=== PATIENT | female | born 1950 | race Caucasian/White ===

== ENCOUNTER 2018-03-31 00:51 | Emergency (ER) | payer MEDICARE, MEDICAID, SELFPAY ==
[2018-03-31 00:53] VITALS: BP 156/84; PULSE 99; RESP 16; TEMP 36.6; O2SAT 94; BMI 40.7
--- NOTE | 2018-03-31 01:50 | ED.VISSUMM ---
- ER Visit Summary Date of Service: 03/31/18 Chief Complaint: Left wrist pain History of Present Illness: The patient is a 67 F right-hand dominant increasing left wrist pain over 2 days. Has been doing more lifting with repetitive motions. No paresthesias. Pain with movement. No fevers. Denies direct falls or injuries. No history of similar. No medicines taken. History diabetes. Denies acute kidney injury or gastric ulcers. Physical Examination: General: Alert and oriented ?3, no acute distress HEENT: Normocephalic, atraumatic. Moist mucosa membranes Neck: supple, nontender. Cardiovascular: Regular rate and rhythm, no murmurs Respiratory: Normal breath sounds, symmetric, no distress Abdomen: Soft, nontender, nondistended Extremities: no edema, pulses intact ?4. Left upper extremity no shoulder or elbow pain. There is wrist pain to extension against resistance or force flexion. No styloid tenderness. No snuffbox tenderness. No swelling or erythema. Skin intact. Neuro: no focal neurological deficits. Test Results: [] Emergency Department Course and Treatment: Patient exam concerns for wrist tendinitis with overuse injury. Placed in a Velcro wrist splint for comfort. She will maintain for the next week and can take out for showers. Tylenol started. Follow-up with her PCP. Return if any worsening symptoms. Treatment Plan: [] Disposition: Discharge Impression: Left wrist tendinitis This note was generated with [employer] dictation software. It may contain incorrect words, spelling, and punctuation that were not noted in review of the chart prior to signing ED Disposition - Plan for ED Patient: Disposition: Home or Assisted Living Chief Complaint: Upper Extremity Injury Diagnosis: Left wrist tendinitis Referrals: Meghan Murphy MD [Primary Care Provider] - 5-7 Days Additional Instructions: Tendinitis of left wrist extensor. Use Tylenol 1 g every 6 hours as needed. Keep wrist splint on even at sleep. May remove for showers. Follow-up with your doctor.
[2018-03-31] MEDS: Acetaminophen 500 MG Tablet 1000 MG PO (02:00)
[2018-03-31 02:01] VITALS: RESP 18
== END 2018-03-31 02:13 | disposition home or self-care (01) ==
PROVIDERS: Emergency Provider Emergency Medicine; Family Provider Internal Medicine; PCP Internal Medicine
DX: M77.9 Enthesopathy, unspecified (principal); J44.9 Chronic obstructive pulmonary disease, unspecified; E11.9 Type 2 diabetes mellitus without complications; Z79.899 Other long term (current) drug therapy
CPT/HCPCS: 99283

== ENCOUNTER 2018-08-20 14:02 | Outpatient (RCR) | payer MEDICARE, MEDICAID, SELFPAY | END 2018-08-23 23:59 | LOC: WC 14:02 | PROVIDERS: Family Provider Internal Medicine; PCP Internal Medicine; Visit Provider Nurse Practitioner Family | DX: Z09 Encounter for follow-up examination after completed treatment for conditions other than malignant neoplasm (principal) ==

== ENCOUNTER 2019-06-23 14:30 | Outpatient (RCR) | payer BC, MEDICARE, SELFPAY ==
[2019-06-16 14:28] VITALS: BP 151/82; PULSE 77; RESP 18; TEMP 36.4; BMI 44.6
--- NOTE | 2019-06-16 15:45 | HP.PCM_ITS ---
(1) Ulcer of left lower extremity with fat layer exposed Status: Chronic Current Visit: Yes Code(s): L97.922 - Non-pressure chronic ulcer of unspecified part of left lower leg with fat layer exposed (2) Edema of both legs Status: Chronic Current Visit: Yes Code(s): R60.0 - Localized edema (3) Venous insufficiency Status: Suspected Current Visit: Yes Code(s): I87.2 - Venous insufficiency (chronic) (peripheral) (4) Other specified peripheral vascular diseases Status: Suspected Current Visit: Yes Code(s): I73.89 - Other specified peripheral vascular diseases (5) Type II diabetes mellitus Status: Chronic Current Visit: Yes Code(s): E11.9 - Type 2 diabetes mellitus without complications (6) Adult BMI 30+ Status: Chronic Current Visit: Yes Code(s): E66.8 - Other obesity History of Present Illness Date of Service: 06/16/19 Chief Complaint: Swollen painful legs with left leg ulcer History of Wound: This 68-year-old female who was seen today for painful swollen legs with a new left leg ulcer with an onset of about 1 to 2 weeks ago. She denies any known trauma. She noticed weeping. She denies odor. Her legs are tender constantly. She admits she does not elevate them. She did have a multilayer compression dressing applied last week and was not able to tolerate this in which she removed it at home later that evening. She denies claudication symptoms or rest paresthesias. She does report difficulty breathing while laying flat which is consistent with orthopnea. She is very emotional during this visit. Past Medical History Past Medical History: Chronic Problems Ulcer of left lower extremity with fat layer exposed (Chronic) Edema of both legs (Chronic) Obesity (Chronic) History of gallstones (Chronic) Fatty liver (Chronic) Type II diabetes mellitus (Chronic) Adult BMI 30+ (Chronic) Past Medical History: Diabetes, history of cervical cancer. Medical record request has been submitted to the [facility] (Dr. Murphy) to gain a better understanding of her medical history Surgical History: - - thyroidectomy, Allergies/Adverse Reactions: Allergies budesonide [From Symbicort] Allergy (Verified 06/16/19 15:04) Other formoterol fumarate [From Symbicort] Allergy (Verified 06/16/19 15:04) Other strawberry Allergy (Verified 06/16/19 15:04) Rash MOLD Allergy (Intermediate, Uncoded 06/16/19 15:04) Other Home Medications: Ambulatory Orders Medication Instructions Recorded Azelastine HCl [Astelin] 2 spray NASAL BID 02/21/17 Fluticasone/Salmeterol [Advair 1 each IH BID 02/21/17 100-50 Diskus] Levothyroxine [Synthroid] 100 mcg PO DAILY 02/21/17 Cholecalciferol (Vitamin D3) 500 unit PO DAILY 03/31/18 [Vitamin D3] Lidocaine [Aspercreme] 1 each TP PRN PRN 03/31/18 Lives: Alone Smoking Status: Never smoker Review of Systems Constitutional: Denies: Chills, Fever, Fatigue HEENT: Denies: Sore Throat Cardiovascular: Reports: Edema, Orthopnea. Denies: Chest Pain, Claudication Respiratory: Denies: Shortness of Breath Gastrointestinal: Denies: Diarrhea, Nausea, Vomiting Musculoskeletal: Reports: Leg Pain. Denies: Foot Pain, Joint Tenderness Skin: Reports: Skin Changes, Wounds. Denies: Pruritis Neurological: Reports: Incoordination. Denies: Numbness Psychiatric: Reports: Anxiety - Physical Exam Vital Signs Temp Pulse Resp BP 97.5 F L 77 18 151/82 H 06/16/19 14:28 06/16/19 14:28 06/16/19 14:28 06/16/19 14:28 General: Alert, Oriented x3, Cooperative HEENT: Atraumatic Extremities: No cyanosis, Capillary Refill Less than 3 Seconds, No Calf Tenderness - Negative Whipple sign bilateral, Diminished Peripheral Pulses - Palpable DP pulses bilateral, Edema - Digits, foot, and leg. The left leg is more swollen than the right leg and there are chronic skin changes including hyperpigmentation, induration and weeping from the left leg, Tenderness - Compartments soft to palpate bilateral lower extremities Skin: Ulcer/ Wound - The ulcer site is very superficial with weeping serous drainage only. There is no purulence, erythema, streaking, odor, infection. No bogginess or fluctuance left. The skin is hairless and atrophic bilateral lower extremities Wound Measurements and Assessment WC - Nurse 1 - General Ulcer Measurement Start: 06/16/19 14:26 Freq: Status: Active Protocol: Activity Type Activity Date Activity User E-Sign Co-Sign Detail Recorded Client Recorded Date Recorded By Document 06/16/19 14:28 DV [id number] 06/16/19 14:59 DV 06/16/19 14:28 Wound Center Nurse 1 [Ulcer Assessment] #1 Lateral LLE -Combined with other wound No -Current Size (cm) - Length 0.9 -Current Size (cm) - Width 1.8 -Current Size (cm) - Depth 0.1 -Total Square Cm 1.62 -Date of Last Picture (Recall this 06/16/19 field) -Photo Taken Yes -Epithelialization None Present -Tunneling No -Undermining/Tunneling No -Circular Undermining No -Classification - Thickness Full Thickness without Exposed Support Structure -Exudate Amt Medium -Exudate Type Serosanguineous -Wound Margin Flat & Intact -Granulation Amt None Present (0 %) -Granulation Quality N/A -Slough/Fibrin Yes -Necrosis Amt Medium (34-66%) -Necrotic Tissue Type Adherent Slough -Structure Exposed None/Limited to Skin Breakdown -Texture (Miracle-wound Skin Appearance) Assessed, Scarring -Moisture (Miracle-wound Skin Appearance Assessed, ) Weeping,Dry/ Scaly -Color (Miracle-wound Skin Appearance) Assessed, Erythema -Temperature (Miracle-wound Skin No Abnormality Appearance) (Pt Warm) -Tenderness on Palpation (Miracle-wound Yes Skin Appearance) -Foul Odor after Cleansing No -Anesthetic Used 5% Lidocaine Gel [Edema Assessment] -Lower Limb Edema Present Yes -Right Calf (cm) 49.5 -Right Ankle (cm) 29.0 -Left Calf (cm) 52.2 -Left Ankle (cm) 35.0 WC - Nurse 2 - General Ulcer CM Notes Start: 06/16/19 14:26 Freq: Status: Active Protocol: Activity Type Activity Date Activity User E-Sign Co-Sign Detail Recorded Client Recorded Date Recorded By Document 06/16/19 15:12 AN [id number] 06/16/19 15:22 AN 06/16/19 15:12 Wound Center Nurse 2 [Procedure/Treatment] #1 Lateral LLE -Time 15:14 -Correct Patient Yes -Correct Side, Site, Position Yes -Correct Procedure Yes -Procedure Performed Yes -Type of Procedure Debridement -Clinical Debridement Subcutaneous -Post Debridement Size (cm) - Length 0.9 -Post Debridement Size (cm) - Width 1.8 -Post Debridement Size (cm) - Depth 0.1 -Total Square Cm 1.62 -Wound/Ulcer Outcome Not Healed -Ulcer Cleansing Rinsed/ Irrigated with Saline -Foul Odor after Cleansing No -Bioengineered Tissue No -Bleeding Controlled with Pressure -Offloading No -Treatment Response Procedure Tolerated Well [See Physician Procedure note for Specifics] Pain Scale: 0-10 Numeric [Pain] -Is Patient Pain Free? Yes Musculoskeletal: No Tenderness to Palpation of Joints or Extremities, Muscle Wasting Neurological: Sensory exam intact to light touch and pain Psych/Mental Status: Normal Affect, Appropriate Debridement Note Post-Debridement Measurements/Treatment WC - Nurse 2 - General Ulcer CM Notes Start: 06/16/19 14:26 Freq: Status: Active Protocol: Activity Type Activity Date Activity User E-Sign Co-Sign Detail Recorded Client Recorded Date Recorded By Document 06/16/19 15:12 AN [id number] 06/16/19 15:22 AN 06/16/19 15:12 Wound Center Nurse 2 #1 Lateral LLE -Time 15:14 -Correct Patient Yes -Correct Side, Site, Position Yes -Correct Procedure Yes -Procedure Performed Yes -Type of Procedure Debridement -Clinical Debridement Subcutaneous -Post Debridement Size (cm) - Length 0.9 -Post Debridement Size (cm) - Width 1.8 -Post Debridement Size (cm) - Depth 0.1 -Total Square Cm 1.62 -Wound/Ulcer Outcome Not Healed -Ulcer Cleansing Rinsed/ Irrigated with Saline -Foul Odor after Cleansing No -Bioengineered Tissue No -Bleeding Controlled with Pressure -Offloading No -Treatment Response Procedure Tolerated Well Pain Scale: 0-10 Numeric Is Patient Pain Free? Yes Wound debrided: lateral leg Laterality: Left Wound Grade/Stage: grade 1 Type of Debridement: Excisional debridement Anesthesia Used: 5% Lidocaine Gel Depth: in the subcutaneous layer Percentage of wound debrided: 100 Instrument Used: #15 blade Tissue Removed: fibrous, devitalized subcutaneous, biofilm, slough Severity: Fat Layer Exposed Amount of bleeding with debridement: Mild Bleeding Controlled with: Pressure Patient tolerated procedure well Assessment/Plan Active Problems Ulcer of left lower extremity with fat layer exposed (Chronic) Edema of both legs (Chronic) Type II diabetes mellitus (Chronic) Adult BMI 30+ (Chronic) Assessment: Left leg ulcer with fat layer exposed. Bilateral lower extremity. Leg pain bilateral. Venous insufficiency suspected. Lymphedema suspected. Potential congestive heart failure with secondary edema suspected. Rule out peripheral vascular disease. Malnutrition suspected Plan: I reviewed and discussed her case. She was referred from the [facility] center. The etiology of her swelling and ulcer was explained in detail again today. Debridement was performed as noted in the clinical panel. To change the dressing daily with Aquacel Ag. I recommend Tubigrip for compression management which is an initial low-grade treatment. Additional compression will be considered after she tolerates this and completes her arterial venous studies. I do recommend ordering CircAid compression dressings also for long- term management; order will be initiated. Venous Doppler studies have already been ordered and scheduling is pending including a reflux examination. Arterial studies were also ordered including JUSTINA, segmental pressures. Basic lab work was also ordered including CBC, CMP, and prealbumin to better understand her medical baseline status. Her medical records from [facility] were also requested to better understand her full medical history. She is advised to offload the ulcer site by avoiding laying on this site and by also controlling edema. To elevate the limbs above the level of the heart while at rest. I also recommended she avoid idle standing or sitting to better control her edema as well. I suspect most of her pain is secondary to the chronic high-grade edema. I do not recommend pain medication. She is reassured I do not suspect any local or systemic signs of illness at this time. To monitor and call the clinic if she notices any of these signs. To control diabetes and take nutritional supplementation to optimize healing. I recommend she return to the wound [facility] in 1 week. I answer all her questions.
[2019-06-23 14:38] VITALS: BP 123/83; PULSE 104; RESP 18; TEMP 36.7; BMI 44.6
--- NOTE | 2019-06-23 15:34 | PCM.WC.PN ---
(1) Ulcer of left lower extremity with fat layer exposed Status: Chronic Code(s): L97.922 - Non-pressure chronic ulcer of unspecified part of left lower leg with fat layer exposed (2) Edema of both legs Status: Chronic Code(s): R60.0 - Localized edema (3) Venous insufficiency Status: Suspected Code(s): I87.2 - Venous insufficiency (chronic) (peripheral) (4) Other specified peripheral vascular diseases Status: Suspected Code(s): I73.89 - Other specified peripheral vascular diseases (5) Type II diabetes mellitus Status: Chronic Code(s): E11.9 - Type 2 diabetes mellitus without complications (6) Adult BMI 30+ Status: Chronic Code(s): E66.8 - Other obesity Type of Wound Date of Service: 06/23/19 Chief Complaint: Swollen painful legs with left leg ulcer History of Wound: This 68-year-old female who was seen today for painful swollen legs with a new left leg ulcer with an onset of within 1 month ago. She denies any known trauma. She noticed weeping but has decreased. She had trouble with her compression dressing last week and refuses debridement today. She did not get her vascular studies test completed yet. Progress of Wound: Improving - Physical Exam Vital Signs Temp Pulse Resp BP 98.0 F 104 H 18 123/83 H 06/23/19 14:38 06/23/19 14:38 06/23/19 14:38 06/23/19 14:38 General: Alert, Oriented x3, Cooperative, No apparent distress Extremities: No cyanosis, Capillary Refill Less than 3 Seconds, No Calf Tenderness - Negative Yuri and Whipple sign, Diminished Peripheral Pulses, Edema Skin: Ulcer/ Wound - No purulence, erythema, streaking, odor, infection. Peripheral epithelialization is noted. The skin is hairless and atrophic. Wound Measurements and Assessment WC - Nurse 1 - General Ulcer Measurement Start: 06/16/19 14:26 Freq: Status: Active Protocol: Activity Type Activity Date Activity User E-Sign Co-Sign Detail Recorded Client Recorded Date Recorded By Document 06/23/19 14:38 [id number] 06/23/19 14:41 06/23/19 14:38 Wound Center Nurse 1 [Ulcer Assessment] #1 Lateral LLE -Combined with other wound No -Current Size (cm) - Length 1.2 -Current Size (cm) - Width 2.1 -Current Size (cm) - Depth 0.1 -Total Square Cm 2.52 -Photo Taken No -Epithelialization Medium 34-66% -Tunneling No -Undermining/Tunneling No -Circular Undermining No -Exudate Amt Medium -Exudate Type Serosanguineous -Wound Margin Distinct, Outline Attached -Granulation Amt Large (67-100%) -Granulation Quality Pale -Slough/Fibrin Yes -Necrosis Amt None Present (0 %) -Necrotic Tissue Type Adherent Slough -Structure Exposed None/Limited to Skin Breakdown -Texture (Miracle-wound Skin Appearance) Excoriation -Moisture (Miracle-wound Skin Appearance Weeping ) -Color (Miracle-wound Skin Appearance) Assessed, Erythema, Hemosiderin Staining -Temperature (Miracle-wound Skin No Abnormality Appearance) (Pt Warm) -Tenderness on Palpation (Miracle-wound Yes Skin Appearance) -Ulcer Cleansing Rinsed/ Irrigated with Saline -Foul Odor after Cleansing No -Anesthetic Used 4% Lidocaine Solution [Edema Assessment] -Lower Limb Edema Present Yes -Right Calf (cm) 44 -Right Ankle (cm) 26.5 -Left Calf (cm) 48 -Left Ankle (cm) 30.5 WC - Nurse 2 - General Ulcer CM Notes Start: 06/16/19 14:26 Freq: Status: Active Protocol: Activity Type Activity Date Activity User E-Sign Co-Sign Detail Recorded Client Recorded Date Recorded By Document 06/23/19 15:13 AN [id number] 06/23/19 15:17 AN 06/23/19 15:13 Wound Center Nurse 2 [Procedure/Treatment] #1 Lateral LLE -Time 15:16 -Correct Patient Yes -Correct Side, Site, Position Yes -Correct Procedure Yes -Procedure Performed No -Post Debridement Size (cm) - Length 1.2 -Post Debridement Size (cm) - Width 2.1 -Post Debridement Size (cm) - Depth 0.2 -Total Square Cm 2.52 -Wound/Ulcer Outcome Not Healed [See Physician Procedure note for Specifics] Pain Scale: 0-10 Numeric [Pain] -Is Patient Pain Free? Yes Musculoskeletal: No Tenderness to Palpation of Joints or Extremities, Muscle Wasting Neurological: Sensory exam intact to light touch and pain Psych/Mental Status: Normal Affect, Appropriate Debridement Note Post-Debridement Measurements/Treatment WC - Nurse 2 - General Ulcer CM Notes Start: 06/16/19 14:26 Freq: Status: Active Protocol: Activity Type Activity Date Activity User E-Sign Co-Sign Detail Recorded Client Recorded Date Recorded By Document 06/16/19 15:12 AN [id number] 06/16/19 15:22 AN Document 06/23/19 15:13 AN [id number] 06/23/19 15:17 AN 06/16/19 06/23/19 15:12 15:13 Wound Center Nurse 2 #1 Lateral LLE -Time 15:14 15:16 -Correct Patient Yes Yes -Correct Side, Site, Position Yes Yes -Correct Procedure Yes Yes -Procedure Performed Yes No -Type of Procedure Debridement -Clinical Debridement Subcutaneous -Post Debridement Size (cm) - Length 0.9 1.2 -Post Debridement Size (cm) - Width 1.8 2.1 -Post Debridement Size (cm) - Depth 0.1 0.2 -Total Square Cm 1.62 2.52 -Wound/Ulcer Outcome Not Healed Not Healed -Ulcer Cleansing Rinsed/ Irrigated with Saline -Foul Odor after Cleansing No -Bioengineered Tissue No -Bleeding Controlled with Pressure -Offloading No -Treatment Response Procedure Tolerated Well Pain Scale: 0-10 Numeric Is Patient Pain Free? Yes Yes No debridement was completed today - refused and very superficial Assessment/Plan Assessment: Left leg ulcer with fat layer exposed. Bilateral lower extremity. Leg pain bilateral. Venous insufficiency suspected. Lymphedema suspected. Potential congestive heart failure with secondary edema suspected. Rule out peripheral vascular disease. Malnutrition suspected Plan: I reviewed and discussed her case. She deferred debridement today. To change the dressing daily with Aquacel Ag. I recommend Tubigrip for compression management which is an initial low-grade treatment. Additional compression will be considered after she tolerates this and completes her arterial venous studies. I do recommend ordering CircAid compression dressings also for long-term management; order will be initiated. Venous Doppler studies have already been ordered and scheduling is pending including a reflux examination. Arterial studies were also ordered including JUSTINA, segmental pressures. Basic lab work was also ordered including CBC, CMP, and prealbumin to better understand her medical baseline status. Her medical records from [facility] were also requested to better understand her full medical history. She is advised to offload the ulcer site by avoiding laying on this site and by also controlling edema. To elevate the limbs above the level of the heart while at rest. I also recommended she avoid idle standing or sitting to better control her edema as well. I suspect most of her pain is secondary to the chronic high-grade edema. I do not recommend pain medication. She is reassured I do not suspect any local or systemic signs of illness at this time. To monitor and call the clinic if she notices any of these signs. To control diabetes and take nutritional supplementation to optimize healing. I recommend she return to the wound healing center in 1 week. I answer all her questions.
== END 2019-06-23 23:59 ==
LOC: WC 14:30
PROVIDERS: Family Provider Internal Medicine; PCP Internal Medicine; Visit Provider Podiatrist
DX: E11.622 Type 2 diabetes mellitus with other skin ulcer (principal); R60.0 Localized edema; I87.2 Venous insufficiency (chronic) (peripheral); L97.822 Non-pressure chronic ulcer of other part of left lower leg with fat layer exposed; E66.9 Obesity, unspecified; Z68.41 Body mass index [BMI] 40.0-44.9, adult; Z85.41 Personal history of malignant neoplasm of cervix uteri
CPT/HCPCS: 11042; 99202; 99212; G0463

== ENCOUNTER 2019-07-21 14:30 | Outpatient (RCR) | payer MEDICARE, SELFPAY ==
[2019-06-24 01:16] VITALS: BP 123/83; PULSE 104; RESP 18; TEMP 36.7
[2019-07-09 13:20] VITALS: BP 142/80; PULSE 104; RESP 16; TEMP 37.2; BMI 44.6
--- NOTE | 2019-07-09 16:48 | PN.PCM_ITS ---
(1) Ulcer of left lower extremity, limited to breakdown of skin Status: Chronic Current Visit: Yes Code(s): L97.921 - Non-pressure chronic ulcer of unspecified part of left lower leg limited to breakdown of skin (2) Left leg pain Status: Acute Current Visit: Yes Code(s): M79.605 - Pain in left leg (3) Edema of both legs Status: Chronic Current Visit: Yes Code(s): R60.0 - Localized edema (4) Venous insufficiency Status: Suspected Current Visit: Yes Code(s): I87.2 - Venous insufficiency (chronic) (peripheral) (5) Other specified peripheral vascular diseases Status: Suspected Current Visit: Yes Code(s): I73.89 - Other specified peripheral vascular diseases (6) Obesity Status: Chronic Current Visit: Yes Code(s): E66.9 - Obesity, unspecified Type of Wound Date of Service: 07/09/19 Chief Complaint: Swollen painful legs with left leg ulcer History of Wound: This 68-year-old female who was seen today for painful swollen legs with a new left leg ulcer with an onset of over 1 month ago. She denies any known trauma. She noticed weeping has continued. She did not get her vascular studies test completed yet. She has been trying to keep her swelling down with some mild compression use. She has had a recent urinary tract infection and bladder condition progression which she is following up with her primary care physician. This is been taking priority in regards to scheduling her doctor visits. She denies redness or odor. She is happy with her progress so far. Progress of Wound: Improving - Physical Exam Vital Signs Temp Pulse Resp BP 98.9 F 104 H 16 142/80 H 07/09/19 13:20 07/09/19 13:20 07/09/19 13:20 07/09/19 13:20 General: Alert, Oriented x3, Cooperative, No apparent distress HEENT: Atraumatic Extremities: No cyanosis, Capillary Refill Less than 3 Seconds, No Calf Tenderness - Negative Yuri and Whipple, Diminished Peripheral Pulses, Edema, Tenderness - Pain with ulcer manipulation and only has a skin layer exposed this time. Skin: Ulcer/ Wound - No purulence, erythema, streaking, odor, infection. There is progressive epithelialization however there is continued weeping. The peripheral skin is hairless and atrophic. She also has some hyperpigmentation to this limb which is consistent with chronic edema. No new ulcers noted. Wound Measurements and Assessment WC - Nurse 1 - General Ulcer Measurement Start: 07/05/19 10:24 Freq: Status: Active Protocol: Activity Type Activity Date Activity User E-Sign Co-Sign Detail Recorded Client Recorded Date Recorded By Document 07/09/19 13:20 BM [id number] 07/09/19 13:23 BM 07/09/19 13:20 Wound Center Nurse 1 [Ulcer Assessment] #1 Lateral LLE -Combined with other wound No -Current Size (cm) - Length 6 -Current Size (cm) - Width 3.3 -Current Size (cm) - Depth 0.1 -Total Square Cm 19.8 -Photo Taken No -Epithelialization None Present -Tunneling No -Undermining/Tunneling No -Circular Undermining No -Exudate Amt Small -Exudate Type Serous -Wound Margin Flat & Intact -Granulation Amt Small (1-33%) -Granulation Quality Red -Slough/Fibrin Yes -Necrosis Amt Large (67-100%) -Necrotic Tissue Type Adherent Slough -Texture (Miracle-wound Skin Appearance) Assessed, Excoriation, Rash -Moisture (Miracle-wound Skin Appearance Assessed,Dry/ ) Scaly -Color (Miracle-wound Skin Appearance) Assessed, Erythema -Temperature (Miracle-wound Skin No Abnormality Appearance) (Pt Warm) -Tenderness on Palpation (Miracle-wound Yes Skin Appearance) -Ulcer Cleansing Rinsed/ Irrigated with Saline -Foul Odor after Cleansing No -Anesthetic Used 4% Lidocaine Solution [Edema Assessment] -Lower Limb Edema Present Yes -Right Calf (cm) 45.2 -Right Ankle (cm) 27 -Left Calf (cm) 38.5 -Left Ankle (cm) 30.2 WC - Nurse 2 - General Ulcer CM Notes Start: 07/05/19 10:24 Freq: Status: Active Protocol: Activity Type Activity Date Activity User E-Sign Co-Sign Detail Recorded Client Recorded Date Recorded By Document 07/09/19 13:50 DV [id number] 07/09/19 13:56 DV 07/09/19 13:50 Wound Center Nurse 2 [Procedure/Treatment] #1 Lateral LLE -Time 13:51 -Correct Patient Yes -Correct Side, Site, Position Yes -Correct Procedure No -Procedure Performed No -Wound/Ulcer Outcome Not Healed [See Physician Procedure note for Specifics] Pain Scale: 0-10 Numeric [Pain] -Is Patient Pain Free? Yes Musculoskeletal: No Tenderness to Palpation of Joints or Extremities, Muscle Wasting Neurological: Sensory exam intact to light touch and pain Psych/Mental Status: Normal Affect, Appropriate Debridement Note Post-Debridement Measurements/Treatment WC - Nurse 2 - General Ulcer CM Notes Start: 07/05/19 10:24 Freq: Status: Active Protocol: Activity Type Activity Date Activity User E-Sign Co-Sign Detail Recorded Client Recorded Date Recorded By Document 07/09/19 13:50 DV [id number] 07/09/19 13:56 DV 07/09/19 13:50 Wound Center Nurse 2 #1 Lateral LLE -Time 13:51 -Correct Patient Yes -Correct Side, Site, Position Yes -Correct Procedure No -Procedure Performed No -Wound/Ulcer Outcome Not Healed Pain Scale: 0-10 Numeric Is Patient Pain Free? Yes No debridement was completed today - superficial weeping area only Assessment/Plan Active Problems Ulcer of left lower extremity, limited to breakdown of skin (Chronic) Left leg pain (Acute) Ulcer of left lower extremity with fat layer exposed (Chronic) Edema of both legs (Chronic) Obesity (Chronic) Assessment: Left leg ulcer with skin layer exposed and continued weeping. Bilateral lower extremity. Leg pain bilateral. Venous insufficiency suspected. Lymphedema suspected. Potential congestive heart failure with secondary edema suspected. Rule out peripheral vascular disease. Malnutrition suspected Plan: I reviewed and discussed her case. The debridement was not performed today because there is only skin layer exposed. Maintain recommend with her at this time is continued edema management to help her weeping stop. To change the dressing daily with saline moistened Aquacel Ag. I recommend Tubigrip for compression management which is an initial low-grade treatment. Additional compression will be considered after she tolerates this and completes her arterial venous studies. I do recommend ordering CircAid compression dressings also for long-term management; order has been initiated. Venous Doppler studies have already been ordered and scheduling is pending including a reflux examination. Arterial studies were also ordered including JUSTINA, segmental pressures. She has not scheduled this yet and I recommended she makes a prior to this upcoming week. It is noted that she has had other important medical conditions to tend to this past week and also recommended her follow-up with primary care physician as advised. Basic lab work was also ordered including CBC, CMP, and prealbumin to better understand her medical baseline status. Her medical records from [facility] were also requested to better understand her full medical history. She is advised to offload the ulcer site by avoiding laying on this site and by also controlling edema. To elevate the limbs above the level of the heart while at rest. I also recommended she avoid idle standing or sitting to better control her edema as well. I suspect most of her pain is secondary to the chronic high-grade edema. I do not recommend pain medication. She is reassured I do not suspect any local or systemic signs of illness at this time. To monitor and call the clinic if she notices any of these signs. To control diabetes and take nutritional supplementation to optimize healing. I recommend she return to the wound healing center in 1 week. I answer all her questions.
[2019-07-21 14:18] VITALS: BP 168/89; PULSE 97; RESP 22; TEMP 36.6; BMI 44.6
--- NOTE | 2019-07-21 16:01 | PN.PCM_ITS ---
(1) Ulcer of left lower extremity, limited to breakdown of skin Status: Resolved Current Visit: Yes Code(s): L97.921 - Non-pressure chronic ulcer of unspecified part of left lower leg limited to breakdown of skin (2) Left leg pain Status: Chronic Current Visit: Yes Code(s): M79.605 - Pain in left leg (3) Edema of both legs Status: Chronic Current Visit: Yes Code(s): R60.0 - Localized edema (4) Venous insufficiency Status: Suspected Current Visit: Yes Code(s): I87.2 - Venous insufficiency (chronic) (peripheral) (5) Other specified peripheral vascular diseases Status: Suspected Current Visit: Yes Code(s): I73.89 - Other specified peripheral vascular diseases (6) Obesity Status: Chronic Current Visit: Yes Code(s): E66.9 - Obesity, unspecified Type of Wound Date of Service: 07/21/19 Chief Complaint: Swollen painful legs with left leg ulcer History of Wound: This 68-year-old female who was seen today for painful swollen legs with a left leg ulcer. She denies any known trauma. She noticed weeping has discontinued. She did not get her vascular studies test completed yet. She relates she only wants to go if there is a female central sterile supply technician performing the exam because she had a bad experience last time she had this test performed. She admits she is very hypersensitive to even the lightest of touch to her legs. She has been trying to keep her swelling down with some mild compression use. She brought her compression garments today and would like to review proper application. She has had a recent urinary tract infection and bladder condition progression which she is following up with her primary care physician. She denies fever, chill, nausea, vomiting. She denies redness or odor. She is happy with her progress so far. Progress of Wound: Healed - Physical Exam Vital Signs Temp Pulse Resp BP 97.8 F 97 22 H 168/89 H 07/21/19 14:18 07/21/19 14:18 07/21/19 14:18 07/21/19 14:18 General: Alert, Oriented x3, Cooperative, No apparent distress HEENT: Atraumatic Extremities: No cyanosis, Capillary Refill Less than 3 Seconds, No Calf Tenderness - Hypersensitivity to light touch to the skin and negative Whipple sign bilateral, Diminished Peripheral Pulses, Edema - Moderate to severe bilateral lower extremities left is more notable than right Skin: Ulcer/ Wound - Full epithelialization noted to the left leg. There is no purulence, erythema, streaking, odor, infection. Bilateral lower extremity skin is hairless and atrophic with hyperpigmentation and dryness Wound Measurements and Assessment WC - Nurse 1 - General Ulcer Measurement Start: 07/05/19 10:24 Freq: Status: Active Protocol: Activity Type Activity Date Activity User E-Sign Co-Sign Detail Recorded Client Recorded Date Recorded By Document 07/21/19 14:18 DL [id number] 07/21/19 14:22 DL 07/21/19 14:18 Wound Center Nurse 1 [Ulcer Assessment] #1 Lateral LLE -Current Size (cm) - Length 0.1 -Current Size (cm) - Width 0.1 -Current Size (cm) - Depth 0.1 -Total Square Cm 0.01 -Photo Taken No -Exudate Amt None Present -Wound Margin Flat & Intact -Granulation Amt Large (67-100%) -Granulation Quality [place] -Necrosis Amt Small (1-33%) -Structure Exposed N/A -Texture (Miracle-wound Skin Appearance) Scarring,Rash -Color (Miracle-wound Skin Appearance) Hemosiderin Staining -Temperature (Miracle-wound Skin No Abnormality Appearance) (Pt Warm) -Tenderness on Palpation (Miracle-wound No Skin Appearance) -Ulcer Cleansing Wound Cleanser -Foul Odor after Cleansing No -Anesthetic Used 4% Lidocaine Solution [Edema Assessment] -Right Calf (cm) 43.6 -Right Ankle (cm) 27.6 -Left Calf (cm) 49 -Left Ankle (cm) 31 WC - Nurse 2 - General Ulcer CM Notes Start: 07/05/19 10:24 Freq: Status: Active Protocol: Activity Type Activity Date Activity User E-Sign Co-Sign Detail Recorded Client Recorded Date Recorded By Document 07/21/19 15:03 AN [id number] 07/21/19 15:04 AN 07/21/19 15:03 Pain Scale: 0-10 Numeric [Pain] -Is Patient Pain Free? Yes Musculoskeletal: No Tenderness to Palpation of Joints or Extremities, Muscle Wasting Neurological: Sensory exam intact to light touch and pain Psych/Mental Status: Normal Affect, Appropriate, Anxious Debridement Note Post-Debridement Measurements/Treatment WC - Nurse 2 - General Ulcer CM Notes Start: 07/05/19 10:24 Freq: Status: Active Protocol: Activity Type Activity Date Activity User E-Sign Co-Sign Detail Recorded Client Recorded Date Recorded By Document 07/09/19 13:50 DV [id number] 07/09/19 13:56 DV Document 07/21/19 15:03 AN [id number] 07/21/19 15:04 AN 07/09/19 07/21/19 13:50 15:03 Wound Center Nurse 2 #1 Lateral LLE -Time 13:51 -Correct Patient Yes -Correct Side, Site, Position Yes -Correct Procedure No -Procedure Performed No -Wound/Ulcer Outcome Not Healed Pain Scale: 0-10 Numeric Is Patient Pain Free? Yes Yes Wound debrided: leg Laterality: Left No debridement was completed today - healed today Assessment/Plan Active Problems Left leg pain (Chronic) Ulcer of left lower extremity with fat layer exposed (Chronic) Edema of both legs (Chronic) Obesity (Chronic) Assessment: Left leg ulcer healed and resolved weeping noted. Bilateral lower extremity. Leg pain bilateral. Venous insufficiency suspected. Lymphedema suspected. Potential congestive heart failure with secondary edema suspected. Rule out peripheral vascular disease. Malnutrition suspected Plan: I reviewed and discussed her case. The debridement was not performed today because it is healed. To discontinue dressing care as the ulcer site has healed. I recommend Tubigrip for compression management which is an initial low-grade treatment. She obtained the recommended CircAid compression dressings also for long-term management and was educated on proper application today. Venous Doppler studies have already been ordered and scheduling is pending including a reflux examination. Arterial studies were also ordered including JUSTINA, segmental pressures. She has not scheduled this yet and I recommended she makes a prior to this upcoming week. Her scheduling apprehensions were discussed and regardless I still recommend she gets this updated test performed so we can provide the most appropriate care plan. It is noted that she has had other important medical conditions to tend to this past week and also recommended her follow-up with primary care physician as advised. Basic lab work was also ordered including CBC, CMP, and prealbumin to better understand her medical baseline status. Her medical records from [facility] were also requested to better understand her full medical history. She is advised to offload the recently healed ulcer site by avoiding laying on this site and by also controlling edema. To elevate the limbs above the level of the heart while at rest. I also recommended she avoid idle standing or sitting to better control her edema as well. I suspect most of her pain is secondary to the chronic high-grade edema. I do not recommend pain medication. She is reassured I do not suspect any local or systemic signs of illness at this time. To monitor and call the clinic if she notices any of these signs. To control diabetes and take nutritional supplementation to optimize healing. I recommend she return to the wound healing center in 1 week. I answer all her questions.
== END 2019-07-24 23:59 ==
LOC: WC 14:30
PROVIDERS: Family Provider Internal Medicine; PCP Internal Medicine; Visit Provider Podiatrist
DX: E11.622 Type 2 diabetes mellitus with other skin ulcer (principal); L97.821 Non-pressure chronic ulcer of other part of left lower leg limited to breakdown of skin
CPT/HCPCS: 99212; 99213; G0463

== ENCOUNTER 2019-08-04 13:42 | Outpatient (RCR) | payer MEDICARE, MEDICAID, SELFPAY ==
[2019-07-25 01:01] VITALS: BP 168/89; PULSE 97; RESP 22; TEMP 36.6
[2019-08-04 14:58] VITALS: BP 147/76; PULSE 84; RESP 18; TEMP 36.7; BMI 47.2
--- NOTE | 2019-08-04 15:46 | PN.PCM_ITS ---
(1) Left leg pain Status: Acute Current Visit: Yes Code(s): M79.605 - Pain in left leg (2) Ulcer of left lower extremity, limited to breakdown of skin Status: Resolved Current Visit: Yes Code(s): L97.921 - Non-pressure chronic ulcer of unspecified part of left lower leg limited to breakdown of skin (3) Edema of both legs Status: Chronic Current Visit: Yes Code(s): R60.0 - Localized edema (4) Venous insufficiency Status: Suspected Current Visit: Yes Code(s): I87.2 - Venous insufficiency (chronic) (peripheral) (5) Type II diabetes mellitus Status: Chronic Current Visit: Yes Code(s): E11.9 - Type 2 diabetes mellitus without complications Type of Wound Date of Service: 08/04/19 Chief Complaint: Swollen painful legs with healed left leg ulcer History of Wound: This 68-year-old female who was seen today for painful swollen legs with a left leg ulcer. She denies any known trauma. She noticed weeping has discontinued. She did not get her vascular studies test completed yet. She has been trying to keep her swelling down with some mild compression use. She denies fever, chill, nausea, vomiting. She denies redness or odor. She is happy with her improvement. Progress of Wound: Remains healed - Physical Exam Vital Signs Temp Pulse Resp BP 98.0 F 84 18 147/76 H 08/04/19 14:58 08/04/19 14:58 08/04/19 14:58 08/04/19 14:58 General: Alert, Oriented x3, Cooperative, No apparent distress Extremities: No cyanosis, Capillary Refill Less than 3 Seconds, No Calf Tendern ess - Negative Yuri and Whipple sign left, Diminished Peripheral Pulses, Edema, Tenderness - Reduce tenderness to healed ulcer site left leg Skin: Ulcer/ Wound - No purulence, erythema, streaking, odor, skin discontinuity, maceration, or necrosis left leg. The skin is atrophic Wound Measurements and Assessment WC - Nurse 1 - General Ulcer Measurement Start: 08/04/19 14:57 Freq: Status: Active Protocol: Activity Type Activity Date Activity User E-Sign Co-Sign Detail Recorded Client Recorded Date Recorded By Document 08/04/19 14:58 [email or web address] [id number] 08/04/19 15:01 ALFRED 08/04/19 14:58 Wound Center Nurse 1 [Edema Assessment] -Lower Limb Edema Present Yes -Right Calf (cm) 42.8 -Right Ankle (cm) 26.2 -Left Calf (cm) 45.5 -Left Ankle (cm) 29.3 WC - Nurse 2 - General Ulcer CM Notes Start: 08/04/19 14:57 Freq: Status: Active Protocol: Activity Type Activity Date Activity User E-Sign Co-Sign Detail Recorded Client Recorded Date Recorded By Document 08/04/19 15:33 AN [id number] 08/04/19 15:37 AN 08/04/19 15:33 Pain Scale: 0-10 Numeric [Pain] -Is Patient Pain Free? Yes Musculoskeletal: No Tenderness to Palpation of Joints or Extremities, Muscle Wasting Neurological: Sensory exam intact to light touch and pain Psych/Mental Status: Normal Affect, Appropriate Debridement Note Post-Debridement Measurements/Treatment WC - Nurse 2 - General Ulcer CM Notes Start: 08/04/19 14:57 Freq: Status: Active Protocol: Activity Type Activity Date Activity User E-Sign Co-Sign Detail Recorded Client Recorded Date Recorded By Document 08/04/19 15:33 AN [id number] 08/04/19 15:37 AN 08/04/19 15:33 Pain Scale: 0-10 Numeric Is Patient Pain Free? Yes No debridement was completed today Assessment/Plan Active Problems Left leg pain (Acute) Edema of both legs (Chronic) Type II diabetes mellitus (Chronic) Assessment: Left leg ulcer healed and resolved weeping noted. Bilateral lower extremity. Leg pain bilateral. Venous insufficiency suspected. Lymphedema suspected. Potential congestive heart failure with secondary edema suspected. Rule out peripheral vascular disease. Malnutrition suspected Plan: I reviewed and discussed her case. The debridement was not performed today because it is healed. To discontinue dressing care as the ulcer site has healed. I recommend Tubigrip for compression management which is an initial low-grade treatment. She obtained the recommended CircAid compression dressings also for long-term management and was educated on proper application today. Venous Doppler studies have already been ordered and scheduling is pending including a reflux examination. Arterial studies were also ordered including JUSTINA, segmental pressures. She has not scheduled this yet and I recommended she makes a prior to this upcoming week. She has been noncompliant with this and understands weekly follow-ups will not be recommended if she fails to obtain the appropriate work-up to prevent future wound formation. She is advised to offload the recently healed ulcer site by avoiding laying on this site and by also controlling edema. To elevate the limbs above the level of the heart while at rest. I also recommended she avoid idle standing or sitting to better control her edema as well. I suspect most of her pain is secondary to the chronic high-grade edema. I do not recommend pain medication. She is reassured I do not suspect any local or systemic signs of illness at this time. To monitor and call the clinic if she notices any of these signs. To control diabetes and take nutritional supplementation to optimize healing. She is frustrated with her inability to lose weight and I offered her nutrition referral. Referral was made today we discussed the benefits of the service. I recommend she return to the wound healing center in 1 week. I answer all her questions.
== END 2019-08-23 23:59 ==
LOC: CVS 13:42
PROVIDERS: Family Provider Internal Medicine; PCP Internal Medicine; Visit Provider Podiatrist
DX: R60.0 Localized edema (principal); M79.605 Pain in left leg; I87.2 Venous insufficiency (chronic) (peripheral); E11.9 Type 2 diabetes mellitus without complications
CPT/HCPCS: 99212; G0463

== ENCOUNTER 2019-09-01 10:39 | Outpatient (RCR) | payer MEDICARE, MEDICAID, SELFPAY ==
[2019-08-24 00:55] VITALS: BP 147/76; PULSE 84; RESP 18; TEMP 36.7
== END 2019-09-23 23:59 ==
LOC: WC 10:39
PROVIDERS: Family Provider Internal Medicine; PCP Internal Medicine; Visit Provider Podiatrist
DX: Z09 Encounter for follow-up examination after completed treatment for conditions other than malignant neoplasm (principal)

== ENCOUNTER 2021-03-26 13:49 | Observation (INO) | payer MEDICARE, MEDICAID, SELFPAY ==
[2021-03-26] VITALS (8 sets, daily range): BP systolic 98–120; BP diastolic 50–69; PULSE 76–91; RESP 16–20; TEMP 36.1–37; O2SAT 93–98; BMI 44.6; BMI 43.2
--- NOTE | 2021-03-26 15:07 | EKG12_ITS ---
Test Reason : Blood Pressure : / mmHG Vent. Rate : 085 BPM Atrial Rate : 085 BPM P-R Int : 172 ms QRS Dur : 106 ms QT Int : 404 ms P-R-T Axes : 036 006 037 degrees QTc Int : 480 ms Normal sinus rhythm Incomplete left bundle branch block Nonspecific ST abnormality Abnormal ECG Confirmed by ALBINA MATA, DARRIUS ([id number]), multimedia editor JOHN VENCES ([id number]) on 03/28/2021 8:56:20 AM Referred By: MARCELLE Confirmed By:DARRIUS MONTEMAYOR MD
[2021-03-26 15:29] LABS: Absolute Lymphocyte Count 1.24 X10^3/uL (0.83-4.51); Absolute Neutrophil Count 18.7 X10^3/uL (2.0-7.7); Basophil# 0.04 X10^3/uL; Basophil% 0.2 % (0-1); Eosinophil# 0.12 X10^3/uL; Eosinophils% 0.6 % (0-5); Hematocrit 36.8 % (37-47); Hemoglobin 11.9 g/dL (12.0-15.0); Lymphocyte # 1.24 X10^3/ul (0.83-4.51); Lymphocyte % 5.8 % (19-41); Mean Corp Hgb Conc 32.3 g/dL (32-36); Mean Corpuscular Hgb 30.1 pg (27.0-32.0); Mean Corpuscular Volume 92.9 fL (81-99); Mean Platelet Vol. 11.7 fl (6.2-12.0); Monocyte# 1.02 X10^3/uL; Monocyte% 4.8 % (0-10); NRBC Flagged by Analyzer 0 % (0-5); Neutrophil % 87.9 % (47-70); Platelet Count 167 K/mm3 (150-450); RBC Distribution Width CV 14.6 % (11.6-14.6); RBC Distribution Width SD 50.3 fl (35.1-43.9); Red Blood Count 3.96 M/mm3 (4.2-5.4); White Blood Count 21.3 K/mm3 (4.4-11.0)
[2021-03-26] MEDS: 0.9% Normal Saline 1,000 ML 150 ML IV (15:44)
[2021-03-26 15:47] LABS: Red Blood Cells-Urine 0 SEEN /hpf (0-5)
[2021-03-26 16:02] LABS: AST(SGOT) 37 U/L (15-37); Alanine Aminotransfer ALT/SGPT 32 U/L (13-56); Albumin, Serum 2.9 g/dL (3.2-5.0); Alkaline Phosphatase 185 U/L (45-117); Anion Gap 8 (5-15); BUN 70 mg/dL (7-18); BUN/Creat Ratio 25.1 RATIO (10-20); Bilirubin, Direct 0.25 mg/dL (0.00-0.30); Calcium,Total 8.8 mg/dL (8.5-10.1); Chloride 103 mmol/L (98-107); Creatinine, Serum 2.79 mg/dL (0.55-1.02); EST Glomerular Filtration Rate 18 mL/min (>60); Est Glom Filt Rate - Afr Amer 22 mL/min (>60); Globulin 5.4 g/dL (2.2-4.2); Glucose 108 mg/dL (74-106); Potassium 4.4 mmol/L (3.5-5.1); Protein, Total 8.3 g/dL (6.4-8.2); Sodium Level 135 mmol/L (136-145)
--- NOTE | 2021-03-26 16:15 | RAD_ITS ---
INDICATION: cough EXAMINATION/TECHNIQUE: X-RAY - XR Chest 1 View COMPARISON: 03/24/2015. FINDINGS: Slight increase in interstitial markings. Tortuous and calcified thoracic aorta. The heart is not enlarged. No pleural effusion or pneumothorax. No acute osseous abnormalities. RAD/Chest 1 View (Portable) IMPRESSION: Slight increase in interstitial markings could be artifactual versus infection and/or edema. No focal consolidation. Electronically Signed: Judd Chiu MD at 16:48 EDT Tel , Service support ,
[2021-03-26 16:26] LABS: Color, Urine Yellow (Yellow); Glucose, Dipstick Normal (Normal); Ketone-Dipstick Negative (Negative); Leukocyte Esterase-Dipstick 500 /ul (Negative); Nitrite-Dipstick Positive (Negative); Occult Blood-Urine 150 /ul (Negative); Protein-Dipstick 30 mg/dl (Negative); Specific Gravity, Urine 1.015 (1.002-1.030); Urine Bilirubin Dipstick Negative (Negative); Urine Clarity Cloudy (Clear); Urine Urobilinogen Normal (Normal)
[2021-03-26 16:42] LABS: Squamous Epithelial Cells - UA 0-5 SEEN /hpf (5-10); White Blood Cells 10-25 SEEN /hpf (0-5)
[2021-03-26 16:43] LABS: Bacteria 2+ /hpf (None Seen); Hyaline Cast 0-5 SEEN /lpf (0-5)
--- NOTE | 2021-03-26 17:00 | EX.ED.DYSGE1 ---
HPI History of Present Illness Chief Complaint: Weakness Detail of Chief Complaint: Weakness, diarrhea, fall Informant: patient Onset/Context/Timing Onset: Days Current Severity: Moderate Maximum Severity: Moderate Narrative Narrative: Patient presents with generalized weakness, short of breath, and fall. She states that she fell 2 days ago at home because she was just too weak. She reports having diarrhea. She has a chronic left leg wound that recently started to worsen as well. She denies fever or chills, but states she has felt warm. She is here today with her home health nurse. EMS reportedly did relay concerns about the state of her home. [facility] Medical History (Updated 03/26/21 @ 17:[address] Yuly Barr MD) UTI (urinary tract infection) Home Medications azelastine 2 spray NASAL BID 02/21/17 [History Last Taken Unknown] fluticasone propion-salmeterol [Advair 100-50 Diskus] 1 ea IH BID 02/21/17 [History Last Taken Unknown] levothyroxine 100 mcg PO DAILY 02/21/17 [History Last Taken Unknown] cholecalciferol (vitamin D3) [Vitamin D3] 500 unit PO DAILY 03/31/18 [History Last Taken Unknown] lidocaine [Aspercreme] 1 ea TP PRN PRN 03/31/18 [History Last Taken Unknown] Allergy/AdvReac Type Severity Reaction Status Date / Time budesonide [From Symbicort] Allergy Other Verified 03/26/21 13:51 formoterol fumarate Allergy Other Verified 03/26/21 13:51 [From Symbicort] strawberry Allergy Rash Verified 03/26/21 13:51 MOLD Allergy Intermediate Other Uncoded 06/16/19 15:04 Social History Smoking Status: Never smoker ROS ROS ED Constitutional Constitutional ED: Denies chills or fever(s) Eyes Eyes: Denies change in vision ENT ENT ED: Denies sore throat Cardiovascular Cardiovascular: Denies chest pain Respiratory/Chest Respiratory/Chest: Denies cough or dyspnea Gastrointestinal Gastrointestinal: Reports diarrhea; Denies abdominal pain, nausea or vomiting Genitourinary Genitourinary ED: Denies dysuria Musculoskeletal Musculoskeletal: Denies back pain Integumentary Denies rash Neurologic Neurologic: Reports weakness; Denies headache(s) Psychiatric Psychiatric: Denies anxiety or depression Endocrine Endocrinology: Denies polydipsia or polyuria Allergic/Immunologic Allergic/Immunologic ED: Denies urticaria EXAM Physical Exam Const Vital Signs: 03/26/21 13:52 03/26/21 15:54 03/26/21 15:56 Temperature 96.9 F L 96.9 F L Temperature Source Temporal Temporal Pulse Rate 81 76 Respiratory Rate 18 16 Respiratory Pattern Normal Blood Pressure 120/69 107/57 L Blood Pressure Mean 86 73 Pulse Ox 93 98 Oxygen Delivery Method Room Air Room Air Positive well nourished and well developed General Appearance ED: well developed HEENT Reports normocephalic and head/scalp atraumatic Eyes PERRL and EOMs intact bilaterally Neck supple Chest Wall inspection of chest normal and palpation of chest normal Resp normal respiratory effort and clear to auscultation bilaterally Cardio regular rate and regular rhythm GI normal to inspection, nondistended, normoactive bowel sounds Palpation: soft Extremity normal to inspection Neuro oriented x3 and no sensory deficits noted Sensorium / Orientation: alert Motor Exam: strength 5/5 throughout Psych mental status grossly normal Skin General Skin Exam: other Chronic lower extremity lymphedema bilaterally. Erythema noted on the left. Healing well ulceration to the left heel but does not appear to be acutely infected. MDM MDM MDM Narrative Medical decision making narrative: Patient ordered IV fluids. CBC was leukocytosis of 21,000. Patient has acute renal insufficiency with a creatinine of 2.79. Urinalysis is infected with 2+ bacteria, 10-25 white cells, positive nitrites. Covid test is negative. Portable chest x-ray per my interpretation reveals no focal infiltrate. Radiologist rotation is also reviewed. Lab Data Labs: Laboratory Results - last 24 hr 03/26/21 03/26/21 03/26/21 14:00 14:00 15:40 WBC 21.3 H RBC 3.96 L Hgb 11.9 L Hct 36.8 L MCV 92.9 MCH 30.1 MCHC 32.3 RDW Std Deviation 50.3 H RDW Coeff of Dilip 14.6 Plt Count 167 MPV 11.7 Immature Gran % (Auto) 0.700 Neut % (Auto) 87.9 H Lymph % (Auto) 5.8 L [place] % (Auto) 4.8 Eos % (Auto) 0.6 Baso % (Auto) 0.2 Absolute Neuts (auto) 18.7 H Absolute Lymphs (auto) 1.24 Nucleated RBC % 0 Sodium 135 L Potassium 4.4 Chloride 103 Carbon Dioxide 24.0 Anion Gap 8 BUN 70 H Creatinine 2.79 H Estim Creat Clear Calc 16.20 Est GFR (MDRD) Af Amer 22 L Est GFR (MDRD) Non-Af 18 L BUN/Creatinine Ratio 25.1 H Glucose 108 H Calcium 8.8 Total Bilirubin 0.50 Direct Bilirubin 0.25 AST 37 ALT 32 Alkaline Phosphatase 185 H Total Protein 8.3 H Albumin 2.9 L Globulin 5.4 H Urine Color Yellow Urine Clarity Cloudy Urine pH 5.0 Ur Specific [place] 1.015 Urine Protein 30 H Urine Glucose (UA) Normal Urine Ketones Negative Urine Occult Blood 150 H Urine Nitrite Positive H Urine Bilirubin Negative Urine Urobilinogen Normal Ur Leukocyte Esterase 500 H Urine RBC 0 SEEN Urine WBC 10-25 SEEN Ur Squamous Epith Cells 0-5 SEEN Urine Bacteria 2+ Hyaline Casts 0-5 SEEN Urine Mucus Not Reportable Radiography Chest X-Ray - ED: 1 View, Read by ED Physician, Normal, Heart, Lungs and Mediastinum Diagnostic Testing: Radiology Impression Chest X-Ray 03/26/21 16:15 IMPRESSION: Slight increase in interstitial markings could be artifactual versus infection and/or edema. No focal consolidation. Electronically Signed: Judd Chiu MD at 16:48 EDT Tel , Service support , EKG Initial EKG: Attestation: I personally reviewed and interpreted this EKG as follows: Interpretation: Sinus Rhythm (Sinus at 85. Incomplete left bundle branch block.) Treatment and Re-Evaluation Comments:: Test results discussed with the patient on reeval. Patient is given a dose of IV Rocephin and urine culture ordered. With her renal injury as well as degree of leukocytosis I do feel she would benefit from IV antibiotics and observation. I will speak with the hospitalist. Discharge Plan Triage Chief Complaint: Weakness ED Provider: Yuly Barr Dx/Rx/DC Orders Clinical Impression: Cystitis, Acute renal failure Prescriptions: No Action levothyroxine 100 MCG tablet 100 mcg PO DAILY RF: 0 azelastine 1 SPRAY Nasal.Sry 2 spray NASAL BID RF: 0 fluticasone propion-salmeterol [Advair Diskus] 1 EACH Blst.W.Dev 1 ea IH BID RF: 0 lidocaine [Aspercreme (lidocaine HCl)] 1 EACH Adh..Patch 1 ea TP PRN PRN (Reason: Pain) RF: 0 cholecalciferol (vitamin D3) [Vitamin D3] 1,000 UNIT capsule 500 unit PO DAILY RF: 0 Primary Care Provider: Meghan Murphy Referrals: Meghan Murphy MD [Primary Care Provider] - Disposition Disposition: Acute Care Hospital [facility]
[2021-03-26] MEDS: Ceftriaxone 1 GM/50 ML BAG IV (17:34)
--- NOTE | 2021-03-26 18:01 | PCM.HP.STD ---
HPI - General General Chief Complaint: Weakness HPI Narrative SONNY BOOTH, is a 70 F with past medical history as mentioned above presented to the emergency room because of weakness. Patient had multiple complaints and she was not able to provide consistent history. She mentioned that she came in today because she has been feeling generalized weak, had a fall and also complained of diarrhea. She had diarrhea for the last 3 days, 4-5 times a day, watery stool without blood. She reported exertional shortness of breath as well which has been chronic. Initially, she complained of increasing redness and swelling of both legs but did mention that she has been on Bactrim for cellulitis and actually the swelling and redness of both legs is getting better especially on the right leg. She denies fever or chills. She has history of type 2 diabetes mellitus but she is not taking any medication for it. She had a history of hypothyroidism and she has been on levothyroxine. Check history of COPD and she has been on inhalers but not on oxygen at home. In the emergency department, her vital signs were stable. Routine blood work was remarkable for significant leukocytosis, BUN of 70, creatinine is 2.79. Urinalysis revealed cloudy urine, positive for nitrite and leukocyte esterase, there was 10-25 WBCs, 2+ bacteria seen. Chest x-ray showed no acute findings. She is being admitted for acute cystitis and ESTEFANI on CKD. [facility] Medical History (Updated 03/26/21 @ 18:[address] Venessa Meneses MD) Anxiety Asthma Cancer COPD (chronic obstructive pulmonary disease) CPAP (continuous positive airway pressure) dependence Depression Diabetes Irregular heart beat Non-smoker Sleep apnea UTI (urinary tract infection) Home Medications azelastine 2 spray NASAL BID 02/21/17 [History Last Taken Unknown] fluticasone propion-salmeterol [Advair 100-50 Diskus] 1 ea IH BID 02/21/17 [History Last Taken Unknown] levothyroxine 100 mcg PO DAILY 02/21/17 [History Last Taken Unknown] cholecalciferol (vitamin D3) [Vitamin D3] 500 unit PO DAILY 03/31/18 [History Last Taken Unknown] lidocaine [Aspercreme] 1 ea TP PRN PRN 03/31/18 [History Last Taken Unknown] Allergy/AdvReac Type Severity Reaction Status Date / Time budesonide [From Symbicort] Allergy Other Verified 03/26/21 13:51 formoterol fumarate Allergy Other Verified 03/26/21 13:51 [From Symbicort] strawberry Allergy Rash Verified 03/26/21 13:51 MOLD Allergy Intermediate Other Uncoded 06/16/19 15:04 Family History (Updated 03/26/21 @ 17:49 by Yuly Mead) Father Lymphoma Mother CHF (congestive heart failure) Surgical History (Updated 03/26/21 @ 17:47 by Yuly Mead) H/O thyroidectomy Social History Smoking Status: Never smoker ROS Constitutional Constitutional: Reports fatigue; Denies anorexia, chills, fever(s) or malaise Eyes Eyes: Denies blurry vision, change in eye color, change in vision, double vision or eye pain ENT HEENT: Denies ear pain, epistaxis, headache(s), nasal congestion, post nasal drip or sore throat Cardiovascular Cardiovascular: Denies chest pain, dyspnea on exertion, edema, lightheadedness, orthopnea, palpitations, paroxysmal nocturnal dyspnea or syncope Respiratory/Chest Respiratory/Chest: Reports cough and shortness of breath at rest; Denies dyspnea, hemoptysis, productive cough, shortness of breath with exertion or wheezing Gastrointestinal Gastrointestinal: Reports diarrhea; Denies abdominal pain, constipation, hematemesis, hematochezia, melena, nausea or vomiting Genitourinary Genitourinary: Denies burning urination, dysuria, hematuria, urinary hesitancy or urinary urgency Musculoskeletal Musculoskeletal: Denies arthralgias, back pain, joint pain, joint swelling, myalgias or neck pain Neurologic Neurologic: Denies confusion, dizziness, focal weakness, headache(s), numbness, paresthesias, seizures, tingling or tremor(s) Psychiatric Psychiatric: Denies anxiety, depression, hallucinations, homicidal ideation or suicidal ideation Endocrine Endocrinology: Denies change in body appearance, cold intolerance, heat intolerance, polydipsia or polyuria Hematologic/Lymphatic Hematologic/Lymphatic: Denies easy bleeding, easy bruising or lymphadenopathy Allergic/Immunologic Allergic/Immunologic: Denies itchy eyes, rhinitis, throat swelling, tongue swelling, hives, urticaria or wheezing Vital Signs Vital Signs Vital Signs: 03/26/21 13:52 03/26/21 15:54 03/26/21 15:56 Temperature 96.9 F L 96.9 F L Temperature Source Temporal Temporal Pulse Rate 81 76 Respiratory Rate 18 16 Respiratory Pattern Normal Blood Pressure 120/69 107/57 L Blood Pressure Mean 86 73 Pulse Ox 93 98 Oxygen Delivery Method Room Air Room Air 03/26/21 17:35 Temperature 97.1 F L Temperature Source Temporal Pulse Rate 76 Respiratory Rate 20 H Respiratory Pattern Blood Pressure 105/64 Blood Pressure Mean 77 Pulse Ox 98 Oxygen Delivery Method Room Air Physical Exam Const alert, oriented x3, no apparent distress and no limitations General Appearance: cooperative, comfortable and well kempt HEENT normocephalic, head/scalp atraumatic and moist oral mucous membranes Head and Scalp: normocephalic and atraumatic Eyes PERRL, EOMs intact bilaterally, conjunctivae normal and no scleral icterus General Eye: normal appearance of both eyes Periorbital: periorbital findings normal Neck no lymphadenopathy, supple, no meningeal signs, no JVD and no carotid bruits General: trachea midline Thyroid: thyroid normal Resp normal respiratory effort, normal air movement and clear to auscultation bilaterally Resp Narrative: Decreased breath sounds bilateral, otherwise clear. Auscultation: Negative for crackles, rales, rhonchi or wheezes Cardio regular rate, regular rhythm, S1 normal heart sound, S2 normal heart sound, no murmurs and no JVD Peripheral Pulses: pulses 2+ throughout GI normal to inspection, nondistended, normoactive bowel sounds, soft to palpation, non-tender and non-distended; Negative for hepatosplenomegaly GI Narrative: Morbidly obese. Auscultation: normoactive bowel sounds Extremity full ROM Extremity Narrative: Significant bilateral lymphedema, mild erythema, swelling. Skin no rashes or lesions noted, no wounds and no petechiae Neuro oriented x3, CN's II-XII intact bilaterally and moves all extremities Sensorium / Orientation: alert Speech: speech normal Motor Exam: strength 5/5 throughout Psych mental status grossly normal, affect normal and denies hallucinations Lab / Micro Data Result Diagrams: 03/26/21 14:00 03/26/21 14:00 Labs: Laboratory Results - last 24 hr 03/26/21 03/26/21 03/26/21 14:00 14:00 15:40 WBC 21.3 H RBC 3.96 L Hgb 11.9 L Hct 36.8 L MCV 92.9 MCH 30.1 MCHC 32.3 RDW Std Deviation 50.3 H RDW Coeff of Dilip 14.6 Plt Count 167 MPV 11.7 Immature Gran % (Auto) 0.700 Neut % (Auto) 87.9 H Lymph % (Auto) 5.8 L [place] % (Auto) 4.8 Eos % (Auto) 0.6 Baso % (Auto) 0.2 Absolute Neuts (auto) 18.7 H Absolute Lymphs (auto) 1.24 Nucleated RBC % 0 Sodium 135 L Potassium 4.4 Chloride 103 Carbon Dioxide 24.0 Anion Gap 8 BUN 70 H Creatinine 2.79 H Estim Creat Clear Calc 16.20 Est GFR (MDRD) Af Amer 22 L Est GFR (MDRD) Non-Af 18 L BUN/Creatinine Ratio 25.1 H Glucose 108 H Calcium 8.8 Total Bilirubin 0.50 Direct Bilirubin 0.25 AST 37 ALT 32 Alkaline Phosphatase 185 H Total Protein 8.3 H Albumin 2.9 L Globulin 5.4 H Urine Color Yellow Urine Clarity Cloudy Urine pH 5.0 Ur Specific [place] 1.015 Urine Protein 30 H Urine Glucose (UA) Normal Urine Ketones Negative Urine Occult Blood 150 H Urine Nitrite Positive H Urine Bilirubin Negative Urine Urobilinogen Normal Ur Leukocyte Esterase 500 H Urine RBC 0 SEEN Urine WBC 10-25 SEEN Ur Squamous Epith Cells 0-5 SEEN Urine Bacteria 2+ Hyaline Casts 0-5 SEEN Urine Mucus Not Reportable Micro: Microbiology 03/26/21 15:23 SARS-CoV-2 Antigen (Rapid) - Final Nasal Secretion Radiology Impression Chest X-Ray 03/26/21 16:15 IMPRESSION: Slight increase in interstitial markings could be artifactual versus infection and/or edema. No focal consolidation. Electronically Signed: Judd Chiu MD at 16:48 EDT Tel , Service support , Assessment & Plan Assessment/Plan (1) Acute cystitis: Status: Acute Code(s): N30.00 - Acute cystitis without hematuria (2) Acute kidney injury superimposed on CKD: Status: Chronic Code(s): N17.9 - Acute kidney failure, unspecified; N18.9 - Chronic kidney disease, unspecified (3) Type II diabetes mellitus: Status: Chronic Code(s): E11.9 - Type 2 diabetes mellitus without complications Plan: This is a 70 years old female patient presented to the emergency room because of weakness, diarrhea and fall, found to have acute cystitis and ESTEFANI on CKD and she is being admitted for evaluation and treatment. #1 acute cystitis: Urinalysis reviewed. No evidence of sepsis with sepsis. Plan: Admit to [facility] floor, telemetry monitoring, urine culture, start IV Rocephin, IV fluids, Tylenol as needed, Zofran as needed, repeat CBC and BMP tomorrow morning, PT OT evaluation and treatment. #2 acute kidney injury on top of stage III a chronic kidney disease: Creatinine was 1.2 back on February,. Admission creatinine is 2.79, no blood work in between. Patient was recently started on Bactrim for leg cellulitis. She has been having diarrhea for the last 2 days. This is probably because of dehydration, volume loss. Plan: IV fluids, input output chart, avoid nephrotoxic drugs, repeat BMP tomorrow morning. #3 chronic bilateral leg lymphedema/edema/insufficiency: Patient has been on Bactrim. Currently, I doubt there is acute cellulitis. She left with 3 days of Bactrim. At this point, she will be on IV Rocephin, I will hold Bactrim because of acute kidney injury. #4 type 2 diabetes mellitus: She is not taking medication for diabetes at home. Plan: Accu-Cheks, ADA diet, sliding scale. #5 hypothyroidism: Continue levothyroxine, check TSH. #6 COPD: Currently on room air, chest x-ray reviewed. Plan for DuoNeb every 6 hours. #7 DVT prophylaxis on subcu heparin. This note was generated with [employer] dictation software. It may contain incorrect words, spelling, and punctuation that were not noted in checking the note before signing. Visit Charges Inpatient E&M: 09491 Init Hosp L3
--- NOTE | 2021-03-26 18:17 | ED.RN ---
Dr Clark covering Dr. Barr pt. This RN informed physician. No further orders at this time
--- NOTE | 2021-03-26 18:17 | NURSING ---
324 ASHELFAH UTI, ARF
[2021-03-26] MEDS: HYDROcodone Bitartrate/Apap 5/325 Tablet PO (21:31)
[2021-03-26] MEDS: Ascorbic Acid 500 MG Tablet 1000 MG PO (21:32)
[2021-03-26] MEDS: Heparin Injection (Vial) 5,000 UNIT/ML VIAL 5000 UNIT SC (21:37)
[2021-03-27] VITALS (11 sets, daily range): BP systolic 93–100; BP diastolic 52–59; PULSE 63–88; RESP 16–18; TEMP 36.4–36.8; O2SAT 94–97
[2021-03-27 00:10] LABS: Bedside Glucose 147 mg/dL (70-110)
[2021-03-27] MEDS: 0.9% Normal Saline 1,000 ML 100 ML IV ×3 (00:28→20:55)
[2021-03-27 05:54] LABS: Absolute Lymphocyte Count 1.03 X10^3/uL (0.83-4.51); Absolute Neutrophil Count 8.1 X10^3/uL (2.0-7.7); Basophil# 0.01 X10^3/uL; Basophil% 0.1 % (0-1); Eosinophil# 0.04 X10^3/uL; Eosinophils% 0.4 % (0-5); Hematocrit 31.2 % (37-47); Hemoglobin 9.9 g/dL (12.0-15.0); Lymphocyte # 1.03 X10^3/ul (0.83-4.51); Mean Corp Hgb Conc 31.7 g/dL (32-36); Mean Corpuscular Hgb 29.6 pg (27.0-32.0); Mean Corpuscular Volume 93.4 fL (81-99); Mean Platelet Vol. 11.2 fl (6.2-12.0); Monocyte# 1.04 X10^3/uL; Monocyte% 10.1 % (0-10); NRBC Flagged by Analyzer 0 % (0-5); Neutrophil # 8.06 X10^3/uL (2.7-7.7); Neutrophil % 78.3 % (47-70); Platelet Count 119 K/mm3 (150-450); RBC Distribution Width CV 14.6 % (11.6-14.6); RBC Distribution Width SD 50.7 fl (35.1-43.9); Red Blood Count 3.34 M/mm3 (4.2-5.4); White Blood Count 10.3 K/mm3 (4.4-11.0)
[2021-03-27] MEDS: Levothyroxine 100 MCG Tablet PO (06:12)
[2021-03-27] MEDS: HYDROcodone Bitartrate/Apap 5/325 Tablet PO ×3 (06:12→22:40)
[2021-03-27] MEDS: Nystatin Powder 15gm Bottle 1 APPLIC TOPICAL ×3 (06:14→22:38)
[2021-03-27] MEDS: Heparin Injection (Vial) 5,000 UNIT/ML VIAL 5000 UNIT SC (06:16)
[2021-03-27 06:28] LABS: Anion Gap 7 (5-15); BUN 57 mg/dL (7-18); BUN/Creat Ratio 32.2 RATIO (10-20); Calcium,Total 7.7 mg/dL (8.5-10.1); Chloride 108 mmol/L (98-107); Creatinine, Serum 1.77 mg/dL (0.55-1.02); EST Glomerular Filtration Rate 30 mL/min (>60); Est Glom Filt Rate - Afr Amer 36 mL/min (>60); Estimated Creatinine Clearance 25.54 ml/min; Glucose 106 mg/dL (74-106); Potassium 3.7 mmol/L (3.5-5.1); Sodium Level 137 mmol/L (136-145)
--- NOTE | 2021-03-27 08:09 | PCM.PN.HOSP ---
Subjective Subjective: Patient is a 70-year-old lady who presented with progressive generalized weakness with associated diarrhea and fall. Patient was found to have worsening kidney function as well as acute cystitis admitted to regular nursing floor for further management Objective Data Objective Data Vital Signs: Vital Signs Temp Pulse Resp BP Pulse Ox 98.2 F 63 16 94/52 L 94 03/27/21 03:19 03/27/21 07:45 03/27/21 03:19 03/27/21 03:19 03/27/21 03:19 Oxygen Delivery Method Room Air Weight: 251 lb 14.4 oz Body Mass Index (BMI) 43.2 Finger Stick Blood Glucose 128 Intake & Output: Intake and Output for Last 24 Hours 03/25/21 03/26/21 03/27/21 23:59 23:59 23:59 Intake Total 50 / 1050 2600 / 2600 Output Total 600 / 600 Balance 50 / 700 1999 / 1999 Lab / Micro Data Result Diagrams: 03/27/21 05:40 03/27/21 05:40 Micro: Microbiology 03/26/21 15:23 Nasal Secretion SARS-CoV-2 Antigen (Rapid) - Final Radiography Diagnostic Testing: Radiology Impression Chest X-Ray 03/26/21 16:15 IMPRESSION: Slight increase in interstitial markings could be artifactual versus infection and/or edema. No focal consolidation. Electronically Signed: Judd Chiu MD at 16:48 EDT Tel , Service support , Physical Exam Const alert, oriented x3 and no limitations General Appearance: cooperative, comfortable and well kempt HEENT normocephalic, head/scalp atraumatic and moist oral mucous membranes Eyes conjunctivae normal and no scleral icterus General Eye: normal appearance of both eyes Periorbital: periorbital findings normal Neck no lymphadenopathy, supple, no meningeal signs and no JVD General: trachea midline Thyroid: thyroid normal Lymph Lymphatic: lymphedema moderate and pitting Chest inspection of chest normal Resp normal respiratory effort and normal air movement Auscultation: Negative for crackles, rales, rhonchi or wheezes Cardio regular rate, regular rhythm, S1 normal heart sound and S2 normal heart sound Peripheral Pulses: pulses 2+ throughout GI normal to inspection, nondistended, normoactive bowel sounds and soft to palpation GI Narrative: Morbidly obese. Auscultation: normoactive bowel sounds Extremity full ROM and no clubbing, cyanosis or edema Skin no rashes or lesions noted and no wounds Neuro oriented x3 and moves all extremities Sensorium / Orientation: alert Speech: speech normal Motor Exam: strength 5/5 throughout Psych mental status grossly normal, affect normal and denies hallucinations Assessment & Plan Assessment/Plan (1) Acute cystitis: Status: Acute Code(s): N30.00 - Acute cystitis without hematuria (2) Acute kidney injury superimposed on CKD: Status: Chronic Code(s): N17.9 - Acute kidney failure, unspecified; N18.9 - Chronic kidney disease, unspecified (3) Type II diabetes mellitus: Status: Chronic Code(s): E11.9 - Type 2 diabetes mellitus without complications Plan: Patient is a 70-year-old lady who presented with progressive generalized weakness with associated diarrhea and fall. Patient was found to have worsening kidney function as well as acute cystitis admitted to regular nursing floor for further management 1. Acute cystitis ?Patient started on Rocephin on admission culture sent 2. Acute kidney injury ?Superimposed on chronic kidney disease stage III. Baseline creatinine 1.2 as of 03/23/2015. Creatinine on admission was 2.79. Patient started on IV fluids with subsequent monitoring of electrolyte 3. Bilateral lower extremity lymphedema with cellulitis involving the left lower extremity ?Cultures were taken consult placed to wound care nurse for dressing changes. Patient already on Rocephin will continue pending culture result 4. Hypothyroidism - Patient is on levothyroxine home dose continued 5. COPD ?Currently not in exacerbation 6. Chronic lower extremity lymphedema ?Ga wrap as needed 7. Anemia - Secondary to chronic disorder monitoring H&H and transfuse if patient becomes symptomatic or hemoglobin falls below 7 8. Thrombocytopenia ?Patient platelet count on admission was 169 has had a significant drop to 119 was started on heparin for DVT prophylaxis subsequently discontinued 9. Diabetes mellitus type II -Managed with diet please on Accu-Cheks before meals and at bedtime with sliding scale coverage 10. DVT prophylaxis -Chemoprophylaxis contraindicated in view of patient's significant drop in her platelet count Advance planning; did discuss with the patient regarding advanced directives as well as CODE STATUS. Did explain the various scenarios involved ( FULL CODE, DNR CCA, DNR CCA with no intubation, and DNR CC and what each meant) patient elected full code with CPR and intubation if warranted. Order was placed. Time spent on discussion 18 minutes. Visit Charges Inpatient E&M: 38522 Subs Hosp L3 Procedures Hospitalists Procedures: 49886 Advncd Care Plan 30 Min
[2021-03-27] MEDS: Azelastine HCl NASAL.SRY 2 SPRAY NASAL ×2 (09:50→22:39)
[2021-03-27] MEDS: Fluticasone 0.05% 1 SPRAY NASAL.SRY 2 SPRAY NASAL (09:51)
[2021-03-27] MEDS: Cholecalciferol (VIT D3) 25 MCG TABLET (1,000 UNITS) 125 MCG PO (09:53)
[2021-03-27] MEDS: Ascorbic Acid 500 MG Tablet 1000 MG PO ×2 (09:53→22:39)
[2021-03-27] MEDS: Cyanocobalamin 500 MCG Tablet 2000 MCG PO (09:54)
--- NOTE | 2021-03-27 10:23 | NURSING ---
wound photo: left posterior lower leg
--- NOTE | 2021-03-27 10:55 | CASEMGMT ---
LEXI LOGAN Face to Face with patient for initial transition planning/care coordination assessment. RN DESMOND introduced self and role at [facility]. Patient lying in bed, alert and oriented. Patient willing to participate in assessment and is able to answer all questions appropriately. Care providers, pharmacy, and demographics verified. Patient wishes to discharge home and states she doesn't want anyone coming to her home because she does not trust people. LEXI LOGAN discuss possible need for SNF at discharge pending how patient did with therapy and wound care needs. Patient not sure as to what she would do at discharge. Patient states he has no further needs or concerns at this time. LYNETTE Sherman updated regarding potential need for SNF at discharge. CM to follow for discharge planning needs that may arise. PCP: Katherine Specialists: none Preferred Pharmacy: [facility] Insurance: Angella FINN Prescription Benefit: yes Living Will/HPOA: none LNOK: Son Living Arrangements: patient states she lives alone in a townhouse. Patient states on main floor of home and sleeps in lift chair, bath on first floor. Patient states she has not left her home and has not been to doctor in over a year. Patient states her son gets her groceries. Transportation: [place] DME/HHC: Patient states she has shower chair, raised toilet, cane, rollator, grab bars, lift chair, and cpap at home that she does not wear. Patient denies previous SNF or HHC. Disposition Plan: TBD by course of treatment and progress with therapy. Beata THOMAS, RN, CM
[2021-03-27 12:06] LABS: Bedside Glucose 140 mg/dL (70-110)
[2021-03-27 12:24] LABS: M R Staph aureus DNA By PCR Negative (Negative); Probe Check PASS; Specimen Processing Control PASS; Staph aureus DNA By PCR NEGATIVE (Negative)
[2021-03-27] MEDS: Ipratropium/Albuterol Sulfate 3 ML AMPUL.NEB INHALATION ×2 (13:30→19:18)
--- NOTE | 2021-03-27 13:55 | CASEMGMT ---
Social Work Note SW in to speak with pt to continue discussion of discharge plans. SW introduced self and role at [facility]. Pt is alert and orientated. Pt began conversation by stating she wants to home and doens't want to go to a SNF. Pt then states I like it here. Pt states she is getting good care here except for the wound staff. Pt states her wounds are pretty painful. Pt states they want me to go to a wound center. SW spoke with pt about how staff will make recommendations but overall it is her decision what she wants to do. Pt states she has a friend (who she has been friends for for 35 years) and also has neighbors on both side of her that are able to assist her. Pt states she will give her neighbors money and they will go to the store for her. Pt states she has lived at her current residence for 17 years. Pt states her one friend had told her that she will come over to pt's home when she is discharged and jolly stay for a few hours to help out. Pt states her friend does work though. Pt states that she has cats at home and she needs to return to them. Pt states that she does have someone looking after her cats while she is at [facility]. SW spoke with pt about any Mental Health Hx: Pt states she has a lot of depression and anxiety. Pt states she is not on any medication. Pt states her son has Paranoid Schizophrenia and he is not on any medications either. Pt states she went to counseling before, about 20 years ago, after she got her divorce. Pt denied any current counseling and pt denied wanting any counseling resources. Pt denied any history of suicidal thoughts/plans/ideations and denied any current suicidal thoughts/plans/ideations. Pt states I am safe, I don't want to do , I want to live. Pt spoke a lot about God and his plans for her and how he brought her to the hospital to get her wounds taken care of. SW spoke with pt about her housing. Pt states no concerns with going home at discharge, didn't identify any problems with her home. Per reports, EMS had reportedly relayed concerns wabout the state of pt's home. Pt denied any concerns. Pt again states she will be going home at discharge. Beata Sherman CLOTH HAND, WINCH DERRICK OPERATOR
[2021-03-27] MEDS: tiZANidine HCl 2 MG Tablet 4 MG PO ×2 (14:51→22:39)
--- NOTE | 2021-03-27 15:23 | CASEMGMT ---
Addendum entered by Beata Sherman 03/27/21 15:37: LYNETTE received call from Gini Siddharth at [facility]. Pt gets Home Delivered Meals. LYNETTE updated Gini that pt is stating she doesn't want anyone coming into her home and she is refusing SNF. Gini states many concerns with pt, states pt's home is a disaster. LYNETTE asked Gini about APS. Gini states she has called APS many times and pt never answers the door when they go out to pt's home. Gini states pt doesn't answer the door for anybody. Gini states pt has three good size steps to enter her home. Gini states the paramedics were called on Friday to pt's home as pt had fallen and couldn't get up. LYNETTE informed iGni that this worker will keep her updated. Original Note: Social Work Note LYNETTE received message from Gini Siddharth at [facility] stating she is pt's CM. LYNETTE placed a call back to Gini and updated her on pt's admission to [facility]. Beata Sherman CLOTH PACKER, STEAM FLATTENER
--- NOTE | 2021-03-27 15:29 | CHAPLAIN ---
Type of Pastoral Visit _x__ Initial Visit ___ Follow-up Visit ___ On-call Visit ___ General Patient Visit ___ Spiritual Assessment ___ Family Conference ___ Bereavement ___ Rapid Response ___ Code Blue ___ Other (describe below) Pastoral Care Referral From ___ Patient ___ Family ___ Nurse ___ Physician _x__ Case Managers ___ Export Sales Manager ___ Other (describe below) Sacrament/Intervention _x__ Active listening ___ Anointing ___ Tenriism ___ Bereavement ___ Communion _x__ Kiara exploration ___ ___ Life review _x__ Prayer ___ Reconciliation ___ Sacrament of Sick __x_ Supportive presence ___ Wedding ___ Other (describe below) Pastoral Comments visit recommended by SW; entered room and found patient crying and stating that getting out of bed and into chair had caused great pain; pt was expressive about her unhappiness with decision to get her out of bed; pt says she does not know what to do about discharge but that she doesn't want to stay here and doesn't want to go to a SNF; pt talks about her dislike of being around people and about her kiara in God including times when God speaks to her; patient did become calmer through the visit and welcomed prayer and presence of this concert manager; RN came into room to give pain meds and the visit ended at this time.
[2021-03-27 18:00] LABS: Bedside Glucose 145 mg/dL (70-110)
[2021-03-27] MEDS: Budesonide Respules 0.5 MG/2 ML AMPUL.NEB. INHALATION (19:19)
[2021-03-27] MEDS: Insulin Lispro 100 UNIT/ML INSULN.PEN SC (22:38)
[2021-03-28] VITALS (14 sets, daily range): BP systolic 105–124; BP diastolic 53–68; PULSE 60–88; RESP 16–18; TEMP 36.4–36.7; O2SAT 95–100
[2021-03-28] MEDS: Ipratropium/Albuterol Sulfate 3 ML AMPUL.NEB INHALATION ×3 (01:15→19:30)
--- NOTE | 2021-03-28 01:17 | NURSING ---
Pt stated her leg was hurting and believes it is from the acewrap. She refused to keep it on until morning. I offered her some pain medication and she refused. I took off the acewrap but kept on the kerlix and bandages.
[2021-03-28 01:51] LABS: Bedside Glucose 171 mg/dL (70-110)
[2021-03-28 01:56] LABS: Bedside Glucose 103 mg/dL (70-110)
[2021-03-28] MEDS: Acetaminophen 325 MG Tablet 650 MG PO (03:28)
[2021-03-28 06:19] LABS: Hematocrit 31.9 % (37-47); Hemoglobin 10.1 g/dL (12.0-15.0); Mean Corp Hgb Conc 31.7 g/dL (32-36); Mean Corpuscular Volume 94.7 fL (81-99); Mean Platelet Vol. 11.2 fl (6.2-12.0); POSITIVE COUNT YES; POSITIVE MORPHOLOGY YES; Platelet Count 121 K/mm3 (150-450); RBC Distribution Width CV 14.9 % (11.6-14.6); RBC Distribution Width SD 52.1 fl (35.1-43.9); Red Blood Count 3.37 M/mm3 (4.2-5.4); White Blood Count 8.3 K/mm3 (4.4-11.0)
[2021-03-28 06:23] LABS: Differential Indicated MANUAL DIFF
[2021-03-28] MEDS: Nystatin Powder 15gm Bottle 1 APPLIC TOPICAL ×3 (06:32→22:12)
[2021-03-28] MEDS: tiZANidine HCl 2 MG Tablet 4 MG PO ×3 (06:32→22:12)
[2021-03-28] MEDS: HYDROcodone Bitartrate/Apap 5/325 Tablet PO ×3 (06:32→22:13)
[2021-03-28] MEDS: Levothyroxine 100 MCG Tablet PO (06:36)
[2021-03-28 06:44] LABS: Anion Gap 6 (5-15); BUN 51 mg/dL (7-18); BUN/Creat Ratio 34.5 RATIO (10-20); Calcium,Total 7.8 mg/dL (8.5-10.1); Chloride 110 mmol/L (98-107); Creatinine, Serum 1.48 mg/dL (0.55-1.02); EST Glomerular Filtration Rate 37 mL/min (>60); Est Glom Filt Rate - Afr Amer 45 mL/min (>60); Estimated Creatinine Clearance 30.54 ml/min; Glucose 111 mg/dL (74-106); Magnesium 2.1 mg/dL (1.6-2.6); Potassium 3.9 mmol/L (3.5-5.1); Sodium Level 138 mmol/L (136-145)
[2021-03-28 06:48] LABS: Lymphocyte 13 % (19-41); Metamyelocyte 3 % (0-1); Myelocyte 1 % (0-0); Neutrophil-Band 3 % (0-5); Neutrophil-Segmented 74 % (47-70); Total Cells Counted 100 (MANUAL DIFF)
[2021-03-28 06:49] LABS: Absolute Neutrophil Count 6.4 X10^3/uL (2.0-7.7); Monocyte 6 % (0-10); Platelet Estimate SLT DEC (ADEQ); Red Cell Morphology NORM C+C NORMAL (NORM C&C)
[2021-03-28 06:51] LABS: Bedside Glucose 110 mg/dL (70-110)
[2021-03-28] MEDS: Budesonide Respules 0.5 MG/2 ML AMPUL.NEB. INHALATION ×2 (07:30→19:30)
[2021-03-28] MEDS: 0.9% Normal Saline 1,000 ML 100 ML IV ×2 (08:42→19:30)
[2021-03-28] MEDS: Azelastine HCl NASAL.SRY 2 SPRAY NASAL ×2 (10:19→22:11)
[2021-03-28] MEDS: Fluticasone 0.05% 1 SPRAY NASAL.SRY 2 SPRAY NASAL (10:19)
[2021-03-28] MEDS: Insulin Lispro 100 UNIT/ML INSULN.PEN SC ×2 (12:01→22:13)
[2021-03-28] MEDS: Cyanocobalamin 500 MCG Tablet 2000 MCG PO (12:02)
[2021-03-28] MEDS: Ascorbic Acid 500 MG Tablet 1000 MG PO ×2 (12:02→22:12)
[2021-03-28] MEDS: Cholecalciferol (VIT D3) 25 MCG TABLET (1,000 UNITS) 125 MCG PO (12:02)
[2021-03-28 12:11] LABS: Bedside Glucose 175 mg/dL (70-110)
--- NOTE | 2021-03-28 12:15 | CASEMGMT ---
Addendum entered by Beata Villanueva 03/28/21 12:22: LEXI LOGAN received list from LYNETTE and provided to patient at this time. Original Note: LEXI LOGAN in to discuss discharge planning with patient. LEXI LOGAN reviewed therapy notes with patient and recommendation for SNF at discharge. Patient states she is willing to look at list of SNF. Patient states she is not sure if she will go to a SNF because of her cats. LEXI LOGAN encouraged patient to find someone to feed her cats. LEXI LOGAN updated LYNETTE Sherman regarding request for SNF list.
[2021-03-28 12:26] LABS: Pathologist Review Reviewed
--- NOTE | 2021-03-28 13:17 | CASEMGMT ---
Addendum entered by Beata Sherman 03/28/21 14:10: SW received call from Gini Messina. Gini states pt is just going to have to allow someone to come in to her house to take care of her cats. Gini states she will be calling pt to talk to pt about SNF as well and then will call this worker back. Original Note: Social Work Note Pt asking if there would be someone to take care of her cat if she goes to SNF. SW placed a call to pt's CM Gini Messina and left message asking if she knows of any resources for pt regarding cat care. Beata Sherman FIBERGLASS MODEL MAKER, TIRE MECHANIC
--- NOTE | 2021-03-28 13:56 | CASEMGMT ---
Palliative screening tool completed for [facility] [facility]. Patient does not meet criteria for palliative consult.
[2021-03-28] MEDS: Glucerna Shake 120 ML LIQUID PO ×3 (14:17→22:11)
--- NOTE | 2021-03-28 15:47 | CASEMGMT ---
Social Work Note SW placed a call to Gini Messina. Gini states she spoke with pt, pt is willing to go to SNF as long as her cats are being taken care of. Gini states pt has been calling family to see if anyone would be willing to take care of her cats. SW in to speak with pt. Pt's preferred provider is [facility]. LYNETTE placed a call to Shawna at [facility] and provided referral. SW faxed referral. Plan: [facility] pending acceptance and pre-cert Beata Sherman DIRECT MAIL COORDINATOR, CLAIMS EXAMINER
[2021-03-28 17:01] LABS: Bedside Glucose 121 mg/dL (70-110)
--- NOTE | 2021-03-28 17:21 | PN.HOSP_ITS ---
Subjective Subjective: Patient has bilateral lower extremity lymphedema, left more than right. Has superficial maceration, erosion and ulceration with fluid exudate Objective Data Objective Data Vital Signs: Vital Signs Temp Pulse Resp BP Pulse Ox 98.1 F 82 18 116/57 L 100 03/28/21 14:21 03/28/21 14:21 03/28/21 14:21 03/28/21 14:21 03/28/21 14:21 Oxygen Delivery Method Room Air Weight: 251 lb 14.4 oz Body Mass Index (BMI) 43.2 Finger Stick Blood Glucose 128 Intake & Output: Intake and Output for Last 24 Hours 03/26/21 03/27/21 03/28/21 23:59 23:59 23:59 Intake Total 50 / 1050 4585 / 4585 2009 Output Total 900 / 900 1575 / 1575 Balance 50 / 700 3685 / 3685 435 / 435 Lab / Micro Data Result Diagrams: 03/28/21 06:02 03/28/21 06:02 Labs: Laboratory Results - last 24 hr 03/27/21 03/27/21 03/27/21 06:43 16:59 22:34 WBC RBC Hgb Hct MCV MCH MCHC RDW Std Deviation RDW Coeff of Dilip Plt Count MPV Neut % (Auto) Absolute Neuts (auto) Absolute Lymphs (auto) Total Counted Neutrophils % (Manual) Band Neutrophils % Lymphocytes % (Manual) Monocytes % (Manual) Metamyelocytes % Myelocytes % Diff Path Review Platelet Estimate RBC Morphology Sodium Potassium Chloride Carbon Dioxide Anion Gap BUN Creatinine Estim Creat Clear Calc Est GFR (MDRD) Af Amer Est GFR (MDRD) Non-Af BUN/Creatinine Ratio Glucose Calcium Magnesium POC Glucose 103 145 H 171 H 03/28/21 03/28/21 03/28/21 06:02 06:02 06:31 WBC 8.3 RBC 3.37 L Hgb 10.1 L Hct 31.9 L MCV 94.7 MCH 30.0 MCHC 31.7 L RDW Std Deviation 52.1 H RDW Coeff of Dilip 14.9 H Plt Count 121 L MPV 11.2 Neut % (Auto) Not Reportable Absolute Neuts (auto) 6.4 Absolute Lymphs (auto) 1.10 Total Counted 100 Neutrophils % (Manual) 74 H Band Neutrophils % 3 Lymphocytes % (Manual) 13 L Monocytes % (Manual) 6 Metamyelocytes % 3 H Myelocytes % 1 H Diff Path Review Reviewed Platelet Estimate SLT DEC RBC Morphology NORM C+C Sodium 138 Potassium 3.9 Chloride 110 H Carbon Dioxide 22.0 Anion Gap 6 BUN 51 H Creatinine 1.48 H Estim Creat Clear Calc 30.54 Est GFR (MDRD) Af Amer 45 L Est GFR (MDRD) Non-Af 37 L BUN/Creatinine Ratio 34.5 H Glucose 111 H Calcium 7.8 L Magnesium 2.1 POC Glucose 110 03/28/21 03/28/21 11:56 16:52 WBC RBC Hgb Hct MCV MCH MCHC RDW Std Deviation RDW Coeff of Dilip Plt Count MPV Neut % (Auto) Absolute Neuts (auto) Absolute Lymphs (auto) Total Counted Neutrophils % (Manual) Band Neutrophils % Lymphocytes % (Manual) Monocytes % (Manual) Metamyelocytes % Myelocytes % Diff Path Review Platelet Estimate RBC Morphology Sodium Potassium Chloride Carbon Dioxide Anion Gap BUN Creatinine Estim Creat Clear Calc Est GFR (MDRD) Af Amer Est GFR (MDRD) Non-Af BUN/Creatinine Ratio Glucose Calcium Magnesium POC Glucose 175 H 121 H Micro: Microbiology 03/27/21 09:30 Wound - Leg, Left Gram Stain - Final 03/27/21 09:30 Wound - Leg, Left Wound Culture - Preliminary Gram negative viktor Mixed Gram Positive Organisms 03/26/21 15:40 Urine, Random Urine Culture - Final Citrobacter freundii 03/26/21 15:23 Nasal Secretion SARS-CoV-2 Antigen (Rapid) - Final Physical Exam Narrative General: Alert, Oriented x3, Cooperative HEENT: Atraumatic, PERRLA, EOMI, Normocephalic Oral: No Gingival or Mucosal Lesions/ Ulcerations Neck: Supple, No JVD, Negative Carotid Bruits Lungs: Air entry diminished in bilateral lung bases. No crepitation/rhonchi Cardiovascular: Regular rate, Regular Rhythm, Normal S1, Normal S2, No murmurs Abdomen: Bowel Sounds Present, Soft, Non Tender, Non-Distended : No renal angle tenderness. No suprapubic tenderness. Extremities: Bilateral lower extremity lymphedema edema, Capillary Refill Less than 3 Seconds Skin: Left lower extremity superficial erosion, tenderness and ulceration. No pressure sores/ulcer. Musculoskeletal: No Tenderness to Palpation of Joints or Extremities Neurological: Cranial nerves II-XII grossly intact, Deep Tendon Reflexes 2+/4 and Symmetrical, Neuro grossly intact Psych/Mental Status: Normal Affect, Appropriate. Assessment & Plan Assessment/Plan (1) Acute cystitis: (2) Acute kidney injury superimposed on CKD: (3) Type II diabetes mellitus: PLAN: Patient is a 70-year-old lady who presented with progressive generalized weakness with associated diarrhea and fall. Patient was found to have worsening kidney function as well as acute cystitis admitted to regular nursing floor for further management 1. Acute complicated cystitis with Citrobacter freundii, more than 100,000 colonies. Sensitive to ceftriaxone. Patient has a history of recurrent UTI about 3-4 times per year. Multiple courses of antibiotics in the past. Resistant to treatment. 2. Acute kidney injury ?Superimposed on chronic kidney disease stage IIIa. Baseline creatinine 1.2 as of 03/23/2015. Creatinine on admission was 2.79. Repeat BUN 6 creatinine shows improvement. 3. Bilateral lower extremity lymphedema with cellulitis involving the left lower extremity and superficial ulceration, left more than right. Superficial wound culture shows gram-negative viktor and mixed gram-positive organism probably contamination. Patient already on Rocephin 4. Hypothyroidism - Patient is on levothyroxine home dose continued 5. COPD ?Currently not in exacerbation 6. Chronic lower extremity lymphedema ?Ga wrap as needed 7. Anemia - Secondary to chronic disorder monitoring H&H and transfuse if patient becomes symptomatic or hemoglobin falls below 7 8. Thrombocytopenia ?Patient platelet count on admission was 169 has had a significant drop to 119 was started on heparin for DVT prophylaxis subsequently discontinued 9. Diabetes mellitus type II -Managed with diet please on Accu-Cheks before meals and at bedtime with sliding scale coverage 10. DVT prophylaxis -Chemoprophylaxis contraindicated in view of patient's significant drop in her platelet count Advance planning; did discuss with the patient regarding advanced directives as well as CODE STATUS. Did explain the various scenarios involved ( FULL CODE, DNR CCA, DNR CCA with no intubation, and DNR CC and what each meant) patient el ected full code with CPR and intubation if warranted. Order was placed. Time spent on discussion 18 minutes. Microbiology Past 72 Hours 03/27/21 09:30 Wound - Leg, Left Gram Stain - Final 03/27/21 09:30 Wound - Leg, Left Wound Culture - Preliminary Gram negative viktor Mixed Gram Positive Organisms 03/26/21 15:40 Urine, Random Urine Culture - Final Citrobacter freundii 03/26/21 15:23 Nasal Secretion SARS-CoV-2 Antigen (Rapid) - Final Laboratory Results 03/27/21 06:43: POC Glucose 103 03/27/21 16:59: POC Glucose 145 H 03/27/21 22:34: POC Glucose 171 H 03/28/21 06:02: WBC 8.3, RBC 3.37 L, Hgb 10.1 L, Hct 31.9 L, MCV 94.7, MCH 30.0, MCHC 31.7 L, RDW Std Deviation 52.1 H, RDW Coeff of Dilip 14.9 H, Plt Count 121 L, MPV 11.2, Neut % (Auto) Not Reportable, Absolute Neuts (auto) 6.4, Absolute Lymphs (auto) 1.10, Total Counted 100, Neutrophils % (Manual) 74 H, Band Neutrophils % 3, Lymphocytes % (Manual) 13 L, Monocytes % (Manual) 6, Metamyelocytes % 3 H, Myelocytes % 1 H, Diff Path Review Reviewed, Platelet Estimate SLT DEC, RBC Morphology NORM C+C 03/28/21 06:02: Sodium 138, Potassium 3.9, Chloride 110 H, Carbon Dioxide 22.0, Anion Gap 6, BUN 51 H, Creatinine 1.48 H, Estim Creat Clear Calc 30.54, Est GFR (MDRD) Af Amer 45 L, Est GFR (MDRD) Non-Af 37 L, BUN/Creatinine Ratio 34.5 H, Glucose 111 H, Calcium 7.8 L, Magnesium 2.1 03/28/21 06:31: POC Glucose 110 03/28/21 11:56: POC Glucose 175 H 03/28/21 16:52: POC Glucose 121 H Visit Charges Inpatient E&M: 70713 Subs Hosp L2
[2021-03-28 22:25] LABS: Bedside Glucose 191 mg/dL (70-110)
[2021-03-29] VITALS (13 sets, daily range): BP systolic 116–128; BP diastolic 53–67; PULSE 67–94; RESP 16–18; TEMP 36.5–36.8; O2SAT 96–98
--- NOTE | 2021-03-29 00:40 | NURSING ---
Pt's son, Gerald Jaquez, contacted ER to see if his mother was here. Advised ER staff that he did not know where she was and talked to police to try to find her. Sounds like they advised son that pt was brought here. There appears to be a little conflict between pt and her son so this RN advised ER nurse to tell son to call pt's room at some point prior to coming to visit. Pt is on directory and her son Gerald is listed as a support person.
[2021-03-29 05:57] LABS: Hematocrit 32.6 % (37-47); Hemoglobin 10.1 g/dL (12.0-15.0); Mean Corpuscular Volume 96.7 fL (81-99); Mean Platelet Vol. 11.2 fl (6.2-12.0); POSITIVE COUNT YES; POSITIVE MORPHOLOGY YES; Platelet Count 128 K/mm3 (150-450); RBC Distribution Width CV 14.8 % (11.6-14.6); RBC Distribution Width SD 52.1 fl (35.1-43.9); Red Blood Count 3.37 M/mm3 (4.2-5.4); White Blood Count 8.3 K/mm3 (4.4-11.0)
[2021-03-29 06:06] LABS: Differential Indicated MANUAL DIFF
[2021-03-29 06:19] LABS: Anion Gap 6 (5-15); BUN 42 mg/dL (7-18); BUN/Creat Ratio 33.3 RATIO (10-20); Calcium,Total 7.6 mg/dL (8.5-10.1); Chloride 113 mmol/L (98-107); Creatinine, Serum 1.26 mg/dL (0.55-1.02); EST Glomerular Filtration Rate 45 mL/min (>60); Est Glom Filt Rate - Afr Amer 54 mL/min (>60); Estimated Creatinine Clearance 35.88 ml/min; Glucose 121 mg/dL (74-106); Potassium 4.1 mmol/L (3.5-5.1); Sodium Level 140 mmol/L (136-145)
[2021-03-29 06:29] LABS: Lymphocyte 20 % (19-41); Metamyelocyte 2 % (0-1); Monocyte 5 % (0-10); Neutrophil-Band 4 % (0-5); Neutrophil-Segmented 68 % (47-70); Total Cells Counted 100 (MANUAL DIFF)
[2021-03-29 06:30] LABS: Absolute Neutrophil Count 5.9 X10^3/uL (2.0-7.7); Platelet Estimate SLT DEC (ADEQ); Red Cell Morphology NORM C+C NORMAL (NORM C&C)
[2021-03-29] MEDS: 0.9% Normal Saline 1,000 ML 100 ML IV ×2 (06:32→18:14)
[2021-03-29] MEDS: Levothyroxine 100 MCG Tablet PO (06:36)
[2021-03-29] MEDS: tiZANidine HCl 2 MG Tablet 4 MG PO ×3 (06:36→21:45)
[2021-03-29] MEDS: HYDROcodone Bitartrate/Apap 5/325 Tablet PO ×3 (06:36→21:43)
[2021-03-29] MEDS: Nystatin Powder 15gm Bottle 1 APPLIC TOPICAL ×3 (06:37→21:44)
[2021-03-29 06:51] LABS: Bedside Glucose 116 mg/dL (70-110)
[2021-03-29] MEDS: Ipratropium/Albuterol Sulfate 3 ML AMPUL.NEB INHALATION ×3 (07:00→19:23)
--- NOTE | 2021-03-29 10:11 | CASEMGMT ---
RN DESMOND NOTE: Palliative screening completed using [facility] screening tool for [facility] 3. Pt does not meet criteria at this time. Josefina THOMAS RN CM
--- NOTE | 2021-03-29 10:21 | CASEMGMT ---
Social Work Note SW placed a call to Shawna at [facility] and left message asking about referral and to let this worker know VENICE if they can accept pt or not. Pt is medically ready for discharge once a SNF has accepted pt and pre-cert is obtained. Plan: [facility] pending acceptance and pre-cert Beata Sherman MSW, PHARMACEUTICAL PROCESS ENGINEER
[2021-03-29] MEDS: Glucerna Shake 120 ML LIQUID PO ×4 (10:35→21:42)
[2021-03-29] MEDS: Fluticasone 0.05% 1 SPRAY NASAL.SRY 2 SPRAY NASAL (10:36)
[2021-03-29] MEDS: Azelastine HCl NASAL.SRY 2 SPRAY NASAL ×2 (10:36→21:39)
[2021-03-29] MEDS: Cholecalciferol (VIT D3) 25 MCG TABLET (1,000 UNITS) 125 MCG PO (10:37)
[2021-03-29] MEDS: Ascorbic Acid 500 MG Tablet 1000 MG PO ×2 (10:37→21:44)
[2021-03-29] MEDS: Cyanocobalamin 500 MCG Tablet 2000 MCG PO (10:37)
[2021-03-29] MEDS: Insulin Lispro 100 UNIT/ML INSULN.PEN SC (10:46)
[2021-03-29 10:56] LABS: Bedside Glucose 160 mg/dL (70-110)
--- NOTE | 2021-03-29 11:41 | CASEMGMT ---
Social Work Note SW received message from Shawna at [facility] stating she will let this worker know soon if [facility] is able to accept pt. LYNETTE did place a call to [facility] just to inquire if they would consider pt's insurance. Josephine with TCU states as long as pt isn't on IV antibiotics, TCU could accept pt. LYNETTE asked physician, pt will be discharged on Oral Antibiotics. SW in to speak with pt. Pt's son Gerald present in room. Pt gave this worker permission to speak to her in front of Gerald. SW informed pt that this worker is waiting to hear back from [facility] but did inform pt that [facility] is able to accept. At first, pt stated [facility]. Pt then asked if she would be able to leave the unit for a couple hours a day to supervise things at home and asked if she could return home for a few hours before going to TCU. LYNETTE informed pt that that is not allowed. Pt would need to admit directly to TCU or [facility] from [facility] and wouldn't be permitted to return home. Pt and Gerald asked why pt wouldn't be able to do that. LYNETTE explained that it is insurance reasons, insurance would be approving pt to directly admit to SNF, and if pt goes home first, insurance approval wouldn't be good anymore. Pt states she would just want to go home for a few hours. LYNETTE again reiterated that that wouldn't be allowed and that would be the same for every SNF. Gerald asked if pt needed to make a decision right now and LYNETTE informed pt and Gerald that a decision would need to be made today as pre-cert needs to be started. Pt and Gerald state they would like to discuss options and get back to this worker. LYNETTE informed pt and Gerald that this worker will be back later this afternoon. Pt and Gerald state understanding. LYNETTE placed a call to Josephine with TCU informed her to hold off on pre-cert at this time as pt and pt's family are discussion options. LYNETTE will follow up with pt and Gerald. Plan: Likely SNF pending acceptance and pre-cert. Beata Sherman TILE LAYER, RETAIL DEPARTMENT RESET
[2021-03-29 12:57] LABS: Pathologist Review Reviewed
--- NOTE | 2021-03-29 13:14 | CASEMGMT ---
Social Work Note SW back in to speak with pt. SW asked pt what her decision is for discharge. Pt states I don't know, I don't have a decision for you. SW asked pt if she talked to her son and pt states she did and Gerald mentioned taking pt home with him at discharge. Pt asked when she would be discharged. SW informed pt that she is medically ready for discharge today. SW explained that if she decides to go home she will go home today, if she decides to go to a SNF, pt wouldn't be discharged today as pre-cert is needed. SW again asked pt if she will be going home with her son Gerald then and pt states I can't answer that, he had to go to work. SW asked pt if this worker could get the pre-cert process started with [facility] or [facility] (pending acceptance) and pt states I can't answer that, I can only give you the answers I have up to this point. SW informed pt that pre-cert could be cancelled at anytime but explained it would be beneficial to start pre-cert today. Pt not giving this worker permission to start pre-cert with [facility] or [facility] at this time. SW asked pt if she will be talking to her son Gerald again today and pt states she is not sure, states again he works and then he comes home and goes to work again. SW asked pt if this worker could call Gerald and pt told this worker no. Pt states she will be talking to her son. SW informed pt that a decision needs to be made as pt cannot remain at [facility] without a medical reason and pt states she understands but states she is not able to make a decision at this time. Pt states I just have a lot of things going on at home. SW informed pt that this worker will once again check with pt before this worker leaves for the day for a decision to see if she has talked to her son. SW asked pt if she knew about a time she may be able to talk to her son or a time he may be returning to [facility] and pt states she doesn't know. At this time, pt is stating she cannot make a decision regarding discharge plans. SW will check back in with pt today as time allows. Beata Sherman ELECTRON BEAM PHOTO MASK MAKER, CORPORATE STATISTICAL FINANCIAL ANALYST
--- NOTE | 2021-03-29 14:07 | PN.HOSP_ITS ---
Subjective Subjective: Patient wants to go to [facility]. Patient has bilateral lower extremities lymphedema, left worse than right. No fever or chills. Objective Data Objective Data Vital Signs: Vital Signs Temp Pulse Resp BP Pulse Ox 97.8 F 79 16 124/53 H 98 03/29/21 08:34 03/29/21 13:44 03/29/21 13:44 03/29/21 08:34 03/29/21 09:43 Oxygen Delivery Method Room Air Weight: 251 lb 14.4 oz Body Mass Index (BMI) 43.2 Finger Stick Blood Glucose 128 Intake & Output: Intake and Output for Last 24 Hours 03/27/21 03/28/21 03/29/21 23:59 23:59 23:59 Intake Total 4585 / 4585 3150 / 3150 1850 / 1850 Output Total 900 / 900 2175 / 2175 1200 / 1200 Balance 3685 / 3685 975 / 975 650 / 650 Lab / Micro Data Result Diagrams: 03/29/21 05:43 03/29/21 05:43 Labs: Laboratory Results - last 24 hr 03/28/21 03/28/21 03/29/21 16:52 22:06 05:43 WBC 8.3 RBC 3.37 L Hgb 10.1 L Hct 32.6 L MCV 96.7 MCH 30.0 MCHC 31.0 L RDW Std Deviation 52.1 H RDW Coeff of Dilip 14.8 H Plt Count 128 L MPV 11.2 Neut % (Auto) Not Reportable Absolute Neuts (auto) 5.9 Absolute Lymphs (auto) 1.70 Total Counted 100 Neutrophils % (Manual) 68 Band Neutrophils % 4 Lymphocytes % (Manual) 20 Monocytes % (Manual) 5 Metamyelocytes % 2 H Diff Path Review Reviewed Platelet Estimate SLT DEC RBC Morphology NORM C+C Sodium Potassium Chloride Carbon Dioxide Anion Gap BUN Creatinine Estim Creat Clear Calc Est GFR (MDRD) Af Amer Est GFR (MDRD) Non-Af BUN/Creatinine Ratio Glucose Calcium POC Glucose 121 H 191 H 03/29/21 03/29/21 03/29/21 05:43 06:34 10:45 WBC RBC Hgb Hct MCV MCH MCHC RDW Std Deviation RDW Coeff of Dilip Plt Count MPV Neut % (Auto) Absolute Neuts (auto) Absolute Lymphs (auto) Total Counted Neutrophils % (Manual) Band Neutrophils % Lymphocytes % (Manual) Monocytes % (Manual) Metamyelocytes % Diff Path Review Platelet Estimate RBC Morphology Sodium 140 Potassium 4.1 Chloride 113 H Carbon Dioxide 21.0 Anion Gap 6 BUN 42 H Creatinine 1.26 H Estim Creat Clear Calc 35.88 Est GFR (MDRD) Af Amer 54 L Est GFR (MDRD) Non-Af 45 L BUN/Creatinine Ratio 33.3 H Glucose 121 H Calcium 7.6 L POC Glucose 116 H 160 H Micro: Microbiology 03/27/21 09:30 Wound - Leg, Left Gram Stain - Final 03/27/21 09:30 Wound - Leg, Left Wound Culture - Preliminary Morganella morganii sp morgani GNR lactose insurance adjustor Alpha Hemolytic Streptococcus GPC Poss Enterococcus sp Gram positive viktor 03/26/21 15:40 Urine, Random Urine Culture - Final Citrobacter freundii 03/26/21 15:23 Nasal Secretion SARS-CoV-2 Antigen (Rapid) - Final Physical Exam Narrative General: Alert, Oriented x3, Cooperative HEENT: Atraumatic, PERRLA, EOMI, Normocephalic Oral: No Gingival or Mucosal Lesions/ Ulcerations Neck: Supple, No JVD, Negative Carotid Bruits Lungs: Air entry diminished in bilateral lung bases. No crepitation/rhonchi Cardiovascular: Regular rate, Regular Rhythm, Normal S1, Normal S2, No murmurs Abdomen: Bowel Sounds Present, Soft, Non Tender, Non-Distended : No renal angle tenderness. No suprapubic tenderness. Extremities: Bilateral lower extremity lymphedema edema, Capillary Refill Less than 3 Seconds Skin: Left lower extremity superficial erosion, tenderness and ulceration; improving. No pressure sores/ulcer. Musculoskeletal: No Tenderness to Palpation of Joints or Extremities Neurological: Cranial nerves II-XII grossly intact, Deep Tendon Reflexes 2+/4 and Symmetrical, Neuro grossly intact Psych/Mental Status: Normal Affect, Appropriate. Assessment & Plan Assessment/Plan (1) Acute cystitis: (2) Acute kidney injury superimposed on CKD: (3) Type II diabetes mellitus: PLAN: Patient is a 70-year-old lady who presented with progressive generalized weakness with associated diarrhea and fall. Patient was found to have worsening kidney function as well as acute cystitis admitted to regular nursing floor for further management 1. Acute complicated cystitis with Citrobacter freundii, more than 100,000 colonies. Sensitive to ceftriaxone. Patient has a history of recurrent UTI about 3-4 times per year. Multiple courses of antibiotics in the past. Resistant to treatment. 2. Acute kidney injury ?Superimposed on chronic kidney disease stage IIIa. Baseline creatinine 1.2 as of 03/23/2015. Creatinine on admission was 2.79. Repeat BUN 6 creatinine shows improvement. 3. Bilateral lower extremity lymphedema with cellulitis involving the left lower extremity and superficial ulceration, left more than right. Superficial w ound culture Gram stain shows Morganella morganii, rare GNR lactose insurance adjustor, alphahemolytic Streptococcus and GPC. Patient already on Rocephin 4. Hypothyroidism - Patient is on levothyroxine home dose continued 5. COPD ?Currently not in exacerbation 6. Chronic lower extremity lymphedema ?Ga wrap as needed 7. Anemia - Secondary to chronic disorder monitoring H&H and transfuse if patient becomes symptomatic or hemoglobin falls below 7 8. Thrombocytopenia ?Patient platelet count on admission was 169 has had a significant drop to 119 was started on heparin for DVT prophylaxis subsequently discontinued 9. Diabetes mellitus type II -Managed with diet please on Accu-Cheks before meals and at bedtime with sliding scale coverage 10. DVT prophylaxis -Chemoprophylaxis contraindicated in view of patient's significant drop in her platelet count Discharge plan: [facility]. Advance planning; full code. Microbiology Past 72 Hours Microbiology Past 72 Hours 03/27/21 09:30 Wound - Leg, Left Gram Stain - Final 03/27/21 09:30 Wound - Leg, Left Wound Culture - Preliminary Morganella morganii sp morgani GNR lactose insurance adjustor Alpha Hemolytic Streptococcus GPC Poss Enterococcus sp Gram positive viktor 03/26/21 15:40 Urine, Random Urine Culture - Final Citrobacter freundii 03/26/21 15:23 Nasal Secretion SARS-CoV-2 Antigen (Rapid) - Final Laboratory Results 03/28/21 16:52: POC Glucose 121 H 03/28/21 22:06: POC Glucose 191 H 03/29/21 05:43: WBC 8.3, RBC 3.37 L, Hgb 10.1 L, Hct 32.6 L, MCV 96.7, MCH 30.0, MCHC 31.0 L, RDW Std Deviation 52.1 H, RDW Coeff of Dilip 14.8 H, Plt Count 128 L, MPV 11.2, Neut % (Auto) Not Reportable, Absolute Neuts (auto) 5.9, Absolute Lymphs (auto) 1.70, Total Counted 100, Neutrophils % (Manual) 68, Band Neutrophils % 4, Lymphocytes % (Manual) 20, Monocytes % (Manual) 5, Metamyelocytes % 2 H, Diff Path Review Reviewed, Platelet Estimate SLT DEC, RBC Morphology NORM C+C 03/29/21 05:43: Sodium 140, Potassium 4.1, Chloride 113 H, Carbon Dioxide 21.0, Anion Gap 6, BUN 42 H, Creatinine 1.26 H, Estim Creat Clear Calc 35.88, Est GFR (MDRD) Af Amer 54 L, Est GFR (MDRD) Non-Af 45 L, BUN/Creatinine Ratio 33.3 H, Glucose 121 H, Calcium 7.6 L 03/29/21 06:34: POC Glucose 116 H 03/29/21 10:45: POC Glucose 160 H Visit Charges Inpatient E&M: 18238 Subs Hosp L2
--- NOTE | 2021-03-29 15:54 | CASEMGMT ---
Social Work Note LYNETTE and LEXI LOGAN in to speak with pt to continue discussion of discharge plans. Pt is once again stating she needs to talk to her son Gerald about what the plan will be but states she prefers to return home (to Gerald's house) with [facility]. Pt is now agreeable though to at least having TCU submit for pre-cert so that can be started today. RN DESMOND spoke with pt about HHC and provided pt with HHC list. LYNETTE placed a call to Josephine with TCU and left message for her to submit for pre-cert. LYNETTE received call from pt's CM Giniej Messina requesting update. Gini states pt was telling her that she was going to her son's Gerald house at discharge. Gini states pt's other son that lives in [place] came down to pt's house yesterday and either used a credit card to get into pt's house or went to the landlord and got keys to enter pt's home. Gini states she told pt that if pt goes home with Gerald then pt will need to allow HHC to come into Gerald's house. LYNETTE informed Gini that this worker will keep her updated. RN updated this worker twice. The first time the RN updated this worker the pt stated she needed to go home because the workers compensation specialist and fire department was out at pt's home and trying to get it deemed inhabitable. RN then updated this worker that pt stated she should maybe go to TCU for a few days to clear up the UTI. Pt is to discuss discharge plans with her son this evening. SW to follow up with pt tomorrow to confirm discharge plans. LYNETTE spoke with Shawna at [facility] and updated her to disregard referral. Plan: TCU pending pre-cert vs Home with HHC Beata Sherman SEED YEAST OPERATOR, MACHINE ERECTOR
[2021-03-29 15:56] LABS: Bedside Glucose 135 mg/dL (70-110)
[2021-03-29] MEDS: Budesonide Respules 0.5 MG/2 ML AMPUL.NEB. INHALATION (19:23)
[2021-03-29 21:55] LABS: Bedside Glucose 140 mg/dL (70-110)
[2021-03-30] VITALS (15 sets, daily range): BP systolic 103–129; BP diastolic 49–72; PULSE 62–93; RESP 16–20; TEMP 36.5–36.9; O2SAT 96–98
[2021-03-30] MEDS: tiZANidine HCl 2 MG Tablet 4 MG PO ×2 (06:02→13:51)
[2021-03-30] MEDS: Levothyroxine 100 MCG Tablet PO (06:03)
[2021-03-30] MEDS: HYDROcodone Bitartrate/Apap 5/325 Tablet PO ×3 (06:05→22:07)
[2021-03-30] MEDS: 0.9% Normal Saline 1,000 ML 100 ML IV ×2 (06:06→17:16)
[2021-03-30 06:36] LABS: Bedside Glucose 118 mg/dL (70-110)
[2021-03-30] MEDS: Budesonide Respules 0.5 MG/2 ML AMPUL.NEB. INHALATION ×2 (06:56→20:00)
[2021-03-30] MEDS: Ipratropium/Albuterol Sulfate 3 ML AMPUL.NEB INHALATION ×3 (06:56→20:00)
[2021-03-30 07:41] LABS: Hematocrit 31.8 % (37-47); Hemoglobin 9.7 g/dL (12.0-15.0); Mean Corp Hgb Conc 30.5 g/dL (32-36); Mean Corpuscular Hgb 29.3 pg (27.0-32.0); Mean Corpuscular Volume 96.1 fL (81-99); Mean Platelet Vol. 10.9 fl (6.2-12.0); POSITIVE COUNT YES; POSITIVE MORPHOLOGY YES; Platelet Count 155 K/mm3 (150-450); RBC Distribution Width CV 14.8 % (11.6-14.6); RBC Distribution Width SD 53.1 fl (35.1-43.9); Red Blood Count 3.31 M/mm3 (4.2-5.4); White Blood Count 8.6 K/mm3 (4.4-11.0)
[2021-03-30 07:43] LABS: Differential Indicated MANUAL DIFF
[2021-03-30 08:02] LABS: Anion Gap 7 (5-15); BUN 34 mg/dL (7-18); BUN/Creat Ratio 31.8 RATIO (10-20); Calcium,Total 7.9 mg/dL (8.5-10.1); Chloride 112 mmol/L (98-107); Creatinine, Serum 1.07 mg/dL (0.55-1.02); EST Glomerular Filtration Rate 54 mL/min (>60); Est Glom Filt Rate - Afr Amer 65 mL/min (>60); Estimated Creatinine Clearance 42.25 ml/min; Glucose 133 mg/dL (74-106); Potassium 4.3 mmol/L (3.5-5.1); Sodium Level 140 mmol/L (136-145)
[2021-03-30 08:10] LABS: Eosinophil 2 % (0-5); Lymphocyte 18 % (19-41); Metamyelocyte 2 % (0-1); Neutrophil-Band 1 % (0-5); Neutrophil-Segmented 77 % (47-70); Total Cells Counted 100 (MANUAL DIFF)
[2021-03-30 08:11] LABS: Platelet Estimate ADEQUATE (ADEQ); Red Cell Morphology NORM C+C NORMAL (NORM C&C)
[2021-03-30 08:12] LABS: Absolute Lymphocyte Count 1.54 X10^3/uL (0.83-4.51); Absolute Neutrophil Count 6.7 X10^3/uL (2.0-7.7); Lymphocyte # 1.54 X10^3/ul (0.83-4.51); Neutrophil # 6.68 X10^3/uL (2.7-7.7)
[2021-03-30] MEDS: Cyanocobalamin 500 MCG Tablet 2000 MCG PO (08:40)
[2021-03-30] MEDS: Ascorbic Acid 500 MG Tablet 1000 MG PO ×2 (08:41→22:09)
[2021-03-30] MEDS: Cholecalciferol (VIT D3) 25 MCG TABLET (1,000 UNITS) 125 MCG PO (08:45)
[2021-03-30] MEDS: Glucerna Shake 120 ML LIQUID PO ×4 (08:52→22:28)
--- NOTE | 2021-03-30 10:30 | CASEMGMT ---
Social Work Note SW received call from pt's DESMOND Messina stating pt told her that she is willing to go to [facility] TCU at discharge. SW in to speak with pt. Pt confirms she is agreeable to going to [facility] TCU. SW explained pre-cert will need to be obtained before pt can discharge. Pt states understanding. Plan: TCU pending pre-cert Beata Sherman MICRO COMPUTER SPECIALIST, GENDER STUDIES PROFESSOR
[2021-03-30] MEDS: Azelastine HCl NASAL.SRY 2 SPRAY NASAL (10:53)
[2021-03-30] MEDS: Insulin Lispro 100 UNIT/ML INSULN.PEN SC ×2 (10:53→22:22)
[2021-03-30] MEDS: Fluticasone 0.05% 1 SPRAY NASAL.SRY 2 SPRAY NASAL (10:54)
[2021-03-30 11:11] LABS: Bedside Glucose 164 mg/dL (70-110)
[2021-03-30] MEDS: Nystatin Powder 15gm Bottle 1 APPLIC TOPICAL ×2 (13:47→22:09)
--- NOTE | 2021-03-30 13:55 | PN.HOSP_ITS ---
Subjective Subjective: No fever or chills. Patient states she likes to go to TCU. Objective Data Objective Data Vital Signs: Vital Signs Temp Pulse Resp BP Pulse Ox 98.3 F 70 18 103/58 L 97 03/30/21 08:36 03/30/21 10:58 03/30/21 08:36 03/30/21 08:36 03/30/21 08:36 Oxygen Delivery Method Room Air Weight: 251 lb 14.4 oz Body Mass Index (BMI) 43.2 Finger Stick Blood Glucose 128 Intake & Output: Intake and Output for Last 24 Hours 03/28/21 03/29/21 03/30/21 23:59 23:59 23:59 Intake Total 3150 / 3150 2850 / 2850 1000 / 1000 Output Total 2175 / 2175 1900 / 2300 1000 / 1000 Balance 975 / 975 950 / 550 0 / 0 Lab / Micro Data Result Diagrams: 03/30/21 07:15 03/30/21 07:15 Labs: Laboratory Results - last 24 hr 03/29/21 03/29/21 03/30/21 15:46 21:37 06:29 WBC RBC Hgb Hct MCV MCH MCHC RDW Std Deviation RDW Coeff of Dilip Plt Count MPV Neut % (Auto) Absolute Neuts (auto) Absolute Lymphs (auto) Total Counted Neutrophils % (Manual) Band Neutrophils % Lymphocytes % (Manual) Eosinophils % (Manual) Metamyelocytes % Diff Path Review Platelet Estimate RBC Morphology Sodium Potassium Chloride Carbon Dioxide Anion Gap BUN Creatinine Estim Creat Clear Calc Est GFR (MDRD) Af Amer Est GFR (MDRD) Non-Af BUN/Creatinine Ratio Glucose Calcium POC Glucose 135 H 140 H 118 H 03/30/21 03/30/21 03/30/21 07:15 07:15 10:52 WBC 8.6 RBC 3.31 L Hgb 9.7 L Hct 31.8 L MCV 96.1 MCH 29.3 MCHC 30.5 L RDW Std Deviation 53.1 H RDW Coeff of Dilip 14.8 H Plt Count 155 MPV 10.9 Neut % (Auto) Not Reportable Absolute Neuts (auto) 6.7 Absolute Lymphs (auto) 1.54 Total Counted 100 Neutrophils % (Manual) 77 H Band Neutrophils % 1 Lymphocytes % (Manual) 18 L Eosinophils % (Manual) 2 Metamyelocytes % 2 H Diff Path Review May foll Platelet Estimate ADEQUATE RBC Morphology NORM C+C Sodium 140 Potassium 4.3 Chloride 112 H Carbon Dioxide 21.0 Anion Gap 7 BUN 34 H Creatinine 1.07 H Estim Creat Clear Calc 42.25 Est GFR (MDRD) Af Amer 65 Est GFR (MDRD) Non-Af 54 L BUN/Creatinine Ratio 31.8 H Glucose 133 H Calcium 7.9 L POC Glucose 164 H Micro: Microbiology 03/27/21 09:30 Wound - Leg, Left Gram Stain - Final 03/27/21 09:30 Wound - Leg, Left Wound Culture - Preliminary Morganella morganii sp morgani GNR lactose blocklayer Streptococcus sanguinis Enterococcus avium Gram negative viktor Gram positive viktor Coag Negative Staph 03/26/21 15:40 Urine, Random Urine Culture - Final Citrobacter freundii 03/26/21 15:23 Nasal Secretion SARS-CoV-2 Antigen (Rapid) - Final Physical Exam Narrative General: Alert, Oriented x3, Cooperative HEENT: Atraumatic, PERRLA, EOMI, Normocephalic Oral: No Gingival or Mucosal Lesions/ Ulcerations Neck: Supple, No JVD, Negative Carotid Bruits Lungs: Air entry diminished in bilateral lung bases. No crepitation/rhonchi Cardiovascular: Regular rate, Regular Rhythm, Normal S1, Normal S2, No murmurs Abdomen: Bowel Sounds Present, Soft, Non Tender, Non-Distended : No renal angle tenderness. No suprapubic tenderness. Extremities: Bilateral lower extremity lymphedema edema; left more than right, Capillary Refill Less than 3 Seconds Skin: Left lower extremity superficial erosion, tenderness and ulceration; improving. No pressure sores/ulcer. Musculoskeletal: No Tenderness to Palpation of Joints or Extremities Neurological: Cranial nerves II-XII grossly intact, Deep Tendon Reflexes 2+/4 and Symmetrical, Neuro grossly intact Psych/Mental Status: Normal Affect, Appropriate. Assessment & Plan Assessment/Plan (1) Acute cystitis: (2) Acute kidney injury superimposed on CKD: (3) Type II diabetes mellitus: PLAN: Patient is a 70-year-old lady who presented with progressive generalized weakness with associated diarrhea and fall. Patient was found to h ave worsening kidney function as well as acute cystitis admitted to regular nursing floor for further management 1. Acute complicated cystitis with Citrobacter freundii, more than 100,000 colonies. Sensitive to ceftriaxone. Patient has a history of recurrent UTI about 3-4 times per year. Multiple courses of antibiotics in the past. Resistant to treatment. 2. Acute kidney injury ?Superimposed on chronic kidney disease stage IIIa. Baseline creatinine 1.2 as of 03/23/2015. Creatinine on admission was 2.79. Repeat BUN 6 creatinine shows improvement. 3. Bilateral lower extremity lymphedema with cellulitis involving the left lower extremity and superficial ulceration, left more than right. Superficial wound culture Gram stain shows Morganella morganii, rare GNR lactose blocklayer, alphahemolytic Streptococcus and GPC. Patient already on Rocephin. I will add doxycycline 100 mg p.o. twice daily 4. Hypothyroidism - Patient is on levothyroxine home dose continued 5. COPD ?Currently not in exacerbation 6. Chronic lower extremity lymphedema ?Ga wrap as needed 7. Anemia - Secondary to chronic disorder monitoring H&H and transfuse if patient becomes symptomatic or hemoglobin falls below 7 8. Thrombocytopenia ?Patient platelet count on admission was 169 has had a significant drop to 119 was started on heparin for DVT prophylaxis subsequently discontinued 9. Diabetes mellitus type II -Managed with diet please on Accu-Cheks before meals and at bedtime with sliding scale coverage 10. DVT prophylaxis -Chemoprophylaxis contraindicated in view of patient's significant drop in her platelet count Discharge plan: [facility], [facility]. Advance planning; full code. Microbiology Past 72 Hours 03/27/21 09:30 Wound - Leg, Left Gram Stain - Final 03/27/21 09:30 Wound - Leg, Left Wound Culture - Preliminary Morganella morganii sp morgani GNR lactose blocklayer Streptococcus sanguinis Enterococcus avium Gram negative viktor Gram positive viktor Coag Negative Staph 03/26/21 15:40 Urine, Random Urine Culture - Final Citrobacter freundii Laboratory Results 03/29/21 15:46: POC Glucose 135 H 03/29/21 21:37: POC Glucose 140 H 03/30/21 06:29: POC Glucose 118 H 03/30/21 07:15: WBC 8.6, RBC 3.31 L, Hgb 9.7 L, Hct 31.8 L, MCV 96.1, MCH 29.3, MCHC 30.5 L, RDW Std Deviation 53.1 H, RDW Coeff of Dilip 14.8 H, Plt Count 155, MPV 10.9, Neut % (Auto) Not Reportable, Absolute Neuts (auto) 6.7, Absolute Lymphs (auto) 1.54, Total Counted 100, Neutrophils % (Manual) 77 H, Band Neutrophils % 1, Lymphocytes % (Manual) 18 L, Eosinophils % (Manual) 2, Metamyelocytes % 2 H, Diff Path Review May foll, Platelet Estimate ADEQUATE, RBC Morphology NORM C+C 03/30/21 07:15: Sodium 140, Potassium 4.3, Chloride 112 H, Carbon Dioxide 21.0, Anion Gap 7, BUN 34 H, Creatinine 1.07 H, Estim Creat Clear Calc 42.25, Est GFR (MDRD) Af Amer 65, Est GFR (MDRD) Non-Af 54 L, BUN/Creatinine Ratio 31.8 H, Glucose 133 H, Calcium 7.9 L 03/30/21 10:52: POC Glucose 164 H Laboratory Results 03/28/21 16:52: POC Glucose 121 H 03/28/21 22:06: POC Glucose 191 H 03/29/21 05:43: WBC 8.3, RBC 3.37 L, Hgb 10.1 L, Hct 32.6 L, MCV 96.7, MCH 30.0, MCHC 31.0 L, RDW Std Deviation 52.1 H, RDW Coeff of Dilip 14.8 H, Plt Count 128 L, MPV 11.2, Neut % (Auto) Not Reportable, Absolute Neuts (auto) 5.9, Absolute Lymphs (auto) 1.70, Total Counted 100, Neutrophils % (Manual) 68, Band Neutrophils % 4, Lymphocytes % (Manual) 20, Monocytes % (Manual) 5, Metamyelocytes % 2 H, Diff Path Review Reviewed, Platelet Estimate SLT DEC, RBC Morphology NORM C+C 03/29/21 05:43: Sodium 140, Potassium 4.1, Chloride 113 H, Carbon Dioxide 21.0, Anion Gap 6, BUN 42 H, Creatinine 1.26 H, Estim Creat Clear Calc 35.88, Est GFR (MDRD) Af Amer 54 L, Est GFR (MDRD) Non-Af 45 L, BUN/Creatinine Ratio 33.3 H, Glucose 121 H, Calcium 7.6 L 03/29/21 06:34: POC Glucose 116 H 03/29/21 10:45: POC Glucose 160 H
--- NOTE | 2021-03-30 15:38 | CASEMGMT ---
Social Work Met with patient to provide emotional and verbal support. Pt expressed her feelings with her changes in medical condition. overall, she is down and can't catch a break. Discussed coping skills. Pt states she is a cry baby and that allows her to let her the bad to make room for the good. She states she is always emotional but it works for her. Offered counseling or medication - pt denied both and states she is fine without anything, she is a hermit. Pt states the plan is for her to transfer to TCU. Explained this worker will be the SW on that unit and can continue to assist with any needs during her stay. Pt appreciative. No other issues noted. Harper Stephens, CALCULATION REVIEWER COUNTY SHERIFF
[2021-03-30 17:21] LABS: Bedside Glucose 142 mg/dL (70-110)
--- NOTE | 2021-03-30 17:30 | CASEMGMT ---
Social Work Note SW in to speak with pt. SW updated pt that this worker is leaving for the day and pre-cert is still pending. SW informed pt that pre-cert may be obtained this weekend but if not pt will be at [facility] until Friday. Pt states understanding. SW spoke with pt about how she is feelings. Pt states I keep on feeling better. Pt states she met Dr. Collins and he is very nice and pt also states she had a bowel movement which made her feel good. Pt states I just have a lot of other things going on. SW asked pt what she meant. Pt stated things with her house. SW offered support to pt. SW asked pt about her depression. Pt states it is always there, but it isn't the dangerous kind of depression. Pt states she likes to pray and speak to God and she also likes to listen to music. Pt denied any current suicidal thoughts/plans/ideations. SW informed pt that there will be a SW on TCU that can continue to check in with pt as well. Pt states understanding. LYNETTE did place a call to Jacquelyn at [facility] and made [facility] report due to reported concerns of pt's living environment. SW placed Green sheet on the chart in the event pre-cert is obtained. Plan: TCU pending pre-cert Beata Sherman MSW, PIPEFITTER HELPER
--- NOTE | 2021-03-30 18:11 | NURSING ---
phone call received from Josephine in admission stating precert has been obtained for TCU, precert is good for today and tomorrow. Dr. Veliz updated and reply text received he will discharge her tomorrow
[2021-03-30] MEDS: Acetaminophen 325 MG Tablet 650 MG PO (20:03)
[2021-03-30] MEDS: Ciprofloxacin 500 MG Tablet PO (22:08)
[2021-03-30] MEDS: Doxycycline 100 MG CAPSULE PO (22:08)
[2021-03-30 22:36] LABS: Bedside Glucose 155 mg/dL (70-110)
[2021-03-31] VITALS (7 sets, daily range): BP systolic 108–131; BP diastolic 43–60; PULSE 76–99; RESP 16–18; TEMP 36.6–36.7; O2SAT 97
[2021-03-31] MEDS: 0.9% Normal Saline 1,000 ML 100 ML IV (02:52)
[2021-03-31] MEDS: Nystatin Powder 15gm Bottle 1 APPLIC TOPICAL ×2 (05:21→14:23)
[2021-03-31] MEDS: HYDROcodone Bitartrate/Apap 5/325 Tablet PO ×2 (06:34→14:21)
[2021-03-31] MEDS: Levothyroxine 100 MCG Tablet PO (06:34)
[2021-03-31 06:45] LABS: Bedside Glucose 119 mg/dL (70-110)
[2021-03-31] MEDS: Budesonide Respules 0.5 MG/2 ML AMPUL.NEB. INHALATION (06:48)
[2021-03-31] MEDS: Ipratropium/Albuterol Sulfate 3 ML AMPUL.NEB INHALATION ×2 (06:48→13:33)
--- NOTE | 2021-03-31 08:08 | TREXTCAR_ITS ---
Diet 03/26/21 19:32 Diet: Consistent Carb - Calorie Controlled Food consistency:: Regular Liquid Consistency:: Regular/Thin Type of Dietary Supplement:: Jay Is pt able to select menu?: Yes Diet Comments: Jay 1 pkt BID L&D. How many daily calories?: 1800 calorie Routine Orders/Code Status Suppository Type: Dulcolax 10mg Suppository Frequency: Daily PRN Code Status: Full Code Wound(s) LLE: Wound Type: cellulitis left posterior lower leg: Wound Type: Stasis Ulcer Dressing Change: AntiMicrobial (Aquacel AG, etc) Therapies Weight Bearing: Weight bearing as tolerated Extremity Affected:: Bilateral Lower Physical Therapy: Eval and Treat Occupational Therapy: Eval and Treat Speech Therapy: Eval and Treat Problem/Diagnosis (1) Acute cystitis: Status: Acute (2) Acute kidney injury superimposed on CKD: Status: Chronic (3) Type II diabetes mellitus: Status: Chronic Allergies/Procedures Done in Hospital Allergies budesonide [From Symbicort] Allergy (Verified 03/26/21 13:51) Other formoterol fumarate [From Symbicort] Allergy (Verified 03/26/21 13:51) Other strawberry Allergy (Verified 03/26/21 13:51) Rash MOLD Allergy (Intermediate, Uncoded 06/16/19 15:04) Other Type of Care/Length of Stay Estimated LOS: Convalescent Care Less Than 30 days Type of Care Needed: Skilled Rehab Potential: Good Prognosis: Good Additional Orders/Day of Discharge Additional Orders: Please follow-up with wound care center after discharge from TCU in 1 to 2 weeks Day of Discharge: 03/31/21 Dietary and Speech Recommendations Dietitian Recommendations/Changes: Will continue 1800 calorie CHO consistent diet. Will continue ONS Jay 1 pkt BID to promote wound healing. Discharge Plan Admission Admit Date/Time: 03/26/21 18:00 Primary Reason for Your Visit: cystitis, Left lower extremity cellulitis, and bilateral LE lymphedema Attending Provider: Oscar Veliz Primary Care Provider: Meghan Murphy Instructions Patient Instructions: ED Cellulitis, ED Bladder Infection, Female (Adult) Discharge Orders/Prescriptions Prescriptions: New ipratropium-albuterol 0.5 mg-3 mg(2.5 mg base)/3 mL Solution For Nebulization 3 ml inhalation Q6H.RT PRN (Reason: SOB) Qty: 0 RF: 0 ciprofloxacin HCl 500 mg Tablet 500 mg PO BID Qty: 2 RF: 0 doxycycline monohydrate 100 mg Capsule 100 mg PO BID Qty: 10 RF: 0 cholecalciferol (vitamin D3) [Vitamin D3] 25 mcg (1,000 unit) Tablet 125 mcg PO DAILY Qty: 0 RF: 0 acetaminophen [Tylenol] 325 mg Tablet 650 mg PO Q6H PRN PRN (Reason: Pain Score 1-10/Temp > 100.7 F) Qty: 0 RF: 0 hydrocodone-acetaminophen 5-325 mg Tablet 1 tab PO Q8 Qty: 0 RF: 0 cyanocobalamin (vitamin B-12) 500 mcg Tablet 1,000 mcg PO DAILY Qty: 0 RF: 0 insulin lispro [Humalog KwikPen Insulin] 100 unit/mL Insulin Pen See Protocol unit subcut ACHS Qty: 0 RF: 0 nystatin [Nyamyc] 100,000 unit/gram Powder 1 applic topical TID Qty: 0 RF: 0 Continued levothyroxine 100 MCG tablet 100 mcg PO DAILY RF: 0 azelastine 1 SPRAY aerosol,spray 2 spray NASAL BID RF: 0 fluticasone propion-salmeterol [Advair Diskus] 1 EACH blister with device 1 ea IH BID RF: 0 ascorbic acid (vitamin C) 500 mg Tablet 1,000 mg PO BID RF: 0 fluticasone propionate 50 mcg/actuation spray,suspension 2 spray INTRANASAL DAILY RF: 0 tizanidine [Zanaflex] 4 mg tablet 4 mg PO Q8H RF: 0 hydrocodone-acetaminophen 5-325 mg tablet 5 - 325 tab PO Q8H RF: 0 Changed cyanocobalamin (vitamin B-12) 1,000 mcg Capsule 1,000 mcg PO DAILY MDD supplement Qty: 0 RF: 0 Held flaxseed oil 1,000 mg Capsule 1,000 mg PO DAILY RF: 0 Hold Instructions: Hold while in TCU Discontinued cholecalciferol (vitamin D3) [Vitamin D3] 1,000 UNIT capsule 5,000 unit PO DAILY RF: 0 Referrals / Follow Up: Meghan Murphy MD [Primary Care Provider] - Disposition Disposition (needs filled in before D/C Order can be placed): Residential Facility
--- NOTE | 2021-03-31 08:27 | PCM.DC.SUM ---
Providers Date of Admission: 03/26/21 Primary Care Physician: Dr. Meghan Murphy MD Consultations 03/27/21 03:00 Consult: Onc/Wound/medical records administrator Routine Comment: cellulitis with LLE wound Reason For Visit: UTI, ESTEFANI ON CKD Diagnosis Discharge Diagnosis (1) Acute cystitis: Status: Acute Code(s): N30.00 - Acute cystitis without hematuria (2) Acute kidney injury superimposed on CKD: Status: Chronic Code(s): N17.9 - Acute kidney failure, unspecified; N18.9 - Chronic kidney disease, unspecified (3) Type II diabetes mellitus: Status: Chronic Code(s): E11.9 - Type 2 diabetes mellitus without complications Medications at Discharge Home Medications azelastine 2 spray NASAL BID 02/21/17 fluticasone propion-salmeterol [Advair Diskus] 1 ea IH BID 02/21/17 levothyroxine 100 mcg PO DAILY 02/21/17 ascorbic acid (vitamin C) 1,000 mg PO BID 03/26/21 flaxseed oil 1,000 mg PO DAILY 03/26/21 fluticasone propionate 2 spray INTRANASAL DAILY 03/26/21 hydrocodone-acetaminophen 5 - 325 tab PO Q8H 03/26/21 tizanidine [Zanaflex] 4 mg PO Q8H 03/26/21 acetaminophen [Tylenol] 650 mg PO Q6H PRN PRN #0 tab 03/31/21 cholecalciferol (vitamin D3) [Vitamin D3] 125 mcg PO DAILY #0 tab 03/31/21 ciprofloxacin HCl 500 mg PO BID #2 tab 03/31/21 cyanocobalamin (vitamin B-12) 1,000 mcg PO DAILY #0 cap MDD supplement 03/31/21 cyanocobalamin (vitamin B-12) 1,000 mcg PO DAILY #0 tab 03/31/21 doxycycline monohydrate 100 mg PO BID #10 cap 03/31/21 hydrocodone-acetaminophen 1 tab PO Q8 #0 tab 03/31/21 insulin lispro [Humalog KwikPen Insulin] See Protocol SUBCUT ACHS #0 ml 03/31/21 ipratropium-albuterol 3 ml INHALATION Q6H.RT PRN #0 ml 03/31/21 nystatin [Nyamyc] 1 applic TOPICAL TID #0 g 03/31/21 Hospital Course Summary of Care Provided Hospital Course: Patient is a 70-year-old lady who presented with progressive generalized weakness with associated diarrhea and fall. Patient was found to have worsening kidney function as well as acute cystitis admitted to regular nursing floor for further management. Her hospital stay got prolonged as patient was not decisive about going to SNF before although was recommended by physical therapist but later she decided. 1. Acute complicated cystitis with Citrobacter freundii, more than 100,000 colonies. Sensitive to ceftriaxone. Patient has a history of recurrent UTI about 3-4 times per year. Multiple courses of antibiotics in the past. Resistant to treatment. She is on antibiotics since 03/26. 1 more day of oral Cipro for eradication of bacteria. 2. Acute kidney injury Superimposed on chronic kidney disease stage IIIa. Baseline creatinine 1.2 as of 03/23/2015. Creatinine on admission was 2.79. Repeat BUN 6 creatinine shows improvement. ESTEFANI resolved. 3. Bilateral lower extremity lymphedema with cellulitis involving the left lower extremity and superficial ulceration, left more than right. Superficial wound culture Gram stain shows Morganella morganii, rare GNR lactose ld teacher, alphahemolytic Streptococcus and GPC which might be colonization/commensal growth. On inspection wound looks good. Doxycycline for 5 more days. 4. Hypothyroidism - Patient is on levothyroxine home dose continued 5. COPD ?Currently not in exacerbation 6. Chronic lower extremity lymphedema ?Ga wrap as needed 7. Anemia - Secondary to chronic disorder monitoring H&H and transfuse if patient becomes symptomatic or hemoglobin falls below 7 8. Thrombocytopenia ?Patient platelet count on admission was 169 has had a significant drop to 119 was started on heparin for DVT prophylaxis subsequently discontinued 9. Diabetes mellitus type II: Glucose is controlled. -Managed with diet please on Accu-Cheks before meals and at bedtime with sliding scale coverage 10. DVT prophylaxis -Chemoprophylaxis contraindicated in view of patient's significant drop in her platelet count. Platelet count recovered to 1 55,000 Advance planning; full code. Discharge medication reconciliation done. Discharge follow-up instructions completed. Discharge process discussed with the patient and all questions were answered to patient's satisfaction. Discharged to TCU. Total time spent, exact 35 minutes on discharge meds reconciliation, examination, coordination of care with nurses and ancillary staff, review of imaging and blood test and discussion with the patient on follow-up instructions Physical Exam Narrative Seen and examined. No fever or chills. Wound looks good. No shortness of breath. Physical exam General: Alert, Oriented x3, Cooperative HEENT: Atraumatic, PERRLA, EOMI, Normocephalic Oral: No Gingival or Mucosal Lesions/ Ulcerations Neck: Supple, No JVD, Negative Carotid Bruits Lungs: Air entry diminished in bilateral lung bases. No crepitation/rhonchi Cardiovascular: Regular rate, Regular Rhythm, Normal S1, Normal S2, No murmurs Abdomen: Bowel Sounds Present, Soft, Non Tender, Non-Distended : No renal angle tenderness. No suprapubic tenderness. Extremities: Bilateral lower extremity lymphedema edema; left more than right, improving. Skin: Left lower extremity superficial erosion, ulceration; improving. No pressure sores/ulcer. Musculoskeletal: No Tenderness to Palpation of Joints or Extremities Neurological: Cranial nerves II-XII grossly intact, Deep Tendon Reflexes 2+/4 and Symmetrical, Neuro grossly intact Psych/Mental Status: Normal Affect, Appropriate. ABG / Lab / Microbiology Data Result Diagrams: 03/30/21 07:15 03/30/21 07:15 Laboratory: Laboratory Results - last 24 hr 03/30/21 03/30/21 03/30/21 10:52 17:10 22:21 POC Glucose 164 H 142 H 155 H 03/31/21 06:33 POC Glucose 119 H Microbiology: Microbiology 03/27/21 09:30 Gram Stain - Final Wound - Leg, Left Wound Culture - Final Morganella morganii sp morgani Citrobacter freundii Streptococcus sanguinis Enterococcus avium Proteus hauseri Gram positive viktor Coag Negative Staph Microbiology 03/27/21 09:30 Wound - Leg, Left Gram Stain - Final 03/27/21 09:30 Wound - Leg, Left Wound Culture - Final Morganella morganii sp morgani Citrobacter freundii Streptococcus sanguinis Enterococcus avium Proteus hauseri Gram positive viktor Coag Negative Staph 03/26/21 15:40 Urine, Random Urine Culture - Final Citrobacter freundii 03/26/21 15:23 Nasal Secretion SARS-CoV-2 Antigen (Rapid) - Final Meaningful Use Info Meaningful Use Diagnoses (Choose all that apply): None applicable Discharge Plan Admission Admit Date/Time: 03/26/21 18:00 Primary Reason for Your Visit: cystitis, Left lower extremity cellulitis, and bilateral LE lymphedema Attending Provider: Oscar Veliz Primary Care Provider: Meghan Murphy Instructions Patient Instructions: ED Cellulitis, ED Bladder Infection, Female (Adult) Discharge Orders/Prescriptions Prescriptions: New ipratropium-albuterol 0.5 mg-3 mg(2.5 mg base)/3 mL Solution For Nebulization 3 ml inhalation Q6H.RT PRN (Reason: SOB) Qty: 0 RF: 0 ciprofloxacin HCl 500 mg Tablet 500 mg PO BID Qty: 2 RF: 0 doxycycline monohydrate 100 mg Capsule 100 mg PO BID Qty: 10 RF: 0 cholecalciferol (vitamin D3) [Vitamin D3] 25 mcg (1,000 unit) Tablet 125 mcg PO DAILY Qty: 0 RF: 0 acetaminophen [Tylenol] 325 mg Tablet 650 mg PO Q6H PRN PRN (Reason: Pain Score 1-10/Temp > 100.7 F) Qty: 0 RF: 0 hydrocodone-acetaminophen 5-325 mg Tablet 1 tab PO Q8 Qty: 0 RF: 0 cyanocobalamin (vitamin B-12) 500 mcg Tablet 1,000 mcg PO DAILY Qty: 0 RF: 0 insulin lispro [Humalog KwikPen Insulin] 100 unit/mL Insulin Pen See Protocol unit subcut ACHS Qty: 0 RF: 0 nystatin [Nyamyc] 100,000 unit/gram Powder 1 applic topical TID Qty: 0 RF: 0 Continued levothyroxine 100 MCG tablet 100 mcg PO DAILY RF: 0 azelastine 1 SPRAY aerosol,spray 2 spray NASAL BID RF: 0 fluticasone propion-salmeterol [Advair Diskus] 1 EACH blister with device 1 ea IH BID RF: 0 ascorbic acid (vitamin C) 500 mg Tablet 1,000 mg PO BID RF: 0 fluticasone propionate 50 mcg/actuation spray,suspension 2 spray INTRANASAL DAILY RF: 0 tizanidine [Zanaflex] 4 mg tablet 4 mg PO Q8H RF: 0 hydrocodone-acetaminophen 5-325 mg tablet 5 - 325 tab PO Q8H RF: 0 Changed cyanocobalamin (vitamin B-12) 1,000 mcg Capsule 1,000 mcg PO DAILY MDD supplement Qty: 0 RF: 0 Held flaxseed oil 1,000 mg Capsule 1,000 mg PO DAILY RF: 0 Hold Instructions: Hold while in TCU Discontinued cholecalciferol (vitamin D3) [Vitamin D3] 1,000 UNIT capsule 5,000 unit PO DAILY RF: 0 Referrals / Follow Up: Meghan Murphy MD [Primary Care Provider] - Disposition Disposition (needs filled in before D/C Order can be placed): [facility] Facility Visit Charges Inpatient E&M: 14040 Disch Hosp
[2021-03-31] MEDS: Azelastine HCl NASAL.SRY 2 SPRAY NASAL (09:41)
[2021-03-31] MEDS: Fluticasone 0.05% 1 SPRAY NASAL.SRY 2 SPRAY NASAL (09:42)
[2021-03-31] MEDS: Ciprofloxacin 500 MG Tablet PO (09:43)
[2021-03-31] MEDS: Doxycycline 100 MG CAPSULE PO (09:44)
[2021-03-31] MEDS: Cyanocobalamin 500 MCG Tablet 2000 MCG PO (09:45)
[2021-03-31] MEDS: Ascorbic Acid 500 MG Tablet 1000 MG PO (09:46)
[2021-03-31] MEDS: Cholecalciferol (VIT D3) 25 MCG TABLET (1,000 UNITS) 125 MCG PO (09:47)
[2021-03-31] MEDS: Glucerna Shake 120 ML LIQUID PO ×2 (09:51→14:21)
[2021-03-31 12:36] LABS: Bedside Glucose 140 mg/dL (70-110)
--- NOTE | 2021-04-02 09:15 | CASEMGMT ---
Social Work Note Pt discharged to TCU Friday. LYNETTE placed a call to pt's CM Gini Messina and updated her. Gini asked for discharge paperwork. LYNETTE faxed discharge paperwork. Beata Sherman HAND STITCHER, DRIVER TRAINEE
[2021-04-02 13:22] LABS: Pathologist Review Reviewed
== END 2021-03-31 15:39 | disposition skilled nursing facility (03) | DRG 690 ==
LOC: ED 17:10 → MS3 18:41
PROVIDERS: Internal Medicine; Admitting Provider Hospitalist; Emergency Provider Emergency Medicine; PCP Internal Medicine; Visit Provider Internal Medicine
DX: N30.00 Acute cystitis without hematuria (principal); N17.9 Acute kidney failure, unspecified; E11.22 Type 2 diabetes mellitus with diabetic chronic kidney disease; N18.31 Chronic kidney disease, stage 3a; L03.116 Cellulitis of left lower limb; L97.421 Non-pressure chronic ulcer of left heel and midfoot limited to breakdown of skin; B95.4 Other streptococcus as the cause of diseases classified elsewhere; I89.0 Lymphedema, not elsewhere classified; J44.9 Chronic obstructive pulmonary disease, unspecified; E89.0 Postprocedural hypothyroidism; D69.6 Thrombocytopenia, unspecified; D63.8 Anemia in other chronic diseases classified elsewhere; G47.30 Sleep apnea, unspecified; Z20.822 Contact with and (suspected) exposure to COVID-19; Z79.4 Long term (current) use of insulin; Z79.890 Hormone replacement therapy; Z79.899 Other long term (current) drug therapy; Z87.440 Personal history of urinary (tract) infections
CPT/HCPCS: 36415; 71045; 80048; 80076; 81001; 82962; 83735; 84443; 85025; 87070; 87077; 87086; 87088; 87186; 87205; 87426; 87640; 93005; 94640; 96361; 96365; 96366; 96367; 96372; 97110; 97116; 97162; 97166; 97530; 97535; 97802; 99218; 99251; 99285; J7030; A4216; G0378; G0463; J0696

== ENCOUNTER 2021-03-31 15:50 | Inpatient (IN) | payer MEDICARE, MEDICAID, SELFPAY ==
[2021-03-26 21:45] VITALS: BMI 43.2
[2021-03-31 16:01] VITALS: BMI 47.2
[2021-03-31 16:17] VITALS: BP 117/75; PULSE 96; RESP 20; TEMP 36.2; O2SAT 97
[2021-03-31 17:00] LABS: Bedside Glucose 142 mg/dL (70-110)
--- NOTE | 2021-03-31 17:22 | HP.PCM_ITS ---
HPI - General General Date of Admission: 03/31/21 HPI Narrative 03/26/2021 SONNY BOOTH, is a 70 Female who presents to [facility] Emergency Department with weakness, diarrhea, fall. 03/26/2021 EKG normal sinus rhythm, incomplete left bundle branch block, nonspecific ST abnormality. Fell 2 days prior, weak. Chronic left leg wound worse. WBC 21, Creatinine 2.79, UA shows infection, COVID19 negative. Urine culture sent. Rocephin IV, IV Fluids given. 03/26/2021 Admit to Hospital. Rocephin IV for urinary tract infection, urine culture pending. PT/OT for debility. IV Fluids, stop bactrim for acute kidey injury. Bilateral legs not infected, just swollen, but wound cultures sent. 03/27/2021 Left leg wound culture pending. Heparin stopped due to thrombocytopenia. 03/28/2021 Bilateral lower extremity edema, left worse than right. Rocephin IV for C. Freundii urinary tract infection. Left lower extremity wound culture contaminated. 03/30/2021 Patient would like to go to TCU. Left leg wound culture growing M. Morganii, Alpha hemolytic strep, gram positive cocci. Doxycycline 100MG TWICE DAILY ADDED FOR FIVE MORE DAYS. 03/31/2021 Admit to TCU with debility, here for rehabilitation, strengthening, prior to discharge home alone. [facility] Medical History Anxiety Asthma Cancer COPD (chronic obstructive pulmonary disease) CPAP (continuous positive airway pressure) dependence Depression Diabetes Irregular heart beat Non-smoker Sleep apnea UTI (urinary tract infection) Home Medications azelastine 2 spray NASAL BID 02/21/17 [History Last Taken Unknown] fluticasone propion-salmeterol [Advair Diskus] 1 ea IH BID 02/21/17 [History Last Taken 03/19/21] levothyroxine 100 mcg PO DAILY 02/21/17 [History Last Taken 03/24/21] ascorbic acid (vitamin C) 1,000 mg PO BID 03/26/21 [History Last Taken 03/24/21] flaxseed oil 1,000 mg PO DAILY 03/26/21 [History Last Taken 03/24/21] fluticasone propionate 2 spray INTRANASAL DAILY 03/26/21 [History Last Taken 03/24/21] hydrocodone-acetaminophen 5 - 325 tab PO Q8H 03/26/21 [History Last Taken 03/26/21] tizanidine [Zanaflex] 4 mg PO Q8H 03/26/21 [History Last Taken 03/26/21] acetaminophen [Tylenol] 650 mg PO Q6H PRN PRN #0 tab 03/31/21 [Rx Last Taken Unknown] cholecalciferol (vitamin D3) [Vitamin D3] 125 mcg PO DAILY 03/31/21 [History Last Taken Unknown] ciprofloxacin HCl 500 mg PO BID 03/31/21 [History Last Taken Unknown] cyanocobalamin (vitamin B-12) 1,000 mcg PO DAILY #0 cap MDD supplement 03/31/21 [Rx Last Taken 03/24/21] doxycycline monohydrate 100 mg PO BID 03/31/21 [History Last Taken Unknown] insulin lispro [Humalog KwikPen Insulin] See Protocol SUBCUT ACHS 03/31/21 [History Last Taken Unknown] ipratropium-albuterol 3 ml INHALATION Q6H.RT PRN #0 ml 03/31/21 [Rx Last Taken Unknown] nystatin [Nyamyc] 1 applic TOPICAL TID 03/31/21 [History Last Taken Unknown] Allergy/AdvReac Type Severity Reaction Status Date / Time budesonide [From Symbicort] Allergy Other Verified 03/26/21 13:51 formoterol fumarate Allergy Other Verified 03/26/21 13:51 [From Symbicort] strawberry Allergy Rash Verified 03/26/21 13:51 MOLD Allergy Intermediate Other Uncoded 06/16/19 15:04 Family History Father Lymphoma Mother CHF (congestive heart failure) Surgical History H/O thyroidectomy Social History (Updated 03/31/21 @ 17:[address] Yaniv Collins MD) household members: none Smoking Status: Never smoker ROS Constitutional Constitutional: Denies chills, fever(s) or weight gain ENT HEENT: Denies headache(s), nasal congestion or nasal discharge Cardiovascular Cardiovascular: Denies chest pain or palpitations Respiratory/Chest Respiratory/Chest: Denies cough, excessive phlegm production or shortness of breath with exertion Gastrointestinal Gastrointestinal: Denies abdominal pain, nausea or vomiting Genitourinary Genitourinary: Denies dysuria Musculoskeletal Musculoskeletal: Denies joint pain or joint swelling Integumentary Integumentary: Denies rash or wounds Neurologic Neurologic: Denies focal weakness, numbness or tingling Psychiatric Psychiatric: Reports auditory hallucinations; Denies anxiety, depression, homicidal ideation or suicidal ideation Vital Signs Vital Signs Vital Signs: 03/31/21 16:17 Temperature 97.1 F L Temperature Source Temporal Pulse Rate 96 Respiratory Rate 20 H Blood Pressure 117/75 Blood Pressure Mean 89 Blood Pressure Source Monitor Blood Pressure Position Supine Blood Pressure Location Right Arm Pulse Ox 97 Oxygen Delivery Method Room Air Physical Exam Const alert and oriented x3 General Appearance: cooperative HEENT normocephalic Eyes PERRL and EOMs intact bilaterally Neck supple, no JVD and no carotid bruits Resp normal respiratory effort, normal air movement and clear to auscultation bilaterally Cardio regular rate and regular rhythm GI normal to inspection, nondistended, normoactive bowel sounds, non-tender and non-distended Extremity normal capillary refill Extremity Narrative: Left lower extremity dressed. General Extremity: edema Skin no rashes or lesions noted General Skin Exam: no breakdown Psych affect normal Appearance: appropriate Lab / Micro Data Result Diagrams: 04/01/21 05:05 04/01/21 05:05 Labs: Laboratory Results - last 24 hr 03/31/21 16:50 POC Glucose 142 H Assessment & Plan Assessment/Plan (1) Debility: (2) Urinary tract infection: (3) Acute kidney injury: (4) Leg wound, left: (5) Cellulitis of left leg: (6) Thrombocytopenia: (7) Allergic rhinitis: (8) Hypothyroidism: (9) Vitamin D deficiency: (10) Asthma: (11) Chronic obstructive pulmonary disease: (12) Obstructive sleep apnea: PLAN: 70 year old female with below past medical history hospitalized for urinary tract infection, complicated by cellulitis of left leg, acute kidney injury, thrombocytopenia, admitted to TCU with debility, here for rehabilitation, strengthening, prior to discharge home alone. * Debility - PT/OT. * Dysphagia - ST. * Pain - Tylenol 1000MG Q6H PRN pain (1-5), Oxycodone 5MG Q4H PRN pain (6-10). * Bowel Miralax 17GM daily, Senna/colace 1 tablet BID, Dulcolax 10MG [place] daily PRN. * Adult immunization - Administer Prevnar 13, Pneumovax 23, Fluzone, COVID19 vaccine as appropriate. * DVT prophylaxis - Hold, Thrombocytopenia. * Vitamin C deficiency - Vitamin C 1000MG BID. * Allergic rhinitis - Flonase 2 spray nasal daily, Astelin 2 spray nasal BID PRN. * Vitamin D deficiency - D3 125MCG daily. * C. Freundii urinary tract infection - Cipro 500MG BID thru 04/01/2021. * Vitamin B12 deficiency - B12 1000MCG DAILY. * Cellulitis left leg - Doxycycline 100MG BID thru 04/05/2021. * asthma/copd - wixela 250/50 1 puff twice daily, duoneb 3ml q6h prn. * hypothyroidism - levothyroxine 100mcg daily. * tinea corporis - nystatin powder topical tid. * muscle spasm tizanidine 4mg q8h.
[2021-03-31] MEDS: Ascorbic Acid 500 MG Tablet 1000 MG PO (17:46)
[2021-03-31] MEDS: Fluticasone Propion/Salmeterol 250-50 Inhaler 1 PUFF INHALATION (17:47)
--- NOTE | 2021-03-31 18:51 | NURSING ---
Entered room to get signatures on admit papers and pt was tearful. pt had many complaints from staff too rough with turning, medsurg staff not changing LT leg dressings, not liking attends diapers, states she wear pull ups at home. Offered purewick and pt c/o that it was starting to hurt, explained it only needs to be used at night and off during day. Did not place on pt at this time. Encouraged pt to get up and use BR. Pt refused to let this nurse help her out of bed to BR. She would not let anyone touch her LLE. pt did start lifting it off bed without any assist. 1:1 emotional support given. HASMUKH Christianson supervising pt from bed to BR and explained to call for assist when done. pt verbalized understanding.
--- NOTE | 2021-03-31 20:15 | NURSING ---
Answered call light and pt informs this nurse she refuses to consume any Jay. Spoke w/ her son who is an skills trainer and the supplement has too many chemicals, including aspartame. Verbalizes concerns that she doesn't want to from cancer due to the ingredients listed in the supplement. Instructed until bag machine set up operator evaluates for an alternative supplement, will need to increase fluid intake, especially water, and intake of foods with protein to promote wound healing.
[2021-03-31] MEDS: Menthol/Lanolin/Calamine/Znox 113 GM Tube 1 APPLIC TOPICAL (20:54)
[2021-03-31] MEDS: Ciprofloxacin 500 MG Tablet PO (20:55)
[2021-03-31] MEDS: Doxycycline 100 MG CAPSULE PO (20:55)
[2021-03-31] MEDS: Nystatin Powder 15gm Bottle 1 APPLIC TOPICAL (20:55)
[2021-03-31 21:41] LABS: Bedside Glucose 163 mg/dL (70-110)
[2021-04-01] MEDS: Acetaminophen 500 MG Tablet 1000 MG PO ×2 (01:31→11:10)
--- NOTE | 2021-04-01 03:45 | NURSING ---
Went in with FAMILIA to change pt and adjust purick. Pt started complaining that we hurt her every time we touched her. Stated I was digging my fingers into her legs. No slade left on skin. Offered pain meds at that time and pt declined. Recommended to familia that she take someone into room with her for all care.
[2021-04-01] MEDS: Menthol/Lanolin/Calamine/Znox 113 GM Tube 1 APPLIC TOPICAL ×2 (04:52→20:59)
[2021-04-01] MEDS: Fluticasone 0.05% 1 SPRAY NASAL.SRY 2 SPRAY NASAL (04:53)
[2021-04-01] MEDS: Polyethylene Glycol 3350 17 GM PACKET PO (04:55)
[2021-04-01] MEDS: Senna/Docusate Sodium 1 Tablet PO (04:56)
[2021-04-01] MEDS: Nystatin Powder 15gm Bottle 1 APPLIC TOPICAL ×3 (04:56→21:01)
[2021-04-01] MEDS: Levothyroxine 100 MCG Tablet PO (04:56)
[2021-04-01] MEDS: Fluticasone Propion/Salmeterol 250-50 Inhaler 1 PUFF INHALATION ×2 (04:57→16:38)
[2021-04-01 05:15] LABS: Hematocrit 31.1 % (37-47); Hemoglobin 9.5 g/dL (12.0-15.0); Mean Corp Hgb Conc 30.5 g/dL (32-36); Mean Corpuscular Hgb 29.3 pg (27.0-32.0); Mean Platelet Vol. 10.6 fl (6.2-12.0); POSITIVE COUNT YES; POSITIVE MORPHOLOGY YES; Platelet Count 195 K/mm3 (150-450); RBC Distribution Width CV 14.7 % (11.6-14.6); RBC Distribution Width SD 51.7 fl (35.1-43.9); Red Blood Count 3.24 M/mm3 (4.2-5.4); White Blood Count 6.7 K/mm3 (4.4-11.0)
[2021-04-01 05:19] LABS: Differential Indicated MANUAL DIFF
[2021-04-01 05:33] LABS: Anion Gap 4 (5-15); BUN 22 mg/dL (7-18); BUN/Creat Ratio 23.8 RATIO (10-20); Calcium,Total 7.8 mg/dL (8.5-10.1); Chloride 113 mmol/L (98-107); Creatinine, Serum 0.93 mg/dL (0.55-1.02); EST Glomerular Filtration Rate 64 mL/min (>60); Est Glom Filt Rate - Afr Amer 77 mL/min (>60); Estimated Creatinine Clearance 48.61 ml/min; Glucose 126 mg/dL (74-106); Potassium 4.5 mmol/L (3.5-5.1); Sodium Level 141 mmol/L (136-145)
[2021-04-01 05:37] LABS: Absolute Lymphocyte Count 0.87 X10^3/uL (0.83-4.51); Absolute Neutrophil Count 5.3 X10^3/uL (2.0-7.7); Lymphocyte 13 % (19-41); Metamyelocyte 3 % (0-1); Monocyte 5 % (0-10); Neutrophil-Band 3 % (0-5); Neutrophil-Segmented 76 % (47-70); Platelet Estimate ADEQUATE (ADEQ); Polychromasia 1+; Red Cell Morphology N CYTIC NORMAL (NORM C&C); Total Cells Counted 100 (MANUAL DIFF)
[2021-04-01 05:46] VITALS: BP 135/64; PULSE 80; RESP 14; TEMP 36.6
[2021-04-01 06:30] LABS: Bedside Glucose 126 mg/dL (70-110)
[2021-04-01] MEDS: Cyanocobalamin 500 MCG Tablet 1000 MCG PO (09:26)
[2021-04-01] MEDS: Doxycycline 100 MG CAPSULE PO ×2 (09:27→21:01)
[2021-04-01] MEDS: Ciprofloxacin 500 MG Tablet PO (09:27)
[2021-04-01] MEDS: Ascorbic Acid 500 MG Tablet 1000 MG PO ×2 (09:27→16:38)
[2021-04-01] MEDS: Cholecalciferol (VIT D3) 25 MCG TABLET (1,000 UNITS) 125 MCG PO (09:27)
[2021-04-01 11:26] LABS: Bedside Glucose 167 mg/dL (70-110)
[2021-04-01] MEDS: Tuberculin,Purif.prot.deriv. 50 TU/ML Vial 5 ML ID (14:25)
[2021-04-01] MEDS: tiZANidine HCl 2 MG Tablet 4 MG PO ×2 (14:28→21:02)
--- NOTE | 2021-04-01 14:31 | NURSING ---
Upset and voices I wish they would have just left me on the acute side. Its mothers day and my son cant even come and visit me. Dressing change done at 1100 today but resident requesting her dressing be changed again. States it feels wet and when its wet, it hurts more. Assisted back to bet and dressing change to Lt lower leg done at this time.
[2021-04-01 14:38] VITALS: BP 138/69; PULSE 84; RESP 17; TEMP 36.8; O2SAT 94
--- NOTE | 2021-04-01 14:48 | CPS ---
In to do Covid swab, explained procedure to pt and pt refused. Said if it is the deep one I do not want anything to do with that. RN made aware. RN in to room to talk with pt and explained we have to have this done or pt may not be able to stay. Pt agreeable as long as this RT doesnt go to deep. Covid swab done.
[2021-04-01 16:51] LABS: Bedside Glucose 131 mg/dL (70-110)
[2021-04-01 21:55] LABS: Bedside Glucose 177 mg/dL (70-110)
[2021-04-02] MEDS: Menthol/Lanolin/Calamine/Znox 113 GM Tube 1 APPLIC TOPICAL ×2 (05:31→22:29)
[2021-04-02] MEDS: Fluticasone 0.05% 1 SPRAY NASAL.SRY 2 SPRAY NASAL (05:32)
[2021-04-02] MEDS: Nystatin Powder 15gm Bottle 1 APPLIC TOPICAL ×3 (05:33→22:29)
[2021-04-02] MEDS: Senna/Docusate Sodium 1 Tablet PO (05:34)
[2021-04-02] MEDS: Levothyroxine 100 MCG Tablet PO (05:34)
[2021-04-02] MEDS: Fluticasone Propion/Salmeterol 250-50 Inhaler 1 PUFF INHALATION ×2 (05:34→18:11)
[2021-04-02] MEDS: tiZANidine HCl 2 MG Tablet 4 MG PO ×3 (05:38→22:29)
[2021-04-02 06:04] VITALS: BP 140/63; PULSE 77; RESP 16; TEMP 36.8; O2SAT 96
[2021-04-02 06:31] LABS: Bedside Glucose 126 mg/dL (70-110)
[2021-04-02] MEDS: Cholecalciferol (VIT D3) 25 MCG TABLET (1,000 UNITS) 125 MCG PO (08:30)
[2021-04-02] MEDS: Ascorbic Acid 500 MG Tablet 1000 MG PO ×2 (08:30→18:11)
[2021-04-02] MEDS: Cyanocobalamin 500 MCG Tablet 1000 MCG PO (08:32)
[2021-04-02 11:01] LABS: Bedside Glucose 179 mg/dL (70-110)
[2021-04-02] MEDS: Doxycycline 100 MG CAPSULE PO ×2 (11:01→22:30)
[2021-04-02] MEDS: Acetaminophen 500 MG Tablet 1000 MG PO (11:46)
[2021-04-02] MEDS: oxyCODONE 5 MG Tablet PO (11:47)
[2021-04-02 12:27] VITALS: PULSE 91; RESP 16; O2SAT 96
[2021-04-02 13:31] LABS: Pathologist Review Reviewed
[2021-04-02 14:03] VITALS: BP 119/71; PULSE 91; RESP 16; TEMP 36.6; O2SAT 96
[2021-04-02 16:31] LABS: Bedside Glucose 115 mg/dL (70-110)
--- NOTE | 2021-04-02 17:03 | PCM.PN.RX ---
Progress Note - Pharmacy Subjective: TCU Admission Objective: Allergies budesonide [From Symbicort] Allergy (Verified 03/26/21 13:51) Other formoterol fumarate [From Symbicort] Allergy (Verified 03/26/21 13:51) Other strawberry Allergy (Verified 03/26/21 13:51) Rash MOLD Allergy (Intermediate, Uncoded 06/16/19 15:04) Other Current Medications Generic Name Dose Route Start Last Admin Trade Name Freq PRN Reason Stop Dose Admin Acetaminophen 1,000 mg 03/31/21 17:49 04/02/21 11:46 Acetaminophen 500 Mg Tablet PO 1,000 mg Q6H PRN PRN Administration Pain Score 1-5 Albuterol/Ipratropium 3 ml 03/31/21 16:11 Ipratropium/Albuterol Sulfate 3 Ml Ampul.Neb INHALATION Q6H.RT PRN SHORTNESS OF BREATH Ascorbic Acid 1,000 mg 03/31/21 17:00 04/02/21 08:30 Ascorbic Acid 500 Mg Tablet PO 1,000 mg BIDCM ISIS Administration Azelastine HCl 2 spray 03/31/21 16:34 Azelastine Hcl Nasal.Sry NASAL BID PRN CONGESTION Bisacodyl 10 mg 03/31/21 16:29 Bisacodyl 10 Mg Suppository RC DAILY PRN Constipation Calamine/Phenol 1 applic 03/31/21 22:00 04/02/21 05:31 Menthol/Lanolin/Calamine/Znox 113 Gm Tube TOPICAL 1 dose 0600,2200 [facility] Administration Protocol Cholecalciferol 125 mcg 04/01/21 08:00 04/02/21 08:30 Cholecalciferol (Vit D3) 25 Mcg Tablet (1,000 Units) PO 125 mcg DAILYCM ISIS Administration Cyanocobalamin 1,000 mcg 04/01/21 08:00 04/02/21 08:32 Cyanocobalamin 500 Mcg Tablet PO 1,000 mcg DAILYCM ISIS Administration Doxycycline Monohydrate 100 mg 03/31/21 22:00 04/02/21 11:01 Doxycycline 100 Mg Capsule PO 04/05/21 10:01 100 mg BID@1000,2200 ISIS Administration Fluticasone Propionate 2 spray 04/01/21 06:00 04/02/21 05:32 Fluticasone 0.05% 1 [place] Nasal.Sry NASAL 2 spray DAILY ISIS Administration Levothyroxine Sodium 100 mcg 04/01/21 06:00 04/02/21 05:34 Levothyroxine 100 Mcg Tablet PO 100 mcg DAILY ISIS Administration Nystatin 1 applic 03/31/21 22:00 04/02/21 14:33 Nystatin Powder 15gm Bottle TOPICAL 1 dose TID ISIS Administration Protocol Oxycodone HCl 5 mg 03/31/21 17:48 04/02/21 11:47 Oxycodone 5 Mg Tablet PO 5 mg Q4H PRN PRN Administration Pain Score 6-10 Polyethylene Glycol 17 gm 04/01/21 06:00 04/02/21 05:35 Polyethylene Glycol 3350 17 Gm Packet PO Not Given DAILY ISIS Senna/Docusate Sodium 1 tablet 03/31/21 18:00 04/02/21 05:34 Senna/Docusate Sodium 1 Tablet PO 1 tablet BID ISIS Administration Tizanidine HCl 4 mg 04/01/21 14:00 04/02/21 14:33 Tizanidine Hcl 2 Mg Tablet PO 4 mg Q8H ISIS Administration Tuberculin PPD 5 tu 04/08/21 10:00 Tuberculin,Purif.Prot.Deriv. 50 Tu/Ml Vial ID 04/08/21 10:01 X1 ONE Problem List (Last Reviewed 03/31/21 @ 17:[address] Yaniv Collins MD) Obstructive sleep apnea (Acute) Chronic obstructive pulmonary disease (Chronic) Asthma (Acute) Vitamin D deficiency (Acute) Hypothyroidism (Acute) Allergic rhinitis (Acute) Thrombocytopenia (Acute) Cellulitis of left leg (Acute) Leg wound, left (Acute) Acute kidney injury (Acute) Urinary tract infection (Acute) Debility (Acute) Vital Signs Temp Pulse Resp BP Pulse Ox 97.9 F 91 16 119/71 96 04/02/21 14:03 04/02/21 14:03 04/02/21 14:03 04/02/21 14:03 04/02/21 14:03 Oxygen Delivery Method Room Air Weight: 125.333 kg Body Mass Index (BMI) 47.2 Finger Stick Blood Glucose 128 Sodium 141 mmol/L (136-145) 04/01/21 05:05 Potassium 4.5 mmol/L (3.5-5.1) 04/01/21 05:05 Chloride 113 mmol/L (98-107) H 04/01/21 05:05 Carbon Dioxide 24.0 mmol/L (21.0-32.0) 04/01/21 05:05 Anion Gap 4 (5-15) L 04/01/21 05:05 BUN 22 mg/dL (7-18) H 04/01/21 05:05 Creatinine 0.93 mg/dL (0.55-1.02) 04/01/21 05:05 Est GFR (MDRD) Af Amer 77 mL/min (>60) 04/01/21 05:05 Est GFR (MDRD) Non-Af 64 mL/min (>60) 04/01/21 05:05 BUN/Creatinine Ratio 23.8 RATIO (10-20) H 04/01/21 05:05 Glucose 126 mg/dL (74-106) H 04/01/21 05:05 Assessment/Plan: 1. Pain: acetaminophen 1000mg PO Q6H PRN pain 1-5 and oxycodone 5mg PO Q4H PRN pain 6-10. Please continue to monitor for pain, respiratory depression, constipation and PRN usage. 2. Left leg cellulitis: doxycycline 100mg PO BID thru 04/05/2021. Please continue to monitor for S/S of infection, cultures, and diarrhea. 3. Allergic rhinitis: Flonase 2 spray nasal daily and Astelin 2 spray nasal BID PRN. Please continue to monitor PRN usage and for S/S of allergic rhinitis. 4. Asthma/COPD: fluticasone/salmeterol 250/50 mg 1 puff BID and ipratropium/albuterol 3ml inhalation Q6H PRN wheezing. Please continue to monitor S/S of COPD/asthma and PRN usage. 5. Hypothyroidism: levothyroxine 100mcg PO daily. Please continue to monitor TSH (last 30.80 uIU/mL 03/26/21) and S/S of hypo/hyperthyroidism. 6. Tinea corporis: nystatin powder topical TID. Please continue to monitor S/S of tinea corporis. 7. Muscle spasm: tizanidine 4mg PO Q8H. Please continue to monitor S/S of muscle spasm and anticholinergic side effects (this medication is on BEERs criteria for urinary retention). *8. Vitamin C deficiency/Vitamin D deficiency/Vitamin B12 deficiency: ascorbic acid 1000mg PO BIDCM, cholecalciferol 125mcg PO daily, cyanocobalamin 1000mcg PO DAILYCM. Please consider ordering vitamin C, vitamin D, and vitamin B12 levels. Patient does not have any levels in her chart. Thanks. Psychotropic Medications: None Unnecessary Medications: None Bowel Regimen: Miralax 17GM PO daily, senna/docusate 1T PO BID and bisacodyl 10mg RC daily PRN constipation. Please continue to monitor for constipation and PRN usage. Date of Note:: 04/02/21
[2021-04-02 22:01] LABS: Bedside Glucose 194 mg/dL (70-110)
[2021-04-03 05:00] VITALS: BP 116/61; PULSE 81; RESP 19; TEMP 36.5; O2SAT 95
[2021-04-03 06:26] LABS: Bedside Glucose 102 mg/dL (70-110)
[2021-04-03] MEDS: Menthol/Lanolin/Calamine/Znox 113 GM Tube 1 APPLIC TOPICAL ×2 (06:43→21:33)
[2021-04-03] MEDS: Nystatin Powder 15gm Bottle 1 APPLIC TOPICAL ×3 (06:44→21:34)
[2021-04-03] MEDS: Fluticasone 0.05% 1 SPRAY NASAL.SRY 2 SPRAY NASAL (06:44)
[2021-04-03] MEDS: Levothyroxine 100 MCG Tablet PO (06:45)
[2021-04-03] MEDS: tiZANidine HCl 2 MG Tablet 4 MG PO ×3 (06:46→21:34)
[2021-04-03] MEDS: Fluticasone Propion/Salmeterol 250-50 Inhaler 1 PUFF INHALATION ×2 (06:46→16:32)
--- NOTE | 2021-04-03 08:44 | NURSING ---
Pt Refused all 8:00am meds this morning said that our vitamin here are not good they are generic. She stated that she does not want to take our hard tablets and they are not the same as her at homes. Pt educated that pharmacy only carries certain vitamins.
[2021-04-03] MEDS: Doxycycline 100 MG CAPSULE PO ×2 (10:35→21:34)
[2021-04-03] MEDS: Acetaminophen 500 MG Tablet 1000 MG PO (10:56)
[2021-04-03 11:06] LABS: Bedside Glucose 179 mg/dL (70-110)
--- NOTE | 2021-04-03 12:03 | PCA ---
Addendum entered by Liz Cherry 04/03/21 14:50: this LOAD MIXER and PERSONAL CONSULTANT Obdulio attempted to get patients weight for weekly weight. Refused 2x Original Note: Patient refused all a.m care today. asked 2X. Reminded her to let me know if she changes her mind. RN aware
[2021-04-03 16:00] VITALS: BP 122/59; PULSE 88; RESP 18; TEMP 36.4; O2SAT 96
[2021-04-03] MEDS: Ascorbic Acid 500 MG Tablet 1000 MG PO (16:32)
[2021-04-03 16:35] LABS: Bedside Glucose 141 mg/dL (70-110)
[2021-04-03] MEDS: Senna/Docusate Sodium 1 Tablet PO (21:39)
[2021-04-03 21:46] LABS: Bedside Glucose 168 mg/dL (70-110)
[2021-04-04 05:00] VITALS: BP 122/62; PULSE 80; RESP 16; TEMP 36.7; O2SAT 95
[2021-04-04] MEDS: Polyethylene Glycol 3350 17 GM PACKET PO (06:15)
[2021-04-04] MEDS: Menthol/Lanolin/Calamine/Znox 113 GM Tube 1 APPLIC TOPICAL ×2 (06:16→23:32)
[2021-04-04] MEDS: Fluticasone 0.05% 1 SPRAY NASAL.SRY 2 SPRAY NASAL (06:16)
[2021-04-04] MEDS: Nystatin Powder 15gm Bottle 1 APPLIC TOPICAL ×3 (06:17→23:34)
[2021-04-04] MEDS: tiZANidine HCl 2 MG Tablet 4 MG PO ×3 (06:18→23:34)
[2021-04-04] MEDS: Senna/Docusate Sodium 1 Tablet PO ×2 (06:18→18:37)
[2021-04-04] MEDS: Levothyroxine 100 MCG Tablet PO (06:18)
[2021-04-04] MEDS: Fluticasone Propion/Salmeterol 250-50 Inhaler 1 PUFF INHALATION ×2 (06:18→18:38)
[2021-04-04 06:46] LABS: Bedside Glucose 115 mg/dL (70-110)
[2021-04-04] MEDS: Cyanocobalamin 500 MCG Tablet 1000 MCG PO (08:36)
[2021-04-04] MEDS: Cholecalciferol (VIT D3) 25 MCG TABLET (1,000 UNITS) 125 MCG PO (08:38)
[2021-04-04] MEDS: Ascorbic Acid 500 MG Tablet 1000 MG PO ×2 (08:39→18:38)
--- NOTE | 2021-04-04 09:45 | NURSING ---
Pt requested to only take 1 Vitamin D3 and 1 Vitamin C this morning.
[2021-04-04 11:06] LABS: Bedside Glucose 166 mg/dL (70-110)
[2021-04-04] MEDS: Doxycycline 100 MG CAPSULE PO ×2 (12:00→23:33)
--- NOTE | 2021-04-04 12:05 | CASEMGMT ---
Addendum entered by Harper Stephens 04/05/21 16:12: [facility] can accept pt. Pt agreeable. Addendum entered by Harper Stephens 04/05/21 15:48: [employer] spoke with pt and they do not carry lift chairs, and the bedside table will be out of pocket - pt denied to pay. Addendum entered by Harper Stephens 04/05/21 15:15: [employer] unable to accept insurance. Referred to [facility] - reviewing referral. Pt requesting lift chair and bedside table. Contacted G[facility] LOGAN and primary insurance would have to be billed first. Referred to [facility]. Addendum entered by Harper Stephens 04/05/21 12:26: [facility] unable to accept pt. Referred to [facility] - unable to accept. Referred to [facility] - accepted. Pt agreeable. Original Note: Social Work IDT met with patient and son via conference call for care plan meeting. Discussed patient's progress in therapy and nursing. Explained [facility] insurance with NRD 04/05 and continued stay is not guaranteed. Pt requesting to DC 04/08. Son is not available sooner and pt is discharging to son's house where he confirmed he will be able to assist her. IDT agreeable to DC. Pt requesting [facility] PT/OT/SN/BARNES/SW. Provided [facility] list of providers including quality and resource use data and consistent with the patient?s preferred geographic region, medical needs, and insurance network. Pt agreeable to [facility]. Referral made. Pt requesting w/c, 3-in-1 commode and hospital bed. Referral made to [facility] Son to transport pt. Plan: DC to son's home for assistance 04/08, [facility] PT/OT/SN/BARNES/SW, w/c, BSC, hospital bed REMINGTON Dorman
--- NOTE | 2021-04-04 12:56 | CASEMGMT ---
SOCIAL WORK Code status reviewed w/pt, she elects to be a full code. SW reviewed MOLST form w/pt, communication to physician, form placed on chart. SW also reviewed LW/POA forms w/pt, she is to let staff know if she would like to complete the forms while here. Pt open to home health at discharge, may need some DME. She plans to go to her son's at discharge. Address is [address] [place] [address]. CELENA Gregory
[2021-04-04] MEDS: oxyCODONE 5 MG Tablet PO (15:07)
[2021-04-04 15:32] VITALS: BP 128/79; PULSE 61; RESP 18; TEMP 37; O2SAT 96
--- NOTE | 2021-04-04 15:34 | CHAPLAIN ---
Type of Pastoral Visit _x__ Initial Visit ___ Follow-up Visit ___ On-call Visit ___ General Patient Visit ___ Spiritual Assessment ___ Family Conference ___ Bereavement ___ Rapid Response ___ Code Blue ___ Other (describe below) Pastoral Care Referral From _x__ Patient ___ Family ___ Nurse ___ Physician ___ Perl Software Engineer ___ Industrial Robotics Mechanic ___ Other (describe below) Sacrament/Intervention _x__ Active listening ___ Anointing ___ Shinto ___ Bereavement ___ Communion _x__ Kiara exploration ___ _x__ Life review _x__ Prayer ___ Reconciliation ___ Sacrament of Sick _x__ Supportive presence ___ Wedding ___ Other (describe below) Pastoral Comments
[2021-04-04 16:35] LABS: Bedside Glucose 114 mg/dL (70-110)
[2021-04-04] MEDS: Acetaminophen 500 MG Tablet 1000 MG PO (18:42)
[2021-04-04 23:02] VITALS: PULSE 78; RESP 14
[2021-04-04 23:51] LABS: Bedside Glucose 167 mg/dL (70-110)
[2021-04-05 05:00] VITALS: BP 107/63; PULSE 72; RESP 14; TEMP 36.2
--- NOTE | 2021-04-05 05:35 | PCM.DC.SUM ---
Providers Date of Admission: 03/31/21 Primary Care Physician: Dr. Maribel Collins Reason For Visit: UTI ESTEFANI ON CKD Diagnosis Discharge Diagnosis (1) Debility: Status: Acute Code(s): R53.81 - Other malaise (2) Urinary tract infection: Status: Acute Code(s): N39.0 - Urinary tract infection, site not specified (3) Acute kidney injury: Status: Acute Code(s): N17.9 - Acute kidney failure, unspecified (4) Leg wound, left: Status: Acute Code(s): S81.802A - Unspecified open wound, left lower leg, initial encounter (5) Cellulitis of left leg: Status: Acute Code(s): L03.116 - Cellulitis of left lower limb (6) Thrombocytopenia: Status: Acute Code(s): D69.6 - Thrombocytopenia, unspecified (7) Allergic rhinitis: Status: Acute Code(s): J30.9 - Allergic rhinitis, unspecified (8) Hypothyroidism: Status: Acute Code(s): E03.9 - Hypothyroidism, unspecified (9) Vitamin D deficiency: Status: Acute Code(s): E55.9 - Vitamin D deficiency, unspecified (10) Asthma: Status: Acute Code(s): J45.909 - Unspecified asthma, uncomplicated (11) Chronic obstructive pulmonary disease: Status: Chronic Code(s): J44.9 - Chronic obstructive pulmonary disease, unspecified (12) Obstructive sleep apnea: Status: Acute Code(s): G47.33 - Obstructive sleep apnea (adult) (pediatric) Medications at Discharge Home Medications azelastine 2 spray NASAL BID 02/21/17 fluticasone propion-salmeterol [Advair Diskus] 1 ea IH BID 02/21/17 levothyroxine 100 mcg PO DAILY 02/21/17 fluticasone propionate 2 spray INTRANASAL DAILY 03/26/21 tizanidine [Zanaflex] 4 mg PO Q8H 03/26/21 cholecalciferol (vitamin D3) [Vitamin D3] 125 mcg PO DAILY 03/31/21 cyanocobalamin (vitamin B-12) 1,000 mcg PO DAILY #0 cap MDD supplement 03/31/21 acetaminophen 1,000 mg PO Q6H PRN PRN #0 tab 04/05/21 Hospital Course Operations None Procedures None Summary of Care Provided Minutes Spent on Discharge: 35 Hospital Course: 70 year old female with below past medical history hospitalized for urinary tract infection, complicated by cellulitis of left leg, acute kidney injury, thrombocytopenia, admitted to TCU with debility, here for rehabilitation, strengthening, prior to discharge home alone. Discharge to son's home for assistance 04/08/2021, [facility] PT/OT/SN/BARNES/SW, Wheelchair, Bedside Commode, Hospital Bed. Physical Exam Const alert and oriented x3 General Appearance: cooperative HEENT normocephalic Eyes PERRL and EOMs intact bilaterally Neck supple, no JVD and no carotid bruits Resp normal respiratory effort, normal air movement and clear to auscultation bilaterally Cardio regular rate and regular rhythm GI normal to inspection, nondistended, normoactive bowel sounds, non-tender and non-distended Extremity normal capillary refill General Extremity: Negative for edema Skin no rashes or lesions noted General Skin Exam: no breakdown Psych affect normal Appearance: appropriate ABG / Lab / Microbiology Data Result Diagrams: 04/01/21 05:05 04/01/21 05:05 Laboratory: Laboratory Results - last 24 hr 04/04/21 04/04/21 04/04/21 06:24 10:48 16:27 POC Glucose 115 H 166 H 114 H 04/04/21 23:29 POC Glucose 167 H D/C Instructions Discharge Diet: No restrictions Discharge Activity: Return to Normal Activity, May Shower and Use Walker Weight Bearing Status: Weight bearing as tolerated Call your doctor if you observe: Fever of 101 or Higher, Inability to urinate, Inability to have a bowel movement, Shortness of breath, Fainting spells, Chest pain and Uncontrolled pain Additional Instructions: Discharge to son's home for assistance 04/08/2021, [facility] Care PT/OT/SN/BARNES/SW, Wheelchair, Bedside Commode, Hospital Bed. Please Follow Up With: Yaniv Collins Chi, MD When: 1 week. Meaningful Use Info Meaningful Use Diagnoses (Choose all that apply): None applicable Discharge Plan Admission Admit Date/Time: 03/31/21 15:50 Primary Reason for Your Visit: Debility Attending Provider: Yaniv Collins Chi Primary Care Provider: Meghan Murphy Instructions Additional Instructions / Restrictions: Discharge to son's home for assistance 04/08/2021, [facility] PT/OT/SN/BARNES/SW, Wheelchair, Bedside Commode, Hospital Bed. Discharge Orders/Prescriptions Prescriptions: New acetaminophen 500 mg Tablet 1,000 mg PO Q6H PRN PRN (Reason: Pain Score 1-5) Qty: 0 RF: 0 Continued levothyroxine 100 MCG tablet 100 mcg PO DAILY RF: 0 azelastine 1 SPRAY aerosol,spray 2 spray NASAL BID RF: 0 fluticasone propion-salmeterol [Advair Diskus] 1 EACH blister with device 1 ea IH BID RF: 0 fluticasone propionate 50 mcg/actuation spray,suspension 2 spray INTRANASAL DAILY RF: 0 tizanidine [Zanaflex] 4 mg tablet 4 mg PO Q8H RF: 0 cyanocobalamin (vitamin B-12) 1,000 mcg Capsule 1,000 mcg PO DAILY MDD supplement Qty: 0 RF: 0 cholecalciferol (vitamin D3) [Vitamin D3] 25 mcg (1,000 unit) tablet 125 mcg PO DAILY RF: 0 Discontinued flaxseed oil 1,000 mg Capsule 1,000 mg PO DAILY RF: 0 Hold Instructions: Hold while in TCU ascorbic acid (vitamin C) 500 mg Tablet 1,000 mg PO BID RF: 0 hydrocodone-acetaminophen 5-325 mg tablet 5 - 325 tab PO Q8H RF: 0 ipratropium-albuterol 0.5 mg-3 mg(2.5 mg base)/3 mL Solution For Nebulization 3 ml inhalation Q6H.RT PRN (Reason: SOB) Qty: 0 RF: 0 acetaminophen [Tylenol] 325 mg Tablet 650 mg PO Q6H PRN PRN (Reason: Pain Score 1-10/Temp > 100.7 F) Qty: 0 RF: 0 ciprofloxacin HCl 500 mg tablet 500 mg PO BID RF: 0 doxycycline monohydrate 100 mg capsule 100 mg PO BID RF: 0 nystatin [Nyamyc] 100,000 unit/gram powder 1 applic topical TID RF: 0 insulin lispro [Humalog KwikPen Insulin] 100 unit/mL insulin pen See Protocol unit subcut ACHS RF: 0 Referrals / Follow Up: Yaniv Collins Chi, MD [COURTESY STAFF PHYSICIAN] - Disposition Disposition (needs filled in before D/C Order can be placed): Home, self care
[2021-04-05] MEDS: Nystatin Powder 15gm Bottle 1 APPLIC TOPICAL ×3 (05:50→21:37)
[2021-04-05] MEDS: Fluticasone 0.05% 1 SPRAY NASAL.SRY 2 SPRAY NASAL (05:51)
[2021-04-05] MEDS: Levothyroxine 100 MCG Tablet PO (05:53)
[2021-04-05] MEDS: tiZANidine HCl 2 MG Tablet 4 MG PO ×3 (05:53→21:37)
[2021-04-05] MEDS: Senna/Docusate Sodium 1 Tablet PO ×2 (05:53→16:54)
[2021-04-05] MEDS: Fluticasone Propion/Salmeterol 250-50 Inhaler 1 PUFF INHALATION ×2 (05:53→16:53)
[2021-04-05] MEDS: Menthol/Lanolin/Calamine/Znox 113 GM Tube 1 APPLIC TOPICAL ×2 (05:58→21:36)
[2021-04-05 06:41] LABS: Bedside Glucose 129 mg/dL (70-110)
[2021-04-05] MEDS: Doxycycline 100 MG CAPSULE PO (08:45)
[2021-04-05] MEDS: Ascorbic Acid 500 MG Tablet 1000 MG PO ×2 (08:45→16:55)
[2021-04-05] MEDS: Cholecalciferol (VIT D3) 25 MCG TABLET (1,000 UNITS) 125 MCG PO (08:45)
[2021-04-05] MEDS: Cyanocobalamin 500 MCG Tablet 1000 MCG PO (08:45)
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
--- NOTE | 2021-04-05 13:52 | NURSING ---
pt speaking with Petrona, TCU campaign manager at this time.
[2021-04-05] MEDS: Acetaminophen 500 MG Tablet 1000 MG PO (13:57)
[2021-04-05] MEDS: oxyCODONE 5 MG Tablet PO (15:58)
[2021-04-06 06:00] VITALS: BP 122/69; PULSE 73; RESP 16; TEMP 36.8; O2SAT 95
[2021-04-06] MEDS: Menthol/Lanolin/Calamine/Znox 113 GM Tube 1 APPLIC TOPICAL ×2 (06:01→21:36)
[2021-04-06] MEDS: Fluticasone 0.05% 1 SPRAY NASAL.SRY 2 SPRAY NASAL (06:02)
[2021-04-06] MEDS: Nystatin Powder 15gm Bottle 1 APPLIC TOPICAL ×3 (06:02→21:36)
[2021-04-06] MEDS: Senna/Docusate Sodium 1 Tablet PO ×2 (06:03→16:33)
[2021-04-06] MEDS: tiZANidine HCl 2 MG Tablet 4 MG PO ×3 (06:03→21:35)
[2021-04-06] MEDS: Levothyroxine 100 MCG Tablet PO (06:03)
[2021-04-06] MEDS: Fluticasone Propion/Salmeterol 250-50 Inhaler 1 PUFF INHALATION ×2 (06:03→16:32)
[2021-04-06 06:26] LABS: Bedside Glucose 126 mg/dL (70-110)
[2021-04-06] MEDS: Cholecalciferol (VIT D3) 25 MCG TABLET (1,000 UNITS) 125 MCG PO (08:11)
[2021-04-06] MEDS: Cyanocobalamin 500 MCG Tablet 1000 MCG PO (08:11)
[2021-04-06] MEDS: Ascorbic Acid 500 MG Tablet 1000 MG PO ×2 (08:11→16:32)
--- NOTE | 2021-04-06 15:06 | CASEMGMT ---
Social Work BIMS and PHQ-9 completed for MDS assessment. Harper Stephens, ACUTE CARE OCCUPATIONAL THERAPIST ACCOUNT EXECUTIVE [employer]
[2021-04-06 15:39] VITALS: BP 124/63; PULSE 82; RESP 16; TEMP 36.5; O2SAT 94
--- NOTE | 2021-04-06 21:30 | NURSING ---
Pt refused to have assessment and dressing change to LLE done while up in chair at this time. Prefers to be in bed for these task to be completed.
--- NOTE | 2021-04-07 00:30 | NURSING ---
Dressing change completed per dr order. Refuses to have LETY wrap applied d/t increased pain from compression.
--- NOTE | 2021-04-07 01:02 | PCA ---
Pt declined to wash up this evening, stating she prefers am care. em
[2021-04-07 06:07] VITALS: BP 125/61; PULSE 81; RESP 16; TEMP 36.6; O2SAT 95
[2021-04-07] MEDS: Menthol/Lanolin/Calamine/Znox 113 GM Tube 1 APPLIC TOPICAL ×2 (06:09→21:56)
[2021-04-07] MEDS: Polyethylene Glycol 3350 17 GM PACKET PO (06:09)
[2021-04-07] MEDS: Nystatin Powder 15gm Bottle 1 APPLIC TOPICAL ×3 (06:09→21:56)
[2021-04-07] MEDS: tiZANidine HCl 2 MG Tablet 4 MG PO ×3 (06:10→21:58)
[2021-04-07] MEDS: Levothyroxine 100 MCG Tablet PO (06:10)
[2021-04-07] MEDS: Senna/Docusate Sodium 1 Tablet PO (06:10)
[2021-04-07] MEDS: Fluticasone 0.05% 1 SPRAY NASAL.SRY 2 SPRAY NASAL (06:11)
[2021-04-07] MEDS: Fluticasone Propion/Salmeterol 250-50 Inhaler 1 PUFF INHALATION ×2 (06:12→17:07)
[2021-04-07 06:30] LABS: Bedside Glucose 120 mg/dL (70-110)
[2021-04-07] MEDS: Cholecalciferol (VIT D3) 25 MCG TABLET (1,000 UNITS) 125 MCG PO (09:28)
[2021-04-07] MEDS: Cyanocobalamin 500 MCG Tablet 1000 MCG PO (09:30)
[2021-04-07] MEDS: Ascorbic Acid 500 MG Tablet 1000 MG PO ×2 (09:30→17:07)
[2021-04-07] MEDS: oxyCODONE 5 MG Tablet PO (13:00)
[2021-04-07] MEDS: Acetaminophen 500 MG Tablet 1000 MG PO (13:01)
[2021-04-07 14:17] VITALS: PULSE 80; RESP 18; O2SAT 96
[2021-04-07 16:32] VITALS: BP 123/62; PULSE 80; RESP 18; TEMP 36.9
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
[2021-04-08 05:00] VITALS: BP 135/64; PULSE 80; RESP 16; TEMP 36.7; O2SAT 96
[2021-04-08] MEDS: Menthol/Lanolin/Calamine/Znox 113 GM Tube 1 APPLIC TOPICAL ×2 (05:35→21:01)
[2021-04-08] MEDS: Fluticasone 0.05% 1 SPRAY NASAL.SRY 2 SPRAY NASAL (05:36)
[2021-04-08] MEDS: Nystatin Powder 15gm Bottle 1 APPLIC TOPICAL ×3 (05:37→21:00)
[2021-04-08] MEDS: Cholecalciferol (VIT D3) 25 MCG TABLET (1,000 UNITS) 125 MCG PO (05:37)
[2021-04-08] MEDS: Levothyroxine 100 MCG Tablet PO (05:39)
[2021-04-08] MEDS: tiZANidine HCl 2 MG Tablet 4 MG PO ×3 (05:39→21:00)
[2021-04-08] MEDS: Fluticasone Propion/Salmeterol 250-50 Inhaler 1 PUFF INHALATION ×2 (05:40→16:27)
[2021-04-08 06:21] LABS: Bedside Glucose 121 mg/dL (70-110)
[2021-04-08 06:54] LABS: Absolute Lymphocyte Count 1.56 X10^3/uL (0.83-4.51); Absolute Neutrophil Count 3.7 X10^3/uL (2.0-7.7); Basophil# 0.04 X10^3/uL; Basophil% 0.7 % (0-1); Eosinophils% 1.7 % (0-5); Hematocrit 30.8 % (37-47); Hemoglobin 9.4 g/dL (12.0-15.0); Lymphocyte # 1.56 X10^3/ul (0.83-4.51); Lymphocyte % 26.6 % (19-41); Mean Corp Hgb Conc 30.5 g/dL (32-36); Mean Corpuscular Hgb 29.7 pg (27.0-32.0); Mean Corpuscular Volume 97.5 fL (81-99); Mean Platelet Vol. 10.4 fl (6.2-12.0); Monocyte# 0.38 X10^3/uL; Monocyte% 6.5 % (0-10); NRBC Flagged by Analyzer 0 % (0-5); Neutrophil # 3.74 X10^3/uL (2.7-7.7); Neutrophil % 63.8 % (47-70); Platelet Count 238 K/mm3 (150-450); RBC Distribution Width SD 49.6 fl (35.1-43.9); Red Blood Count 3.16 M/mm3 (4.2-5.4); White Blood Count 5.9 K/mm3 (4.4-11.0)
[2021-04-08 07:15] LABS: Anion Gap 7 (5-15); BUN 21 mg/dL (7-18); BUN/Creat Ratio 19.8 RATIO (10-20); Calcium,Total 8.5 mg/dL (8.5-10.1); Chloride 105 mmol/L (98-107); Creatinine, Serum 1.06 mg/dL (0.55-1.02); EST Glomerular Filtration Rate 54 mL/min (>60); Est Glom Filt Rate - Afr Amer 66 mL/min (>60); Estimated Creatinine Clearance 42.64 ml/min; Glucose 137 mg/dL (74-106); Potassium 4.2 mmol/L (3.5-5.1); Sodium Level 139 mmol/L (136-145)
[2021-04-08] MEDS: Ascorbic Acid 500 MG Tablet 1000 MG PO ×2 (08:20→16:27)
[2021-04-08] MEDS: Cyanocobalamin 500 MCG Tablet 1000 MCG PO (08:20)
[2021-04-08] MEDS: Acetaminophen 500 MG Tablet 1000 MG PO (11:07)
[2021-04-08 15:51] VITALS: BP 108/61; PULSE 83; RESP 16; TEMP 36.7; O2SAT 95
[2021-04-08 19:55] VITALS: PULSE 83; RESP 16; O2SAT 96
[2021-04-08 19:57] VITALS: BP 134/69; PULSE 69; RESP 16; TEMP 37.1; O2SAT 96
--- NOTE | 2021-04-12 13:04 | MDS.RN ---
Information for the mds was obtained from review of the clinical record, interview of resident, staff, and direct observation of resident's care.
== END 2021-04-08 21:00 | disposition home health service (06) | DRG 690 ==
PROVIDERS: Admitting Provider Family Medicine Geriatric Medicine; PCP Internal Medicine; Visit Provider Family Medicine Geriatric Medicine
DX: N39.0 Urinary tract infection, site not specified (principal); L03.116 Cellulitis of left lower limb; E89.0 Postprocedural hypothyroidism; D69.6 Thrombocytopenia, unspecified; J44.9 Chronic obstructive pulmonary disease, unspecified; E55.9 Vitamin D deficiency, unspecified; B35.4 Tinea corporis; Z79.899 Other long term (current) drug therapy; Z79.51 Long term (current) use of inhaled steroids; E11.9 Type 2 diabetes mellitus without complications; Z79.4 Long term (current) use of insulin; G47.33 Obstructive sleep apnea (adult) (pediatric)
CPT/HCPCS: 36415; 80048; 82962; 85025; 87635; 92523; 97110; 97162; 97166; 97530; 97535; 97802; U0002

== ENCOUNTER 2021-08-10 15:29 | Inpatient (IN) | payer MEDICARE, MEDICAID, SELFPAY ==
[2021-08-10] VITALS (21 sets, daily range): BP systolic 104–163; BP diastolic 62–122; PULSE 73–105; RESP 19–40; TEMP 2.5–37.6; O2SAT 83–99; BMI 42.3; BMI 41.1
--- NOTE | 2021-08-10 15:43 | EKG12_ITS ---
Test Reason : Blood Pressure : / mmHG Vent. Rate : 095 BPM Atrial Rate : 095 BPM P-R Int : 160 ms QRS Dur : 106 ms QT Int : 370 ms P-R-T Axes : 033 -09 060 degrees QTc Int : 464 ms Normal sinus rhythm Anterior infarct , age undetermined Abnormal ECG Confirmed by KIKO MATA, MARTIN ([id number]), editorial manager JOHN VENCES ([id number]) on 08/13/2021 11:34:42 AM Referred By: LELA Confirmed By:MARTIN HOOVER MD
--- NOTE | 2021-08-10 15:48 | EDS_ITS ---
HPI History of Present Illness Chief Complaint: Shortness of Breath Narrative Narrative: Patient with past medical history of COPD, states she does not wear oxygen at home, other multiple medical problems presents with shortness of breath that she has had for 3 weeks. She complains of intermittent chest tightness, and a cough of yellow to green sputum. She states that she is unable to lay flat also and never has been able to. She uses albuterol at home but states she does not use steroids, or see a labor delivery rn. She denies any weight gain and has chronic swelling of her legs. She presents because of the increasing shortness of breath that she has had over the last 3 weeks. She has felt feverish and chilled. She has not received her COVID-19 vaccinations because she states when she went to go to get them, they were out. Upon arrival to the ED, she was hypoxic with a pulse ox in the 80s. No smoking history. [facility] Medical History Anxiety Asthma Cancer COPD (chronic obstructive pulmonary disease) CPAP (continuous positive airway pressure) dependence Depression Diabetes Irregular heart beat Non-smoker Sleep apnea UTI (urinary tract infection) Home Medications azelastine 2 spray NASAL BID 02/21/17 [History Last Taken Unknown] fluticasone propion-salmeterol [Advair Diskus] 1 ea IH BID 02/21/17 [History Last Taken 03/19/21] levothyroxine 125 mcg PO DAILY 02/21/17 [History Last Taken 03/24/21] fluticasone propionate 2 spray INTRANASAL DAILY 03/26/21 [History Last Taken 03/24/21] tizanidine [Zanaflex] 4 mg PO Q8H 03/26/21 [History Last Taken 03/26/21] cholecalciferol (vitamin D3) [Vitamin D3] 125 mcg PO DAILY 03/31/21 [History Last Taken Unknown] cyanocobalamin (vitamin B-12) 1,000 mcg PO DAILY #0 cap MDD supplement 03/31/21 [Rx Last Taken 03/24/21] acetaminophen 1,000 mg PO Q6H PRN PRN #0 tab 04/05/21 [Rx Last Taken Unknown] Allergy/AdvReac Type Severity Reaction Status Date / Time budesonide [From Symbicort] Allergy Other Verified 08/10/21 15:30 formoterol fumarate Allergy Other Verified 08/10/21 15:30 [From Symbicort] strawberry Allergy Rash Verified 08/10/21 15:30 MOLD Allergy Intermediate Other Uncoded 08/10/21 15:30 Family History Father Lymphoma Mother CHF (congestive heart failure) Surgical History H/O thyroidectomy Social History household members: none Smoking Status: Never smoker alcohol intake: current alcohol intake frequency: holidays/special occasions only substance use type: does not use ROS ROS ED ROS Narrative Constitutional: Positive subjective fever, no chills. HEENT: No sore throat. No neck pain. No loss of vision. No rhinorrhea. Cardiovascular: No chest pain. No palpitations. Chronic pedal edema. Respiratory: Positive cough, positive shortness of breath. Abdominal: No abdominal pain. No nausea. No vomiting. Genitourinary: No dysuria. No hematuria. Musculoskeletal: No myalgias. No arthralgias. Neurologic: No headaches. No dizziness. No lightheadedness. Skin: No rash. Chronic change in color of legs. Psychiatric: No depression. No anxiety. EXAM Physical Exam Narrative Exam Narrative: Afebrile. Vital signs noted. HEENT: Normocephalic. Atraumatic. PERRL, EOMI. Neck soft and supple. No point tenderness or step off. Cardiovascular: Regular rate and rhythm. No murmurs, rubs, or gallops appreciated. Respiratory: Mild tachypnea. Coarse breath sounds bilaterally. Gastrointestinal: Abdomen soft, nontender, with normoactive bowel sounds. No rebound or guarding. Neurological: Awake. Alert. Nonfocal, nonlateralizing. Skin: No rash. Normal color. No pallor. Musculoskeletal: No pedal edema. Full range of motion extremities. Const Vital Signs: 08/10/21 15:31 08/10/21 15:34 08/10/21 15:35 Temperature 99.5 F H 99.5 F H Temperature Source Temporal Temporal Pulse Rate 105 H 105 H Respiratory Rate 34 H 34 H Respiratory Effort Short of Breath Labored Accessory Muscle Use Respiratory Depth Normal Respiratory Pattern Normal Blood Pressure 138/122 H 138/122 H Blood Pressure Mean 127 127 Pulse Ox 83 83 Oxygen Delivery Method Room Air Non-Rebreather Non-Rebreather Oxygen Flow Rate (L/min) 08/10/21 15:37 08/10/21 16:21 08/10/21 16:57 Temperature 99.7 F H Temperature Source Temporal Pulse Rate 104 H 98 98 Respiratory Rate 24 H 32 H 37 H Respiratory Effort Respiratory Depth Respiratory Pattern Tachypnea Blood Pressure 155/83 H Blood Pressure Mean 107 Pulse Ox 98 98 Oxygen Delivery Method Non-Rebreather Non-Rebreather Oxygen Flow Rate (L/min) 08/10/21 16:58 08/10/21 17:00 08/10/21 17:50 Temperature 97.8 F Temperature Source Temporal Pulse Rate 101 H 97 Respiratory Rate 39 H 38 H Respiratory Effort Respiratory Depth Respiratory Pattern Blood Pressure 155/83 H 163/73 H Blood Pressure Mean 107 103 Pulse Ox 99 95 95 Oxygen Delivery Method Non-Rebreather Non-Rebreather Non-Rebreather Oxygen Flow Rate (L/min) 12.5 08/10/21 17:53 08/10/21 18:00 08/10/21 18:04 Temperature 98 F Temperature Source Temporal Pulse Rate 99 Respiratory Rate 40 H Respiratory Effort Respiratory Depth Respiratory Pattern Blood Pressure 160/98 H Blood Pressure Mean 118 Pulse Ox 91 94 94 Oxygen Delivery Method Non-Rebreather Non-Rebreather Non-Rebreather Oxygen Flow Rate (L/min) 12.5 15 15 08/10/21 18:56 Temperature 98 F Temperature Source Temporal Pulse Rate 87 Respiratory Rate 27 H Respiratory Effort Respiratory Depth Respiratory Pattern Blood Pressure 151/79 H Blood Pressure Mean 103 Pulse Ox 95 Oxygen Delivery Method Non-Rebreather Oxygen Flow Rate (L/min) 15 MDM MDM MDM Narrative Medical decision making narrative: Comprehensive work-up was pursued. Concern is for COPD exacerbation versus Covid pneumonia. White count normal at 7.1, hemoglobin stable at 12.0, platelets normal at 319. Electrolyte panel is grossly unremarkable except for baseline creatinine of 1.10. Troponin is normal at 14. Lactic acid is slightly elevated at 2.3. BNP also slightly elevated at 147. Covid swab is positive. Chest x-ray does show multifocal pneumonia consistent with COVID-19 pneumonia. She was administered Decadron 6 mg intravenously. She states that she is approximately 3 weeks into her illness, and that is when she began feeling badly. She does not have oxygen at home. She is currently on a nonrebreather. Attempt was made for this to be weaned, but was unsuccessful. I discussed patient with Dr. Lucero for admission to the ICU. She has added a D-dimer. Given the patient's COVID-19 pneumonia, I am reluctant to give her a large amount of fluids for the slightly elevated lactic acid of 2.3. EKG demonstrates normal sinus rhythm at 95 bpm without ectopy or acute ST changes. Critical care time 32 minutes for consultation with hospitalist and direct patient care. Patient is in guarded but stable condition. Lab Data Attestation: I reviewed the patient's lab results. Labs: Laboratory Results - last 24 hr 08/10/21 08/10/21 08/10/21 15:45 15:45 15:45 WBC 7.1 RBC 4.28 Hgb 12.0 Hct 38.7 MCV 90.4 MCH 28.0 MCHC 31.0 L RDW Std Deviation 44.3 H RDW Coeff of Dilip 13.3 Plt Count 319 MPV 10.3 Neut % (Auto) Not Reportable Absolute Neuts (auto) 6.5 Absolute Lymphs (auto) 0.43 L Total Counted 100 Neutrophils % (Manual) 88 H Band Neutrophils % 4 Lymphocytes % (Manual) 6 L Monocytes % (Manual) 2 Diff Path Review May foll Platelet Estimate ADEQUATE RBC Morphology NORM C+C Fibrinogen D-Dimer Quant (PE/DVT) Sodium 139 Potassium 3.7 Chloride 105 Carbon Dioxide 25.0 Anion Gap 9 BUN 15 Creatinine 1.10 H Estim Creat Clear Calc 41.09 Est GFR (MDRD) Af Amer 63 Est GFR (MDRD) Non-Af 52 L BUN/Creatinine Ratio 13.6 Glucose 143 H Lactic Acid Calcium 8.5 Troponin I High Sens 14 C-React Prot Ext Range B-Natriuretic Peptide 147.7 H Procalcitonin 08/10/21 08/10/21 08/10/21 15:45 15:45 15:45 WBC RBC Hgb Hct MCV MCH MCHC RDW Std Deviation RDW Coeff of Dilip Plt Count MPV Neut % (Auto) Absolute Neuts (auto) Absolute Lymphs (auto) Total Counted Neutrophils % (Manual) Band Neutrophils % Lymphocytes % (Manual) Monocytes % (Manual) Diff Path Review Platelet Estimate RBC Morphology Fibrinogen 770 H D-Dimer Quant (PE/DVT) 10.97 H* Sodium Potassium Chloride Carbon Dioxide Anion Gap BUN Creatinine Estim Creat Clear Calc Est GFR (MDRD) Af Amer Est GFR (MDRD) Non-Af BUN/Creatinine Ratio Glucose Lactic Acid 2.3 H* Calcium Troponin I High Sens C-React Prot Ext Range 164.00 H B-Natriuretic Peptide Procalcitonin 08/10/21 15:45 WBC RBC Hgb Hct MCV MCH MCHC RDW Std Deviation RDW Coeff of Dilip Plt Count MPV Neut % (Auto) Absolute Neuts (auto) Absolute Lymphs (auto) Total Counted Neutrophils % (Manual) Band Neutrophils % Lymphocytes % (Manual) Monocytes % (Manual) Diff Path Review Platelet Estimate RBC Morphology Fibrinogen D-Dimer Quant (PE/DVT) Sodium Potassium Chloride Carbon Dioxide Anion Gap BUN Creatinine Estim Creat Clear Calc Est GFR (MDRD) Af Amer Est GFR (MDRD) Non-Af BUN/Creatinine Ratio Glucose Lactic Acid Calcium Troponin I High Sens C-React Prot Ext Range B-Natriuretic Peptide Procalcitonin 0.21 H Radiography Diagnostic Testing: Radiology Impression Chest X-Ray 08/10/21 15:55 IMPRESSION: Multifocal airspace opacities in both lungs. COVID Pneumonia should be excluded. Electronically Signed: Bertin Stein MD at 16:33 EDT Tel , Service support , Critical Care Time Critical Care Time: Yes Critical care time (excluding procedures): 30-74 minutes (32) Discharge Plan Dx/Rx/DC Orders Clinical Impression: COVID-19, Hypoxia Disposition Disposition: Acute Care Hospital [facility] Discharge Date/Time: 08/10/21 21:07
--- NOTE | 2021-08-10 15:55 | RAD_ITS ---
STUDY: X-RAY CHEST REASON FOR EXAM: Female, 70 years old. Shortness of breath TECHNIQUE: Frontal view of the chest COMPARISON: 03/26/21 FINDINGS: There are multifocal airspace opacities in both lungs. There are no pleural effusions. There is no pneumothorax. The heart is normal in size. The visualized osseous structures are within normal limits. RAD/Chest 1 View (Portable) IMPRESSION: Multifocal airspace opacities in both lungs. COVID Pneumonia should be excluded. Electronically Signed: Bertin Stein MD at 16:33 EDT Tel , Service support ,
[2021-08-10 16:11] LABS: Hematocrit 38.7 % (37-47); Mean Corpuscular Volume 90.4 fL (81-99); Mean Platelet Vol. 10.3 fl (6.2-12.0); POSITIVE COUNT YES; POSITIVE DIFFERENTIAL YES; POSITIVE MORPHOLOGY YES; Platelet Count 319 K/mm3 (150-450); RBC Distribution Width CV 13.3 % (11.6-14.6); RBC Distribution Width SD 44.3 fl (35.1-43.9); Red Blood Count 4.28 M/mm3 (4.2-5.4); White Blood Count 7.1 K/mm3 (4.4-11.0)
[2021-08-10] MEDS: Albuterol 2.5 MG/3 ML VIAL.NEB. INHALATION (16:21)
[2021-08-10 16:29] LABS: Anion Gap 9 (5-15); BUN 15 mg/dL (7-18); BUN/Creat Ratio 13.6 RATIO (10-20); Calcium,Total 8.5 mg/dL (8.5-10.1); Chloride 105 mmol/L (98-107); Differential Indicated MANUAL DIFF; EST Glomerular Filtration Rate 52 mL/min (>60); Est Glom Filt Rate - Afr Amer 63 mL/min (>60); Estimated Creatinine Clearance 41.09 ml/min; Glucose 143 mg/dL (74-106); Potassium 3.7 mmol/L (3.5-5.1); Sodium Level 139 mmol/L (136-145); Troponin-I HS 14 pg/mL (3.0-54.0)
[2021-08-10 16:33] LABS: Lactic Acid 2.3 mmol/L (0.4-1.9)
[2021-08-10 16:59] LABS: Lymphocyte 6 % (19-41); Monocyte 2 % (0-10); Neutrophil-Band 4 % (0-5); Neutrophil-Segmented 88 % (47-70); Total Cells Counted 100 (MANUAL DIFF)
[2021-08-10 17:00] LABS: Platelet Estimate ADEQUATE (ADEQ); Red Cell Morphology NORM C+C NORMAL (NORM C&C)
[2021-08-10 17:02] LABS: Absolute Lymphocyte Count 0.43 X10^3/uL (0.83-4.51); Absolute Neutrophil Count 6.5 X10^3/uL (2.0-7.7); BNP,B-Type NATRIURETIC PEPTIDE 147.7 pg/mL (0-100)
[2021-08-10] MEDS: dexAMETHasone 10 MG/ML Vial 6 MG IV (17:42)
--- NOTE | 2021-08-10 18:07 | ED.RN ---
provider aware pt is sepsis alert, no new orders at this time.
[2021-08-10 18:27] LABS: Fibrinogen 770 mg/dl (203-444)
[2021-08-10 18:54] LABS: D-Dimer Quantitative (DVT/PE) 10.97 FEU/ug/m (0.27-0.49)
--- NOTE | 2021-08-10 19:23 | HP.PCM.HOS_ITS ---
HPI - General HPI Narrative SONNY BOOTH, is a 70 F who presents [facility] Medical History Anxiety Asthma Cancer COPD (chronic obstructive pulmonary disease) CPAP (continuous positive airway pressure) dependence Depression Diabetes Irregular heart beat Non-smoker Sleep apnea UTI (urinary tract infection) Home Medications azelastine 2 spray NASAL BID 02/21/17 [History Last Taken Unknown] fluticasone propion-salmeterol [Advair Diskus] 1 ea IH BID 02/21/17 [History Last Taken 03/19/21] levothyroxine 125 mcg PO DAILY 02/21/17 [History Last Taken 03/24/21] fluticasone propionate 2 spray INTRANASAL DAILY 03/26/21 [History Last Taken 03/24/21] tizanidine [Zanaflex] 4 mg PO Q8H 03/26/21 [History Last Taken 03/26/21] cholecalciferol (vitamin D3) [Vitamin D3] 125 mcg PO DAILY 03/31/21 [History Last Taken Unknown] cyanocobalamin (vitamin B-12) 1,000 mcg PO DAILY #0 cap MDD supplement 03/31/21 [Rx Last Taken 03/24/21] acetaminophen 1,000 mg PO Q6H PRN PRN #0 tab 04/05/21 [Rx Last Taken Unknown] Allergy/AdvReac Type Severity Reaction Status Date / Time budesonide [From Symbicort] Allergy Other Verified 08/10/21 15:30 formoterol fumarate Allergy Other Verified 08/10/21 15:30 [From Symbicort] strawberry Allergy Rash Verified 08/10/21 15:30 MOLD Allergy Intermediate Other Uncoded 08/10/21 15:30 Family History Father Lymphoma Mother CHF (congestive heart failure) Surgical History H/O thyroidectomy Social History (Updated 03/31/21 @ 17:[address] Yaniv Collins MD) household members: none Smoking Status: Never smoker Vital Signs Vital Signs Vital Signs: 08/10/21 15:31 08/10/21 15:34 08/10/21 15:35 Temperature 99.5 F H 99.5 F H Temperature Source Temporal Temporal Pulse Rate 105 H 105 H Respiratory Rate 34 H 34 H Respiratory Effort Short of Breath Labored Accessory Muscle Use Respiratory Depth Normal Respiratory Pattern Normal Blood Pressure 138/122 H 138/122 H Blood Pressure Mean 127 127 Pulse Ox 83 83 Oxygen Delivery Method Room Air Non-Rebreather Non-Rebreather Oxygen Flow Rate (L/min) 08/10/21 15:37 08/10/21 16:21 08/10/21 16:57 Temperature 99.7 F H Temperature Source Temporal Pulse Rate 104 H 98 98 Respiratory Rate 24 H 32 H 37 H Respiratory Effort Respiratory Depth Respiratory Pattern Tachypnea Blood Pressure 155/83 H Blood Pressure Mean 107 Pulse Ox 98 98 Oxygen Delivery Method Non-Rebreather Non-Rebreather Oxygen Flow Rate (L/min) 08/10/21 16:58 08/10/21 17:00 08/10/21 17:50 Temperature 97.8 F Temperature Source Temporal Pulse Rate 101 H 97 Respiratory Rate 39 H 38 H Respiratory Effort Respiratory Depth Respiratory Pattern Blood Pressure 155/83 H 163/73 H Blood Pressure Mean 107 103 Pulse Ox 99 95 95 Oxygen Delivery Method Non-Rebreather Non-Rebreather Non-Rebreather Oxygen Flow Rate (L/min) 12.5 08/10/21 17:53 08/10/21 18:00 08/10/21 18:04 Temperature 98 F Temperature Source Temporal Pulse Rate 99 Respiratory Rate 40 H Respiratory Effort Respiratory Depth Respiratory Pattern Blood Pressure 160/98 H Blood Pressure Mean 118 Pulse Ox 91 94 94 Oxygen Delivery Method Non-Rebreather Non-Rebreather Non-Rebreather Oxygen Flow Rate (L/min) 12.5 15 15 08/10/21 18:56 Temperature 98 F Temperature Source Temporal Pulse Rate 87 Respiratory Rate 27 H Respiratory Effort Respiratory Depth Respiratory Pattern Blood Pressure 151/79 H Blood Pressure Mean 103 Pulse Ox 95 Oxygen Delivery Method Non-Rebreather Oxygen Flow Rate (L/min) 15 Weight Weight: 111.8 kg Body Mass Index (BMI) 42.3 Results Lab / Micro Data Result Diagrams: 08/10/21 15:45 08/10/21 15:45 Labs: Laboratory Results - last 24 hr 08/10/21 15:45: WBC 7.1, RBC 4.28, Hgb 12.0, Hct 38.7, MCV 90.4, MCH 28.0, MCHC 31.0 L, RDW Std Deviation 44.3 H, RDW Coeff of Dilip 13.3, Plt Count 319, MPV 10.3, Neut % (Auto) Not Reportable, Absolute Neuts (auto) 6.5, Absolute Lymphs (auto) 0.43 L, Total Counted 100, Neutrophils % (Manual) 88 H, Band Neutrophils % 4, Lymphocytes % (Manual) 6 L, Monocytes % (Manual) 2, Diff Path Review March, Platelet Estimate ADEQUATE, RBC Morphology NORM C+C 08/10/21 15:45: Sodium 139, Potassium 3.7, Chloride 105, Carbon Dioxide 25.0, Anion Gap 9, BUN 15, Creatinine 1.10 H, Estim Creat Clear Calc 41.09, Est GFR (MDRD) Af Amer 63, Est GFR (MDRD) Non-Af 52 L, BUN/Creatinine Ratio 13.6, Glucose 143 H, Calcium 8.5, Troponin I High Sens 14 08/10/21 15:45: B-Natriuretic Peptide 147.7 H 08/10/21 15:45: Lactic Acid 2.3 H* 08/10/21 15:45: Fibrinogen 770 H, D-Dimer Quant (PE/DVT) 10.97 H* 08/10/21 15:45: C-React Prot Ext Range 164.00 H Micro: Microbiology 08/10/21 16:30 Nasal Secretion SARS-CoV-2 Antigen (Rapid) - Final SARS-CoV-2 (COVID 19) Radiology Impression Chest X-Ray 08/10/21 15:55 IMPRESSION: Multifocal airspace opacities in both lungs. COVID Pneumonia should be excluded. Electronically Signed: Bertin Stein MD at 16:33 EDT Tel , Service support ,
--- NOTE | 2021-08-10 19:48 | CT_ITS ---
EXAM: CT ANGIOGRAPHY CHEST WITHOUT AND WITH INTRAVENOUS CONTRAST : 1950 CLINICAL INDICATION: Elevated D Dimer TECHNIQUE: Helically acquired angiography images were obtained of the chest without and with intravenous contrast. This CT exam was performed using one or more of the following dose reduction techniques: automated exposure control, adjustment of the mA and/or kV according to patient size, and/or use of iterative reconstruction technique. This report was created using [employer] report generation technology. MIP reconstructed images were created and reviewed. CONTRAST: IV 100mL [id number]-370 COMPARISON: None. FINDINGS: PULMONARY ARTERIES: Unremarkable. Normal in caliber. No evidence of pulmonary embolism. AORTA: Unremarkable. Normal in caliber. No evidence of dissection. GREAT VESSELS OF AORTIC ARCH: Unremarkable. Normal in caliber. No evidence of dissection. LUNGS AND PLEURAL SPACES: Unremarkable. No mass. No consolidation or edema. No pleural effusion or thickening. No pneumothorax. HEART: Unremarkable. Heart size is normal. No pericardial effusion. No signs of right heart strain, ratio of right ventricle to left ventricle measures less than 1. MEDIASTINUM: Unremarkable. No mediastinal or hilar adenopathy. Esophagus is unremarkable. No hiatal hernia. THYROID: Unremarkable. No thyroid lesions. BONES/JOINTS: Unremarkable. No suspicious lytic or blastic abnormality. OTHER FINDINGS: There are diffuse bilateral areas of groundglass opacity. CT/CTA Chest W/WO Contrast IMPRESSION: 1. No evidence of pulmonary embolus. 2. Diffuse bilateral groundglass opacities. Imaging features can be seen with COVID 19 pneumonia, though are nonspecific and can occur with a variety of infectious and noninfectious processes. Individualized dose optimization techniques were used for this CT. at 2120 Reported and signed by: Doron Ramirez MD Electronically Signed: Doron Ramirez MD at 21:19 EDT Tel , Service support ,
[2021-08-10 19:54] LABS: Reflex Lactate? Y
--- NOTE | 2021-08-10 20:41 | HP.PCM.HOS_ITS ---
HPI - General General Date of Admission: 08/10/21 HPI Narrative SONNY BOOTH, is a 70 F who presented to the emergency department [facility] on 08/10/2021 with a chief complaint of shortness of breath. She indicates that she is had shortness of breath for approximately 3 weeks but her son indicates that her symptoms really worsened over the last week. She has asthma at baseline she complained of shortness of breath with no significant sputum production, decreased sense of smell, decreased taste, decreased appetite, loose stool but no nausea or vomiting, fever or chills. She has not been vaccinated. A rapid Covid swab was done in the emergency department and fo und to be positive. She had a T-max of 99.7 in the ED with stable blood pressures, normal heart rates, tachypnea with respiratory rates from 27-40 and oxygen saturations of 94 to 95% on a nonrebreather at 15 L. Her CBC was unremarkable. Her CMP shows chronic stable CKD stage IIIa and mild hypergl ycemia. Her BNP was mildly elevated at 147.7. Her lactic acid was 2.3 and I suspect this is related to her hypoxia. Her CRP was 164. Her fibrinogen level was 770. And her D-dimer was 10.97. A CTA of her chest was performed and pending on the time of admission. A chest x-ray was done and showed patchy bilateral infiltrates. She was initiated on Decadron in the emergency department. Initially she and her family were resistant to taking remdesivir. I did review the data with remdesivir for them and they decided to initiate the treatment. [facility] Medical History Anxiety Asthma Cancer COPD (chronic obstructive pulmonary disease) CPAP (continuous positive airway pressure) dependence Depression Diabetes Irregular heart beat Non-smoker Sleep apnea UTI (urinary tract infection) Home Medications azelastine 2 spray NASAL BID 02/21/17 [History Last Taken Unknown] fluticasone propion-salmeterol [Advair Diskus] 1 ea IH BID 02/21/17 [History Last Taken 03/19/21] levothyroxine 125 mcg PO DAILY 02/21/17 [History Last Taken 03/24/21] fluticasone propionate 2 spray INTRANASAL DAILY 03/26/21 [History Last Taken 03/24/21] tizanidine [Zanaflex] 4 mg PO Q8H 03/26/21 [History Last Taken 03/26/21] cholecalciferol (vitamin D3) [Vitamin D3] 125 mcg PO DAILY 03/31/21 [History Last Taken Unknown] cyanocobalamin (vitamin B-12) 1,000 mcg PO DAILY #0 cap MDD supplement 03/31/21 [Rx Last Taken 03/24/21] acetaminophen 1,000 mg PO Q6H PRN PRN #0 tab 04/05/21 [Rx Last Taken Unknown] Allergy/AdvReac Type Severity Reaction Status Date / Time budesonide [From Symbicort] Allergy Other Verified 08/10/21 15:30 formoterol fumarate Allergy Other Verified 08/10/21 15:30 [From Symbicort] strawberry Allergy Rash Verified 08/10/21 15:30 MOLD Allergy Intermediate Other Uncoded 08/10/21 15:30 Family History Father Lymphoma Mother CHF (congestive heart failure) Surgical History H/O thyroidectomy Social History (Updated 08/10/21 @ 20:[address] Deanna Lucero DO) household members: none Smoking Status: Never smoker alcohol intake: current alcohol intake frequency: holidays/special occasions only substance use type: does not use ROS Constitutional Constitutional: Reports chills, fatigue, malaise and weakness; Denies anorexia, change in weight, fever(s), night sweats or other Eyes Eyes: Denies blurry vision, change in eye color, change in vision, discharge from eye(s), double vision, erythema, eye pain, loss of vision or other ENT HEENT: Denies abnormal hearing, dysphagia, ear pain, epistaxis, headache(s), hearing loss, nasal congestion, nasal discharge, post nasal drip, sinus pressure, sore throat or other Cardiovascular Cardiovascular: Reports dyspnea on exertion; Denies chest pain, claudication, edema, lightheadedness, orthopnea, palpitations, paroxysmal nocturnal dyspnea, rapid heart rate, syncope or other Respiratory/Chest Respiratory/Chest: Reports cough, dyspnea, shortness of breath at rest and shortness of breath with exertion; Denies excessive phlegm production, hemoptysis, productive cough, wheezing or other Gastrointestinal Gastrointestinal: Reports loose stools; Denies abdominal pain, coffee ground emesis, constipation, diarrhea, dyspepsia, hematemesis, hematochezia, melena, nausea, vomiting or other Genitourinary Genitourinary: Denies burning urination, difficulty urinating, dysuria, hematuria, nocturia, urinary frequency, urinary hesitancy, urinary incontinence, urinary urgency or other Musculoskeletal Musculoskeletal: Denies arthralgias, back pain, joint pain, joint stiffness, joint swelling, myalgias, neck pain or other Neurologic Neurologic: Denies abnormal gait, abnormal speech, confusion, disequilibrium, dizziness, focal weakness, headache(s), numbness, paresthesias, seizure-like activity, seizures, syncope, tingling, tremor(s) or other Psychiatric Psychiatric: Denies anxiety, depression, homicidal ideation, suicidal ideation or other Endocrine Endocrinology: Denies change in body appearance, cold intolerance, excessive sweating, heat intolerance, polydipsia, polyuria or other Hematologic/Lymphatic Hematologic/Lymphatic: Denies anemia, easy bleeding, easy bruising, lymphadenopathy or other Allergic/Immunologic Allergic/Immunologic: Reports asthma; Denies rhinitis, hives, eczemia or other Vital Signs Vital Signs Vital Signs: 08/10/21 15:31 08/10/21 15:34 08/10/21 15:35 Temperature 99.5 F H 99.5 F H Temperature Source Temporal Temporal Pulse Rate 105 H 105 H Respiratory Rate 34 H 34 H Respiratory Effort Short of Breath Labored Accessory Muscle Use Respiratory Depth Normal Respiratory Pattern Normal Blood Pressure 138/122 H 138/122 H Blood Pressure Mean 127 127 Pulse Ox 83 83 Oxygen Delivery Method Room Air Non-Rebreather Non-Rebreather Oxygen Flow Rate (L/min) 08/10/21 15:37 08/10/21 16:21 08/10/21 16:57 Temperature 99.7 F H Temperature Source Temporal Pulse Rate 104 H 98 98 Respiratory Rate 24 H 32 H 37 H Respiratory Effort Respiratory Depth Respiratory Pattern Tachypnea Blood Pressure 155/83 H Blood Pressure Mean 107 Pulse Ox 98 98 Oxygen Delivery Method Non-Rebreather Non-Rebreather Oxygen Flow Rate (L/min) 08/10/21 16:58 08/10/21 17:00 08/10/21 17:50 Temperature 97.8 F Temperature Source Temporal Pulse Rate 101 H 97 Respiratory Rate 39 H 38 H Respiratory Effort Respiratory Depth Respiratory Pattern Blood Pressure 155/83 H 163/73 H Blood Pressure Mean 107 103 Pulse Ox 99 95 95 Oxygen Delivery Method Non-Rebreather Non-Rebreather Non-Rebreather Oxygen Flow Rate (L/min) 12.5 08/10/21 17:53 08/10/21 18:00 08/10/21 18:04 Temperature 98 F Temperature Source Temporal Pulse Rate 99 Respiratory Rate 40 H Respiratory Effort Respiratory Depth Respiratory Pattern Blood Pressure 160/98 H Blood Pressure Mean 118 Pulse Ox 91 94 94 Oxygen Delivery Method Non-Rebreather Non-Rebreather Non-Rebreather Oxygen Flow Rate (L/min) 12.5 15 15 08/10/21 18:56 08/10/21 20:00 Temperature 98 F Temperature Source Temporal Pulse Rate 87 95 Respiratory Rate 27 H 32 H Respiratory Effort Respiratory Depth Respiratory Pattern Blood Pressure 151/79 H 104/62 Blood Pressure Mean 103 76 Pulse Ox 95 94 Oxygen Delivery Method Non-Rebreather Room Air Oxygen Flow Rate (L/min) 15 Weight Weight: 111.8 kg Body Mass Index (BMI) 42.3 Physical Exam Const alert, oriented x3 and no apparent distress Constitutional Narrative: Morbidly obese older white female sitting up in bed on nonrebreather, son at bedside, patient is tachypneic but no acute signs of respiratory distress General Appearance: cooperative HEENT normocephalic, head/scalp atraumatic, hearing grossly normal bilaterally and moist oral mucous membranes HEENT Narrative: Oropharynx is dry, edentulous, Mallampati 3 Eyes PERRL, EOMs intact bilaterally and conjunctivae normal Neck no lymphadenopathy, supple, no JVD and no carotid bruits Resp no retractions and no use of accessory muscles Resp Narrative: Diffusely diminished but no adventitious sounds, tachypneic Cardio regular rate, regular rhythm, S1 normal heart sound, S2 normal heart sound, no murmurs, no rub, no gallops, no clicks and no JVD GI normal to inspection, nondistended, normoactive bowel sounds, soft to palpation, non-tender and non-distended Extremity Extremity Narrative: Trace bilateral lower extremity pitting edema with evidence of chronic venous stasis, no cyanosis or clubbing Peripheral Pulses: Yes pulses 2+ throughout Skin no rashes or lesions noted, no wounds, skin turgor normal, no jaundice, no petechiae and no mottling Neuro oriented x3, CN's II-XII intact bilaterally, moves all extremities and no focal motor deficits Sensorium / Orientation: awake and alert Speech: speech normal Psych affect normal Results Lab / Micro Data Attestation: I reviewed the patient's lab results. Result Diagrams: 08/10/21 15:45 08/10/21 15:45 Labs: Laboratory Results - last 24 hr 08/10/21 15:45: WBC 7.1, RBC 4.28, Hgb 12.0, Hct 38.7, MCV 90.4, MCH 28.0, MCHC 31.0 L, RDW Std Deviation 44.3 H, RDW Coeff of Dilip 13.3, Plt Count 319, MPV 10.3, Neut % (Auto) Not Reportable, Absolute Neuts (auto) 6.5, Absolute Lymphs (auto) 0.43 L, Total Counted 100, Neutrophils % (Manual) 88 H, Band Neutrophils % 4, Lymphocytes % (Manual) 6 L, Monocytes % (Manual) 2, Diff Path Review March, Platelet Estimate ADEQUATE, RBC Morphology NORM C+C 08/10/21 15:45: Sodium 139, Potassium 3.7, Chloride 105, Carbon Dioxide 25.0, Anion Gap 9, BUN 15, Creatinine 1.10 H, Estim Creat Clear Calc 41.09, Est GFR (MDRD) Af Amer 63, Est GFR (MDRD) Non-Af 52 L, BUN/Creatinine Ratio 13.6, Glucose 143 H, Calcium 8.5, Troponin I High Sens 14 08/10/21 15:45: B-Natriuretic Peptide 147.7 H 08/10/21 15:45: Lactic Acid 2.3 H* 08/10/21 15:45: Fibrinogen 770 H, D-Dimer Quant (PE/DVT) 10.97 H* 08/10/21 15:45: C-React Prot Ext Range 164.00 H Micro: Microbiology 08/10/21 16:30 Nasal Secretion SARS-CoV-2 Antigen (Rapid) - Final SARS-CoV-2 (COVID 19) Radiology Impression Chest X-Ray 08/10/21 15:55 IMPRESSION: Multifocal airspace opacities in both lungs. COVID Pneumonia should be excluded. Electronically Signed: Bertin Stein MD at 16:33 EDT Tel , Service support , Assessment & Plan Assessment/Plan (1) Acute respiratory failure with hypoxia: (2) COVID-19: (3) Elevated d-dimer: PLAN: Acute hypoxic respiratory failure secondary to COVID-19 pneumonia -Patient with high markers of inflammation -Chest x-ray shows patchy bilateral infiltrates -CTA was pending upon admission -Decadron initiated in the emergency department day 1 of 10 -Start remdesivir day 1 of 5 -I-S -Oxygen--> patient currently requiring 15 L on a nonrebreather -Supplement as needed and wean as able -Consult pulmonary critical care Elevated D-dimer -CTA is pending -Full anticoagulation if PE identified -If no PE will place on 40 mg of Lovenox twice daily for DVT prophylaxis given COVID-19 status Hypothyroidism -Continue levothyroxine Lactic acidosis -Suspect related to hypoxia CKD stage II -Monitor serum creatinine -Baseline serum creatinine appears to be 1.1-1.3 Vitamin D deficiency -Hold vitamin D while hospitalized Seasonal allergies -Continue nasal sprays ARYAN -CPAP at at bedtime DVT prophylaxis -If no PE identified on CTA will initiate Lovenox 40 mg subcutaneous twice daily CODE STATUS -Full code-verified the emergency department with son at bedside Charges/Coding Visit Charges Inpatient E&M: 71078 Init Hosp L3
[2021-08-10 21:23] LABS: Lactic Acid 1.7 mmol/L (0.4-1.9)
[2021-08-10 22:11] LABS: Procalcitonin 0.21 ng/mL (0.00-0.09)
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
[2021-08-10] MEDS: 0.9% Saline Lock 10 ML Syringe IV (22:28)
[2021-08-10] MEDS: Enoxaparin 40 MG/0.4 ML Syringe SC (22:58)
[2021-08-11] VITALS (39 sets, daily range): BP systolic 121–152; BP diastolic 65–99; PULSE 57–85; RESP 12–36; TEMP 35.7–37.1; O2SAT 31–99
[2021-08-11 04:57] LABS: Absolute Neutrophil Count 4.9 X10^3/uL (2.0-7.7); Basophil# 0.01 X10^3/uL; Basophil% 0.2 % (0-1); Hematocrit 37.3 % (37-47); Hemoglobin 11.6 g/dL (12.0-15.0); Lymphocyte % 10.5 % (19-41); Mean Corp Hgb Conc 31.1 g/dL (32-36); Mean Corpuscular Hgb 28.4 pg (27.0-32.0); Mean Corpuscular Volume 91.2 fL (81-99); Mean Platelet Vol. 10.1 fl (6.2-12.0); Monocyte# 0.11 X10^3/uL; Monocyte% 1.9 % (0-10); NRBC Flagged by Analyzer 0 % (0-5); Neutrophil # 4.87 X10^3/uL (2.7-7.7); Neutrophil % 84.8 % (47-70); POSITIVE DIFFERENTIAL YES; POSITIVE MORPHOLOGY YES; Platelet Count 283 K/mm3 (150-450); RBC Distribution Width CV 13.2 % (11.6-14.6); RBC Distribution Width SD 45.1 fl (35.1-43.9); Red Blood Count 4.09 M/mm3 (4.2-5.4); White Blood Count 5.7 K/mm3 (4.4-11.0)
[2021-08-11 05:02] LABS: Differential Indicated SCAN CRITERIA MET
[2021-08-11 05:20] LABS: ALB/GLOB Ratio 0.4 RATIO (0.9-2.4); AST(SGOT) 46 U/L (15-37); Alanine Aminotransfer ALT/SGPT 29 U/L (13-56); Albumin, Serum 2.1 g/dL (3.2-5.0); Alkaline Phosphatase 116 U/L (45-117); Anion Gap 7 (5-15); BUN 16 mg/dL (7-18); BUN/Creat Ratio 16.4 RATIO (10-20); Calcium,Total 8.1 mg/dL (8.5-10.1); Chloride 108 mmol/L (98-107); Creatinine, Serum 0.98 mg/dL (0.55-1.02); EST Glomerular Filtration Rate 60 mL/min (>60); Est Glom Filt Rate - Afr Amer 72 mL/min (>60); Estimated Creatinine Clearance 46.13 ml/min; Globulin 5.1 g/dL (2.2-4.2); Glucose 190 mg/dL (74-106); Potassium 4.3 mmol/L (3.5-5.1); Protein, Total 7.2 g/dL (6.4-8.2); Sodium Level 140 mmol/L (136-145)
[2021-08-11 05:44] LABS: Atypical Lymphocyte RARE %; Differential Comment SCANNED
--- NOTE | 2021-08-11 08:30 | CON.PCM.CC_ITS ---
Assessment & Plan Assessment/Plan (1) Acute respiratory failure with hypoxia: (2) COVID-19: (3) Obstructive sleep apnea: (4) Chronic obstructive pulmonary disease: (5) Asthma: PLAN: RECOMMENDATIONS: 1. Discontinue Remdesivir 2. Continue Decadron for 10-day course 3. Add scheduled bronchodilators 4. Diuresis as permitted by labs IMPRESSIONS: 1. Acute hypoxic respiratory failure secondary to COVID-19 pneumonia Unfortunately, patient is presenting extremely late. PREET inhibitor and Remdesivir are likely not indicated. Will initiate patient on Decadron therapy. Patient does have a slightly elevated BNP, so will attempt some diuresis to see if oxygenation can improve. Patient does report a history of COPD and asthma that have not been managed that I can tell. Patient remains marginal from a respiratory standpoint, but is tolerating Airvo at this time. Cannot exclude the need to advance to BiPAP therapy. 2. Morbid obesity/seasonal allergies/hypothyroidism/poor insight/advanced age Complicates care, management, recovery and prognosis. Likely okay to continue with baseline medications at this time. Doubt Astelin will be necessary given high dose Decadron therapy. HPI Consult Data Date of Consult: 08/11/21 HPI Narrative HPI Narrative: SONNY BOOTH is a 70 F, with past medical history listed below, who presents to [facility] on 08/10/2021 secondary to progressive shortness of breath over the last 3 weeks. Patient states that she started to have headache and body aches 3 weeks ago. Then she progressed to having intermittent chest tightness, cough productive of yellow to green sputum and an inability to lie flat. Patient did report some subjective fevers and chills. Patient is unvaccinated against COVID-19 as she stated they were out when she went to get them. On arrival to the ED, patient was noted to have a pulse oximetry in the 80s. Patient also had a temperature of 99.7 ?F, tachypnea of 34 and tachycardia at 105. Patient did require a nonrebreather to maintain appropriate saturations. Laboratory work-up showed a relatively unremarkable CBC and BMP. BNP was slightly elevated at 147 and creatinine was 1.1. Fibrinogen was elevated at 770 and D-dimer was almost 11. Patient CRP was 164, so a chest x-ray and CTA were obtained showing findings consistent with Covid pneumonia, but no PE. The patient was transferred to the intensive care unit for further monitoring. Since being in the intensive care unit, patient has required significant high flow oxygen to maintain saturations. Patient overall feels subjectively slightly improved compared to previous. Patient denies any current chest pain, abdominal pain, nausea or vomiting. Patient is upset that she has not been given anything to eat. Patient does report a history of COPD and asthma. However, patient does not reportedly use her inhalers on a daily basis. Patient is unclear if she is ever required supplemental oxygen previously. Patient does report 1-2 episodes of bronchitis a year and can occasionally have some hayfever. Patient has had issues with lower extremity cellulitis and lymphedema in the past. Patient reports that she has sleep apnea, but is unaware of her settings. Review of systems otherwise negative from a constitutional, HEENT, respiratory, cardiovascular, GI, genitourinary, musculoskeletal, skin, neurologic, psychiatric and hematologic system unless stated above. [facility] Medical History Anxiety Asthma Cancer COPD (chronic obstructive pulmonary disease) CPAP (continuous positive airway pressure) dependence Depression Diabetes Irregular heart beat Non-smoker Sleep apnea UTI (urinary tract infection) Home Medications azelastine 2 spray NASAL BID 02/21/17 [History Last Taken Unknown] fluticasone propion-salmeterol [Advair Diskus] 1 ea IH BID 02/21/17 [History Last Taken 03/19/21] levothyroxine 125 mcg PO DAILY 02/21/17 [History Last Taken 03/24/21] fluticasone propionate 2 spray INTRANASAL DAILY 03/26/21 [History Last Taken 03/24/21] tizanidine [Zanaflex] 4 mg PO Q8H 03/26/21 [History Last Taken 03/26/21] cholecalciferol (vitamin D3) [Vitamin D3] 125 mcg PO DAILY 03/31/21 [History Last Taken Unknown] cyanocobalamin (vitamin B-12) 1,000 mcg PO DAILY #0 cap MDD supplement 03/31/21 [Rx Last Taken 03/24/21] acetaminophen 1,000 mg PO Q6H PRN PRN #0 tab 04/05/21 [Rx Last Taken Unknown] Allergy/AdvReac Type Severity Reaction Status Date / Time budesonide [From Symbicort] Allergy Other Verified 08/10/21 15:30 formoterol fumarate Allergy Other Verified 08/10/21 15:30 [From Symbicort] strawberry Allergy Rash Verified 08/10/21 15:30 MOLD Allergy Intermediate Other Uncoded 08/10/21 15:30 Family History Father Lymphoma Mother CHF (congestive heart failure) Surgical History H/O thyroidectomy Social History household members: none Smoking Status: Never smoker alcohol intake: current alcohol intake frequency: holidays/special occasions only substance use type: does not use ROS ROS Narrative See HPI Physical Exam Const alert and oriented x3 Constitutional Narrative: On Airvo General Appearance: cooperative Nutritional Appearance: morbidly obese HEENT normocephalic, head/scalp atraumatic, hearing grossly normal bilaterally and moist oral mucous membranes HEENT Narrative: Edentulous, Mallampati 3 Mouth: dry mucous membranes Eyes PERRL, EOMs intact bilaterally and conjunctivae normal Neck no lymphadenopathy, supple, no JVD and no carotid bruits Resp no retractions and no use of accessory muscles Effort and Inspection: tachypneic Auscultation: diminished lung sounds; Negative for rales, rhonchi or wheezes Cardio regular rate, regular rhythm, S1 normal heart sound, S2 normal heart sound, no murmurs, no rub, no gallops, no clicks and no JVD GI normal to inspection, nondistended, normoactive bowel sounds, soft to palpation, non-tender and non-distended Extremity Extremity Narrative: Trace bilateral lower extremity pitting edema with evidence of chronic venous stasis, no cyanosis or clubbing Peripheral Pulses: Yes pulses 2+ throughout Skin no rashes or lesions noted, no wounds, skin turgor normal, no jaundice, no petechiae and no mottling Neuro oriented x3, CN's II-XII intact bilaterally, moves all extremities and no focal motor deficits Sensorium / Orientation: awake and alert Speech: speech normal Psych affect normal Lab / Micro Data Result Diagrams: 08/11/21 04:35 08/11/21 04:35 Labs: Laboratory Results - last 24 hr 08/10/21 15:45: WBC 7.1, RBC 4.28, Hgb 12.0, Hct 38.7, MCV 90.4, MCH 28.0, MCHC 31.0 L, RDW Std Deviation 44.3 H, RDW Coeff of Dilip 13.3, Plt Count 319, MPV 10.3, Neut % (Auto) Not Reportable, Absolute Neuts (auto) 6.5, Absolute Lymphs (auto) 0.43 L, Total Counted 100, Neutrophils % (Manual) 88 H, Band Neutrophils % 4, Lymphocytes % (Manual) 6 L, Monocytes % (Manual) 2, Diff Path Review March, Platelet Estimate ADEQUATE, RBC Morphology NORM C+C 08/10/21 15:45: Sodium 139, Potassium 3.7, Chloride 105, Carbon Dioxide 25.0, Anion Gap 9, BUN 15, Creatinine 1.10 H, Estim Creat Clear Calc 41.09, Est GFR (MDRD) Af Amer 63, Est GFR (MDRD) Non-Af 52 L, BUN/Creatinine Ratio 13.6, Glucose 143 H, Calcium 8.5, Troponin I High Sens 14 08/10/21 15:45: B-Natriuretic Peptide 147.7 H 08/10/21 15:45: Lactic Acid 2.3 H* 08/10/21 15:45: Fibrinogen 770 H, D-Dimer Quant (PE/DVT) 10.97 H* 08/10/21 15:45: C-React Prot Ext Range 164.00 H 08/10/21 15:45: Procalcitonin 0.21 H 08/10/21 20:50: Lactic Acid 1.7 08/11/21 04:35: WBC 5.7, RBC 4.09 L, Hgb 11.6 L, Hct 37.3, MCV 91.2, MCH 28.4, MCHC 31.1 L, RDW Std Deviation 45.1 H, RDW Coeff of Dilip 13.2, Plt Count 283, MPV 10.1, Immature Gran % (Auto) 2.600 H, Neut % (Auto) 84.8 H, Lymph % (Auto) 10.5 L, Boyd % (Auto) 1.9, Eos % (Auto) 0.0, Baso % (Auto) 0.2, Absolute Neuts (auto) 4.9, Absolute Lymphs (auto) 0.60 L, Nucleated RBC % 0, Differential Comment SCANNED, Atypical Lymphocytes RARE 08/11/21 04:35: Sodium 140, Potassium 4.3, Chloride 108 H, Carbon Dioxide 25.0, Anion Gap 7, BUN 16, Creatinine 0.98, Estim Creat Clear Calc 46.13, Est GFR ( MDRD) Af Amer 72, Est GFR (MDRD) Non-Af 60, BUN/Creatinine Ratio 16.4, Glucose 190 H, Calcium 8.1 L, Total Bilirubin 0.70, AST 46 H, ALT 29, Alkaline Phosphatase 116, Total Protein 7.2, Albumin 2.1 L, Globulin 5.1 H, Albumin/Globulin Ratio 0.4 L Micro: Microbiology 08/10/21 16:30 Nasal Secretion SARS-CoV-2 Antigen (Rapid) - Final SARS-CoV-2 (COVID 19) Radiology Impression Chest X-Ray 08/10/21 15:55 IMPRESSION: Multifocal airspace opacities in both lungs. COVID Pneumonia should be excluded. Electronically Signed: Bertin Stein MD at 16:33 EDT Tel , Service support , Chest CTA 08/10/21 19:48 IMPRESSION: 1. No evidence of pulmonary embolus. 2. Diffuse bilateral groundglass opacities. Imaging features can be seen with COVID 19 pneumonia, though are nonspecific and can occur with a variety of infectious and noninfectious processes. Individualized dose optimization techniques were used for this CT. at 2120 Reported and signed by: Doron Ramirez MD Electronically Signed: Doron Ramirez MD at 21:19 EDT Tel , Service support , Charges/Coding Visit Charges Inpatient E&M: 66842 Init Hosp L3
--- NOTE | 2021-08-11 10:33 | PCM.PN.HOSP ---
Subjective Subjective Seen and examined. She is on Airvo 50L, FiO2 80%. She thinks she is getting better. Denies any new complaints. Objective Data Objective Data Vital Signs: Vital Signs Temp Pulse Resp BP Pulse Ox 96.3 F L 61 24 H 148/66 H 93 08/11/21 04:00 08/11/21 07:00 08/11/21 07:00 08/11/21 07:00 08/11/21 07:14 Oxygen Flow Rate (L/min) 50 Oxygen Delivery Method Airvo Weight: 109.1 kg Body Mass Index (BMI) 41.1 Intake & Output: Intake and Output for Last 24 Hours 08/09/21 08/10/21 08/11/21 23:59 23:59 23:59 Intake Total 0.25 / 0.25 250 / 250 Output Total 100 / 100 Balance 0.25 / 0.25 150 / 150 Lab / Micro Data Result Diagrams: 08/11/21 04:35 08/11/21 04:35 Labs: Laboratory Results - last 24 hr 08/10/21 15:45: WBC 7.1, RBC 4.28, Hgb 12.0, Hct 38.7, MCV 90.4, MCH 28.0, MCHC 31.0 L, RDW Std Deviation 44.3 H, RDW Coeff of Dilip 13.3, Plt Count 319, MPV 10.3, Neut % (Auto) Not Reportable, Absolute Neuts (auto) 6.5, Absolute Lymphs (auto) 0.43 L, Total Counted 100, Neutrophils % (Manual) 88 H, Band Neutrophils % 4, Lymphocytes % (Manual) 6 L, Monocytes % (Manual) 2, Diff Path Review March, Platelet Estimate ADEQUATE, RBC Morphology NORM C+C 08/10/21 15:45: Sodium 139, Potassium 3.7, Chloride 105, Carbon Dioxide 25.0, Anion Gap 9, BUN 15, Creatinine 1.10 H, Estim Creat Clear Calc 41.09, Est GFR (MDRD) Af Amer 63, Est GFR (MDRD) Non-Af 52 L, BUN/Creatinine Ratio 13.6, Glucose 143 H, Calcium 8.5, Troponin I High Sens 14 08/10/21 15:45: B-Natriuretic Peptide 147.7 H 08/10/21 15:45: Lactic Acid 2.3 H* 08/10/21 15:45: Fibrinogen 770 H, D-Dimer Quant (PE/DVT) 10.97 H* 08/10/21 15:45: C-React Prot Ext Range 164.00 H 08/10/21 15:45: Procalcitonin 0.21 H 08/10/21 20:50: Lactic Acid 1.7 08/11/21 04:35: WBC 5.7, RBC 4.09 L, Hgb 11.6 L, Hct 37.3, MCV 91.2, MCH 28.4, MCHC 31.1 L, RDW Std Deviation 45.1 H, RDW Coeff of Dilip 13.2, Plt Count 283, MPV 10.1, Immature Gran % (Auto) 2.600 H, Neut % (Auto) 84.8 H, Lymph % (Auto) 10.5 L, [place] % (Auto) 1.9, Eos % (Auto) 0.0, Baso % (Auto) 0.2, Absolute Neuts (auto) 4.9, Absolute Lymphs (auto) 0.60 L, Nucleated RBC % 0, Differential Comment SCANNED, Atypical Lymphocytes RARE 08/11/21 04:35: Sodium 140, Potassium 4.3, Chloride 108 H, Carbon Dioxide 25.0, Anion Gap 7, BUN 16, Creatinine 0.98, Estim Creat Clear Calc 46.13, Est GFR (MDRD) Af Amer 72, Est GFR (MDRD) Non-Af 60, BUN/Creatinine Ratio 16.4, Glucose 190 H, Calcium 8.1 L, Total Bilirubin 0.70, AST 46 H, ALT 29, Alkaline Phosphatase 116, Total Protein 7.2, Albumin 2.1 L, Globulin 5.1 H, Albumin/Globulin Ratio 0.4 L Micro: Microbiology 08/10/21 16:30 Nasal Secretion SARS-CoV-2 Antigen (Rapid) - Final SARS-CoV-2 (COVID 19) Radiography Diagnostic Testing: Radiology Impression Chest X-Ray 08/10/21 15:55 IMPRESSION: Multifocal airspace opacities in both lungs. COVID Pneumonia should be excluded. Electronically Signed: Bertin Stein MD at 16:33 EDT Tel , Service support , Chest CTA 08/10/21 19:48 IMPRESSION: 1. No evidence of pulmonary embolus. 2. Diffuse bilateral groundglass opacities. Imaging features can be seen with COVID 19 pneumonia, though are nonspecific and can occur with a variety of infectious and noninfectious processes. Individualized dose optimization techniques were used for this CT. at 2120 Reported and signed by: Doron Ramirez MD Electronically Signed: Doron Ramirez MD at 21:19 EDT Tel , Service support , Physical Exam Narrative Physical exam: General: Alert, Oriented x3, Cooperative, mild respiratory distress, on Airvo HEENT: Atraumatic Oral: Moist Mucosa Neck: Supple Lungs: Diminished to auscultations, few crackles at the bases especially on the right Cardiovascular: HS I+II, regular, no murmurs Abdomen: Bowel Sounds Present, Soft, Non Tender Extremities: Bilateral leg erythema, tender to touch, edema +1, improving with skin wrinkles Assessment & Plan Assessment/Plan (1) Acute respiratory failure with hypoxia: (2) COVID-19: (3) Elevated d-dimer: PLAN: 1. Acute hypoxic respiratory failure secondary to COVID-19 pneumonia,worsenn, on Airvo Patient stated her symptoms started 13 days ago Admitting CXR showed multifocal airspace opacities in both lungs CTA chest showed diffuse bilateral groundglass opacities, no PE Remdesivir discontinued Continue on decadron Project Administrative Assistant following 2. Elevated D-dimer, acute PE ruled out 3. Lactic acidosis secondary to #1 4. The rest of her chronic medical conditions including hypothyroidism, seasonal allergies, ARYAN, COPD remained stable Charges/Coding Visit Charges Inpatient E&M: 34826 Subs Hosp L3
[2021-08-11] MEDS: Ipratropium/Albuterol Sulfate 3 ML AMPUL.NEB INHALATION ×3 (11:03→19:35)
[2021-08-11] MEDS: dexAMETHasone 10 MG/ML Vial 6 MG IV (11:47)
[2021-08-11] MEDS: Furosemide 40 MG/4 ML Vial IV (11:47)
[2021-08-11] MEDS: 0.9% Saline Lock 10 ML Syringe IV (11:48)
[2021-08-11] MEDS: Enoxaparin 40 MG/0.4 ML Syringe SC ×2 (11:48→19:36)
[2021-08-11] MEDS: tiZANidine HCl 2 MG Tablet 4 MG PO (11:48)
[2021-08-11] MEDS: Levothyroxine 125 MCG Tablet PO (11:48)
--- NOTE | 2021-08-11 13:55 | CASEMGMT ---
RN CM attempted to call patient in room to complete RN CM assessment. No answer, patient is currently on Airvo 100%. RN CM will attempt to complete assessment at later time.
[2021-08-11] MEDS: MELATONIN 3 MG TABLET PO (19:36)
--- NOTE | 2021-08-11 20:45 | NURSING ---
1900 pandemic documentation
[2021-08-11] MEDS: Acetaminophen 325 MG Tablet 650 MG PO (20:56)
[2021-08-12] VITALS (34 sets, daily range): BP systolic 120–166; BP diastolic 64–97; PULSE 52–89; RESP 17–30; TEMP 36.1–37.2; O2SAT 85–100
[2021-08-12 03:35] LABS: Hematocrit 38.3 % (37-47); Hemoglobin 12.1 g/dL (12.0-15.0); Mean Corp Hgb Conc 31.6 g/dL (32-36); Mean Corpuscular Hgb 28.7 pg (27.0-32.0); Mean Platelet Vol. 10.7 fl (6.2-12.0); Platelet Count 357 K/mm3 (150-450); RBC Distribution Width CV 13.2 % (11.6-14.6); RBC Distribution Width SD 44.2 fl (35.1-43.9); Red Blood Count 4.21 M/mm3 (4.2-5.4); White Blood Count 12.6 K/mm3 (4.4-11.0)
[2021-08-12 06:47] LABS: ALB/GLOB Ratio 0.4 RATIO (0.9-2.4); AST(SGOT) 38 U/L (15-37); Alanine Aminotransfer ALT/SGPT 27 U/L (13-56); Albumin, Serum 2.1 g/dL (3.2-5.0); Alkaline Phosphatase 122 U/L (45-117); Anion Gap 8 (5-15); BUN 35 mg/dL (7-18); BUN/Creat Ratio 25.2 RATIO (10-20); Calcium,Total 8.5 mg/dL (8.5-10.1); Chloride 104 mmol/L (98-107); Creatinine, Serum 1.39 mg/dL (0.55-1.02); EST Glomerular Filtration Rate 40 mL/min (>60); Est Glom Filt Rate - Afr Amer 48 mL/min (>60); Estimated Creatinine Clearance 32.52 ml/min; Globulin 5.3 g/dL (2.2-4.2); Glucose 279 mg/dL (74-106); Potassium 3.8 mmol/L (3.5-5.1); Protein, Total 7.4 g/dL (6.4-8.2); Sodium Level 139 mmol/L (136-145)
[2021-08-12] MEDS: Ipratropium/Albuterol Sulfate 3 ML AMPUL.NEB INHALATION ×2 (07:20→19:50)
--- NOTE | 2021-08-12 07:40 | PCM.PN.INT ---
Assessment & Plan Assessment/Plan (1) Acute respiratory failure with hypoxia: (2) COVID-19: (3) Obstructive sleep apnea: (4) Chronic obstructive pulmonary disease: (5) Asthma: PLAN: RECOMMENDATIONS: 1. Potential intubation later today 2. Clarify CODE STATUS 3. Add sliding scale insulin 4. Diuresis as permitted by labs?hold Lasix today IMPRESSIONS: 1. Acute hypoxic respiratory failure secondary to COVID-19 pneumonia Unfortunately, patient is presenting extremely late. PREET inhibitor and Remdesivir are likely not indicated. Will continue patient on Decadron therapy. Patient with significant increase in creatinine following diuretic challenge. Patient does report a history of COPD and asthma that have not been managed that I can tell. Given patient's intolerance of BiPAP therapy and frequent desaturation on Airvo, recommended intubation. Patient is going to discuss it with her family. 2. Morbid obesity/seasonal allergies/hypothyroidism/poor insight/advanced age Complicates care, management, recovery and prognosis. Likely okay to continue with baseline medications at this time. Doubt Astelin will be necessary given high dose Decadron therapy. Some concern patient may have an underlying psychiatric condition versus failure to cope with current situation. Insight is lacking. Blood sugars are significantly elevated, likely secondary to Decadron therapy. Insulin regimen will be added. TIME: 34 minutes of critical care time spent addressing patient's acute hypoxic respiratory failure, elevated blood sugar, discussing CODE STATUS, review of all data and collaboration with care team (6 AM to 7 AM) Subjective Subjective Patient did okay overnight from a hemodynamic standpoint. Patient has not tolerated prone positioning and is desaturating with simple conversations despite 100% with 70 L flow. Attempts to place BiPAP have not been tolerated. Patient reports that her nose is starting to become more raw and she attributes this to her high flow nasal cannula. Attempted to discuss with the patient about intubation this morning. Patient stated that she does not want to be intubated and will be looking for another hospital. Discussed with the patient about potentially changing her CODE STATUS if she does not want intubation, but she states that she wants to talk with her son before making any decisions. Patient did desaturate to the low 80s with this conversation. Objective Data Objective Data Vital Signs: Vital Signs Temp Pulse Resp BP Pulse Ox 36.3 C L 72 18 145/87 H 88 08/12/21 03:00 08/12/21 07:21 08/12/21 07:21 08/12/21 07:00 08/12/21 07:21 Oxygen Flow Rate (L/min) 70 Oxygen Delivery Method Airvo Weight: 107.6 kg Body Mass Index (BMI) 41.1 Intake & Output: Intake and Output for Last 24 Hours 08/10/21 08/11/21 08/12/21 23:59 23:59 23:59 Intake Total 0.25 / 0.25 1169.75 / 1289.75 300 / 300 Output Total 1100 / 1100 Balance 0.25 / 0.25 69.75 / 189.75 300 / 300 Lab / Micro Data Result Diagrams: 08/12/21 02:55 08/12/21 02:55 Labs: Laboratory Results - last 24 hr 08/12/21 02:55: WBC 12.6 H, RBC 4.21, Hgb 12.1, Hct 38.3, MCV 91.0, MCH 28.7, MCHC 31.6 L, RDW Std Deviation 44.2 H, RDW Coeff of Dilip 13.2, Plt Count 357, MPV 10.7 08/12/21 02:55: Sodium 139, Potassium 3.8, Chloride 104, Carbon Dioxide 27.0, Anion Gap 8, BUN 35 H, Creatinine 1.39 H, Estim Creat Clear Calc 32.52, Est GFR (MDRD) Af Amer 48 L, Est GFR (MDRD) Non-Af 40 L, BUN/Creatinine Ratio 25.2 H, Glucose 279 H, Calcium 8.5, Total Bilirubin 0.30, AST 38 H, ALT 27, Alkaline Phosphatase 122 H, Total Protein 7.4, Albumin 2.1 L, Globulin 5.3 H, Albumin/Globulin Ratio 0.4 L Micro: Microbiology 08/10/21 16:30 Nasal Secretion SARS-CoV-2 Antigen (Rapid) - Final SARS-CoV-2 (COVID 19) Physical Exam Const alert and oriented x3 Constitutional Narrative: On Airvo, 100% at 70 L General Appearance: cooperative Nutritional Appearance: morbidly obese HEENT normocephalic, head/scalp atraumatic, hearing grossly normal bilaterally and moist oral mucous membranes HEENT Narrative: Edentulous, Mallampati 3 Mouth: dry mucous membranes Eyes PERRL, EOMs intact bilaterally and conjunctivae normal Neck no lymphadenopathy, supple, no JVD and no carotid bruits Resp no retractions and no use of accessory muscles Effort and Inspection: tachypneic Auscultation: diminished lung sounds; Negative for rales, rhonchi or wheezes Cardio regular rate, regular rhythm, S1 normal heart sound, S2 normal heart sound, no murmurs, no rub, no gallops, no clicks and no JVD GI normal to inspection, nondistended, normoactive bowel sounds, soft to palpation, non-tender and non-distended Extremity Extremity Narrative: chronic venous stasis noted General Extremity: edema bilateral (Trace) lower extremity; Negative for clubbing or cyanosis Peripheral Pulses: Yes pulses 2+ throughout Skin no rashes or lesions noted, no wounds, skin turgor normal, no jaundice, no petechiae and no mottling Neuro oriented x3, CN's II-XII intact bilaterally, moves all extremities and no focal motor deficits Sensorium / Orientation: awake and alert Speech: speech normal Psych affect normal Charges/Coding Procedures Hospitalists Procedures: 35609 Critial Care 1st Hr
[2021-08-12] MEDS: CHLORHEXIDINE GLUC 2% CLOTH 1 EACH TOWELETTE TOPICAL (08:15)
[2021-08-12] MEDS: Enoxaparin 40 MG/0.4 ML Syringe SC ×2 (08:15→20:49)
[2021-08-12] MEDS: dexAMETHasone 10 MG/ML Vial 6 MG IV (08:15)
[2021-08-12] MEDS: QUEtiapine 25 MG Tablet 50 MG PO ×2 (08:15→20:49)
[2021-08-12] MEDS: Levothyroxine 125 MCG Tablet PO (08:15)
--- NOTE | 2021-08-12 09:20 | NURSING ---
After lengthy in depth discussion of Full code vs DNRCCA-DNI vs hospice, patient verbalizes wishes of DNRCCA-DNI. This RN communicated this to Dr. Jackson and Dr. Valadez, attempted to call Gerald, patient's son, with no answer, message left, waiting call back.
--- NOTE | 2021-08-12 10:22 | PN.HOSP_ITS ---
Subjective Subjective Patient was seen and examined. Her respiratory status has worsened. She is on 75 L of oxygen with FiO2 100%. Patient stated that she does not want to be intubated. She wants to be DNR CCA. Attempted calling the son, goes to voicemail. Patient wants hospice later. Objective Data Objective Data Vital Signs: Vital Signs Temp Pulse Resp BP Pulse Ox 98.9 F 89 30 H 146/79 H 86 08/12/21 08:00 08/12/21 10:00 08/12/21 10:00 08/12/21 10:00 08/12/21 10:00 Oxygen Flow Rate (L/min) 75 Oxygen Delivery Method Airvo Weight: 107.6 kg Body Mass Index (BMI) 41.1 Intake & Output: Intake and Output for Last 24 Hours 08/10/21 08/11/21 08/12/21 23:59 23:59 23:59 Intake Total 0.25 / 0.25 1169.75 / 1289.75 660 / 660 Output Total 1100 / 1100 Balance 0.25 / 0.25 69.75 / 189.75 660 / 660 Lab / Micro Data Result Diagrams: 08/12/21 02:55 08/12/21 02:55 Labs: Laboratory Results - last 24 hr 08/12/21 02:55: WBC 12.6 H, RBC 4.21, Hgb 12.1, Hct 38.3, MCV 91.0, MCH 28.7, MCHC 31.6 L, RDW Std Deviation 44.2 H, RDW Coeff of Dilip 13.2, Plt Count 357, MPV 10.7 08/12/21 02:55: Sodium 139, Potassium 3.8, Chloride 104, Carbon Dioxide 27.0, Anion Gap 8, BUN 35 H, Creatinine 1.39 H, Estim Creat Clear Calc 32.52, Est GFR (MDRD) Af Amer 48 L, Est GFR (MDRD) Non-Af 40 L, BUN/Creatinine Ratio 25.2 H, Glucose 279 H, Calcium 8.5, Total Bilirubin 0.30, AST 38 H, ALT 27, Alkaline Phosphatase 122 H, Total Protein 7.4, Albumin 2.1 L, Globulin 5.3 H, Albumin/Globulin Ratio 0.4 L Micro: Microbiology 08/10/21 16:30 Nasal Secretion SARS-CoV-2 Antigen (Rapid) - Final SARS-CoV-2 (COVID 19) Physical Exam Narrative Physical exam: General: Alert, Oriented x3, Cooperative, mild respiratory distress, on Airvo HEENT: Atraumatic Oral: Moist Mucosa Neck: Supple Lungs: Diminished to auscultations, few crackles at the bases especially on the right Cardiovascular: HS I+II, regular, no murmurs Abdomen: Bowel Sounds Present, Soft, Non Tender Extremities: Bilateral leg erythema, tender to touch, edema +1, improving with skin wrinkles Assessment & Plan Assessment/Plan (1) Acute respiratory failure with hypoxia: (2) COVID-19: (3) Elevated d-dimer: PLAN: 1. Acute hypoxic respiratory failure secondary to COVID-19 pneumonia,worsening, on Airvo Patient stated her symptoms started 13 days ago Admitting CXR showed multifocal airspace opacities in both lungs CTA chest showed diffuse bilateral groundglass opacities, no PE Continue on decadron Instructional Support Services Director following 2. Elevated D-dimer, acute PE ruled out 3. Lactic acidosis secondary to #1 4. The rest of her chronic medical conditions including hypothyroidism, seasonal allergies, ARYAN, COPD remained stable Charges/Coding Visit Charges Inpatient E&M: 98221 Subs Hosp L3
[2021-08-12] MEDS: Insulin Lispro 100 UNIT/ML INSULN.PEN SC ×3 (11:52→20:50)
[2021-08-12 20:31] LABS: Bedside Glucose 284 mg/dL (70-110)
[2021-08-12 20:31] LABS: Bedside Glucose 221 mg/dL (70-110)
[2021-08-12] MEDS: MELATONIN 10 MG TABLET PO (20:49)
[2021-08-12 23:25] LABS: Bedside Glucose 303 mg/dL (70-110)
[2021-08-13] VITALS (28 sets, daily range): BP systolic 110–164; BP diastolic 65–96; PULSE 61–97; RESP 19–33; TEMP 36.1–36.6; O2SAT 83–95
--- NOTE | 2021-08-13 05:42 | PCM.PN.INT ---
Assessment & Plan Assessment/Plan (1) Acute respiratory failure with hypoxia: (2) COVID-19: (3) Obstructive sleep apnea: (4) Chronic obstructive pulmonary disease: (5) Asthma: PLAN: RECOMMENDATIONS: 1. Continue patient on heated high flow oxygen and wean FiO2 as tolerated for saturations greater than 90%. 2. Continue Decadron to complete 10-day treatment course. 3. Continue Lovenox twice daily. 4. Continue bronchodilator therapy. 5. Encourage incentive spirometer use and mobilize patient as tolerated. 6. Await prone positioning as tolerated. 7. Diuretic therapy as needed to maintain euvolemic state. IMPRESSIONS: 1. Acute hypoxic respiratory failure secondary to COVID-19 pneumonia Due to delayed hospital presentation, the patient is not currently a candidate for remdesivir or PREET inhibitor therapy. Plan to continue heated high flow oxygen to maintain saturations at or above 90%. The patient will be continued on Decadron to complete a 10-day treatment course. Continue bronchodilators as ordered. Unfortunately, the patient did not tolerate BiPAP therapy and does not wish to be intubated. Awake prone positioning can be encouraged. Intermittent use of diuretic therapy will be employed to maintain euvolemic state. 2. Morbid obesity/seasonal allergies/hypothyroidism/poor insight/advanced age Complicates care, management, recovery and prognosis. Continue supportive measures as noted above. CODE STATUS remains DNR CCA without intubation. This note was generated with [employer] dictation software. It may contain incorrect words, spelling, and punctuation that were not noted in checking the note before signing. Subjective Subjective The patient was seen and examined at the bedside this morning. Events from the last 24 hours have been reviewed. The patient is currently afebrile, hemodynamically stable and maintaining appropriate oxygen saturations on Airvo heated high flow with an FiO2 requirement of 100% and flow rate of 65 L/min. The patient is currently documented to be overall net +1 L for the hospital admission. The patient remains on twice daily Lovenox and Decadron. Objective Data Objective Data The patient's most recent lab work, culture data and imaging studies have all been personally reviewed. Rapid coronavirus antigen testing was positive on August 10. Vital Signs: Vital Signs Temp Pulse Resp BP Pulse Ox 97.8 F 72 28 H 164/80 H 95 08/13/21 02:00 08/13/21 05:00 08/13/21 05:00 08/13/21 05:00 08/13/21 05:00 Oxygen Flow Rate (L/min) 65 Oxygen Delivery Method Airvo Weight: 107.6 kg Body Mass Index (BMI) 41.1 Intake & Output: Intake and Output for Last 24 Hours 08/11/21 08/12/21 08/13/21 23:59 23:59 23:59 Intake Total 1169.75 / 1289.75 930 / 950 Output Total 1100 / 1100 0 / 0 Balance 69.75 / 189.75 930 / 950 Lab / Micro Data Attestation: I reviewed the patient's lab results. Result Diagrams: 08/13/21 06:50 08/13/21 06:50 Labs: Laboratory Results - last 24 hr 08/12/21 02:55: Sodium 139, Potassium 3.8, Chloride 104, Carbon Dioxide 27.0, Anion Gap 8, BUN 35 H, Creatinine 1.39 H, Estim Creat Clear Calc 32.52, Est GFR (MDRD) Af Amer 48 L, Est GFR (MDRD) Non-Af 40 L, BUN/Creatinine Ratio 25.2 H, Glucose 279 H, Calcium 8.5, Total Bilirubin 0.30, AST 38 H, ALT 27, Alkaline Phosphatase 122 H, Total Protein 7.4, Albumin 2.1 L, Globulin 5.3 H, Albumin/Globulin Ratio 0.4 L 08/12/21 11:48: POC Glucose 221 H 08/12/21 16:54: POC Glucose 284 H 08/12/21 20:48: POC Glucose 303 H Micro: Microbiology 08/10/21 16:30 Nasal Secretion SARS-CoV-2 Antigen (Rapid) - Final SARS-CoV-2 (COVID 19) Physical Exam Const alert General Appearance: cooperative and comfortable Nutritional Appearance: morbidly obese HEENT normocephalic and head/scalp atraumatic Eyes PERRL, EOMs intact bilaterally and conjunctivae normal Neck supple General: trachea midline Resp No no use of accessory muscles Auscultation: diminished lung sounds; Negative for rales, rhonchi or wheezes Cardio regular rate and regular rhythm GI normal to inspection, nondistended, normoactive bowel sounds Extremity no clubbing, cyanosis or edema Skin no rashes or lesions noted Neuro CN's II-XII intact bilaterally, moves all extremities and no focal motor deficits Psych cooperative and affect normal Charges/Coding Visit Charges Inpatient E&M: 86372 Subs Hosp L3
[2021-08-13] MEDS: Acetaminophen 325 MG Tablet 650 MG PO (06:54)
[2021-08-13 07:05] LABS: Bedside Glucose 118 mg/dL (70-110)
[2021-08-13] MEDS: Ipratropium/Albuterol Sulfate 3 ML AMPUL.NEB INHALATION ×4 (07:06→18:47)
[2021-08-13 07:20] LABS: Hematocrit 40.9 % (37-47); Hemoglobin 12.9 g/dL (12.0-15.0); Mean Corp Hgb Conc 31.5 g/dL (32-36); Mean Corpuscular Hgb 28.4 pg (27.0-32.0); Mean Corpuscular Volume 89.9 fL (81-99); Mean Platelet Vol. 10.5 fl (6.2-12.0); Platelet Count 425 K/mm3 (150-450); RBC Distribution Width CV 13.3 % (11.6-14.6); Red Blood Count 4.55 M/mm3 (4.2-5.4)
[2021-08-13] MEDS: Levothyroxine 125 MCG Tablet PO (08:15)
[2021-08-13] MEDS: dexAMETHasone 10 MG/ML Vial 6 MG IV (08:15)
[2021-08-13] MEDS: Enoxaparin 40 MG/0.4 ML Syringe SC ×2 (08:15→21:59)
[2021-08-13 10:18] LABS: Anion Gap 7 (5-15); BUN 32 mg/dL (7-18); BUN/Creat Ratio 35.5 RATIO (10-20); Calcium,Total 8.4 mg/dL (8.5-10.1); Chloride 106 mmol/L (98-107); EST Glomerular Filtration Rate 66 mL/min (>60); Est Glom Filt Rate - Afr Amer 79 mL/min (>60); Estimated Creatinine Clearance 50.23 ml/min; Glucose 120 mg/dL (74-106); Potassium 3.6 mmol/L (3.5-5.1); Sodium Level 141 mmol/L (136-145)
[2021-08-13] MEDS: Insulin Lispro 100 UNIT/ML INSULN.PEN SC ×3 (12:12→21:54)
[2021-08-13 12:25] LABS: Bedside Glucose 303 mg/dL (70-110)
[2021-08-13 13:00] LABS: Pathologist Review Reviewed
--- NOTE | 2021-08-13 14:03 | CASEMGMT ---
As per RN, pt is asking about her housing, is concerned about losing [facility], asked staff to let them know she is here. SW called son Gerald, offered support. SW asked Gerald about pt's housing, he states will reach out to [facility]. Son states pt is stubborn and strong willed, and is easily frustrated, especially now. SW again offered support to son, let him know that SW remains available should any needs arise or support needed. CELENA Gregory
[2021-08-13] MEDS: Phenol/Sodium Phenolate 180ML 3 SPRAY MUCOUS MEM ×2 (16:01→21:50)
--- NOTE | 2021-08-13 16:40 | PCM.PN.HOSP ---
Subjective Subjective Patient states her breathing does feel better than it did on admission however she is on 100% air Vo with a flow rate of 65 L/min. Per nursing her motivation is intermittently poor and she has refused to get out of bed at times. CODE STATUS has been changed. Objective Data Objective Data Vital Signs: Vital Signs Temp Pulse Resp BP Pulse Ox 97.0 F L 90 20 H 136/77 H 90 08/13/21 16:00 08/13/21 16:00 08/13/21 16:00 08/13/21 16:00 08/13/21 16:00 Oxygen Flow Rate (L/min) 70 Oxygen Delivery Method Airvo Weight: 108.3 kg Body Mass Index (BMI) 41.1 Intake & Output: Intake and Output for Last 24 Hours 08/11/21 08/12/21 08/13/21 23:59 23:59 23:59 Intake Total 1169.75 / 1289.75 930 / 950 160 / 160 Output Total 1100 / 1100 0 / 0 Balance 69.75 / 189.75 930 / 950 160 / 160 Lab / Micro Data Result Diagrams: 08/13/21 06:50 08/13/21 06:50 Labs: Laboratory Results - last 24 hr 08/10/21 15:45: Diff Path Review Reviewed 08/12/21 11:48: POC Glucose 221 H 08/12/21 16:54: POC Glucose 284 H 08/12/21 20:48: POC Glucose 303 H 08/13/21 06:36: POC Glucose 118 H 08/13/21 06:50: WBC 14.0 H, RBC 4.55, Hgb 12.9, Hct 40.9, MCV 89.9, MCH 28.4, MCHC 31.5 L, RDW Std Deviation 44.0 H, RDW Coeff of Dilip 13.3, Plt Count 425, MPV 10.5 08/13/21 06:50: Sodium 141, Potassium 3.6, Chloride 106, Carbon Dioxide 28.0, Anion Gap 7, BUN 32 H, Creatinine 0.90, Estim Creat Clear Calc 50.23, Est GFR (MDRD) Af Amer 79, Est GFR (MDRD) Non-Af 66, BUN/Creatinine Ratio 35.5 H, Glucose 120 H, Calcium 8.4 L 08/13/21 12:11: POC Glucose 303 H Micro: Microbiology 08/10/21 16:30 Nasal Secretion SARS-CoV-2 Antigen (Rapid) - Final SARS-CoV-2 (COVID 19) Physical Exam Const alert and oriented x3 Constitutional Narrative: Morbidly obese white female sitting up in bed, watching television, appears comfortable and has no signs of respiratory distress Exam Limitations: no limitations HEENT moist oral mucous membranes HEENT Narrative: No thrush Head and Scalp: normocephalic Resp normal respiratory effort, no retractions and no use of accessory muscles Resp Narrative: Diffusely diminished but clear Auscultation: Negative for crackles, rales, rhonchi or wheezes Cardio regular rate, regular rhythm, S1 normal heart sound, S2 normal heart sound, no murmurs, no rub, no gallops, no clicks and no JVD GI normal to inspection, nondistended, normoactive bowel sounds, soft to palpation, non-tender and non-distended Extremity Extremity Narrative: Trace bilateral chronic lower extremity edema that appears to be improved from previous, bilateral tenderness which is chronic, no cyanosis or clubbing Peripheral Pulses: Yes pulses 2+ throughout Skin no rashes or lesions noted, no wounds, skin turgor normal, no jaundice, no petechiae and no mottling Skin Narrative: Bilateral lower extremity venous stasis, no wounds Neuro oriented x3, moves all extremities and no focal motor deficits Neuro Narrative: Generalized weakness Sensorium / Orientation: awake and alert Speech: speech normal Assessment & Plan Assessment/Plan (1) Acute respiratory failure with hypoxia: (2) COVID-19: PLAN: Acute hypoxic respiratory failure secondary to COVID-19 pneumonia -Patient with high markers of inflammation -Chest x-ray shows patchy bilateral infiltrates -CTA was negative for pulmonary embolism but shows bilateral diffuse patchy infiltrates -Decadron initiated in the emergency department day 3 of 10 -Start remdesivir day 3 of 5 -I-S -Oxygen--> patient is currently on air Vo at 65 L/min and 100% FiO2 -As needed diuresis -Patient is high risk for decompensation -CODE STATUS has been changed to DNR CCA no intubation -Consult pulmonary critical care Hypothyroidism -Continue levothyroxine CKD stage II -Monitor serum creatinine -Baseline serum creatinine appears to be 1.1-1.3 -Serum creatinine remains at baseline Vitamin D deficiency -Hold vitamin D while hospitalized Seasonal allergies -Continue nasal sprays ARYAN -CPAP at at bedtime as patient tolerates DVT prophylaxis -Lovenox 40 mg subcutaneous twice daily CODE STATUS -Full code-verified the emergency department with son at bedside Charges/Coding Visit Charges Inpatient E&M: 55061 Subs Hosp L2
[2021-08-13 18:36] LABS: Bedside Glucose 378 mg/dL (70-110)
[2021-08-13] MEDS: MELATONIN 10 MG TABLET PO (22:02)
[2021-08-13] MEDS: QUEtiapine 25 MG Tablet 50 MG PO (22:02)
[2021-08-14] VITALS (19 sets, daily range): BP systolic 118–145; BP diastolic 60–94; PULSE 76–113; RESP 12–42; TEMP 36.1–36.7; O2SAT 91–97
[2021-08-14 00:56] LABS: Bedside Glucose 292 mg/dL (70-110)
--- NOTE | 2021-08-14 02:03 | NURSING ---
Pt's 02 sats 77-84% strongly encouraged pt to try bipap support. Pt refusing bipap despite encouragement and education by this RN, Ken, RN, Carmen,RN, and Ashwini, RT. Pt is oriented and adamantly refusing to wear bipap.
[2021-08-14 04:12] LABS: Hematocrit 38.8 % (37-47); Hemoglobin 12.3 g/dL (12.0-15.0); Mean Corp Hgb Conc 31.7 g/dL (32-36); Mean Corpuscular Hgb 28.5 pg (27.0-32.0); Mean Corpuscular Volume 89.8 fL (81-99); Mean Platelet Vol. 10.4 fl (6.2-12.0); Platelet Count 377 K/mm3 (150-450); RBC Distribution Width CV 13.3 % (11.6-14.6); RBC Distribution Width SD 44.4 fl (35.1-43.9); Red Blood Count 4.32 M/mm3 (4.2-5.4); White Blood Count 13.9 K/mm3 (4.4-11.0)
[2021-08-14] MEDS: CHLORHEXIDINE GLUC 2% CLOTH 1 EACH TOWELETTE TOPICAL (04:15)
[2021-08-14 04:32] LABS: ALB/GLOB Ratio 0.4 RATIO (0.9-2.4); AST(SGOT) 33 U/L (15-37); Alanine Aminotransfer ALT/SGPT 23 U/L (13-56); Albumin, Serum 2.1 g/dL (3.2-5.0); Alkaline Phosphatase 130 U/L (45-117); Anion Gap 5 (5-15); BUN 26 mg/dL (7-18); BUN/Creat Ratio 28.4 RATIO (10-20); Calcium,Total 8.4 mg/dL (8.5-10.1); Chloride 107 mmol/L (98-107); Creatinine, Serum 0.92 mg/dL (0.55-1.02); EST Glomerular Filtration Rate 64 mL/min (>60); Est Glom Filt Rate - Afr Amer 78 mL/min (>60); Estimated Creatinine Clearance 49.13 ml/min; Globulin 5.5 g/dL (2.2-4.2); Glucose 173 mg/dL (74-106); Potassium 3.6 mmol/L (3.5-5.1); Protein, Total 7.6 g/dL (6.4-8.2); Sodium Level 140 mmol/L (136-145)
[2021-08-14] MEDS: Ipratropium/Albuterol Sulfate 3 ML AMPUL.NEB INHALATION ×2 (06:50→19:04)
--- NOTE | 2021-08-14 07:01 | PN.CC_ITS ---
Assessment & Plan Assessment/Plan (1) Acute respiratory failure with hypoxia: (2) COVID-19: (3) Obstructive sleep apnea: (4) Chronic obstructive pulmonary disease: (5) Asthma: PLAN: RECOMMENDATIONS: 1. Continue patient on noninvasive positive pressure ventilatory support. Wean FiO2 for saturations greater than 90%. 2. Continue 10-day treatment course of Decadron. 3. Continue Lovenox twice daily. 4. Continue bronchodilator therapy. 5. Encourage incentive spirometer use and mobilize patient as tolerated. 6. Await prone positioning as tolerated. 7. Diuretic therapy as needed to maintain euvolemic state. 8. Ongoing goals of care discussion with the patient and her family. IMPRESSIONS: 1. Acute hypoxic respiratory failure secondary to COVID-19 pneumonia Due to delayed hospital presentation, the patient was not a candidate for remdesivir. PREET inhibitor therapy was not felt to be indicated by infectious diseases. The patient's respiratory status remains quite tenuous. She will be continued on BiPAP with a goal to maintain oxygen saturations at or above 90%. The patient will be continued on Decadron to complete a 10-day treatment course. Continue bronchodilators as ordered. Awake prone positioning can be encouraged. Intermittent use of diuretic therapy will be employed to maintain euvolemic state. 2. Morbid obesity/seasonal allergies/hypothyroidism/poor insight/advanced age Complicates care, management, recovery and prognosis. Continue supportive measures as noted above. CODE STATUS remains DNR CCA without intubation. TIME: 34 minutes of critical care time, independent of procedures, was spent addressing the patient's acute hypoxemic respiratory failure secondary to COVID- 19 pneumonia, review of all data and collaboration with care team. ([id number]) Subjective Subjective The patient was seen and examined at the bedside this morning. Events from the last 24 hours have been reviewed. The patient is afebrile and hemodynamically stable. Although the patient was initially able to maintain marginal oxygen saturations on heated high flow, she had to be transitioned to BiPAP support this morning. She currently has an FiO2 requirement of 90% and a pressure support of 14/8 centimeters of water. The patient is currently documented to be overall net +1.1 L for the hospital admission. The patient remains on twice daily Lovenox and Decadron. Objective Data Objective Data The patient's most recent lab work, culture data and imaging studies have all been personally reviewed. Rapid coronavirus antigen testing was positive on August 10. Vital Signs: Vital Signs Temp Pulse Resp BP Pulse Ox 97.9 F 100 38 H 140/76 H 91 08/14/21 03:14 08/14/21 05:01 08/14/21 05:01 08/14/21 03:14 08/14/21 05:01 Oxygen Flow Rate (L/min) 75 Oxygen Delivery Method Bi-pap Weight: 109.8 kg Body Mass Index (BMI) 41.1 Intake & Output: Intake and Output for Last 24 Hours 08/12/21 08/13/21 08/14/21 23:59 23:59 23:59 Intake Total 930 / 950 160 / 160 Output Total 0 / 0 Balance 930 / 950 160 / 160 Lab / Micro Data Attestation: I reviewed the patient's lab results. Result Diagrams: 08/14/21 03:45 08/14/21 03:45 Labs: Laboratory Results - last 24 hr 08/10/21 15:45: Diff Path Review Reviewed 08/13/21 06:36: POC Glucose 118 H 08/13/21 06:50: WBC 14.0 H, RBC 4.55, Hgb 12.9, Hct 40.9, MCV 89.9, MCH 28.4, MCHC 31.5 L, RDW Std Deviation 44.0 H, RDW Coeff of Dilip 13.3, Plt Count 425, MPV 10.5 08/13/21 06:50: Sodium 141, Potassium 3.6, Chloride 106, Carbon Dioxide 28.0, Anion Gap 7, BUN 32 H, Creatinine 0.90, Estim Creat Clear Calc 50.23, Est GFR (MDRD) Af Amer 79, Est GFR (MDRD) Non-Af 66, BUN/Creatinine Ratio 35.5 H, Glucose 120 H, Calcium 8.4 L 08/13/21 12:11: POC Glucose 303 H 08/13/21 15:44: POC Glucose 378 H 08/13/21 21:53: POC Glucose 292 H 08/14/21 03:45: WBC 13.9 H, RBC 4.32, Hgb 12.3, Hct 38.8, MCV 89.8, MCH 28.5, MCHC 31.7 L, RDW Std Deviation 44.4 H, RDW Coeff of Dilip 13.3, Plt Count 377, MPV 10.4 08/14/21 03:45: Sodium 140, Potassium 3.6, Chloride 107, Carbon Dioxide 28.0, Anion Gap 5, BUN 26 H, Creatinine 0.92, Estim Creat Clear Calc 49.13, Est GFR (MDRD) Af Amer 78, Est GFR (MDRD) Non-Af 64, BUN/Creatinine Ratio 28.4 H, Glucose 173 H, Calcium 8.4 L, Total Bilirubin 0.40, AST 33, ALT 23, Alkaline Phosphatase 130 H, Total Protein 7.6, Albumin 2.1 L, Globulin 5.5 H, Albumin/Globulin Ratio 0.4 L Micro: Microbiology 08/10/21 16:30 Nasal Secretion SARS-CoV-2 Antigen (Rapid) - Final SARS-CoV-2 (COVID 19) Physical Exam Const alert General Appearance: cooperative, comfortable, in distress, ill appearing and on BiPAP Nutritional Appearance: morbidly obese HEENT normocephalic and head/scalp atraumatic Eyes PERRL, EOMs intact bilaterally and conjunctivae normal Neck supple General: trachea midline Resp No no use of accessory muscles Effort and Inspection: tachypneic Auscultation: diminished lung sounds; Negative for rales, rhonchi or wheezes Cardio S1 normal heart sound and S2 normal heart sound Rate: tachycardic GI normal to inspection, nondistended, normoactive bowel sounds Extremity no clubbing, cyanosis or edema Skin no rashes or lesions noted Neuro CN's II-XII intact bilaterally, moves all extremities and no focal motor deficits Psych Mood & Affect: anxious Charges/Coding Procedures Hospitalists Procedures: [id number] Critial Care 1st Hr
--- NOTE | 2021-08-14 07:40 | PCM.PN.HOSP ---
Subjective Subjective Patient is a 70-year-old lady admitted with progressive shortness of breath diagnosed with acute hypoxic respiratory failure secondary to COVID-19 pneumonia Objective Data Objective Data Vital Signs: Vital Signs Temp Pulse Resp BP Pulse Ox 97.9 F 104 H 41 H 140/76 H 91 08/14/21 03:14 08/14/21 06:50 08/14/21 06:50 08/14/21 03:14 08/14/21 06:50 Oxygen Flow Rate (L/min) 75 Oxygen Delivery Method Bi-pap Weight: 109.8 kg Body Mass Index (BMI) 41.1 Intake & Output: Intake and Output for Last 24 Hours 08/12/21 08/13/21 08/14/21 23:59 23:59 23:59 Intake Total 930 / 950 160 / 160 Output Total 0 / 0 Balance 930 / 950 160 / 160 Lab / Micro Data Result Diagrams: 08/14/21 03:45 08/14/21 03:45 Labs: Laboratory Results - last 24 hr 08/10/21 15:45: Diff Path Review Reviewed 08/13/21 06:50: Sodium 141, Potassium 3.6, Chloride 106, Carbon Dioxide 28.0, Anion Gap 7, BUN 32 H, Creatinine 0.90, Estim Creat Clear Calc 50.23, Est GFR (MDRD) Af Amer 79, Est GFR (MDRD) Non-Af 66, BUN/Creatinine Ratio 35.5 H, Glucose 120 H, Calcium 8.4 L 08/13/21 12:11: POC Glucose 303 H 08/13/21 15:44: POC Glucose 378 H 08/13/21 21:53: POC Glucose 292 H 08/14/21 03:45: WBC 13.9 H, RBC 4.32, Hgb 12.3, Hct 38.8, MCV 89.8, MCH 28.5, MCHC 31.7 L, RDW Std Deviation 44.4 H, RDW Coeff of Dilip 13.3, Plt Count 377, MPV 10.4 08/14/21 03:45: Sodium 140, Potassium 3.6, Chloride 107, Carbon Dioxide 28.0, Anion Gap 5, BUN 26 H, Creatinine 0.92, Estim Creat Clear Calc 49.13, Est GFR (MDRD) Af Amer 78, Est GFR (MDRD) Non-Af 64, BUN/Creatinine Ratio 28.4 H, Glucose 173 H, Calcium 8.4 L, Total Bilirubin 0.40, AST 33, ALT 23, Alkaline Phosphatase 130 H, Total Protein 7.6, Albumin 2.1 L, Globulin 5.5 H, Albumin/Globulin Ratio 0.4 L Micro: Microbiology 08/10/21 16:30 Nasal Secretion SARS-CoV-2 Antigen (Rapid) - Final SARS-CoV-2 (COVID 19) Physical Exam Narrative GENERAL: Dyspneic at rest on BiPAP HEENT: Atraumatic; EYES; Anicteric, Normal Conjunctiva NECK; supple, normal thyroid, RESPIRATORY: Diminished to auscultation CARDIOVASCULAR: Regular S1 S2, GI: soft, normoactive bowel sounds, : No Renal angle tenderness; EXTREMITIES: No edema, no clubbing, MUSCULOSKELETAL: no muscle waisting NEURO: Awake; no lateralizing signs. SKIN: No Rash PSYCH; Flat affect Assessment & Plan Assessment/Plan (1) Acute respiratory failure with hypoxia: (2) COVID-19: PLAN: Patient is a 70-year-old lady admitted with progressive shortness of breath diagnosed with acute hypoxic respiratory failure secondary to COVID-19 pneumonia Acute hypoxic respiratory failure secondary to SARS-CoV-2 pneumonia ?Checks x-ray on admission demonstrated bilateral patchy infiltrate. Patient currently on day 4 of both remdesivir as well as Decadron. Consult placed to both ID as well as pulmonary medicine 2. Hypothyroidism ?Patient is on levothyroxine did continue 3. Acute renal insufficiency ?Creatinine was 1.39 on 08/12/2021 back to baseline at 0.92 chronic kidney disease stage II ruled out 4. Obesity with BMI of 41.6 ?Weight loss advised 5. Vitamin D deficiency ?Patient is some supplement with plans to resume following discharge 5. Obstructive sleep apnea ?Patient on BiPAP at night 6. Moderate intermittent asthma ?Aerosol treatment as needed 7. DVT prophylaxis ?Lovenox SC 40 twice daily CODE STATUS ?DNR CCA no intubation Charges/Coding Visit Charges Inpatient E&M: 86047 Subs Hosp L3
[2021-08-14] MEDS: Enoxaparin 40 MG/0.4 ML Syringe SC ×2 (08:40→20:30)
[2021-08-14] MEDS: dexAMETHasone 10 MG/ML Vial 6 MG IV (08:40)
--- NOTE | 2021-08-14 09:46 | NURSING ---
[facility] down, IS aware, all meds verified with Varun Scott RN
--- NOTE | 2021-08-14 10:27 | CON.PCM.ID_ITS ---
Assessment & Plan Assessment/Plan (1) Acute respiratory failure with hypoxia: (2) COVID-19: PLAN: Sx started over 3 weeks ago, may be able to come out of isolation. On dex. High O2 reqs, on bipap. On high flow O2 since afternoon of 08/10, so not a candidate for baricitinib at this point. Recommend vaccine for her and her family when she gets out of the hospital. Will follow, thank you, d/w nursing. HPI Consult Data Date of Consult: 08/14/21 HPI Narrative HPI Narrative: SONNY BOOTH, is a 70 F who presented 08/10 to ED with 3 weeks of cough, fever, headache, change taste/smell, n/v/d, aches. Unvaccinated, now covid (+). Admitted to ICU on NRB. Now on bipap. Feeling better but severely hypoxic. Full ROS performed and neg except as noted above. [facility] Medical History Anxiety Asthma Cancer COPD (chronic obstructive pulmonary disease) CPAP (continuous positive airway pressure) dependence Depression Diabetes Irregular heart beat Non-smoker Sleep apnea UTI (urinary tract infection) Home Medications azelastine 2 spray NASAL DAILY PRN 02/21/17 [History Last Taken Unknown] fluticasone propion-salmeterol [Advair Diskus] 1 ea IH BID PRN 02/21/17 [History Last Taken 03/19/21] levothyroxine 125 mcg PO DAILY 02/21/17 [History Last Taken 03/24/21] fluticasone propionate 2 spray INTRANASAL DAILY 03/26/21 [History Last Taken 03/24/21] cholecalciferol (vitamin D3) [Vitamin D3] 125 mcg PO DAILY 08/11/21 [History Last Taken Unknown] Allergy/AdvReac Type Severity Reaction Status Date / Time budesonide [From Symbicort] Allergy Other Verified 08/10/21 15:30 formoterol fumarate Allergy Other Verified 08/10/21 15:30 [From Symbicort] strawberry Allergy Rash Verified 08/10/21 15:30 MOLD Allergy Intermediate Other Uncoded 08/10/21 15:30 Family History Father Lymphoma Mother CHF (congestive heart failure) Surgical History H/O thyroidectomy Social History household members: none Smoking Status: Never smoker alcohol intake: current alcohol intake frequency: holidays/special occasions only substance use type: does not use Physical Exam Const alert Constitutional Narrative: ill appearing General Appearance: cooperative Exam Limitations: no limitations HEENT normocephalic and head/scalp atraumatic Eyes PERRL and EOMs intact bilaterally Neck supple and No nodes Resp Auscultation: diminished lung sounds Cardio regular rate and regular rhythm GI normal to inspection, nondistended, normoactive bowel sounds Extremity no clubbing, cyanosis or edema Skin no rashes or lesions noted Neuro CN's II-XII intact bilaterally Lab / Micro Data Result Diagrams: 08/14/21 03:45 08/14/21 03:45 Labs: Laboratory Results - last 24 hr 08/10/21 15:45: Diff Path Review Reviewed 08/13/21 12:11: POC Glucose 303 H 08/13/21 15:44: POC Glucose 378 H 08/13/21 21:53: POC Glucose 292 H 08/14/21 03:45: WBC 13.9 H, RBC 4.32, Hgb 12.3, Hct 38.8, MCV 89.8, MCH 28.5, MCHC 31.7 L, RDW Std Deviation 44.4 H, RDW Coeff of Dilip 13.3, Plt Count 377, MPV 10.4 08/14/21 03:45: Sodium 140, Potassium 3.6, Chloride 107, Carbon Dioxide 28.0, Anion Gap 5, BUN 26 H, Creatinine 0.92, Estim Creat Clear Calc 49.13, Est GFR (MDRD) Af Amer 78, Est GFR (MDRD) Non-Af 64, BUN/Creatinine Ratio 28.4 H, Glucose 173 H, Calcium 8.4 L, Total Bilirubin 0.40, AST 33, ALT 23, Alkaline Phosphatase 130 H, Total Protein 7.6, Albumin 2.1 L, Globulin 5.5 H, Albumin/Globulin Ratio 0.4 L
--- NOTE | 2021-08-14 10:54 | CPS ---
patient refused breathing treatment, asking where her son was. I explained that I have not seen her son. Dr. Cruz also explained that visitors were not allowed in ICU at this time.
[2021-08-14 11:30] LABS: Bedside Glucose 149 mg/dL (70-110)
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
[2021-08-14] MEDS: Insulin Lispro 100 UNIT/ML INSULN.PEN SC ×3 (12:49→20:30)
[2021-08-14] MEDS: Furosemide 40 MG/4 ML Vial IV (12:50)
--- NOTE | 2021-08-14 15:10 | CHAPLAIN ---
Type of Pastoral Visit ___ Initial Visit ___ Follow-up Visit ___ On-call Visit ___ General Patient Visit ___ Spiritual Assessment ___ Family Conference ___ Bereavement ___ Rapid Response ___ Code Blue ___ Other (describe below) Pastoral Care Referral From ___ Patient ___ Family ___ Nurse ___ Physician ___ Dental Assistant Medical Assistant ___ Electrician Control Equipment ___ Other (describe below) Sacrament/Intervention ___ Active listening ___ Anointing ___ Gnosticist ___ Bereavement ___ Communion ___ Kiara exploration ___ ___ Life review ___ Prayer ___ Reconciliation ___ Sacrament of Sick ___ Supportive presence ___ Wedding ___ Other (describe below) Pastoral Comments RN reports that patient is on bi-pap and not able to communicate with this retail consultant today; wrote a note to send with RN into room so patient knows of support and prayers for her
[2021-08-14 19:46] LABS: Bedside Glucose 225 mg/dL (70-110)
[2021-08-14 21:11] LABS: Bedside Glucose 206 mg/dL (70-110)
[2021-08-14 22:06] LABS: Bedside Glucose 209 mg/dL (70-110)
[2021-08-15] VITALS (22 sets, daily range): BP systolic 110–145; BP diastolic 67–91; PULSE 56–93; RESP 12–35; TEMP 36.2–36.6; O2SAT 91–94
[2021-08-15 03:06] LABS: Hematocrit 34.3 % (37-47); Hemoglobin 10.9 g/dL (12.0-15.0); Mean Corp Hgb Conc 31.8 g/dL (32-36); Mean Corpuscular Hgb 28.6 pg (27.0-32.0); Mean Platelet Vol. 10.5 fl (6.2-12.0); Platelet Count 323 K/mm3 (150-450); RBC Distribution Width CV 13.6 % (11.6-14.6); Red Blood Count 3.81 M/mm3 (4.2-5.4); White Blood Count 14.2 K/mm3 (4.4-11.0)
[2021-08-15 03:25] LABS: ALB/GLOB Ratio 0.3 RATIO (0.9-2.4); AST(SGOT) 27 U/L (15-37); Alanine Aminotransfer ALT/SGPT 18 U/L (13-56); Albumin, Serum 1.8 g/dL (3.2-5.0); Alkaline Phosphatase 104 U/L (45-117); Anion Gap 4 (5-15); BUN 34 mg/dL (7-18); BUN/Creat Ratio 36.6 RATIO (10-20); Calcium,Total 7.9 mg/dL (8.5-10.1); Chloride 109 mmol/L (98-107); Creatinine, Serum 0.93 mg/dL (0.55-1.02); EST Glomerular Filtration Rate 63 mL/min (>60); Est Glom Filt Rate - Afr Amer 77 mL/min (>60); Estimated Creatinine Clearance 48.61 ml/min; Globulin 5.4 g/dL (2.2-4.2); Glucose 149 mg/dL (74-106); Potassium 4.5 mmol/L (3.5-5.1); Protein, Total 7.2 g/dL (6.4-8.2); Sodium Level 140 mmol/L (136-145)
[2021-08-15] MEDS: Insulin Lispro 100 UNIT/ML INSULN.PEN SC ×3 (06:40→20:41)
[2021-08-15 06:51] LABS: Bedside Glucose 164 mg/dL (70-110)
--- NOTE | 2021-08-15 07:31 | PN.HOSP_ITS ---
Subjective Subjective Patient seen still remains significantly dyspneic at rest currently on 90% FiO2 and on BiPAP. She still does not want to be intubated Objective Data Objective Data Vital Signs: Vital Signs Temp Pulse Resp BP Pulse Ox 97.6 F L 84 25 H 126/67 H 92 08/15/21 02:00 08/15/21 06:53 08/15/21 06:53 08/15/21 02:00 08/15/21 06:53 Oxygen Flow Rate (L/min) 75 Oxygen Delivery Method Bi-pap Weight: 105.8 kg Body Mass Index (BMI) 41.1 Intake & Output: Intake and Output for Last 24 Hours 08/13/21 08/14/21 08/15/21 23:59 23:59 23:59 Intake Total 160 / 160 0 / 0 Output Total 650 / 650 50 / 50 Balance 160 / 160 -630 / -630 -50 / -50 Lab / Micro Data Result Diagrams: 08/15/21 02:40 08/15/21 02:40 Labs: Laboratory Results - last 24 hr 08/14/21 06:39: POC Glucose 149 H 08/14/21 12:41: POC Glucose 225 H 08/14/21 17:22: POC Glucose 209 H 08/14/21 20:25: POC Glucose 206 H 08/15/21 02:40: WBC 14.2 H, RBC 3.81 L, Hgb 10.9 L, Hct 34.3 L, MCV 90.0, MCH 28.6, MCHC 31.8 L, RDW Std Deviation 45.0 H, RDW Coeff of Dilip 13.6, Plt Count 323, MPV 10.5 08/15/21 02:40: Sodium 140, Potassium 4.5, Chloride 109 H, Carbon Dioxide 27.0, Anion Gap 4 L, BUN 34 H, Creatinine 0.93, Estim Creat Clear Calc 48.61, Est GFR (MDRD) Af Amer 77, Est GFR (MDRD) Non-Af 63, BUN/Creatinine Ratio 36.6 H, Glucose 149 H, Calcium 7.9 L, Total Bilirubin 0.30, AST 27, ALT 18, Alkaline Phosphatase 104, Total Protein 7.2, Albumin 1.8 L, Globulin 5.4 H, Albumin/Globulin Ratio 0.3 L 08/15/21 06:39: POC Glucose 164 H Micro: Microbiology 08/10/21 16:30 Nasal Secretion SARS-CoV-2 Antigen (Rapid) - Final SARS-CoV-2 (COVID 19) Physical Exam Narrative GENERAL: Dyspneic at rest on BiPAP HEENT: Atraumatic; EYES; Anicteric, Normal Conjunctiva NECK; supple, normal thyroid, RESPIRATORY: Diminished to auscultation CARDIOVASCULAR: Regular S1 S2, GI: soft, normoactive bowel sounds, : No Renal angle tenderness; EXTREMITIES: No edema, no clubbing, MUSCULOSKELETAL: no muscle waisting NEURO: Awake; no lateralizing signs. SKIN: No Rash PSYCH; Flat affect Assessment & Plan Assessment/Plan (1) Acute respiratory failure with hypoxia: (2) COVID-19: PLAN: Patient is a 70-year-old lady admitted with progressive shortness of breath diagnosed with acute hypoxic respiratory failure secondary to COVID-19 pneumonia 1. Acute hypoxic respiratory failure secondary to SARS-CoV-2 pneumonia ?Checks x-ray on admission demonstrated bilateral patchy infiltrate. Patient currently on day 4 of both remdesivir as well as Decadron. Consult placed to both ID as well as pulmonary medicine -08/15/2021atient seen still remains significantly dyspneic at rest currently on 90% FiO2 and on BiPAP. She still does not want to be intubated. Case discussed with pulmonary medicine. Labs ordered for a.m. 2. Hypothyroidism ?Patient is on levothyroxine did continue 3. Acute renal insufficiency ?Creatinine was 1.39 on 08/12/2021 back to baseline at 0.92 chronic kidney disease stage II ruled out 4. Obesity with BMI of 41.6 ?Weight loss advised 5. Vitamin D deficiency ?Patient is some supplement with plans to resume following discharge 5. Obstructive sleep apnea ?Patient on BiPAP at night 6. Moderate intermittent asthma ?Aerosol treatment as needed 7. DVT prophylaxis ?Lovenox SC 40 twice daily CODE STATUS ?DNR CCA no intubation Charges/Coding Visit Charges Inpatient E&M: 01982 [facility] Hosp L3
--- NOTE | 2021-08-15 08:13 | PN.CC_ITS ---
Assessment & Plan Assessment/Plan (1) Acute respiratory failure with hypoxia: (2) COVID-19: (3) Obstructive sleep apnea: (4) Chronic obstructive pulmonary disease: (5) Asthma: PLAN: RECOMMENDATIONS: 1. Continue patient on noninvasive positive pressure ventilatory support. Wean FiO2 for saturations greater than 90%. 2. Continue 10-day treatment course of Decadron. 3. Continue Lovenox twice daily. 4. Continue bronchodilator therapy. 5. Encourage incentive spirometer use and mobilize patient as tolerated. 6. Await prone positioning as tolerated. 7. Diuretic therapy as needed to maintain euvolemic state. 8. Ongoing goals of care discussion with the patient and her family. IMPRESSIONS: 1. Acute hypoxic respiratory failure secondary to COVID-19 pneumonia Due to delayed hospital presentation, the patient was not a candidate for remdesivir. PREET inhibitor therapy was not felt to be indicated by infectious diseases. The patient's respiratory status remains quite tenuous. She will be continued on BiPAP with a goal to maintain oxygen saturations at or above 90%. The patient will be continued on Decadron to complete a 10-day treatment course. Continue bronchodilators as ordered. Awake prone positioning can be encouraged. Intermittent use of diuretic therapy will be employed to maintain euvolemic state. 2. Morbid obesity/seasonal allergies/hypothyroidism/poor insight/advanced age Complicates care, management, recovery and prognosis. Continue supportive measures as noted above. CODE STATUS remains DNR CCA without intubation. TIME: 33 minutes of critical care time, independent of procedures, was spent addressing the patient's acute hypoxemic respiratory failure secondary to COVID- 19 pneumonia, review of all data and collaboration with care team. ([id number]) Subjective Subjective The patient was seen and examined at the bedside this morning. Events from the last 24 hours have been reviewed. The patient is afebrile and hemodynamically stable. The patient remains on continuous BiPAP support with an FiO2 requirement of 85%. The patient is currently documented to be overall net +480 mL for the hospital admission. The patient remains on twice daily Lovenox and Decadron. The patient once again confirmed to be this morning that she does not wish to be intubated if she decompensates further from a respiratory perspective. Objective Data Objective Data The patient's most recent lab work, culture data and imaging studies have all been personally reviewed. Rapid coronavirus antigen testing was positive on August 10. Vital Signs: Vital Signs Temp Pulse Resp BP Pulse Ox 97.6 F L 83 25 H 126/67 H 92 08/15/21 02:00 08/15/21 08:00 08/15/21 06:53 08/15/21 02:00 08/15/21 06:53 Oxygen Flow Rate (L/min) 75 Oxygen Delivery Method Bi-pap Weight: 105.8 kg Body Mass Index (BMI) 41.1 Intake & Output: Intake and Output for Last 24 Hours 08/13/21 08/14/21 08/15/21 23:59 23:59 23:59 Intake Total 160 / 160 0 / 0 Output Total 650 / 650 50 / 50 Balance 160 / 160 -630 / -630 -50 / -50 Lab / Micro Data Attestation: I reviewed the patient's lab results. Result Diagrams: 08/15/21 02:40 08/15/21 02:40 Labs: Laboratory Results - last 24 hr 08/14/21 06:39: POC Glucose 149 H 08/14/21 12:41: POC Glucose 225 H 08/14/21 17:22: POC Glucose 209 H 08/14/21 20:25: POC Glucose 206 H 08/15/21 02:40: WBC 14.2 H, RBC 3.81 L, Hgb 10.9 L, Hct 34.3 L, MCV 90.0, MCH 28.6, MCHC 31.8 L, RDW Std Deviation 45.0 H, RDW Coeff of Dilip 13.6, Plt Count 323, MPV 10.5 08/15/21 02:40: Sodium 140, Potassium 4.5, Chloride 109 H, Carbon Dioxide 27.0, Anion Gap 4 L, BUN 34 H, Creatinine 0.93, Estim Creat Clear Calc 48.61, Est GFR (MDRD) Af Amer 77, Est GFR (MDRD) Non-Af 63, BUN/Creatinine Ratio 36.6 H, Glucose 149 H, Calcium 7.9 L, Total Bilirubin 0.30, AST 27, ALT 18, Alkaline Phosphatase 104, Total Protein 7.2, Albumin 1.8 L, Globulin 5.4 H, Albumin/Globulin Ratio 0.3 L 08/15/21 06:39: POC Glucose 164 H Micro: Microbiology 08/10/21 16:30 Nasal Secretion SARS-CoV-2 Antigen (Rapid) - Final SARS-CoV-2 (COVID 19) Physical Exam Const alert General Appearance: cooperative, comfortable, in distress, ill appearing and on BiPAP Nutritional Appearance: morbidly obese HEENT normocephalic and head/scalp atraumatic Eyes PERRL, EOMs intact bilaterally and conjunctivae normal Neck supple General: trachea midline Resp No no use of accessory muscles Effort and Inspection: tachypneic Auscultation: diminished lung sounds; Negative for rales, rhonchi or wheezes Cardio S1 normal heart sound and S2 normal heart sound Rate: tachycardic GI normal to inspection, nondistended, normoactive bowel sounds Extremity no clubbing, cyanosis or edema Skin no rashes or lesions noted Neuro CN's II-XII intact bilaterally, moves all extremities and no focal motor deficits Psych Mood & Affect: anxious Charges/Coding Procedures Hospitalists Procedures: 48162 Critial Care 1st Hr
[2021-08-15] MEDS: Enoxaparin 40 MG/0.4 ML Syringe SC ×2 (09:55→20:40)
[2021-08-15] MEDS: dexAMETHasone 10 MG/ML Vial 6 MG IV (09:55)
[2021-08-15 11:31] LABS: Bedside Glucose 124 mg/dL (70-110)
[2021-08-15] MEDS: Ipratropium/Albuterol Sulfate 3 ML AMPUL.NEB INHALATION ×2 (15:36→19:22)
[2021-08-15 16:36] LABS: Bedside Glucose 185 mg/dL (70-110)
[2021-08-15] MEDS: MELATONIN 10 MG TABLET PO (20:41)
[2021-08-15] MEDS: QUEtiapine 25 MG Tablet 50 MG PO (20:41)
[2021-08-15 20:55] LABS: Bedside Glucose 184 mg/dL (70-110)
[2021-08-16] VITALS (28 sets, daily range): BP systolic 105–153; BP diastolic 56–84; PULSE 50–130; RESP 12–38; TEMP 36.1–36.9; O2SAT 78–98
--- NOTE | 2021-08-16 04:00 | NURSING ---
pt said she is getting mad. Pt wants bipap off. resp notified
[2021-08-16 04:30] LABS: ALB/GLOB Ratio 0.3 RATIO (0.9-2.4); AST(SGOT) 24 U/L (15-37); Alanine Aminotransfer ALT/SGPT 15 U/L (13-56); Albumin, Serum 1.8 g/dL (3.2-5.0); Alkaline Phosphatase 108 U/L (45-117); Anion Gap 2 (5-15); BUN 37 mg/dL (7-18); BUN/Creat Ratio 44.7 RATIO (10-20); Calcium,Total 8.1 mg/dL (8.5-10.1); Chloride 109 mmol/L (98-107); Creatinine, Serum 0.83 mg/dL (0.55-1.02); EST Glomerular Filtration Rate 72 mL/min (>60); Est Glom Filt Rate - Afr Amer 87 mL/min (>60); Estimated Creatinine Clearance 54.46 ml/min; Globulin 5.5 g/dL (2.2-4.2); Glucose 131 mg/dL (74-106); Potassium 4.1 mmol/L (3.5-5.1); Protein, Total 7.3 g/dL (6.4-8.2); Sodium Level 141 mmol/L (136-145)
[2021-08-16 06:41] LABS: Bedside Glucose 108 mg/dL (70-110)
--- NOTE | 2021-08-16 07:51 | PCM.PN.HOSP ---
Subjective Subjective Patient has been weaned off BiPAP to Airvo however still requires significantly high oxygen 40 L with FiO2 of 90% Objective Data Objective Data Vital Signs: Vital Signs Temp Pulse Resp BP Pulse Ox 97.6 F L 75 21 H 132/80 H 93 08/16/21 07:04 08/16/21 07:37 08/16/21 07:04 08/16/21 07:04 08/16/21 07:04 Oxygen Flow Rate (L/min) 50 Oxygen Delivery Method Airvo Weight: 108.681 kg Body Mass Index (BMI) 41.1 Intake & Output: Intake and Output for Last 24 Hours 08/14/21 08/15/21 08/16/21 23:59 23:59 23:59 Intake Total 120 / 240 150 / 150 Output Total 650 / 650 450 / 700 500 / 500 Balance -630 / -630 -330 / -460 -350 / -350 Lab / Micro Data Result Diagrams: 08/15/21 02:40 08/16/21 03:50 Labs: Laboratory Results - last 24 hr 08/15/21 11:27: POC Glucose 124 H 08/15/21 16:14: POC Glucose 185 H 08/15/21 20:37: POC Glucose 184 H 08/16/21 03:50: Sodium 141, Potassium 4.1, Chloride 109 H, Carbon Dioxide 30.0, Anion Gap 2 L, BUN 37 H, Creatinine 0.83, Estim Creat Clear Calc 54.46, Est GFR (MDRD) Af Amer 87, Est GFR (MDRD) Non-Af 72, BUN/Creatinine Ratio 44.7 H, Glucose 131 H, Calcium 8.1 L, Total Bilirubin 0.40, AST 24, ALT 15, Alkaline Phosphatase 108, Total Protein 7.3, Albumin 1.8 L, Globulin 5.5 H, Albumin/Globulin Ratio 0.3 L 08/16/21 06:36: POC Glucose 108 Micro: Microbiology 08/10/21 16:30 Nasal Secretion SARS-CoV-2 Antigen (Rapid) - Final SARS-CoV-2 (COVID 19) Physical Exam Narrative GENERAL: Dyspneic at rest on BiPAP HEENT: Atraumatic; EYES; Anicteric, Normal Conjunctiva NECK; supple, normal thyroid, RESPIRATORY: Diminished to auscultation CARDIOVASCULAR: Regular S1 S2, GI: soft, normoactive bowel sounds, : No Renal angle tenderness; EXTREMITIES: No edema, no clubbing, MUSCULOSKELETAL: no muscle waisting NEURO: Awake; no lateralizing signs. SKIN: No Rash PSYCH; Flat affect Assessment & Plan Assessment/Plan (1) Acute respiratory failure with hypoxia: (2) COVID-19: PLAN: Patient is a 70-year-old lady admitted with progressive shortness of breath diagnosed with acute hypoxic respiratory failure secondary to COVID-19 pneumonia 1. Acute hypoxic respiratory failure secondary to SARS-CoV-2 pneumonia ?Checks x-ray on admission demonstrated bilateral patchy infiltrate. Patient currently on day 4 of both remdesivir as well as Decadron. Consult placed to both ID as well as pulmonary medicine -08/15/2021atient seen still remains significantly dyspneic at rest currently on 90% FiO2 and on BiPAP. She still does not want to be intubated. Case discussed with pulmonary medicine. Labs ordered for a.m. -08/16/2021 patient has been weaned off BiPAP to Airvo however still requires significantly high oxygen 40 L with FiO2 of 90%. Did encourage the use of incentive spirometry 2. Hypothyroidism ?Patient is on levothyroxine did continue 3. Acute renal insufficiency ?Creatinine was 1.39 on 08/12/2021 back to baseline at 0.92 (chronic kidney disease stage II ruled out) 4. Obesity with BMI of 41.6 ?Weight loss advised 5. Vitamin D deficiency ?Patient is some supplement with plans to resume following discharge 5. Obstructive sleep apnea ?Patient on BiPAP at night 6. Moderate intermittent asthma ?Aerosol treatment as needed 7. DVT prophylaxis ?Lovenox SC 40 twice daily CODE STATUS ?DNR CCA no intubation Charges/Coding Visit Charges Inpatient E&M: 94054 Subs Hosp L3
[2021-08-16] MEDS: Ipratropium/Albuterol Sulfate 3 ML AMPUL.NEB INHALATION ×4 (08:01→18:49)
[2021-08-16] MEDS: Levothyroxine 125 MCG Tablet PO (08:19)
[2021-08-16] MEDS: QUEtiapine 25 MG Tablet 50 MG PO ×2 (08:19→20:08)
[2021-08-16] MEDS: dexAMETHasone 10 MG/ML Vial 6 MG IV (08:19)
[2021-08-16] MEDS: Enoxaparin 40 MG/0.4 ML Syringe SC ×2 (08:19→20:08)
[2021-08-16] MEDS: CHLORHEXIDINE GLUC 2% CLOTH 1 EACH TOWELETTE TOPICAL (08:19)
[2021-08-16] MEDS: 0.9% Saline Lock 10 ML Syringe IV (08:20)
--- NOTE | 2021-08-16 09:40 | NURSING ---
pt spo2 desated to 73% and pt in bed doing incentive spirometry. nrb placed as well as airvo and sats increased to 90%. pt did not want bipap at this time and refused to get up to chair. stated, i was in chair so long last night i need to rest now
--- NOTE | 2021-08-16 10:14 | NURSING ---
cps in to increase o2flow rate to 60l but only 90% so nrb continues as well. pt agreeing to get up to chair with next rounding
[2021-08-16] MEDS: Insulin Lispro 100 UNIT/ML INSULN.PEN SC ×3 (11:42→20:09)
[2021-08-16 12:15] LABS: Bedside Glucose 246 mg/dL (70-110)
[2021-08-16] MEDS: Acetaminophen 325 MG Tablet 650 MG PO (16:03)
[2021-08-16 16:21] LABS: Bedside Glucose 376 mg/dL (70-110)
--- NOTE | 2021-08-16 20:21 | NURSING ---
report called to lisa
--- NOTE | 2021-08-16 20:27 | NURSING ---
report called to wanda
[2021-08-16 21:16] LABS: Bedside Glucose 327 mg/dL (70-110)
[2021-08-16] MEDS: MELATONIN 10 MG TABLET PO (22:49)
[2021-08-17] VITALS (23 sets, daily range): BP systolic 137–164; BP diastolic 66–89; PULSE 70–105; RESP 12–36; TEMP 36.5–36.9; O2SAT 78–97
--- NOTE | 2021-08-17 00:11 | CPS ---
NRB 15L O2 placed overtop Airvo/V60+ HFNC
--- NOTE | 2021-08-17 02:15 | NURSING ---
hawk Duarte called for pt update. appreciative of care.
[2021-08-17] MEDS: Insulin Lispro 100 UNIT/ML INSULN.PEN SC ×4 (06:25→21:17)
[2021-08-17 06:41] LABS: Bedside Glucose 168 mg/dL (70-110)
[2021-08-17] MEDS: QUEtiapine 25 MG Tablet 50 MG PO ×2 (08:48→21:16)
[2021-08-17] MEDS: dexAMETHasone 10 MG/ML Vial 6 MG IV (08:49)
[2021-08-17] MEDS: Levothyroxine 125 MCG Tablet PO (08:49)
[2021-08-17] MEDS: Enoxaparin 40 MG/0.4 ML Syringe SC ×2 (08:49→21:16)
[2021-08-17] MEDS: 0.9% Saline Lock 10 ML Syringe IV (08:49)
--- NOTE | 2021-08-17 10:13 | NURSING ---
pt pulling off 02 non rebreather and airvo sp02 83%. pt stating I need a wheelchair I cant walk, I need to leave this place this nurse explained importance of 02 equipment. pt stated understanding. resting in bed call light within reach
--- NOTE | 2021-08-17 11:24 | CASEMGMT ---
Per Xiomy ELLIOTT, pt is on airvo with NRB at this time and does not want to be intubated. Transition planning/care coordination assessment per chart review and recent assessment completed by Gilson ELLIOTT CM on 03/27/21. Care providers, pharmacy, and demographics verified. Presentation: SOB x3 weeks Admitting dx: LEIGHTON RIOS PCP: Katherine Specialists: none [facility]erred Pharmacy: [facility] Insurance: [facility] Prescription Benefit: [facility] Living Will/HPOA: none on file LNOK: Gerald Jaquez, son Living Arrangements: Pt lives alone on main floor of [facility] and sleeps in lift chair, bath on first floor. Patient states her son gets her groceries. Transportation: [facility]/HHC: Patient has shower chair, raised toilet, cane, rollator, grab bars, lift chair, and cpap at home that she does not wear. Pt was in TCU in March and pt has CM thru [facility], Gini Messina. Per Xiomy, pt very anxious and worked up at times. Pt is retired. Pt does not smoke cigarettes. Therapy has been unable to ambulate d/t oxygen need. CM to follow for therapy recommendations and any further discharge planning/needs. Nate OJEDA aware of CM thru . Plan: TBD, pending therapy notes, home oxygen need. Alberto ELLIOTT CM
--- NOTE | 2021-08-17 11:31 | PN.HOSP_ITS ---
Subjective Subjective Patient was transferred from the intensive care unit to the progressive care unit. Seen this a.m. patient is delirious screaming that she cannot get enough oxygen. CODE STATUS remains DNR CCA no intubation Objective Data Objective Data Vital Signs: Vital Signs Temp Pulse Resp BP Pulse Ox 97.8 F 94 24 H 161/80 H 90 08/17/21 10:11 08/17/21 11:19 08/17/21 10:11 08/17/21 10:11 08/17/21 10:11 Oxygen Flow Rate (L/min) 70 Oxygen Delivery Method Airvo Weight: 107.6 kg Body Mass Index (BMI) 41.1 Intake & Output: Intake and Output for Last 24 Hours 08/15/21 08/16/21 08/17/21 23:59 23:59 23:59 Intake Total 120 / 240 1210 / 1210 50 / 50 Output Total 450 / 700 900 / 900 200 / 200 Balance -330 / -460 310 / 310 -150 / -150 Lab / Micro Data Result Diagrams: 08/15/21 02:40 08/16/21 03:50 Labs: Laboratory Results - last 24 hr 08/16/21 11:41: POC Glucose 246 H 08/16/21 15:57: POC Glucose 376 H 08/16/21 20:07: POC Glucose 327 H 08/17/21 06:23: POC Glucose 168 H Micro: Microbiology 08/10/21 16:30 Nasal Secretion SARS-CoV-2 Antigen (Rapid) - Final SARS-CoV-2 (COVID 19) Physical Exam Narrative GENERAL: Patient o on Airvo HEENT: Atraumatic; EYES; Anicteric, Normal Conjunctiva NECK; supple, normal thyroid, RESPIRATORY: Diminished to auscultation CARDIOVASCULAR: Regular S1 S2, GI: soft, normoactive bowel sounds, : No Renal angle tenderness; EXTREMITIES: No edema, no clubbing, MUSCULOSKELETAL: no muscle waisting NEURO: Awake; no lateralizing signs. SKIN: No Rash PSYCH; Flat affect Assessment & Plan Assessment/Plan (1) Acute respiratory failure with hypoxia: (2) COVID-19: PLAN: Patient is a 70-year-old lady admitted with progressive shortness of breath diagnosed with acute hypoxic respiratory failure secondary to COVID-19 pneumonia 1. Acute hypoxic respiratory failure secondary to SARS-CoV-2 pneumonia ?Checks x-ray on admission demonstrated bilateral patchy infiltrate. Patient currently on day 4 of both remdesivir as well as Decadron. Consult placed to both ID as well as pulmonary medicine -08/15/2021atient seen still remains significantly dyspneic at rest currently on 90% FiO2 and on BiPAP. She still does not want to be intubated. Case discussed with pulmonary medicine. Labs ordered for a.m. -08/16/2021 patient has been weaned off BiPAP to Airvo however still requires significantly high oxygen 40 L with FiO2 of 90%. Did encourage the use of incentive spirometry -08/17/2021. Patient was started onAirvo and transferred to PCU. Patient remains delirious. Nonrebreather added to patient oxygen therapy. Did encourage patient on the need to be compliant with therapy 2. Acute metabolic encephalopathy ?Secondary to hypoxia. Patient is on supplemental oxygen as above 3. Acute renal insufficiency ?Creatinine was 1.39 on 08/12/2021 back to baseline at 0.92 (chronic kidney disease stage II ruled out) 4. Obesity with BMI of 41.6 ?Weight loss advised 5. Vitamin D deficiency ?Patient is some supplement with plans to resume following discharge 5. Obstructive sleep apnea ?Patient on BiPAP at night 6. Moderate intermittent asthma ?Aerosol treatment as needed 7. Hypothyroidism ?Patient is on levothyroxine did continue 8. DVT prophylaxis ?Lovenox SC 40 twice daily 9. Physical deconditioning - Requested for PT OT eval and case management social worker to assist with discharge planning CODE STATUS ?DNR CCA no intubation Charges/Coding Visit Charges Inpatient E&M: 92631 Subs Hosp L3
[2021-08-17] MEDS: Acetaminophen 325 MG Tablet 650 MG PO (12:50)
[2021-08-17 13:51] LABS: Bedside Glucose 282 mg/dL (70-110)
[2021-08-17 17:05] LABS: Bedside Glucose 352 mg/dL (70-110)
[2021-08-17] MEDS: Ipratropium/Albuterol Sulfate 3 ML AMPUL.NEB INHALATION (19:00)
[2021-08-17] MEDS: MELATONIN 10 MG TABLET PO (21:16)
[2021-08-17 22:05] LABS: Bedside Glucose 208 mg/dL (70-110)
--- NOTE | 2021-08-17 23:09 | PCS.PANDOC ---
PANDEMIC DOCUMENTATION INITIATED: Date: 07/09/2021 Time: 190
[2021-08-18] VITALS (27 sets, daily range): BP systolic 131–183; BP diastolic 71–116; PULSE 74–126; RESP 12–41; TEMP 36.1–36.6; O2SAT 91–95
--- NOTE | 2021-08-18 03:35 | NURSING ---
Attempted IV access x2 unsuccessfully. Previous IV site was removed d/t leaking from left ac. Additional staff nurse attempted without success. Notified Charge nurse of unsuccessful attempts.
--- NOTE | 2021-08-18 05:07 | PCM.HOSP.N ---
Hospitalist Note Patient without access, agitated, Ativan initially ordered IV will be transitioned to oral. Patient with elevated blood pressures, not normally on any medications, renal function most recently 08/16/2021 appropriate, will order low-dose lisinopril with continued close blood pressure monitoring and adjustment/alterations of regimen as needed.
[2021-08-18] MEDS: Lisinopril 10 MG Tablet PO (05:22)
[2021-08-18] MEDS: LORazepam 0.5 MG Tablet PO (05:22)
--- NOTE | 2021-08-18 06:45 | RAD_ITS ---
STUDY: X-RAY CHEST REASON FOR EXAM: Female, 70 years old. tachypnea -- covid positive TECHNIQUE: Single AP portable view of the chest. COMPARISON: 08/10/2021 FINDINGS: Increase in alveolar opacities in both lungs consistent with worsening bilateral pneumonia, pulmonary edema, or ARDS. There is no demonstrated pleural abnormality. Normal size heart. Normal mediastinum and ramona. Normal visualized pulmonary arteries. Normal visualized aortic arch and descending thoracic aorta. Normal visualized thoracic spine. Normal visualized ribs, clavicles, and shoulders. There is no demonstrated abnormality of the visualized soft tissue structures of the upper abdomen. RAD/Chest 1 View (Portable) IMPRESSION: Worsening bilateral pneumonia, pulmonary edema, or ARDS. Electronically Signed: Stas Salazar MD at 8:16 EDT Tel , Service support ,
[2021-08-18 07:00] LABS: Bedside Glucose 105 mg/dL (70-110)
--- NOTE | 2021-08-18 07:21 | CPS ---
patient tried on AVAPS but did not tolerate well. Switched back to original bipap settings
--- NOTE | 2021-08-18 08:23 | PCM.PN.HOSP ---
Subjective Subjective Patient seen was reported to be very agitated this a.m. Repeat of her oxygen via BiPAP. Patient had to be given 2 mg of Haldol as well as 2 mg of Ativan to sedate to keep her BiPAP on Objective Data Objective Data Vital Signs: Vital Signs Temp Pulse Resp BP Pulse Ox 97.0 F L 116 H 38 H 170/105 H 91 08/18/21 07:00 08/18/21 07:00 08/18/21 07:00 08/18/21 07:00 08/18/21 07:00 Oxygen Flow Rate (L/min) 75 Oxygen Delivery Method Bi-pap Weight: 105.687 kg Body Mass Index (BMI) 41.1 Intake & Output: Intake and Output for Last 24 Hours 08/16/21 08/17/21 08/18/21 23:59 23:59 23:59 Intake Total 1210 / 1210 910 / 910 120 / 120 Output Total 900 / 900 1125 / 1125 450 / 450 Balance 310 / 310 -215 / -215 -330 / -330 Lab / Micro Data Result Diagrams: 08/15/21 02:40 08/16/21 03:50 Labs: Laboratory Results - last 24 hr 08/17/21 12:49: POC Glucose 282 H 08/17/21 16:41: POC Glucose 352 H 08/17/21 21:15: POC Glucose 208 H 08/18/21 06:16: POC Glucose 105 Micro: Microbiology 08/10/21 16:30 Nasal Secretion SARS-CoV-2 Antigen (Rapid) - Final SARS-CoV-2 (COVID 19) Radiography Diagnostic Testing: Radiology Impression Chest X-Ray 08/18/21 06:45 IMPRESSION: Worsening bilateral pneumonia, pulmonary edema, or ARDS. Electronically Signed: Stas Salazar MD at 8:16 EDT Tel , Service support , Physical Exam Narrative GENERAL: Patient o on Airvo HEENT: Atraumatic; EYES; Anicteric, Normal Conjunctiva NECK; supple, normal thyroid, RESPIRATORY: Diminished to auscultation CARDIOVASCULAR: Regular S1 S2, GI: soft, normoactive bowel sounds, : No Renal angle tenderness; EXTREMITIES: No edema, no clubbing, MUSCULOSKELETAL: no muscle waisting NEURO: Awake; no lateralizing signs. SKIN: No Rash PSYCH; Flat affect Assessment & Plan Assessment/Plan (1) Acute respiratory failure with hypoxia: (2) COVID-19: PLAN: Patient is a 70-year-old lady admitted with progressive shortness of breath diagnosed with acute hypoxic respiratory failure secondary to COVID-19 pneumonia 1. Acute hypoxic respiratory failure secondary to SARS-CoV-2 pneumonia ?Checks x-ray on admission demonstrated bilateral patchy infiltrate. Patient currently on day 4 of both remdesivir as well as Decadron. Consult placed to both ID as well as pulmonary medicine -08/15/2021atient seen still remains significantly dyspneic at rest currently on 90% FiO2 and on BiPAP. She still does not want to be intubated. Case discussed with pulmonary medicine. Labs ordered for a.m. -08/16/2021 patient has been weaned off BiPAP to Airvo however still requires significantly high oxygen 40 L with FiO2 of 90%. Did encourage the use of incentive spirometry -08/17/2021. Patient was started onAirvo and transferred to PCU. Patient remains delirious. Nonrebreather added to patient oxygen therapy. Did encourage patient on the need to be compliant with therapy -08/18/2021;Patient seen was reported to be very agitated this a.m. Repeat of her oxygen via BiPAP. Patient had to be given 2 mg of Haldol as well as 2 mg of Ativan to sedate to keep her BiPAP on 2. Acute metabolic encephalopathy ?Secondary to hypoxia. Patient is on supplemental oxygen as above 3. Acute renal insufficiency ?Creatinine was 1.39 on 08/12/2021 back to baseline at 0.92 (chronic kidney disease stage II ruled out) 4. Obesity with BMI of 41.6 ?Weight loss advised 5. Vitamin D deficiency ?Patient is some supplement with plans to resume following discharge 5. Obstructive sleep apnea ?Patient on BiPAP at night 6. Moderate intermittent asthma ?Aerosol treatment as needed 7. Hypothyroidism ?Patient is on levothyroxine did continue 8. DVT prophylaxis ?Lovenox SC 40 twice daily 9. Physical deconditioning - Requested for PT OT eval and social media director to assist with discharge planning CODE STATUS ?DNR CCA no intubation Charges/Coding Visit Charges Inpatient E&M: 78205 Subs Hosp L3
--- NOTE | 2021-08-18 09:06 | NURSING ---
Pt very agitated this AM. Attempting to remove mask frequently. Pt refusing all medications. Pt educated that her blood pressure is high and that it is important that she takes medications to help lower her bp. Pt still refusing. RT called by this RN and in to see pt. Turned pt up to 100% on BIPAP. Pt satting 94% on 100% BIPAP. Dr. Stark made aware- may need precedex per Dr. Stark. Multiple attempts to start IV per HS shift. fruit harvest worker Penny Bro going in at this time to attempt another IV start.
[2021-08-18] MEDS: LORazepam 2 MG/ML Syringe IV (10:00)
[2021-08-18] MEDS: 0.9% Saline Lock 10 ML Syringe IV (10:08)
[2021-08-18] MEDS: dexAMETHasone 10 MG/ML Vial 6 MG IV (10:15)
[2021-08-18] MEDS: Haloperidol Lactate 5 MG/ML Vial 2 MG IM (10:15)
[2021-08-18] MEDS: Enoxaparin 40 MG/0.4 ML Syringe SC ×2 (10:18→21:51)
[2021-08-18 11:26] LABS: Bedside Glucose 154 mg/dL (70-110)
--- NOTE | 2021-08-18 14:43 | NURSING ---
This RN called and updated pt's son, Gerald via phone.
[2021-08-18 16:56] LABS: Bedside Glucose 186 mg/dL (70-110)
[2021-08-18] MEDS: Ipratropium/Albuterol Sulfate 3 ML AMPUL.NEB INHALATION ×2 (18:39→23:20)
[2021-08-18] MEDS: QUEtiapine 25 MG Tablet 50 MG PO (21:46)
[2021-08-18 22:00] LABS: Bedside Glucose 208 mg/dL (70-110)
[2021-08-19] VITALS (25 sets, daily range): BP systolic 108–180; BP diastolic 60–113; PULSE 71–122; RESP 2–37; TEMP 36.1–36.6; O2SAT 90–97
[2021-08-19 06:25] LABS: Bedside Glucose 117 mg/dL (70-110)
[2021-08-19] MEDS: Ipratropium/Albuterol Sulfate 3 ML AMPUL.NEB INHALATION ×4 (06:46→19:10)
--- NOTE | 2021-08-19 08:09 | PN.HOSP_ITS ---
Subjective Subjective Patient seen less agitated compared to previous day however still remains on BiPAP Objective Data Objective Data Vital Signs: Vital Signs Temp Pulse Resp BP Pulse Ox 97.1 F L 71 23 H 174/81 H 95 08/19/21 03:01 08/19/21 04:28 08/19/21 04:28 08/19/21 03:01 08/19/21 04:28 Oxygen Flow Rate (L/min) 75 Oxygen Delivery Method Bi-pap Weight: 107.5 kg Body Mass Index (BMI) 41.1 Intake & Output: Intake and Output for Last 24 Hours 08/17/21 08/18/21 08/19/21 23:59 23:59 23:59 Intake Total 910 / 910 320 / 320 Output Total 1125 / 1125 950 / 1150 350 / 350 Balance -215 / -215 -630 / -830 -350 / -350 Lab / Micro Data Result Diagrams: 08/15/21 02:40 08/16/21 03:50 Labs: Laboratory Results - last 24 hr 08/18/21 11:01: POC Glucose 154 H 08/18/21 16:47: POC Glucose 186 H 08/18/21 21:38: POC Glucose 208 H 08/19/21 06:13: POC Glucose 117 H Micro: Microbiology 08/10/21 16:30 Nasal Secretion SARS-CoV-2 Antigen (Rapid) - Final SARS-CoV-2 (COVID 19) Radiography Diagnostic Testing: Radiology Impression Chest X-Ray 08/18/21 06:45 IMPRESSION: Worsening bilateral pneumonia, pulmonary edema, or ARDS. Electronically Signed: Stas Salazar MD at 8:16 EDT Tel , Service support , Physical Exam Narrative GENERAL: Patient on BiPAP HEENT: Atraumatic; EYES; Anicteric, Normal Conjunctiva NECK; supple, normal thyroid, RESPIRATORY: Diminished to auscultation CARDIOVASCULAR: Regular S1 S2, GI: soft, normoactive bowel sounds, : No Renal angle tenderness; EXTREMITIES: No edema, no clubbing, MUSCULOSKELETAL: no muscle waisting NEURO: Awake; no lateralizing signs. SKIN: No Rash PSYCH; Flat affect Assessment & Plan Assessment/Plan (1) Acute respiratory failure with hypoxia: (2) COVID-19: PLAN: Patient is a 70-year-old lady admitted with progressive shortness of breath diagnosed with acute hypoxic respiratory failure secondary to COVID-19 pneumonia 1. Acute hypoxic respiratory failure secondary to SARS-CoV-2 pneumonia ?Checks x-ray on admission demonstrated bilateral patchy infiltrate. Patient currently on day 4 of both remdesivir as well as Decadron. Consult placed to both ID as well as pulmonary medicine -08/15/2021atient seen still remains significantly dyspneic at rest currently on 90% FiO2 and on BiPAP. She still does not want to be intubated. Case discussed with pulmonary medicine. Labs ordered for a.m. -08/16/2021 patient has been weaned off BiPAP to Airvo however still requires significantly high oxygen 40 L with FiO2 of 90%. Did encourage the use of incentive spirometry -08/17/2021. Patient was started onAirvo and transferred to PCU. Patient remains delirious. Nonrebreather added to patient oxygen therapy. Did encourage patient on the need to be compliant with therapy -08/18/2021;Patient seen was reported to be very agitated this a.m. Repeat of her oxygen via BiPAP. Patient had to be given 2 mg of Haldol as well as 2 mg of Ativan to sedate to keep her BiPAP on -08/19/2021; patient currently tolerating BiPAP less agitated compared to previous. In view of her increasing oxygen demands D-dimer was ordered after discussion with Dr. Cruz. Patient Lovenox dose increased from prophylactic to therapeutic dose. 2. Acute metabolic encephalopathy ?Secondary to hypoxia. Patient is on supplemental oxygen as above -08/19/2021; patient remains less agitated compared to previous day. 3. Acute renal insufficiency ?Creatinine was 1.39 on 08/12/2021 back to baseline at 0.92 (chronic kidney disease stage II ruled out) 4. Obesity with BMI of 41.6 ?Weight loss advised 5. Vitamin D deficiency ?Patient is some supplement with plans to resume following discharge 5. Obstructive sleep apnea ?Patient on BiPAP at night 6. Moderate intermittent asthma ?Aerosol treatment as needed 7. Hypothyroidism ?Patient is on levothyroxine did continue 8. DVT prophylaxis ?Lovenox SC 40 twice daily 9. Physical deconditioning - Requested for PT OT eval and social sciences department chair to assist with discharge planning CODE STATUS ?DNR CCA no intubation Charges/Coding Visit Charges Inpatient E&M: 61477 Subs Hosp L3
--- NOTE | 2021-08-19 09:48 | PN.CC_ITS ---
Assessment & Plan Assessment/Plan (1) Acute respiratory failure with hypoxia: (2) COVID-19: (3) Obstructive sleep apnea: (4) Chronic obstructive pulmonary disease: (5) Asthma: PLAN: RECOMMENDATIONS: 1. Given worsening in airspace disease noted on chest x-ray, will start empiric antimicrobials. 2. Attempt aggressive diuretic challenge today. 3. Check strep and urine Legionella antigens along with MRSA screen. 4. Recheck D-dimer and if it remains elevated start patient on therapeutic strength Lovenox. 5. Continue noninvasive positive pressure ventilatory support. Wean FiO2 for saturations greater than 90%. 6. Continue bronchodilator therapy. 7. Continue Decadron to complete 10 days of therapy. IMPRESSIONS: 1. Acute hypoxic respiratory failure secondary to COVID-19 pneumonia Due to delayed hospital presentation, the patient was not a candidate for remdesivir. PREET inhibitor therapy was not felt to be indicated by infectious diseases. The patient's respiratory status still remains quite tenuous. She will be continued on BiPAP with a goal to maintain oxygen saturations at or above 90%. The patient will be continued on Decadron to complete a 10-day treatment course. Continue bronchodilators as ordered. Given worsening on chest imaging noted yesterday, will start empiric antimicrobials. In addition, plan to recheck D-dimer. If still elevated, therapeutic Lovenox is recommended. IV Lasix twice daily will be administered today as well. 2. Morbid obesity/seasonal allergies/hypothyroidism/poor insight/advanced age Complicates care, management, recovery and prognosis. Continue supportive measures as noted above. CODE STATUS remains DNR CCA without intubation. This note was generated with [employer] dictation software. It may contain incorrect words, spelling, and punctuation that were not noted in checking the note before signing. Subjective Subjective The patient was seen and examined at the bedside this morning. Events from the last 24 hours have been reviewed. The patient is currently afebrile, hemodynamically stable and maintaining appropriate oxygen saturations on BiPAP with an FiO2 requirement of 90%. The patient is currently documented to be overall net -600 mL for the hospital admission. She remains on Decadron and prophylactic Lovenox. The patient has completed her treatment course of remdesivir. Although the patient previously had a negative CTA chest on August 10, her D-dimer was elevated. Plain film chest x-ray from yesterday revealed significant worsening in bilateral airspace disease noted previously. Objective Data Objective Data The patient's most recent lab work, culture data and imaging studies have all been personally reviewed. Rapid coronavirus antigen testing was positive on August 10. Vital Signs: Vital Signs Temp Pulse Resp BP Pulse Ox 97.1 F L 115 H 23 H 174/81 H 95 08/19/21 03:01 08/19/21 07:30 08/19/21 04:28 08/19/21 03:01 08/19/21 04:28 Oxygen Flow Rate (L/min) 75 Oxygen Delivery Method Bi-pap Weight: 107.5 kg Body Mass Index (BMI) 41.1 Intake & Output: Intake and Output for Last 24 Hours 08/17/21 08/18/21 08/19/21 23:59 23:59 23:59 Intake Total 910 / 910 320 / 320 Output Total 1125 / 1125 950 / 1150 350 / 350 Balance -215 / -215 -630 / -830 -350 / -350 Lab / Micro Data Result Diagrams: 08/15/21 02:40 08/16/21 03:50 Labs: Laboratory Results - last 24 hr 08/18/21 11:01: POC Glucose 154 H 08/18/21 16:47: POC Glucose 186 H 08/18/21 21:38: POC Glucose 208 H 08/19/21 06:13: POC Glucose 117 H Micro: Microbiology 08/10/21 16:30 Nasal Secretion SARS-CoV-2 Antigen (Rapid) - Final SARS-CoV-2 (COVID 19) Physical Exam Const alert General Appearance: cooperative, comfortable, ill appearing and on BiPAP Nutritional Appearance: morbidly obese HEENT normocephalic and head/scalp atraumatic Eyes PERRL, EOMs intact bilaterally and conjunctivae normal Neck supple General: trachea midline Resp No no use of accessory muscles Effort and Inspection: tachypneic Auscultation: rales and diminished lung sounds; Negative for rhonchi or wheezes Cardio S1 normal heart sound and S2 normal heart sound Rate: tachycardic GI normal to inspection, nondistended, normoactive bowel sounds Extremity no clubbing, cyanosis or edema Skin no rashes or lesions noted Neuro CN's II-XII intact bilaterally, moves all extremities and no focal motor deficits Psych Mood & Affect: anxious Charges/Coding Visit Charges Inpatient E&M: 59921 Subs Hosp L3
[2021-08-19] MEDS: dexAMETHasone 10 MG/ML Vial 6 MG IV (10:11)
[2021-08-19] MEDS: Enoxaparin 40 MG/0.4 ML Syringe SC (10:11)
[2021-08-19 10:31] LABS: Bedside Glucose 128 mg/dL (70-110)
[2021-08-19 11:03] LABS: D-Dimer Quantitative (DVT/PE) 5.29 FEU/ug/m (0.27-0.49)
[2021-08-19] MEDS: Furosemide 40 MG/4 ML Vial IV ×2 (11:34→18:31)
[2021-08-19] MEDS: 0.9% Saline Lock 10 ML Syringe IV ×2 (11:35→18:31)
[2021-08-19 12:01] LABS: Procalcitonin 0.28 ng/mL (0.00-0.09)
[2021-08-19 14:24] LABS: M R Staph aureus DNA By PCR Negative (Negative); Probe Check PASS; Specimen Processing Control PASS
[2021-08-19 16:30] LABS: Bedside Glucose 208 mg/dL (70-110)
[2021-08-19] MEDS: Enoxaparin 120 MG/0.8 ML Syringe 110 MG SC (21:19)
[2021-08-19 21:40] LABS: Bedside Glucose 172 mg/dL (70-110)
[2021-08-20] VITALS (21 sets, daily range): BP systolic 104–144; BP diastolic 65–85; PULSE 74–109; RESP 12–36; TEMP 36.2–36.7; O2SAT 89–100
--- NOTE | 2021-08-20 01:55 | NURSING ---
Son Xander called for update and still has questions would like for me to give them his phone number so he can get an update from them as well. I explained that I would pass his number along but not sure if and when they would be able to call him.
[2021-08-20 06:36] LABS: Bedside Glucose 124 mg/dL (70-110)
[2021-08-20] MEDS: Ipratropium/Albuterol Sulfate 3 ML AMPUL.NEB INHALATION ×2 (06:46→19:12)
--- NOTE | 2021-08-20 08:54 | PCM.PN.INT ---
Assessment & Plan Assessment/Plan (1) Acute respiratory failure with hypoxia: (2) COVID-19: (3) Obstructive sleep apnea: (4) Chronic obstructive pulmonary disease: (5) Asthma: PLAN: RECOMMENDATIONS: 1. Given worsening in airspace disease noted on chest x-ray, will continue empiric antimicrobials. 2. Attempt aggressive diuretic challenge today pending labs. 3. Therapeutic anticoagulation 4. Encourage aggressive pulmonary toileting 5. Continue noninvasive positive pressure ventilatory support. Wean FiO2 for saturations greater than 90%. 6. Continue bronchodilator therapy. 7. Continue Decadron to complete 10 days of therapy. IMPRESSIONS: 1. Acute hypoxic respiratory failure secondary to COVID-19 pneumonia Due to delayed hospital presentation, the patient was not a candidate for remdesivir. PREET inhibitor therapy was not felt to be indicated by infectious diseases. The patient's respiratory status still remains quite tenuous. She will be continued on BiPAP with a goal to maintain oxygen saturations at or above 90%. The patient will be continued on Decadron to complete a 10-day treatment course. Continue bronchodilators as ordered. Patient remains on scheduled diuretics. Await morning labs. Patient likely having some elements of mucous plugging, so a mucolytic will be added. Weaning to Airvo will be helpful in pulmonary toileting. 2. Morbid obesity/seasonal allergies/hypothyroidism/poor insight/advanced age Complicates care, management, recovery and prognosis. Continue supportive measures as noted above. CODE STATUS remains DNR CCA without intubation. This note was generated with [employer] dictation software. It may contain incorrect words, spelling, and punctuation that were not noted in checking the note before signing. Subjective Subjective Patient did okay overnight. Patient was able to be dropped to 80% FiO2, but desaturated with cleaning following incontinence. Patient does report that she has had a productive cough. Patient denies any chest pain, abdominal pain, nausea or vomiting. Objective Data Objective Data Vital Signs: Vital Signs Temp Pulse Resp BP Pulse Ox 36.2 C L 81 24 H 137/71 H 94 08/20/21 03:30 08/20/21 07:00 08/20/21 06:46 08/20/21 03:30 08/20/21 06:46 Oxygen Flow Rate (L/min) 75 Oxygen Delivery Method Bi-pap Weight: 103.1 kg Body Mass Index (BMI) 41.1 Intake & Output: Intake and Output for Last 24 Hours 08/18/21 08/19/21 08/20/21 23:59 23:59 23:59 Intake Total 320 / 320 290 / 290 50 / 50 Output Total 950 / 1150 625 / 1125 1200 / 1200 Balance -630 / -830 -335 / -835 -1150 / -1150 Lab / Micro Data Result Diagrams: 08/15/21 02:40 08/16/21 03:50 Labs: Laboratory Results - last 24 hr 08/19/21 10:20: POC Glucose 128 H 08/19/21 10:26: D-Dimer Quant (PE/DVT) 5.29 H* 08/19/21 10:26: Procalcitonin 0.28 H 08/19/21 11:50: MRSA (PCR) Negative 08/19/21 16:16: POC Glucose 208 H 08/19/21 21:13: POC Glucose 172 H 08/20/21 06:15: POC Glucose 124 H Micro: Microbiology 08/19/21 11:50 Urine, Clean Catch Legionella Antigen - Final 08/19/21 11:50 Urine, Clean Catch Streptococcus pneumoniae Antigen (M - Final 08/10/21 16:30 Nasal Secretion SARS-CoV-2 Antigen (Rapid) - Final SARS-CoV-2 (COVID 19) Physical Exam Const alert General Appearance: cooperative, comfortable, ill appearing and on BiPAP Nutritional Appearance: morbidly obese HEENT normocephalic and head/scalp atraumatic Eyes PERRL, EOMs intact bilaterally and conjunctivae normal Neck supple General: trachea midline Chest inspection of chest normal Chest: symmetrical chest wall rise; Negative for crepitus Resp No no use of accessory muscles Effort and Inspection: tachypneic Auscultation: rales and diminished lung sounds; Negative for rhonchi or wheezes Cardio S1 normal heart sound and S2 normal heart sound Rate: tachycardic GI normal to inspection, nondistended, normoactive bowel sounds Extremity Extremity Narrative: chronic venous stasis noted General Extremity: edema bilateral lower extremity (2+); Negative for clubbing or cyanosis Skin no rashes or lesions noted Neuro CN's II-XII intact bilaterally, moves all extremities and no focal motor deficits Psych Mood & Affect: anxious Charges/Coding Visit Charges Inpatient E&M: 93330 Subs Hosp L3
[2021-08-20] MEDS: Enoxaparin 120 MG/0.8 ML Syringe 110 MG SC ×2 (08:59→20:34)
[2021-08-20] MEDS: dexAMETHasone 10 MG/ML Vial 6 MG IV (08:59)
[2021-08-20] MEDS: Furosemide 40 MG/4 ML Vial IV ×2 (08:59→16:57)
[2021-08-20 12:01] LABS: Bedside Glucose 145 mg/dL (70-110)
--- NOTE | 2021-08-20 15:25 | CPS ---
Changed mode from bipap to airvo mode. Tolerating well with some low spo2 down to the 70,s and 80,s with minimal exertion.Recovers back to the 90,s within A few minutes.Denies any dyspnea at this time.
--- NOTE | 2021-08-20 15:45 | CPS ---
Remains on airvo mode flow of 60,fio2 @ 100% Tolerating well. Denies dyspnea at this time.
--- NOTE | 2021-08-20 15:52 | PN.HOSP_ITS ---
Subjective Subjective Patient states she is feeling okay. She remains on BiPAP at 90% FiO2. Oxygen saturations at the time of my exam were 95%. I did discuss with her the importance of continued pulmonary toilet and mobility as part of her treatment plan. She states she would try to be more interactive and do more. She would like to try to eat and we will try to get her on some air Vo and see how she tolerates it and if tolerates it well then we may be able to let her have some p.o. intake. Objective Data Objective Data Vital Signs: Vital Signs Temp Pulse Resp BP Pulse Ox 97.4 F L 90 22 H 131/75 H 98 08/20/21 13:51 08/20/21 13:51 08/20/21 13:51 08/20/21 13:51 08/20/21 14:40 Oxygen Flow Rate (L/min) 75 Oxygen Delivery Method Bi-pap Weight: 103.1 kg Body Mass Index (BMI) 41.1 Intake & Output: Intake and Output for Last 24 Hours 08/18/21 08/19/21 08/20/21 23:59 23:59 23:59 Intake Total 320 / 320 290 / 290 100 / 100 Output Total 950 / 1150 625 / 1125 1600 / 1600 Balance -630 / -830 -335 / -835 -1500 / -1500 Lab / Micro Data Result Diagrams: 08/15/21 02:40 08/16/21 03:50 Labs: Laboratory Results - last 24 hr 08/19/21 16:16: POC Glucose 208 H 08/19/21 21:13: POC Glucose 172 H 08/20/21 06:15: POC Glucose 124 H 08/20/21 11:43: POC Glucose 145 H Micro: Microbiology 08/19/21 11:50 Urine, Clean Catch Legionella Antigen - Final 08/19/21 11:50 Urine, Clean Catch Streptococcus pneumoniae Antigen (M - Final 08/10/21 16:30 Nasal Secretion SARS-CoV-2 Antigen (Rapid) - Final SARS-CoV-2 (COVID 19) Physical Exam Narrative GENERAL: Patient on BiPAP HEENT: Atraumatic; EYES; Anicteric, Normal Conjunctiva NECK; supple, normal thyroid, RESPIRATORY: Diminished to auscultation CARDIOVASCULAR: Regular S1 S2, GI: soft, normoactive bowel sounds, : No Renal angle tenderness; EXTREMITIES: No edema, no clubbing, MUSCULOSKELETAL: no muscle waisting NEURO: Awake; no lateralizing signs. SKIN: No Rash PSYCH; Flat affect Const alert, no apparent distress and average body habitus Constitutional Narrative: Obese white female sitting up in bed texting on her phone watching the [employer] game, appears comfortable, currently on BiPAP with no signs of acute respiratory distress at this time General Appearance: cooperative Exam Limitations: no limitations HEENT head/scalp atraumatic and moist oral mucous membranes HEENT Narrative: No thrush noted on exam Head and Scalp: normocephalic Eyes PERRL, EOMs intact bilaterally and conjunctivae normal Neck no lymphadenopathy, supple, no JVD and no carotid bruits Resp normal respiratory effort, no retractions and no use of accessory muscles Resp Narrative: Few crackles scattered Auscultation: Negative for rales, rhonchi or wheezes Cardio regular rhythm, S1 normal heart sound, S2 normal heart sound, no murmurs, no rub, no gallops, no clicks and no JVD Cardio Narrative: Mild tachycardia GI normal to inspection, nondistended, normoactive bowel sounds, soft to palpation, non-tender and non-distended Extremity Extremity Narrative: Signs of chronic venous stasis but no significant significant edema at this time, Peripheral Pulses: Yes pulses 2+ throughout Skin no rashes or lesions noted, no wounds, skin turgor normal, no jaundice, no petechiae and no mottling Skin Narrative: Bilateral lower extremity venous stasis, no wounds Neuro moves all extremities and no focal motor deficits Neuro Narrative: Generalized weakness Sensorium / Orientation: awake and alert Speech: speech normal Psych affect normal Psych Narrative: Very pleasant and appropriately interactive at this time Assessment & Plan Assessment/Plan (1) Acute respiratory failure with hypoxia: (2) COVID-19: PLAN: Acute hypoxic respiratory failure secondary to COVID-19 pneumonia -Patient with high markers of inflammation on admission -Chest x-ray shows patchy bilateral infiltrates with worsening airspace disease -Continue IV diuresis with Lasix 40 mg IV push twice daily -Continue therapeutic anticoagulation -Continue empiric antibiotics -Mucolytic's added -Should be close to completion for Decadron--> will discuss with pulmonary tomorrow -Remdesivir completed -I-S -Oxygen--> patient remains on BiPAP with an FiO2 of 80 to 90% -Will trial on some air Vo and assess for ability to take some p.o. nutrition -As needed diuresis -Patient is high risk for decompensation -CODE STATUS has been changed to DNR CCA no intubation -Patient was not a candidate for baricitinib per ID -Vaccine recommended for both her and her family after discharge -Should be able to come out of isolation soon as her symptoms started on 08/03/2021 -Appreciate pulmonary critical care input Hypothyroidism -Continue levothyroxine CKD stage II -Monitor serum creatinine -Baseline serum creatinine appears to be 1.1-1.3 -Check BMP in a.m. Vitamin D deficiency -Hold vitamin D while hospitalized Seasonal allergies -Continue nasal sprays ARYAN -Patient is currently on continuous BiPAP DVT prophylaxis -Continue therapeutic enoxaparin CODE STATUS -DNR CCA no intubation
--- NOTE | 2021-08-20 16:30 | CPS ---
Remains on airvo mode. Spo2 @ 100% ,pulse 90,rr of 21. Denies dyspnea at this time.
[2021-08-20 16:55] LABS: Bedside Glucose 213 mg/dL (70-110)
[2021-08-20] MEDS: guaiFENesin 1,200 MG Tablet 1200 MG PO (20:36)
[2021-08-20] MEDS: QUEtiapine 25 MG Tablet 50 MG PO (20:36)
[2021-08-20] MEDS: MELATONIN 10 MG TABLET PO (20:36)
[2021-08-20] MEDS: Insulin Lispro 100 UNIT/ML INSULN.PEN SC (20:36)
[2021-08-20] MEDS: Acetaminophen 325 MG Tablet 650 MG PO (20:39)
[2021-08-20 21:01] LABS: Bedside Glucose 252 mg/dL (70-110)
[2021-08-20] MEDS: Metoprolol Tartrate 5 MG/5 ML Vial IV (22:36)
[2021-08-20] MEDS: 0.9% Saline Lock 10 ML Syringe IV (22:36)
[2021-08-21] VITALS (19 sets, daily range): BP systolic 94–111; BP diastolic 57–68; PULSE 69–103; RESP 12–28; TEMP 36.2–36.7; O2SAT 85–100
[2021-08-21 06:50] LABS: Bedside Glucose 109 mg/dL (70-110)
[2021-08-21] MEDS: Ipratropium/Albuterol Sulfate 3 ML AMPUL.NEB INHALATION ×3 (06:50→19:33)
[2021-08-21 06:57] LABS: Absolute Lymphocyte Count 1.35 X10^3/uL (0.83-4.51); Absolute Neutrophil Count 11.1 X10^3/uL (2.0-7.7); Basophil# 0.04 X10^3/uL; Basophil% 0.3 % (0-1); Eosinophil# 0.16 X10^3/uL; Eosinophils% 1.2 % (0-5); Hematocrit 41.5 % (37-47); Hemoglobin 12.5 g/dL (12.0-15.0); Lymphocyte # 1.35 X10^3/ul (0.83-4.51); Lymphocyte % 10.2 % (19-41); Mean Corp Hgb Conc 30.1 g/dL (32-36); Mean Corpuscular Volume 92.8 fL (81-99); Mean Platelet Vol. 11.3 fl (6.2-12.0); Monocyte# 0.32 X10^3/uL; Monocyte% 2.4 % (0-10); NRBC Flagged by Analyzer 0 % (0-5); Neutrophil # 11.09 X10^3/uL (2.7-7.7); Neutrophil % 83.8 % (47-70); Platelet Count 328 K/mm3 (150-450); RBC Distribution Width CV 13.4 % (11.6-14.6); RBC Distribution Width SD 45.6 fl (35.1-43.9); Red Blood Count 4.47 M/mm3 (4.2-5.4); White Blood Count 13.2 K/mm3 (4.4-11.0)
[2021-08-21 07:26] LABS: Anion Gap 10 (5-15); BUN 65 mg/dL (7-18); BUN/Creat Ratio 35.7 RATIO (10-20); Calcium,Total 8.8 mg/dL (8.5-10.1); Chloride 98 mmol/L (98-107); Creatinine, Serum 1.82 mg/dL (0.55-1.02); EST Glomerular Filtration Rate 29 mL/min (>60); Est Glom Filt Rate - Afr Amer 35 mL/min (>60); Estimated Creatinine Clearance 24.84 ml/min; Glucose 112 mg/dL (74-106); Potassium 3.8 mmol/L (3.5-5.1); Sodium Level 140 mmol/L (136-145)
[2021-08-21] MEDS: dexAMETHasone 10 MG/ML Vial 6 MG IV (08:48)
[2021-08-21] MEDS: Lisinopril 10 MG Tablet PO (08:50)
[2021-08-21] MEDS: Enoxaparin 120 MG/0.8 ML Syringe 110 MG SC ×2 (08:51→21:34)
[2021-08-21] MEDS: Furosemide 40 MG/4 ML Vial IV (08:51)
[2021-08-21] MEDS: Levothyroxine 125 MCG Tablet PO (08:51)
[2021-08-21] MEDS: QUEtiapine 25 MG Tablet 50 MG PO (08:51)
[2021-08-21] MEDS: guaiFENesin 1,200 MG Tablet 1200 MG PO ×2 (08:51→21:33)
[2021-08-21] MEDS: Insulin Lispro 100 UNIT/ML INSULN.PEN SC ×3 (11:43→21:35)
[2021-08-21 12:01] LABS: Bedside Glucose 254 mg/dL (70-110)
--- NOTE | 2021-08-21 12:51 | PCM.PN.INT ---
Assessment & Plan Assessment/Plan (1) Acute respiratory failure with hypoxia: (2) COVID-19: (3) Obstructive sleep apnea: (4) Chronic obstructive pulmonary disease: (5) Asthma: PLAN: RECOMMENDATIONS: 1. Given worsening in airspace disease noted on chest x-ray, will continue empiric antimicrobials. 2. Hold on diuresis given elevation in creatinine 3. Continue therapeutic anticoagulation 4. Encourage aggressive pulmonary toileting 5. Continue noninvasive positive pressure ventilatory support. Wean FiO2 for saturations greater than 90%. 6. Continue bronchodilator therapy. 7. Continue Decadron to complete 10 days of therapy. IMPRESSIONS: 1. Acute hypoxic respiratory failure secondary to COVID-19 pneumonia Due to delayed hospital presentation, the patient was not a candidate for remdesivir. PREET inhibitor therapy was not felt to be indicated by infectious diseases. The patient's respiratory status still remains quite tenuous. She will be continued on BiPAP with a goal to maintain oxygen saturations at or above 90%. The patient will be continued on Decadron to complete a 10-day treatment course. Continue bronchodilators as ordered. Patient likely having some elements of mucous plugging, so a mucolytic will be added. Weaning to Airvo will be helpful in pulmonary toileting and to facilitate nutrition. Unable to diurese secondary to elevated creatinine. 2. Morbid obesity/seasonal allergies/hypothyroidism/poor insight/advanced age Complicates care, management, recovery and prognosis. Continue supportive measures as noted above. CODE STATUS remains DNR CCA without intubation. This note was generated with [employer] dictation software. It may contain incorrect words, spelling, and punctuation that were not noted in checking the note before signing. Subjective Subjective Patient did okay overnight. However, patient did decompensate today requiring BiPAP therapy. Patient was less interactive today with me. Patient denied any chest pain. Patient was able to tolerate Airvo for short period of time yesterday. Objective Data Objective Data Vital Signs: Vital Signs Temp Pulse Resp BP Pulse Ox 36.7 C 96 27 H 101/60 98 08/21/21 08:46 08/21/21 11:32 08/21/21 11:32 08/21/21 08:46 08/21/21 10:37 Oxygen Flow Rate (L/min) 60 Oxygen Delivery Method Airvo Weight: 99.6 kg Body Mass Index (BMI) 41.1 Intake & Output: Intake and Output for Last 24 Hours 08/19/21 08/20/21 08/21/21 23:59 23:59 23:59 Intake Total 290 / 290 390 / 760 470 / 470 Output Total 625 / 1125 2300 / 2640 340 / 340 Balance -335 / -835 -1910 / -1880 130 / 130 Lab / Micro Data Result Diagrams: 08/21/21 06:00 08/21/21 06:00 Labs: Laboratory Results - last 24 hr 08/20/21 16:49: POC Glucose 213 H 08/20/21 20:29: POC Glucose 252 H 08/21/21 06:00: WBC 13.2 H, RBC 4.47, Hgb 12.5, Hct 41.5, MCV 92.8, MCH 28.0, MCHC 30.1 L, RDW Std Deviation 45.6 H, RDW Coeff of Dilip 13.4, Plt Count 328, MPV 11.3, Immature Gran % (Auto) 2.100 H, Neut % (Auto) 83.8 H, Lymph % (Auto) 10.2 L, [place] % (Auto) 2.4, Eos % (Auto) 1.2, Baso % (Auto) 0.3, Absolute Neuts (auto) 11.1 H, Absolute Lymphs (auto) 1.35, Nucleated RBC % 0 08/21/21 06:00: Sodium 140, Potassium 3.8, Chloride 98, Carbon Dioxide 32.0, Anion Gap 10, BUN 65 H, Creatinine 1.82 H, Estim Creat Clear Calc 24.84, Est GFR (MDRD) Af Amer 35 L, Est GFR (MDRD) Non-Af 29 L, BUN/Creatinine Ratio 35.7 H, Glucose 112 H, Calcium 8.8 08/21/21 06:41: POC Glucose 109 08/21/21 11:40: POC Glucose 254 H Micro: Microbiology 08/19/21 11:50 Urine, Clean Catch Legionella Antigen - Final 08/19/21 11:50 Urine, Clean Catch Streptococcus pneumoniae Antigen (M - Final 08/10/21 16:30 Nasal Secretion SARS-CoV-2 Antigen (Rapid) - Final SARS-CoV-2 (COVID 19) Physical Exam Const alert General Appearance: cooperative, comfortable, ill appearing and on BiPAP Nutritional Appearance: morbidly obese HEENT normocephalic and head/scalp atraumatic Eyes PERRL, EOMs intact bilaterally and conjunctivae normal Neck supple General: trachea midline Chest inspection of chest normal Chest: symmetrical chest wall rise; Negative for crepitus Resp No no use of accessory muscles Effort and Inspection: tachypneic Auscultation: rales and diminished lung sounds; Negative for rhonchi or wheezes Cardio S1 normal heart sound and S2 normal heart sound Rate: tachycardic GI normal to inspection, nondistended, normoactive bowel sounds Extremity Extremity Narrative: chronic venous stasis noted General Extremity: edema bilateral lower extremity (2+); Negative for clubbing or cyanosis Skin no rashes or lesions noted Neuro CN's II-XII intact bilaterally, moves all extremities and no focal motor deficits Psych Mood & Affect: anxious Charges/Coding Visit Charges Inpatient E&M: 81330 Subs Hosp L3
--- NOTE | 2021-08-21 14:08 | CHAPLAIN ---
Type of Pastoral Visit ___ Initial Visit ___ Follow-up Visit ___ On-call Visit ___ General Patient Visit ___ Spiritual Assessment ___ Family Conference ___ Bereavement ___ Rapid Response ___ Code Blue _x__ Other (describe below) Pastoral Care Referral From ___ Patient ___ Family ___ Nurse ___ Physician ___ Shell Reprint Operator ___ Door To Door Selling Distributor _x__ Other (describe below) Sacrament/Intervention ___ Active listening ___ Anointing ___ Sabianist ___ Bereavement ___ Communion ___ Kiara exploration ___ ___ Life review ___ Prayer ___ Reconciliation ___ Sacrament of Sick ___ Supportive presence ___ Wedding ___ Other (describe below) Pastoral Comments phone call made today and yesterday to patient room but phone message the patient is not available is the recording after third ring
--- NOTE | 2021-08-21 16:07 | PCM.PN.ID ---
Physical Exam Narrative Worsened dyspnea, no fever Const Orientation / Consciousness: lethargic Resp Auscultation: diminished lung sounds Cardio regular rate and regular rhythm GI normal to inspection, nondistended, normoactive bowel sounds Skin no rashes or lesions noted ID ID: Route of nutrition/ use of supplements: [] Nutritional Intake: [] IV Site: [] Rodriguez Catheter: [] Assessment & Plan Assessment/Plan (1) Acute respiratory failure with hypoxia: (2) COVID-19: PLAN: Sx started over 3 weeks ago, ok to come out of isolation. On dex. High O2 reqs, on bipap. On high flow O2 since afternoon of 08/10, so not a candidate for baricitinib at this point. Recommend vaccine for her and her family when she gets out of the hospital. New ESTEFANI, on zosyn. If GFR worsens, will need zosyn decreased to q12h. Will follow, d/w nursing.
[2021-08-21 16:41] LABS: Bedside Glucose 214 mg/dL (70-110)
--- NOTE | 2021-08-21 17:19 | PCM.PN.HOSP ---
Subjective Subjective Patient has been able to eat dinner last evening, breakfast, and lunch this afternoon while I was in the room. She refused to get up with therapy until she ate. She has continued to refuse mobilization throughout her stay. I did discuss this with her and she insisted that she would get up after she ate lunch this afternoon. She is denying any current issues at this time other than she would like to eat her lunch. Objective Data Objective Data Vital Signs: Vital Signs Temp Pulse Resp BP Pulse Ox 97.6 F L 98 28 H 102/66 99 08/21/21 14:03 08/21/21 15:25 08/21/21 15:25 08/21/21 14:03 08/21/21 15:25 Oxygen Flow Rate (L/min) 60 Oxygen Delivery Method Bi-pap Weight: 99.6 kg Body Mass Index (BMI) 41.1 Intake & Output: Intake and Output for Last 24 Hours 08/19/21 08/20/21 08/21/21 23:59 23:59 23:59 Intake Total 290 / 290 390 / 760 710 / 710 Output Total 625 / 1125 2300 / 2640 590 / 590 Balance -335 / -835 -1910 / -1880 120 / 120 Lab / Micro Data Result Diagrams: 08/21/21 06:00 08/21/21 06:00 Labs: Laboratory Results - last 24 hr 08/20/21 20:29: POC Glucose 252 H 08/21/21 06:00: WBC 13.2 H, RBC 4.47, Hgb 12.5, Hct 41.5, MCV 92.8, MCH 28.0, MCHC 30.1 L, RDW Std Deviation 45.6 H, RDW Coeff of Dilip 13.4, Plt Count 328, MPV 11.3, Immature Gran % (Auto) 2.100 H, Neut % (Auto) 83.8 H, Lymph % (Auto) 10.2 L, [place] % (Auto) 2.4, Eos % (Auto) 1.2, Baso % (Auto) 0.3, Absolute Neuts (auto) 11.1 H, Absolute Lymphs (auto) 1.35, Nucleated RBC % 0 08/21/21 06:00: Sodium 140, Potassium 3.8, Chloride 98, Carbon Dioxide 32.0, Anion Gap 10, BUN 65 H, Creatinine 1.82 H, Estim Creat Clear Calc 24.84, Est GFR (MDRD) Af Amer 35 L, Est GFR (MDRD) Non-Af 29 L, BUN/Creatinine Ratio 35.7 H, Glucose 112 H, Calcium 8.8 08/21/21 06:41: POC Glucose 109 08/21/21 11:40: POC Glucose 254 H 08/21/21 16:20: POC Glucose 214 H Micro: Microbiology 08/19/21 11:50 Urine, Clean Catch Legionella Antigen - Final 08/19/21 11:50 Urine, Clean Catch Streptococcus pneumoniae Antigen (M - Final 08/10/21 16:30 Nasal Secretion SARS-CoV-2 Antigen (Rapid) - Final SARS-CoV-2 (COVID 19) Physical Exam Const alert, oriented x3, no apparent distress and average body habitus Constitutional Narrative: Obese white female sitting up in bed eating lunch while on air Vo, appears comfortable, no signs of respiratory distress, nursing project coordinator is at the bedside General Appearance: cooperative Exam Limitations: no limitations Nutritional Appearance: morbidly obese HEENT normocephalic, head/scalp atraumatic, hearing grossly normal bilaterally and moist oral mucous membranes HEENT Narrative: No thrush, Mallampati 3 Head and Scalp: normocephalic Resp normal respiratory effort, no retractions and no use of accessory muscles Resp Narrative: Few crackles scattered Auscultation: Negative for crackles, rales, rhonchi or wheezes Cardio regular rate, regular rhythm, S1 normal heart sound, S2 normal heart sound, no murmurs, no rub, no gallops, no clicks and no JVD Cardio Narrative: Mild tachycardia GI normal to inspection, nondistended, normoactive bowel sounds, soft to palpation, non-tender and non-distended Extremity Extremity Narrative: Signs of chronic venous stasis but no significant significant edema at this time, no clubbing or cyanosis Peripheral Pulses: Yes pulses 2+ throughout Skin Skin Narrative: Bilateral lower extremity venous stasis, no wounds Neuro oriented x3 and moves all extremities Neuro Narrative: Generalized weakness Sensorium / Orientation: awake and alert Speech: speech normal Psych affect normal Psych Narrative: Very pleasant Assessment & Plan Assessment/Plan (1) Acute respiratory failure with hypoxia: (2) COVID-19: PLAN: Acute hypoxic respiratory failure secondary to COVID-19 pneumonia -Patient with high markers of inflammation on admission -Chest x-ray shows patchy bilateral infiltrates with worsening airspace disease -Hold Lasix with worsening creatinine -Continue therapeutic anticoagulation -Continue empiric antibiotics -Continue mucolytic's -Patient has completed Decadron and remdesivir -I-S -Oxygen--> air Vo at 60 L/min and 90% FiO2 -Saturations are in the mid 90s and I have requested weaning of her FiO2 some -Patient remains at high risk for decompensation -CODE STATUS has been changed to DNR CCA no intubation -Patient was not a candidate for baricitinib per ID -Vaccine recommended for both her and her family after discharge -Should be able to come out of isolation soon as her symptoms started on 08/03/2021 -Appreciate pulmonary critical care input Hypothyroidism -Continue levothyroxine Hypotension -Resolved -Suspect related to overdiuresis -1 L fluid bolus given and pressures improved -Stop Lasix ESTEFANI on CKD stage II -Monitor serum creatinine -Baseline serum creatinine appears to be 1.1-1.3 -DM creatinine up to 1.8 today -Discontinue IV diuresis -1 L bolus was given secondary to hypotension earlier today -Check BMP in a.m. Vitamin D deficiency -Hold vitamin D while hospitalized Seasonal allergies -Continue nasal sprays ARYAN -Patient is currently on continuous BiPAP DVT prophylaxis -Continue therapeutic enoxaparin CODE STATUS -DNR CCA no intubation Charges/Coding Visit Charges Inpatient E&M: 78825 Subs Hosp L2
[2021-08-21] MEDS: MELATONIN 10 MG TABLET PO (21:33)
[2021-08-21 21:46] LABS: Bedside Glucose 345 mg/dL (70-110)
[2021-08-22] VITALS (15 sets, daily range): BP systolic 100–131; BP diastolic 61–78; PULSE 71–95; RESP 18–26; TEMP 36.2–36.8; O2SAT 84–96
[2021-08-22] MEDS: Ipratropium/Albuterol Sulfate 3 ML AMPUL.NEB INHALATION ×3 (06:55→19:32)
[2021-08-22 07:02] LABS: Absolute Neutrophil Count 12.9 X10^3/uL (2.0-7.7); Basophil# 0.06 X10^3/uL; Basophil% 0.4 % (0-1); Eosinophil# 0.31 X10^3/uL; Hematocrit 41.1 % (37-47); Hemoglobin 12.8 g/dL (12.0-15.0); Lymphocyte % 10.8 % (19-41); Mean Corp Hgb Conc 31.1 g/dL (32-36); Mean Corpuscular Volume 89.9 fL (81-99); Mean Platelet Vol. 11.2 fl (6.2-12.0); Monocyte# 0.42 X10^3/uL; Monocyte% 2.7 % (0-10); NRBC Flagged by Analyzer 0 % (0-5); Neutrophil # 12.85 X10^3/uL (2.7-7.7); Neutrophil % 81.6 % (47-70); Platelet Count 298 K/mm3 (150-450); RBC Distribution Width CV 13.4 % (11.6-14.6); RBC Distribution Width SD 44.2 fl (35.1-43.9); Red Blood Count 4.57 M/mm3 (4.2-5.4); White Blood Count 15.7 K/mm3 (4.4-11.0)
[2021-08-22 07:05] LABS: Bedside Glucose 82 mg/dL (70-110)
[2021-08-22 07:24] LABS: Anion Gap 8 (5-15); BUN 66 mg/dL (7-18); BUN/Creat Ratio 48.2 RATIO (10-20); Calcium,Total 8.8 mg/dL (8.5-10.1); Chloride 104 mmol/L (98-107); Creatinine, Serum 1.37 mg/dL (0.55-1.02); EST Glomerular Filtration Rate 40 mL/min (>60); Est Glom Filt Rate - Afr Amer 49 mL/min (>60); Glucose 87 mg/dL (74-106); Potassium 3.7 mmol/L (3.5-5.1); Sodium Level 140 mmol/L (136-145)
[2021-08-22] MEDS: Enoxaparin 120 MG/0.8 ML Syringe 110 MG SC ×2 (09:08→21:32)
[2021-08-22] MEDS: Levothyroxine 125 MCG Tablet PO (09:08)
[2021-08-22] MEDS: guaiFENesin 1,200 MG Tablet 1200 MG PO (09:08)
--- NOTE | 2021-08-22 09:47 | PCM.PN.INT ---
Assessment & Plan Assessment/Plan (1) Acute respiratory failure with hypoxia: (2) COVID-19: (3) Obstructive sleep apnea: (4) Chronic obstructive pulmonary disease: (5) Asthma: PLAN: RECOMMENDATIONS: 1. Recommend completing 7 days of antimicrobials 2. Continue to hold on diuresis given elevation in creatinine. Hopefully dose with Lasix tomorrow 3. Continue therapeutic anticoagulation 4. Encourage aggressive pulmonary toileting 5. Continue noninvasive positive pressure ventilatory support. Wean FiO2 for saturations greater than 90%. 6. Continue bronchodilator therapy. 7. Continue Decadron to complete 10 days of therapy. IMPRESSIONS: 1. Acute hypoxic respiratory failure secondary to COVID-19 pneumonia Due to delayed hospital presentation, the patient was not a candidate for remdesivir. PREET inhibitor therapy was not felt to be indicated by infectious diseases. The patient's respiratory status still remains quite tenuous. She will be continued on BiPAP with a goal to maintain oxygen saturations at or above 90%. The patient will be continued on Decadron to complete a 10-day treatment course. Continue bronchodilators as ordered. Continue to use Airvo to facilitate p.o. diet and pulmonary toileting. Patient was not willing to demonstrate incentive spirometer on my evaluation. 2. Morbid obesity/seasonal allergies/hypothyroidism/poor insight/advanced age Complicates care, management, recovery and prognosis. Continue supportive measures as noted above. CODE STATUS remains DNR CCA without intubation. This note was generated with [employer] dictation software. It may contain incorrect words, spelling, and punctuation that were not noted in checking the note before signing. Subjective Subjective Patient did okay overnight. Patient was able to get to the chair yesterday. Patient reports she feels subjectively improved compared to previous. Patient was able to eat breakfast and was tolerating well. Objective Data Objective Data Vital Signs: Vital Signs Temp Pulse Resp BP Pulse Ox 36.2 C L 83 20 H 111/61 96 08/22/21 09:00 08/22/21 09:00 08/22/21 09:00 08/22/21 09:00 08/22/21 09:00 Oxygen Flow Rate (L/min) 60 Oxygen Delivery Method Airvo Weight: 100.7 kg Body Mass Index (BMI) 41.1 Intake & Output: Intake and Output for Last 24 Hours 08/20/21 08/21/21 08/22/21 23:59 23:59 23:59 Intake Total 390 / 760 1000 / 1400 450 / 450 Output Total 2300 / 2640 1090 / 1090 250 / 250 Balance -1910 / -1880 -90 / 310 200 / 200 Lab / Micro Data Result Diagrams: 08/22/21 06:18 08/22/21 06:18 Labs: Laboratory Results - last 24 hr 08/21/21 11:40: POC Glucose 254 H 08/21/21 16:20: POC Glucose 214 H 08/21/21 21:32: POC Glucose 345 H 08/22/21 06:18: Sodium 140, Potassium 3.7, Chloride 104, Carbon Dioxide 28.0, Anion Gap 8, BUN 66 H, Creatinine 1.37 H, Estim Creat Clear Calc 33.00, Est GFR (MDRD) Af Amer 49 L, Est GFR (MDRD) Non-Af 40 L, BUN/Creatinine Ratio 48.2 H, Glucose 87, Calcium 8.8 08/22/21 06:18: WBC 15.7 H, RBC 4.57, Hgb 12.8, Hct 41.1, MCV 89.9, MCH 28.0, MCHC 31.1 L, RDW Std Deviation 44.2 H, RDW Coeff of Dilip 13.4, Plt Count 298, MPV 11.2, Immature Gran % (Auto) 2.500 H, Neut % (Auto) 81.6 H, Lymph % (Auto) 10.8 L, [place] % (Auto) 2.7, Eos % (Auto) 2.0, Baso % (Auto) 0.4, Absolute Neuts (auto) 12.9 H, Absolute Lymphs (auto) 1.70, Nucleated RBC % 0 08/22/21 06:57: POC Glucose 82 Micro: Microbiology 08/19/21 11:50 Urine, Clean Catch Legionella Antigen - Final 08/19/21 11:50 Urine, Clean Catch Streptococcus pneumoniae Antigen (M - Final 08/10/21 16:30 Nasal Secretion SARS-CoV-2 Antigen (Rapid) - Final SARS-CoV-2 (COVID 19) Physical Exam Const alert Constitutional Narrative: On Airvo eating breakfast General Appearance: cooperative and comfortable Nutritional Appearance: morbidly obese HEENT normocephalic and head/scalp atraumatic Eyes PERRL, EOMs intact bilaterally and conjunctivae normal Neck supple General: trachea midline Chest inspection of chest normal Chest: symmetrical chest wall rise; Negative for crepitus Resp No no use of accessory muscles Auscultation: diminished lung sounds; Negative for rales, rhonchi or wheezes Cardio S1 normal heart sound and S2 normal heart sound Rate: tachycardic GI normal to inspection, nondistended, normoactive bowel sounds Extremity Extremity Narrative: chronic venous stasis noted General Extremity: edema bilateral lower extremity (2+); Negative for clubbing or cyanosis Skin no rashes or lesions noted Neuro CN's II-XII intact bilaterally, moves all extremities and no focal motor deficits Psych Mood & Affect: anxious Charges/Coding Visit Charges Inpatient E&M: 19150 Subs Hosp L3
[2021-08-22 11:41] LABS: Bedside Glucose 204 mg/dL (70-110)
--- NOTE | 2021-08-22 12:12 | PCM.PN.HOSP ---
Subjective Subjective Patient states she is feeling okay today. We did discuss her need to get up in a chair at least twice today and she was agreeable although reluctant about this. She does indicate that the food is horrible and what they serving her her is trash. I told her that she is out of isolation and that possibly her son will be able to bring her into meal and she stated I do not want to eat his crap because he is a vegan. Her sats were in the mid 90s while I was in the room and was able to decrease her FiO2 from 90 to 80% and she was able to maintain her sats at rest with this. I did discuss with her that her oxygen requirements would likely go up with movement and exercise but it was important for her to continue to do this and that they would recover when she was at rest. Objective Data Objective Data Vital Signs: Vital Signs Temp Pulse Resp BP Pulse Ox 97.1 F L 83 20 H 111/61 96 08/22/21 09:00 08/22/21 09:00 08/22/21 09:00 08/22/21 09:00 08/22/21 09:00 Oxygen Flow Rate (L/min) 60 Oxygen Delivery Method Airvo Weight: 100.7 kg Body Mass Index (BMI) 41.1 Intake & Output: Intake and Output for Last 24 Hours 08/20/21 08/21/21 08/22/21 23:59 23:59 23:59 Intake Total 390 / 760 1000 / 1400 500 / 500 Output Total 2300 / 2640 1090 / 1090 250 / 250 Balance -1910 / -1880 -90 / 310 250 / 250 Lab / Micro Data Result Diagrams: 08/22/21 06:18 08/22/21 06:18 Labs: Laboratory Results - last 24 hr 08/21/21 16:20: POC Glucose 214 H 08/21/21 21:32: POC Glucose 345 H 08/22/21 06:18: Sodium 140, Potassium 3.7, Chloride 104, Carbon Dioxide 28.0, Anion Gap 8, BUN 66 H, Creatinine 1.37 H, Estim Creat Clear Calc 33.00, Est GFR (MDRD) Af Amer 49 L, Est GFR (MDRD) Non-Af 40 L, BUN/Creatinine Ratio 48.2 H, Glucose 87, Calcium 8.8 08/22/21 06:18: WBC 15.7 H, RBC 4.57, Hgb 12.8, Hct 41.1, MCV 89.9, MCH 28.0, MCHC 31.1 L, RDW Std Deviation 44.2 H, RDW Coeff of Dilip 13.4, Plt Count 298, MPV 11.2, Immature Gran % (Auto) 2.500 H, Neut % (Auto) 81.6 H, Lymph % (Auto) 10.8 L, [place] % (Auto) 2.7, Eos % (Auto) 2.0, Baso % (Auto) 0.4, Absolute Neuts (auto) 12.9 H, Absolute Lymphs (auto) 1.70, Nucleated RBC % 0 08/22/21 06:57: POC Glucose 82 08/22/21 11:25: POC Glucose 204 H Micro: Microbiology 08/19/21 11:50 Urine, Clean Catch Legionella Antigen - Final 08/19/21 11:50 Urine, Clean Catch Streptococcus pneumoniae Antigen (M - Final 08/10/21 16:30 Nasal Secretion SARS-CoV-2 Antigen (Rapid) - Final SARS-CoV-2 (COVID 19) Physical Exam Const alert, oriented x3, no apparent distress and average body habitus Constitutional Narrative: Obese white female sitting up in bed watching television, appears comfortable, no signs of respiratory distress, nontoxic-appearing General Appearance: cooperative Exam Limitations: no limitations Nutritional Appearance: morbidly obese HEENT normocephalic, head/scalp atraumatic, hearing grossly normal bilaterally and moist oral mucous membranes HEENT Narrative: No thrush noted Head and Scalp: normocephalic Resp normal respiratory effort, no retractions and no use of accessory muscles Resp Narrative: Few crackles scattered Auscultation: Negative for crackles, rales, rhonchi or wheezes Cardio regular rate, regular rhythm, S1 normal heart sound, S2 normal heart sound, no murmurs, no rub, no gallops, no clicks and no JVD GI normal to inspection, nondistended, normoactive bowel sounds, soft to palpation, non-tender and non-distended Extremity Extremity Narrative: Signs of chronic venous stasis but no significant significant edema at this time, no clubbing or cyanosis Peripheral Pulses: Yes pulses 2+ throughout Neuro oriented x3 and moves all extremities Neuro Narrative: Generalized weakness Sensorium / Orientation: awake and alert Speech: speech normal Assessment & Plan Assessment/Plan (1) Acute respiratory failure with hypoxia: (2) COVID-19: PLAN: Acute hypoxic respiratory failure secondary to COVID-19 pneumonia -Patient with high markers of inflammation on admission -Chest x-ray shows patchy bilateral infiltrates with worsening airspace disease -Hold Lasix again today as renal function is recovering -Continue therapeutic anticoagulation -Continue empiric antibiotics--> day 4 of 7 -Continue mucolytic's -Patient has completed Decadron and remdesivir -I-S -Oxygen--> air Vo at 60 L/min and 80% FiO2 -Titrate oxygen to maintain sats greater than 92% and wean as able -Patient is able to come out of isolation -Patient remains at high risk for decompensation -CODE STATUS has been changed to DNR CCA no intubation -Patient was not a candidate for baricitinib per ID -Vaccine recommended for both her and her family after discharge -Appreciate pulmonary critical care input Leukocytosis -White count is up slightly -Patient remains on empiric Zosyn -Check MRSA PCR and if positive will start vancomycin versus linezolid -Patient is off Decadron Hypothyroidism -Continue levothyroxine Hypotension -Resolved ESTEFANI on CKD stage II -Monitor serum creatinine -Baseline serum creatinine appears to be 1.1-1.3 -Serum creatinine is down from 1.8 yesterday to 1.37 today -Discontinue IV diuresis -1 L bolus was given secondary to hypotension earlier today -Check BMP in a.m. Vitamin D deficiency -Hold vitamin D while hospitalized Seasonal allergies -Continue nasal sprays ARYAN -Patient is currently on continuous BiPAP DVT prophylaxis -Continue therapeutic enoxaparin CODE STATUS -DNR CCA no intubation Charges/Coding Visit Charges Inpatient E&M: 84721 Subs Hosp L2
[2021-08-22] MEDS: Insulin Lispro 100 UNIT/ML INSULN.PEN SC ×2 (12:17→21:34)
[2021-08-22] MEDS: Acetaminophen 325 MG Tablet 650 MG PO (13:23)
--- NOTE | 2021-08-22 14:41 | CHAPLAIN ---
Type of Pastoral Visit _x__ Initial Visit ___ Follow-up Visit ___ On-call Visit ___ General Patient Visit ___ Spiritual Assessment ___ Family Conference ___ Bereavement ___ Rapid Response ___ Code Blue ___ Other (describe below) Pastoral Care Referral From _x__ Patient ___ Family ___ Nurse ___ Physician ___ Hair Salon Manager ___ Seam Sewer ___ Other (describe below) Sacrament/Intervention _x__ Active listening ___ Anointing ___ Sikhism ___ Bereavement ___ Communion _x__ Kiara exploration ___ ___ Life review _x__ Prayer ___ Reconciliation ___ Sacrament of Sick _x__ Supportive presence ___ Wedding ___ Other (describe below) Pastoral Comments this hardwood floor layer was able to enter room today and patient states I've been wanting to see you. Sit down here.; pt is expressive about her hospital stay and converses about her thoughts of illness and a spiritual meaning that she gives to it; pt admits to not trusting people and that she wants to be in control of her own life and decisions; pt says she is a spiritual person and finds prayer and uatsdin to be her support; pt has a son that is also very involved with her; lots of time given to patient who has been in hospital for almost two weeks
[2021-08-22 16:14] LABS: M R Staph aureus DNA By PCR Negative (Negative); Specimen Processing Control PASS
[2021-08-22 16:15] LABS: Probe Check PASS
[2021-08-22 16:35] LABS: Bedside Glucose 108 mg/dL (70-110)
[2021-08-22] MEDS: MELATONIN 10 MG TABLET PO (21:32)
[2021-08-22 22:41] LABS: Bedside Glucose 157 mg/dL (70-110)
[2021-08-23] VITALS (16 sets, daily range): BP systolic 117–130; BP diastolic 60–67; PULSE 73–90; RESP 18–24; TEMP 36.3–36.6; O2SAT 91–96
--- NOTE | 2021-08-23 00:08 | NURSING ---
Pt son called for update.
[2021-08-23 06:07] LABS: Absolute Neutrophil Count 9.5 X10^3/uL (2.0-7.7); Basophil# 0.06 X10^3/uL; Basophil% 0.5 % (0-1); Eosinophil# 0.32 X10^3/uL; Eosinophils% 2.6 % (0-5); Hematocrit 43.4 % (37-47); Hemoglobin 13.5 g/dL (12.0-15.0); Lymphocyte % 14.7 % (19-41); Mean Corp Hgb Conc 31.1 g/dL (32-36); Mean Corpuscular Hgb 28.4 pg (27.0-32.0); Mean Corpuscular Volume 91.2 fL (81-99); Mean Platelet Vol. 11.1 fl (6.2-12.0); Monocyte# 0.42 X10^3/uL; Monocyte% 3.4 % (0-10); NRBC Flagged by Analyzer 0 % (0-5); Neutrophil # 9.46 X10^3/uL (2.7-7.7); Neutrophil % 77.2 % (47-70); Platelet Count 295 K/mm3 (150-450); RBC Distribution Width CV 14.1 % (11.6-14.6); RBC Distribution Width SD 47.1 fl (35.1-43.9); Red Blood Count 4.76 M/mm3 (4.2-5.4); White Blood Count 12.3 K/mm3 (4.4-11.0)
[2021-08-23 06:36] LABS: Anion Gap 9 (5-15); BUN 46 mg/dL (7-18); BUN/Creat Ratio 43.4 RATIO (10-20); Calcium,Total 8.5 mg/dL (8.5-10.1); Chloride 107 mmol/L (98-107); Creatinine, Serum 1.06 mg/dL (0.55-1.02); EST Glomerular Filtration Rate 54 mL/min (>60); Est Glom Filt Rate - Afr Amer 66 mL/min (>60); Estimated Creatinine Clearance 42.64 ml/min; Glucose 124 mg/dL (74-106); Potassium 3.9 mmol/L (3.5-5.1); Sodium Level 140 mmol/L (136-145)
[2021-08-23 06:46] LABS: Bedside Glucose 122 mg/dL (70-110)
[2021-08-23] MEDS: Ipratropium/Albuterol Sulfate 3 ML AMPUL.NEB INHALATION ×3 (06:55→19:06)
--- NOTE | 2021-08-23 08:47 | PN.CC_ITS ---
Assessment & Plan Assessment/Plan (1) Acute respiratory failure with hypoxia: (2) COVID-19: (3) Obstructive sleep apnea: (4) Chronic obstructive pulmonary disease: (5) Asthma: PLAN: RECOMMENDATIONS: 1. Recommend completing 7 days of antimicrobials 2. Agree with p.o. Lasix. Goal of -1 to 2 L/day 3. Continue therapeutic anticoagulation 4. Encourage aggressive pulmonary toileting 5. Continue noninvasive positive pressure ventilatory support. Wean FiO2 for saturations greater than 90%. 6. Continue bronchodilator therapy. 7. Continue Decadron to complete 10 days of therapy. IMPRESSIONS: 1. Acute hypoxic respiratory failure secondary to COVID-19 pneumonia Due to delayed hospital presentation, the patient was not a candidate for remdesivir. PREET inhibitor therapy was not felt to be indicated by infectious diseases. The patient's respiratory status still remains quite tenuous. She will be continued on Airvo with a goal to maintain oxygen saturations at or above 90%. The patient will be continued on Decadron to complete a 10-day treatment course. Continue bronchodilators as ordered. Continue to use Airvo to facilitate p.o. diet and pulmonary toileting. Agree with gentle diuresis with a goal of -1 to 2 L/day. Unfortunately, previous I/O has been inaccurate secondary to incontinence. Stressed to the patient the importance of notifying nursing earlier. We will continue to follow daily weights. 2. Morbid obesity/seasonal allergies/hypothyroidism/poor insight/advanced age Complicates care, management, recovery and prognosis. Continue supportive measures as noted above. CODE STATUS remains DNR CCA without intubation. This note was generated with [employer] dictation software. It may contain incorrect words, spelling, and punctuation that were not noted in checking the note before signing. Subjective Subjective Patient did well overnight. No acute issues were reported. Patient subj ectively feels more energy compared to yesterday. Patient has continued to require high oxygen on Airvo. Patient continues to report a productive cough. Objective Data Objective Data Vital Signs: Vital Signs Temp Pulse Resp BP Pulse Ox 36.6 C 90 21 H 130/62 H 93 08/23/21 04:25 08/23/21 07:26 08/23/21 07:26 08/23/21 04:25 08/23/21 07:25 Oxygen Flow Rate (L/min) 60 Oxygen Delivery Method Airvo Weight: 100.8 kg Body Mass Index (BMI) 41.1 Intake & Output: Intake and Output for Last 24 Hours 08/21/21 08/22/21 08/23/21 23:59 23:59 23:59 Intake Total 1000 / 1400 1330 / 1570 530 / 530 Output Total 1090 / 1090 750 / 960 360 / 360 Balance -90 / 310 580 / 610 170 / 170 Lab / Micro Data Result Diagrams: 08/23/21 05:34 08/23/21 05:34 Labs: Laboratory Results - last 24 hr 08/22/21 11:25: POC Glucose 204 H 08/22/21 13:20: MRSA (PCR) Negative 08/22/21 16:30: POC Glucose 108 08/22/21 21:29: POC Glucose 157 H 08/23/21 05:34: Sodium 140, Potassium 3.9, Chloride 107, Carbon Dioxide 24.0, Anion Gap 9, BUN 46 H, Creatinine 1.06 H, Estim Creat Clear Calc 42.64, Est GFR (MDRD) Af Amer 66, Est GFR (MDRD) Non-Af 54 L, BUN/Creatinine Ratio 43.4 H, Glucose 124 H, Calcium 8.5 08/23/21 05:34: WBC 12.3 H, RBC 4.76, Hgb 13.5, Hct 43.4, MCV 91.2, MCH 28.4, MCHC 31.1 L, RDW Std Deviation 47.1 H, RDW Coeff of Dilip 14.1, Plt Count 295, MPV 11.1, Immature Gran % (Auto) 1.600 H, Neut % (Auto) 77.2 H, Lymph % (Auto) 14.7 L, [place] % (Auto) 3.4, Eos % (Auto) 2.6, Baso % (Auto) 0.5, Absolute Neuts (auto) 9.5 H, Absolute Lymphs (auto) 1.80, Nucleated RBC % 0 08/23/21 06:37: POC Glucose 122 H Micro: Microbiology 08/19/21 11:50 Urine, Clean Catch Legionella Antigen - Final 08/19/21 11:50 Urine, Clean Catch Streptococcus pneumoniae Antigen (M - Final 08/10/21 16:30 Nasal Secretion SARS-CoV-2 Antigen (Rapid) - Final SARS-CoV-2 (COVID 19) Physical Exam Const alert Constitutional Narrative: On Airvo General Appearance: cooperative and comfortable Nutritional Appearance: morbidly obese HEENT normocephalic and head/scalp atraumatic Eyes PERRL, EOMs intact bilaterally and conjunctivae normal Neck supple General: trachea midline Chest inspection of chest normal Chest: symmetrical chest wall rise; Negative for crepitus Resp No no use of accessory muscles Auscultation: diminished lung sounds; Negative for rales, rhonchi or wheezes Cardio S1 normal heart sound and S2 normal heart sound Rate: tachycardic GI normal to inspection, nondistended, normoactive bowel sounds Extremity Extremity Narrative: chronic venous stasis noted General Extremity: edema bilateral lower extremity (2+); Negative for clubbing or cyanosis Skin no rashes or lesions noted Neuro CN's II-XII intact bilaterally, moves all extremities and no focal motor deficits Psych Mood & Affect: anxious Charges/Coding Visit Charges Inpatient E&M: 89556 Subs Hosp L3
[2021-08-23] MEDS: Levothyroxine 125 MCG Tablet PO (09:20)
[2021-08-23] MEDS: Furosemide 40 MG Tablet PO (09:20)
[2021-08-23] MEDS: Enoxaparin 120 MG/0.8 ML Syringe 110 MG SC ×2 (09:22→21:25)
[2021-08-23] MEDS: Phenol/Sodium Phenolate 180ML 3 SPRAY MUCOUS MEM (10:13)
[2021-08-23] MEDS: Insulin Lispro 100 UNIT/ML INSULN.PEN SC (11:27)
[2021-08-23 11:35] LABS: Bedside Glucose 171 mg/dL (70-110)
[2021-08-23 16:25] LABS: Bedside Glucose 111 mg/dL (70-110)
--- NOTE | 2021-08-23 16:25 | PN.HOSP_ITS ---
Subjective Subjective Patient reports that she is breathing better and had a decent night. She is complaining about a nurse but she is unclear what nurse this is. She states she threw her pills away when the patient said she did not want them at that time. Per nursing despite promising me she would get up out of the chair yesterday she refused twice and did not get up with therapy other than to use the bedside commode. I did discuss with the patient that she is extending her stay due to her lack of compliance with therapies. She remains on air Vo at 80% FiO2 but did tolerate the decrease in the last 24 hours. Objective Data Objective Data Vital Signs: Vital Signs Temp Pulse Resp BP Pulse Ox 97.7 F L 89 21 H 117/67 94 08/23/21 15:20 08/23/21 15:46 08/23/21 15:46 08/23/21 15:20 08/23/21 15:20 Oxygen Flow Rate (L/min) 60 Oxygen Delivery Method Airvo Weight: 100.8 kg Body Mass Index (BMI) 41.1 Intake & Output: Intake and Output for Last 24 Hours 08/21/21 08/22/21 08/23/21 23:59 23:59 23:59 Intake Total 1000 / 1400 1330 / 1570 700 / 700 Output Total 1090 / 1090 750 / 960 685 / 685 Balance -90 / 310 580 / 610 Lab / Micro Data Result Diagrams: 08/23/21 05:34 08/23/21 05:34 Labs: Laboratory Results - last 24 hr 08/22/21 16:30: POC Glucose 108 08/22/21 21:29: POC Glucose 157 H 08/23/21 05:34: Sodium 140, Potassium 3.9, Chloride 107, Carbon Dioxide 24.0, Anion Gap 9, BUN 46 H, Creatinine 1.06 H, Estim Creat Clear Calc 42.64, Est GFR (MDRD) Af Amer 66, Est GFR (MDRD) Non-Af 54 L, BUN/Creatinine Ratio 43.4 H, Glucose 124 H, Calcium 8.5 08/23/21 05:34: WBC 12.3 H, RBC 4.76, Hgb 13.5, Hct 43.4, MCV 91.2, MCH 28.4, MCHC 31.1 L, RDW Std Deviation 47.1 H, RDW Coeff of Dilip 14.1, Plt Count 295, MPV 11.1, Immature Gran % (Auto) 1.600 H, Neut % (Auto) 77.2 H, Lymph % (Auto) 14.7 L, [place] % (Auto) 3.4, Eos % (Auto) 2.6, Baso % (Auto) 0.5, Absolute Neuts (auto) 9.5 H, Absolute Lymphs (auto) 1.80, Nucleated RBC % 0 08/23/21 06:37: POC Glucose 122 H 08/23/21 11:26: POC Glucose 171 H Micro: Microbiology 08/19/21 11:50 Urine, Clean Catch Legionella Antigen - Final 08/19/21 11:50 Urine, Clean Catch Streptococcus pneumoniae Antigen (M - Final 08/10/21 16:30 Nasal Secretion SARS-CoV-2 Antigen (Rapid) - Final SARS-CoV-2 (COVID 19) Physical Exam Narrative Const alert, oriented x3, no apparent distress and average body habitus Constitutional Narrative: Obese white female sitting up in bed watching television and eating breakfast, appears comfortable, no signs of respiratory distress, nontoxic-appearing, currently on air Vo General Appearance: cooperative Exam Limitations: no limitations Nutritional Appearance: morbidly obese HEENT normocephalic, head/scalp atraumatic, hearing grossly normal bilaterally and moist oral mucous membranes HEENT Narrative: No thrush present Head and Scalp: normocephalic Resp normal respiratory effort, no retractions, no use of accessory muscles and clear to auscultation bilaterally Resp Narrative: Diminished but clear Auscultation: Negative for crackles, rales, rhonchi or wheezes Cardio regular rate, regular rhythm, S1 normal heart sound, S2 normal heart sound, no murmurs, no rub, no gallops, no clicks and no JVD Cardio Narrative: Mild tachycardia GI normal to inspection, nondistended, normoactive bowel sounds, soft to palpation, non-tender and non-distended Extremity Extremity Narrative: Signs of chronic venous stasis but no significant significant edema at this time, no clubbing or cyanosis Neuro oriented x3, moves all extremities and no focal motor deficits Neuro Narrative: Generalized weakness Sensorium / Orientation: awake and alert Speech: speech normal Psych affect normal Psych Narrative: A bit feisty today Assessment & Plan Assessment/Plan (1) Acute respiratory failure with hypoxia: (2) COVID-19: PLAN: Acute hypoxic respiratory failure secondary to COVID-19 pneumonia -Patient with high markers of inflammation on admission -Chest x-ray shows patchy bilateral infiltrates with worsening airspace disease -Creatinine is better and therefore Lasix reinitiated but p.o. 40 mg daily -Monitor creatinine -Continue therapeutic anticoagulation -Continue empiric antibiotics--> day 5 of 7 -Continue mucolytic's -Patient has completed Decadron and remdesivir -I-S -Oxygen--> air Vo at 60 L/min and 80% FiO2 -Titrate oxygen to maintain sats greater than 92% and wean as able -Patient is able to come out of isolation -Patient remains at high risk for decompensation -CODE STATUS has been changed to DNR CCA no intubation -Patient was not a candidate for baricitinib per ID -Vaccine recommended for both her and her family after discharge -Appreciate pulmonary critical care input Leukocytosis -Now trending back down a -Patient remains on empiric Zosyn -MRSA PCR was negative -Patient is off Decadron Hypothyroidism -Continue levothyroxine ESTEFANI on CKD stage II -ESTEFANI resolving -Serum creatinine is close to baseline -Monitor closely -We will reinitiate Lasix but just at 40 mg p.o. daily rather than IV push Vitamin D deficiency -Hold vitamin D while hospitalized Seasonal allergies -Continue nasal sprays ARYAN -Patient is currently on continuous BiPAP DVT prophylaxis -Continue therapeutic enoxaparin CODE STATUS -DNR CCA no intubation Charges/Coding Visit Charges Inpatient E&M: 64711 [facility] Hosp L2
[2021-08-23 22:05] LABS: Bedside Glucose 127 mg/dL (70-110)
[2021-08-24] VITALS (21 sets, daily range): BP systolic 116–137; BP diastolic 64–70; PULSE 82–104; RESP 12–39; TEMP 36.4–36.7; O2SAT 81–96
[2021-08-24] MEDS: Haloperidol Lactate 5 MG/ML Vial 1 MG IV (03:08)
[2021-08-24] MEDS: 0.9% Saline Lock 10 ML Syringe IV (03:11)
--- NOTE | 2021-08-24 03:17 | PCM.PN.BLA ---
Progress Note Called by the bedside to see patient's. Patient with bleeding in bilateral nostrils. Place Rhino Rocket in patient nostrils but patient put pulled Rhino Rocket out and indicated that she does not want any Rhino Rocket. Initially patient was placed on BiPAP because of hypoxia. Patient's switched back to nonrebreather mask as she is unable to tolerate airvo.
--- NOTE | 2021-08-24 03:39 | VDLE_ITS ---
Reason For Study: Eleavted D-dimer RIGHT LEFT GSV is normal. GSV is normal. CFV is compressible, spontaneous, phasic, CFV is compressible, spontaneous, phasic, competent and demonstrates normal competent, and demonstrates normal augmentation. augmentation. FV is compressible, spontaneous, phasic, FV is compressible, spontaneous, phasic, competent and demonstrates normal competent and demonstrates normal augmentation. augmentation. POP V is compressible, spontaneous, phasic, POP V is compressible, spontaneous, phasic, competent and demonstrates normal competent and demonstrates normal augmentation. augmentation. T/P Trunk is compressible. T/P Trunk is compressible. PTV is compressible. PTV is compressible. RT PerV is compressible. LT PerV is compressible. Rt SoleusV is dilated and non compressible consistent with acute DVT. Procedure This is a venous duplex using B-mode, color flow and spectral Doppler. Exam performed portable in patient room. The study was technically difficult. The study was technically limited. Patient unable to tolerate compressions throughout the legs bilaterally; relied on color doppler. A preliminary report was called and/or faxed to Sheyla ELLIOTT. VL/Venous Duplex US - Kelvin Extrem Interpretation Summary Acute deep vein thrombosis is noted in the right soleus vein. The remainder of the right lower extremity deep venous system is patent and compressible. Deep veins of the left lower extremity are patent and compressible segmentally. There is no evidence of left lower extremi ty deep vein thrombosis. Valvular competence appears intact within the proximal deep venous systems bilaterally. The great saphenous veins appear bilaterally patent and compressible segmentall y. Ordering Physician: Greg Garrett Referring Physician: Meghan Murphy Performed By: Sadie Traore, JYOTSNACS, RVT
--- NOTE | 2021-08-24 03:40 | PCM.PN.BLA ---
Progress Note Patient with elevated D-dimer that has since improved but still elevated. On therapeutic dose of Lovenox. Stopped therapy dose of Lovenox. CTA chest unremarkable. Get Doppler bilateral legs.
[2021-08-24] MEDS: Insulin Lispro 100 UNIT/ML INSULN.PEN SC (06:05)
[2021-08-24 06:30] LABS: Bedside Glucose 163 mg/dL (70-110)
[2021-08-24 07:54] LABS: Anion Gap 7 (5-15); BUN 44 mg/dL (7-18); BUN/Creat Ratio 37.6 RATIO (10-20); Calcium,Total 8.6 mg/dL (8.5-10.1); Chloride 105 mmol/L (98-107); Creatinine, Serum 1.17 mg/dL (0.55-1.02); EST Glomerular Filtration Rate 49 mL/min (>60); Est Glom Filt Rate - Afr Amer 59 mL/min (>60); Estimated Creatinine Clearance 38.64 ml/min; Glucose 152 mg/dL (74-106); Potassium 3.9 mmol/L (3.5-5.1); Sodium Level 141 mmol/L (136-145)
[2021-08-24] MEDS: Ipratropium/Albuterol Sulfate 3 ML AMPUL.NEB INHALATION ×2 (11:20→14:58)
[2021-08-24 11:30] LABS: Bedside Glucose 143 mg/dL (70-110)
--- NOTE | 2021-08-24 12:51 | PN.CC_ITS ---
Assessment & Plan Assessment/Plan (1) Acute respiratory failure with hypoxia: (2) COVID-19: (3) Obstructive sleep apnea: (4) Chronic obstructive pulmonary disease: (5) Asthma: PLAN: RECOMMENDATIONS: 1. Recommend completing 7 days of antimicrobials (08/26/2021) 2. Agree with p.o. Lasix. Goal of -1 to 2 L/day 3. Continue therapeutic anticoagulation 4. Encourage aggressive pulmonary toileting 5. Continue noninvasive positive pressure ventilatory support. Wean FiO2 for saturations greater than 90%. 6. Continue bronchodilator therapy. 7. Continue Decadron to complete 10 days of therapy. IMPRESSIONS: 1. Acute hypoxic respiratory failure secondary to COVID-19 pneumonia Due to delayed hospital presentation, the patient was not a candidate for remdesivir. PREET inhibitor therapy was not felt to be indicated by infectious diseases. The patient's respiratory status still remains quite tenuous. She will be continued on Airvo with a goal to maintain oxygen saturations at or above 90%. The patient will be continued on Decadron to complete a 10-day treatment course. Continue bronchodilators as ordered. Attempt use of BiPAP and fullface options for 24 to 48 hours. Agree with gentle diuresis with a goal of -1 to 2 L/day. Unfortunately, previous I/O has been inaccurate secondary to incontinence. Stressed to the patient the importance of notifying nursing earlier. We will continue to follow daily weights. 2. Morbid obesity/seasonal allergies/hypothyroidism/poor insight/advanced age Complicates care, management, recovery and prognosis. Continue supportive measures as noted above. CODE STATUS remains DNR CCA without intubation. This note was generated with [employer] dictation software. It may contain incorrect words, spelling, and punctuation that were not noted in checking the note before signing. Subjective Subjective Patient did okay overnight. Unfortunately, patient did develop epistaxis limiting her ability to use Airvo. Patient has been on BiPAP for most of the day. Patient subjectively feels okay outside of nasal congestion. Objective Data Objective Data Vital Signs: Vital Signs Temp Pulse Resp BP Pulse Ox 36.4 C L 84 27 H 130/64 H 91 08/24/21 08:00 08/24/21 11:22 08/24/21 11:22 08/24/21 08:00 08/24/21 11:22 Oxygen Flow Rate (L/min) 60 Oxygen Delivery Method Airvo Weight: 99.8 kg Body Mass Index (BMI) 41.1 Intake & Output: Intake and Output for Last 24 Hours 08/22/21 08/23/21 08/24/21 23:59 23:59 23:59 Intake Total 1330 / 1570 1230 / 1350 220 / 220 Output Total 750 / 960 685 / 985 625 / 625 Balance 580 / 610 545 / 365 -405 / -405 Lab / Micro Data Result Diagrams: 08/23/21 05:34 08/24/21 06:25 Labs: Laboratory Results - last 24 hr 08/23/21 16:19: POC Glucose 111 H 08/23/21 21:23: POC Glucose 127 H 08/24/21 06:05: POC Glucose 163 H 08/24/21 06:25: Sodium 141, Potassium 3.9, Chloride 105, Carbon Dioxide 29.0, Anion Gap 7, BUN 44 H, Creatinine 1.17 H, Estim Creat Clear Calc 38.64, Est GFR (MDRD) Af Amer 59 L, Est GFR (MDRD) Non-Af 49 L, BUN/Creatinine Ratio 37.6 H, Glucose 152 H, Calcium 8.6 08/24/21 11:02: POC Glucose 143 H Micro: Microbiology 08/19/21 11:50 Urine, Clean Catch Legionella Antigen - Final 08/19/21 11:50 Urine, Clean Catch Streptococcus pneumoniae Antigen (M - Final 08/10/21 16:30 Nasal Secretion SARS-CoV-2 Antigen (Rapid) - Final SARS-CoV-2 (COVID 19) Physical Exam Const alert Constitutional Narrative: On BiPAP General Appearance: cooperative and comfortable Nutritional Appearance: morbidly obese HEENT normocephalic and head/scalp atraumatic HEENT Narrative: Right nares with blood Eyes PERRL, EOMs intact bilaterally and conjunctivae normal Neck supple General: trachea midline Chest inspection of chest normal Chest: symmetrical chest wall rise; Negative for crepitus Resp No no use of accessory muscles Auscultation: diminished lung sounds; Negative for rales, rhonchi or wheezes Cardio S1 normal heart sound and S2 normal heart sound Rate: tachycardic GI normal to inspection, nondistended, normoactive bowel sounds Extremity Extremity Narrative: chronic venous stasis noted General Extremity: edema bilateral lower extremity (2+); Negative for clubbing or cyanosis Skin no rashes or lesions noted Neuro CN's II-XII intact bilaterally, moves all extremities and no focal motor deficits Psych Mood & Affect: anxious Charges/Coding Visit Charges Inpatient E&M: 18056 Subs Hosp L3
--- NOTE | 2021-08-24 14:20 | PCM.PN.ID ---
Physical Exam Narrative No fever, lethargic Const Orientation / Consciousness: lethargic Resp Auscultation: diminished lung sounds Cardio regular rate and regular rhythm GI normal to inspection, nondistended, normoactive bowel sounds Skin no rashes or lesions noted ID ID: Route of nutrition/ use of supplements: [] Nutritional Intake: [] IV Site: [] Rodriguez Catheter: [] Assessment & Plan Assessment/Plan (1) Acute respiratory failure with hypoxia: (2) COVID-19: PLAN: Sx started over 4 weeks ago, ok to come out of isolation. On dex. High O2 reqs, on bipap. On high flow O2 since afternoon of 08/10, so not a candidate for baricitinib at this point. Recommend vaccine for her and her family when she gets out of the hospital. New ESTEFANI, Will stop zosyn today. Will follow
[2021-08-24 16:30] LABS: Bedside Glucose 131 mg/dL (70-110)
--- NOTE | 2021-08-24 16:54 | PN.HOSP_ITS ---
Subjective Subjective Patient had epistaxis yesterday on anticoagulant therefore Lovenox was stopped. On airborne BiPAP. Patient has history of asthma obstructive sleep apnea. Patient is DNR CC arrest with no intubation. Patient had Rhinocort last night but she removed it. Objective Data Objective Data Vital Signs: Vital Signs Temp Pulse Resp BP Pulse Ox 98.1 F 96 27 H 129/65 H 93 08/24/21 14:30 08/24/21 14:59 08/24/21 14:59 08/24/21 14:30 08/24/21 14:59 Oxygen Flow Rate (L/min) 60 Oxygen Delivery Method Bi-pap Weight: 220 lb 0.341 oz Body Mass Index (BMI) 41.1 Intake & Output: Intake and Output for Last 24 Hours 08/22/21 08/23/21 08/24/21 23:59 23:59 23:59 Intake Total 1330 / 1570 1230 / 1350 220 / 220 Output Total 750 / 960 685 / 985 625 / 625 Balance 580 / 610 545 / 365 -405 / -405 Lab / Micro Data Result Diagrams: 08/23/21 05:34 08/24/21 06:25 Labs: Laboratory Results - last 24 hr 08/23/21 21:23: POC Glucose 127 H 08/24/21 06:05: POC Glucose 163 H 08/24/21 06:25: Sodium 141, Potassium 3.9, Chloride 105, Carbon Dioxide 29.0, Anion Gap 7, BUN 44 H, Creatinine 1.17 H, Estim Creat Clear Calc 38.64, Est GFR (MDRD) Af Amer 59 L, Est GFR (MDRD) Non-Af 49 L, BUN/Creatinine Ratio 37.6 H, Glucose 152 H, Calcium 8.6 08/24/21 11:02: POC Glucose 143 H 08/24/21 16:22: POC Glucose 131 H Micro: Microbiology 08/19/21 11:50 Urine, Clean Catch Legionella Antigen - Final 08/19/21 11:50 Urine, Clean Catch Streptococcus pneumoniae Antigen (M - Final 08/10/21 16:30 Nasal Secretion SARS-CoV-2 Antigen (Rapid) - Final SARS-CoV-2 (COVID 19) Physical Exam Narrative General: Alert, Oriented x3, Cooperative HEENT: Dried blood clot in nostrils. Atraumatic, PERRLA, EOMI, Normocephalic Oral: On BiPAP. Neck: Supple, No JVD, Negative Carotid Bruits Lungs: Air entry diminished in bilateral lung bases. Bilateral rhonchi. Cardiovascular: Regular rate, Regular Rhythm, Normal S1, Normal S2, No murmurs Abdomen: Bowel Sounds Present, Soft, Non Tender, Non-Distended : No renal angle tenderness. No suprapubic tenderness. Extremities: No edema, Capillary Refill Less than 3 Seconds Skin: No rashes, No breakdown Musculoskeletal: No Tenderness to Palpation of Joints or Extremities Neurological: Cranial nerves II-XII grossly intact, DTR 2+/4 and Symmetrical, Neuro grossly intact Psych/Mental Status: Flat affect. Assessment & Plan Assessment/Plan (1) Acute respiratory failure with hypoxia: PLAN: (1) Acute respiratory failure with hypoxia secondary to COVID-19 pneumonia: Patient is being admitted in PCU on BiPAP. Patient seen by ID and clinical education assistant/distribution systems serviceperson. Completed dexamethasone and remdesivir. The patient did not carry it off baricitinib. IV Zosyn discontinued by ID for ESTEFANI. Continue mucolytic and bronchopulmonary hygiene with incentive spirometry. Patient symptoms started 4 weeks ago therefore out of isolation. 2. Leukocytosis: MRSA PCR negative. Zosyn discontinued as mentioned above. Leukocytosis decreasing Hypothyroidism -Continue levothyroxine ESTEFANI on CKD stage II: Creatinine went up from 1.06-1.17. Lasix empirically for diuresis of 1 to 1.5 L daily Vitamin D deficiency -Hold vitamin D while hospitalized Seasonal allergies -Continue nasal sprays ARYAN -Patient is currently on continuous BiPAP Epistaxis probably due to therapeutic Lovenox: Rhinocort was done by nighttime hospitalist patient removed it. Currently, blood is crusted. No active bleeding. Enoxaparin discontinued DVT prophylaxis Bilateral SCDs CODE STATUS -DNR CCA no intubation Charges/Coding Visit Charges Inpatient E&M: 50632 Subs Hosp L2
[2021-08-24 22:05] LABS: Bedside Glucose 142 mg/dL (70-110)
[2021-08-25] VITALS (15 sets, daily range): BP systolic 111–128; BP diastolic 62–74; PULSE 77–94; RESP 12–29; TEMP 36.4–36.6; O2SAT 89–95
[2021-08-25 06:08] LABS: Anion Gap 7 (5-15); BUN 37 mg/dL (7-18); BUN/Creat Ratio 36.6 RATIO (10-20); Calcium,Total 8.7 mg/dL (8.5-10.1); Chloride 107 mmol/L (98-107); Creatinine, Serum 1.01 mg/dL (0.55-1.02); EST Glomerular Filtration Rate 57 mL/min (>60); Est Glom Filt Rate - Afr Amer 70 mL/min (>60); Estimated Creatinine Clearance 44.76 ml/min; Glucose 164 mg/dL (74-106); Sodium Level 143 mmol/L (136-145)
[2021-08-25] MEDS: Insulin Lispro 100 UNIT/ML INSULN.PEN SC (06:31)
[2021-08-25 06:41] LABS: Bedside Glucose 179 mg/dL (70-110)
--- NOTE | 2021-08-25 08:11 | PCM.PN.INT ---
Assessment & Plan Assessment/Plan (1) Acute respiratory failure with hypoxia: (2) COVID-19: (3) Obstructive sleep apnea: (4) Chronic obstructive pulmonary disease: (5) Asthma: PLAN: RECOMMENDATIONS: 1. Recommend completing 7 days of antimicrobials (08/26/2021) 2. Agree with p.o. Lasix. Goal of -1 to 2 L/day 3. Hold anticoagulation given epistaxis 4. N.p.o. while on BiPAP 5. Continue noninvasive positive pressure ventilatory support. Wean FiO2 for saturations greater than 90%. 6. Continue bronchodilator therapy. 7. Continue Decadron to complete 10 days of therapy. IMPRESSIONS: 1. Acute hypoxic respiratory failure secondary to COVID-19 pneumonia Due to delayed hospital presentation, the patient was not a candidate for remdesivir. PREET inhibitor therapy was not felt to be indicated by infectious diseases. The patient's respiratory status still remains quite tenuous. She will be continued on Airvo with a goal to maintain oxygen saturations at or above 90%. The patient will be continued on Decadron to complete a 10-day treatment course. Continue bronchodilators as ordered. Attempt use of BiPAP and fullface options for 24 to 48 hours. Agree with gentle diuresis with a goal of -1 to 2 L/day. Patient advised that p.o. intake with BiPAP in place can lead to aspiration. Anticoagulation is currently on hold. 2. Morbid obesity/seasonal allergies/hypothyroidism/poor insight/advanced age Complicates care, management, recovery and prognosis. Continue supportive measures as noted above. CODE STATUS remains DNR CCA without intubation. This note was generated with [employer] dictation software. It may contain incorrect words, spelling, and punctuation that were not noted in checking the note before signing. Subjective Subjective Patient did okay overnight. Patient did have packing placed on her nose secondary to persistent epistaxis. Patient was found trying to take sips of water through the BiPAP. She was cautioned that this could lead to aspiration and deterioration of her current status. Objective Data Objective Data Vital Signs: Vital Signs Temp Pulse Resp BP Pulse Ox 36.6 C 77 20 H 126/65 H 93 08/25/21 03:30 08/25/21 07:30 08/25/21 03:30 08/25/21 03:30 08/25/21 03:30 Oxygen Flow Rate (L/min) 15 Oxygen Delivery Method Bi-pap Weight: 99.6 kg Body Mass Index (BMI) 41.1 Intake & Output: Intake and Output for Last 24 Hours 08/23/21 08/24/21 08/25/21 23:59 23:59 23:59 Intake Total 1230 / 1350 660 / 660 120 / 120 Output Total 685 / 985 750 / 1100 350 / 350 Balance 545 / 365 -90 / -440 -230 / -230 Lab / Micro Data Result Diagrams: 08/23/21 05:34 08/25/21 04:55 Labs: Laboratory Results - last 24 hr 08/24/21 11:02: POC Glucose 143 H 08/24/21 16:22: POC Glucose 131 H 08/24/21 21:53: POC Glucose 142 H 08/25/21 04:55: Sodium 143, Potassium 4.0, Chloride 107, Carbon Dioxide 29.0, Anion Gap 7, BUN 37 H, Creatinine 1.01, Estim Creat Clear Calc 44.76, Est GFR (MDRD) Af Amer 70, Est GFR (MDRD) Non-Af 57 L, BUN/Creatinine Ratio 36.6 H, Glucose 164 H, Calcium 8.7 08/25/21 06:29: POC Glucose 179 H Micro: Microbiology 08/19/21 11:50 Urine, Clean Catch Legionella Antigen - Final 08/19/21 11:50 Urine, Clean Catch Streptococcus pneumoniae Antigen (M - Final 08/10/21 16:30 Nasal Secretion SARS-CoV-2 Antigen (Rapid) - Final SARS-CoV-2 (COVID 19) Physical Exam Const alert Constitutional Narrative: On BiPAP General Appearance: cooperative and comfortable Nutritional Appearance: morbidly obese HEENT normocephalic and head/scalp atraumatic HEENT Narrative: Packed nares Eyes PERRL, EOMs intact bilaterally and conjunctivae normal Neck supple General: trachea midline Chest inspection of chest normal Chest: symmetrical chest wall rise; Negative for crepitus Resp No no use of accessory muscles Auscultation: diminished lung sounds; Negative for rales, rhonchi or wheezes Cardio S1 normal heart sound and S2 normal heart sound Rate: tachycardic GI normal to inspection, nondistended, normoactive bowel sounds Extremity Extremity Narrative: chronic venous stasis noted General Extremity: edema bilateral lower extremity (2+); Negative for clubbing or cyanosis Skin no rashes or lesions noted Neuro CN's II-XII intact bilaterally, moves all extremities and no focal motor deficits Psych Mood & Affect: anxious Charges/Coding Visit Charges Inpatient E&M: 40703 Subs Hosp L3
[2021-08-25] MEDS: Ipratropium/Albuterol Sulfate 3 ML AMPUL.NEB INHALATION (10:48)
[2021-08-25 11:50] LABS: Bedside Glucose 129 mg/dL (70-110)
--- NOTE | 2021-08-25 13:54 | PCM.PN.HOSP ---
Subjective Subjective Patient still short of breath. On 15 L of oxygen nonrebreather. Tachypneic. Objective Data Objective Data Vital Signs: Vital Signs Temp Pulse Resp BP Pulse Ox 97.5 F L 90 28 H 117/74 92 08/25/21 09:25 08/25/21 11:55 08/25/21 10:50 08/25/21 09:25 08/25/21 09:45 Oxygen Flow Rate (L/min) 15 Oxygen Delivery Method Non-Rebreather Weight: 219 lb 9.286 oz Body Mass Index (BMI) 41.1 Intake & Output: Intake and Output for Last 24 Hours 08/23/21 08/24/21 08/25/21 23:59 23:59 23:59 Intake Total 1230 / 1350 660 / 660 120 / 120 Output Total 685 / 985 750 / 1100 350 / 350 Balance 545 / 365 -90 / -440 -230 / -230 Lab / Micro Data Result Diagrams: 08/23/21 05:34 08/25/21 04:55 Labs: Laboratory Results - last 24 hr 08/24/21 16:22: POC Glucose 131 H 08/24/21 21:53: POC Glucose 142 H 08/25/21 04:55: Sodium 143, Potassium 4.0, Chloride 107, Carbon Dioxide 29.0, Anion Gap 7, BUN 37 H, Creatinine 1.01, Estim Creat Clear Calc 44.76, Est GFR (MDRD) Af Amer 70, Est GFR (MDRD) Non-Af 57 L, BUN/Creatinine Ratio 36.6 H, Glucose 164 H, Calcium 8.7 08/25/21 06:29: POC Glucose 179 H 08/25/21 11:43: POC Glucose 129 H Micro: Microbiology 08/19/21 11:50 Urine, Clean Catch Legionella Antigen - Final 08/19/21 11:50 Urine, Clean Catch Streptococcus pneumoniae Antigen (M - Final 08/10/21 16:30 Nasal Secretion SARS-CoV-2 Antigen (Rapid) - Final SARS-CoV-2 (COVID 19) Radiography Diagnostic Testing: Radiology Impression Venous Doppler Study 08/24/21 03:39 Interpretation Summary Acute deep vein thrombosis is noted in the right soleus vein. The remainder of the right lower extremity deep venous system is patent and compressible. Deep veins of the left lower extremity are patent and compressible segmentally. There is no evidence of left lower extremity deep vein thrombosis. Valvular competence appears intact within the proximal deep venous systems bilaterally. The great saphenous veins appear bilaterally patent and compressible segmentally. Ordering Physician: Greg Garrett Referring Physician: Meghan Murphy Performed By: Sadie Traore, VINOD, RVT Physical Exam Narrative General: Alert, Oriented x3, Cooperative HEENT: Dried blood clot in nostrils. Atraumatic, PERRLA, EOMI, Normocephalic Oral: On non rebreather, 15 L/m Neck: Supple, No JVD, Negative Carotid Bruits Lungs: Air entry diminished in bilateral lung bases. Bilateral rhonchi. Bronchial breath sound bilaterally. Cardiovascular: Regular rate, Regular Rhythm, Normal S1, Normal S2, No murmurs Abdomen: Bowel Sounds Present, Soft, Non Tender, Non-Distended : No renal angle tenderness. No suprapubic tenderness. Extremities: No edema, Capillary Refill Less than 3 Seconds Skin: No rashes, No breakdown Musculoskeletal: No Tenderness to Palpation of Joints or Extremities Neurological: Cranial nerves II-XII grossly intact, DTR 2+/4 and Symmetrical, Neuro grossly intact Psych/Mental Status: Flat affect. Assessment & Plan Assessment/Plan (1) Acute respiratory failure with hypoxia: PLAN: (1) Acute respiratory failure with hypoxia secondary to COVID-19 pneumonia: Patient is being admitted in PCU on BiPAP. 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 Completed dexamethasone and remdesivir. The patient did not carry it off baricitinib. IV Zosyn discontinued by ID for ESTEFANI. Continue mucolytic and bronchopulmonary hygiene with incentive spirometry. Patient symptoms started 4 weeks ago therefore out of isolation. 08/25: Patient on nonrebreather mask. Lower extremity Doppler shows Acute deep vein thrombosis is noted in the right soleus vein but rest of the lower extremity veins are patent and compressible. Anticoagulant on hold because of severe epistaxis 2. Leukocytosis: MRSA PCR negative. Zosyn discontinued as mentioned above. Leukocytosis decreasing Hypothyroidism -Continue levothyroxine ESTEFANI on CKD stage II: Creatinine went up from 1.06-1.17. Lasix empirically for diuresis of 1 to 1.5 L daily 08/25: Fluid balance +85 mL. Creatinine normal 1.0. ESTEFANI resolved Vitamin D deficiency -Hold vitamin D while hospitalized Seasonal allergies -Continue nasal sprays ARYAN -Patient is currently on continuous BiPAP Epistaxis probably due to therapeutic Lovenox: Rhinocort was done by nighttime hospitalist patient removed it. Currently, blood is crusted. No active bleeding. Enoxaparin discontinued DVT prophylaxis Bilateral SCDs CODE STATUS -DNR CCA no intubation Charges/Coding Visit Charges Inpatient E&M: 79380 Subs Hosp L2
[2021-08-25] MEDS: Sodium Chloride 0.65% 1 SPRAY SPRAY.BTL 2 SPRAY NASAL ×2 (14:27→21:48)
[2021-08-25 16:20] LABS: Bedside Glucose 140 mg/dL (70-110)
[2021-08-25 23:51] LABS: Bedside Glucose 169 mg/dL (70-110)
[2021-08-26] VITALS (15 sets, daily range): BP systolic 115–132; BP diastolic 60–78; PULSE 74–100; RESP 18–30; TEMP 36.2–37.1; O2SAT 87–92
[2021-08-26 06:51] LABS: Bedside Glucose 132 mg/dL (70-110)
[2021-08-26] MEDS: Ipratropium/Albuterol Sulfate 3 ML AMPUL.NEB INHALATION ×2 (06:51→10:03)
[2021-08-26] MEDS: Haloperidol Lactate 5 MG/ML Vial 1 MG IV (09:46)
[2021-08-26] MEDS: Furosemide 40 MG Tablet PO (09:46)
[2021-08-26] MEDS: Levothyroxine 125 MCG Tablet PO (09:46)
[2021-08-26] MEDS: Sodium Chloride 0.65% 1 SPRAY SPRAY.BTL 2 SPRAY NASAL ×2 (10:00→21:19)
[2021-08-26 11:55] LABS: Bedside Glucose 136 mg/dL (70-110)
--- NOTE | 2021-08-26 13:32 | PCM.PN.HOSP ---
Subjective Subjective Patient is still on nonrebreather mask. Still requires high FiO2. Objective Data Objective Data Vital Signs: Vital Signs Temp Pulse Resp BP Pulse Ox 97.2 F L 87 20 H 117/78 87 08/26/21 13:23 08/26/21 13:23 08/26/21 13:23 08/26/21 13:23 08/26/21 13:23 Oxygen Flow Rate (L/min) 15 Oxygen Delivery Method Non-Rebreather Weight: 220 lb 14.451 oz Body Mass Index (BMI) 41.1 Intake & Output: Intake and Output for Last 24 Hours 08/24/21 08/25/21 08/26/21 23:59 23:59 23:59 Intake Total 660 / 660 520 / 520 60 / 60 Output Total 750 / 1100 350 / 350 400 / 400 Balance -90 / -440 170 / 170 -340 / -340 Lab / Micro Data Result Diagrams: 08/23/21 05:34 08/25/21 04:55 Labs: Laboratory Results - last 24 hr 08/25/21 16:10: POC Glucose 140 H 08/25/21 20:27: POC Glucose 169 H 08/26/21 06:42: POC Glucose 132 H 08/26/21 11:48: POC Glucose 136 H Micro: Microbiology 08/19/21 11:50 Urine, Clean Catch Legionella Antigen - Final 08/19/21 11:50 Urine, Clean Catch Streptococcus pneumoniae Antigen (M - Final 08/10/21 16:30 Nasal Secretion SARS-CoV-2 Antigen (Rapid) - Final SARS-CoV-2 (COVID 19) Physical Exam Narrative General: Alert, Oriented x3, Cooperative HEENT: Dried blood clot in nostrils. Atraumatic, PERRLA, EOMI, Normocephalic Oral: On non rebreather, 15 L/m Neck: Supple, No JVD, Negative Carotid Bruits Lungs: Dyspnea at rest. Air entry diminished in bilateral lung bases. Bilateral rhonchi. Bronchial breath sound bilaterally. Cardiovascular: Regular rate, Regular Rhythm, Normal S1, Normal S2, No murmurs Abdomen: Bowel Sounds Present, Soft, Non Tender, Non-Distended : No renal angle tenderness. No suprapubic tenderness. Extremities: No edema, Capillary Refill Less than 3 Seconds Skin: No rashes, No breakdown Musculoskeletal: No Tenderness to Palpation of Joints or Extremities Neurological: Cranial nerves II-XII grossly intact, DTR 2+/4 and Symmetrical, Neuro grossly intact Psych/Mental Status: Flat affect. Assessment & Plan Assessment/Plan (1) Acute respiratory failure with hypoxia: PLAN: (1) Acute respiratory failure with hypoxia secondary to COVID-19 pneumonia: Patient is being admitted in PCU on BiPAP. 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 Completed dexamethasone and remdesivir. The patient did not carry it off baricitinib. IV Zosyn discontinued by ID for ESTEFANI. Continue mucolytic and bronchopulmonary hygiene with incentive spirometry. Patient symptoms started 4 weeks ago therefore out of isolation. 08/25: Patient on nonrebreather mask. Lower extremity Doppler shows Acute deep vein thrombosis is noted in the right soleus vein but rest of the lower extremity veins are patent and compressible. Anticoagulant on hold because of severe epistaxis 08/26: Continue treatment. Continue incentive spirometry. 2. Leukocytosis: MRSA PCR negative. Zosyn discontinued as mentioned above. Leukocytosis decreasing Hypothyroidism -Continue levothyroxine ESTEFANI on CKD stage II: Creatinine went up from 1.06-1.17. Lasix empirically for diuresis of 1 to 1.5 L daily 08/25: Fluid balance +85 mL. Creatinine normal 1.0. ESTEFANI resolved Vitamin D deficiency -Hold vitamin D while hospitalized Seasonal allergies -Continue nasal sprays ARYAN -Patient is currently on continuous BiPAP Epistaxis probably due to therapeutic Lovenox: Rhinocort was done by nighttime hospitalist patient removed it. Currently, blood is crusted. No active bleeding. Enoxaparin discontinued DVT prophylaxis Bilateral SCDs CODE STATUS -DNR CCA no intubation Charges/Coding Visit Charges Inpatient E&M: 14463 Subs Hosp L2
[2021-08-26 16:26] LABS: Bedside Glucose 119 mg/dL (70-110)
[2021-08-26] MEDS: MELATONIN 10 MG TABLET PO (21:18)
[2021-08-26 22:00] LABS: Bedside Glucose 133 mg/dL (70-110)
--- NOTE | 2021-08-26 22:30 | NURSING ---
Pt refused vitals Q4 today. Pt finally let RN get a set of vitals. Pt's current SPO2 is 88% on 15L non-rebreather. Pt refusing to put on bipap at this time. RN will continue to ask patient and monitor SPO2. Pt sitting in bed comfortably at this time. Pt has no complaints.
[2021-08-27] VITALS (17 sets, daily range): BP systolic 105–133; BP diastolic 51–76; PULSE 65–107; RESP 12–40; TEMP 36.4–36.9; O2SAT 89–97
[2021-08-27 06:25] LABS: Bedside Glucose 119 mg/dL (70-110)
[2021-08-27] MEDS: Ipratropium/Albuterol Sulfate 3 ML AMPUL.NEB INHALATION ×3 (06:47→19:32)
--- NOTE | 2021-08-27 08:47 | NURSING ---
SpO2 noted to be in low 80's on 15L non rebreather. Pt very talkative. Educated pt on minimizing talking and taking deeper slower breathes. SpO2 remains mid 80's. Attempted to get pt to go onto bipap, pt refused adamantly. Education on bipap provided, pt states Ya I know. I don't want it on right now. Marleny RT into room, pt now agreeable to try bipap. Bipap placed on pt at 0840 06/09 @ 100%. Spo2 now 94%.
--- NOTE | 2021-08-27 09:54 | PCM.PN.HOSP ---
Subjective Subjective Patient seen still remains on high flow oxygen currently out of Covid isolation. Case was discussed with case management regarding possible transfer to to an LTAC to assist with weaning off oxygen Objective Data Objective Data Vital Signs: Vital Signs Temp Pulse Resp BP Pulse Ox 98.0 F 105 H 40 H 133/75 H 97 08/27/21 05:56 08/27/21 09:10 08/27/21 09:10 08/27/21 05:56 08/27/21 09:10 Oxygen Flow Rate (L/min) 15 Oxygen Delivery Method Non-Rebreather Weight: 99.8 kg Body Mass Index (BMI) 41.1 Intake & Output: Intake and Output for Last 24 Hours 08/25/21 08/26/21 08/27/21 23:59 23:59 23:59 Intake Total 520 / 520 110 / 110 140 / 140 Output Total 350 / 350 1025 / 1025 200 / 200 Balance 170 / 170 -915 / -915 -60 / -60 Lab / Micro Data Result Diagrams: 08/23/21 05:34 08/25/21 04:55 Labs: Laboratory Results - last 24 hr 08/26/21 11:48: POC Glucose 136 H 08/26/21 16:18: POC Glucose 119 H 08/26/21 21:12: POC Glucose 133 H 08/27/21 06:23: POC Glucose 119 H Micro: Microbiology 08/19/21 11:50 Urine, Clean Catch Legionella Antigen - Final 08/19/21 11:50 Urine, Clean Catch Streptococcus pneumoniae Antigen (M - Final 08/10/21 16:30 Nasal Secretion SARS-CoV-2 Antigen (Rapid) - Final SARS-CoV-2 (COVID 19) Physical Exam Narrative GENERAL: Dyspneic at rest HEENT: Atraumatic; EYES; Anicteric, Normal Conjunctiva NECK; supple, normal thyroid, RESPIRATORY: Diminished to auscultation CARDIOVASCULAR: Regular S1 S2, GI: soft, normoactive bowel sounds, : No Renal angle tenderness; EXTREMITIES: No edema, no clubbing, MUSCULOSKELETAL: no muscle waisting NEURO: Awake; no lateralizing signs. SKIN: No Rash PSYCH; Flat affect Assessment & Plan Assessment/Plan (1) COVID-19: (2) Hypoxia: PLAN: Patient is a 70-year-old lady admitted with progressive shortness of breath diagnosed with acute hypoxic respiratory failure secondary to COVID-19 pneumonia 1. Acute hypoxic respiratory failure secondary to SARS-CoV-2 pneumonia ?Checks x-ray on admission demonstrated bilateral patchy infiltrate. Patient currently on day 4 of both remdesivir as well as Decadron. Consult placed to both ID as well as pulmonary medicine -08/15/2021atient seen still remains significantly dyspneic at rest currently on 90% FiO2 and on BiPAP. She still does not want to be intubated. Case discussed with pulmonary medicine. Labs ordered for a.m. -08/16/2021 patient has been weaned off BiPAP to Airvo however still requires significantly high oxygen 40 L with FiO2 of 90%. Did encourage the use of incentive spirometry -08/17/2021. Patient was started onAirvo and transferred to PCU. Patient remains delirious. Nonrebreather added to patient oxygen therapy. Did encourage patient on the need to be compliant with therapy -08/18/2021;Patient seen was reported to be very agitated this a.m. Repeat of her oxygen via BiPAP. Patient had to be given 2 mg of Haldol as well as 2 mg of Ativan to sedate to keep her BiPAP on -08/19/2021; patient currently tolerating BiPAP less agitated compared to previous. In view of her increasing oxygen demands D-dimer was ordered after discussion with Dr. Cruz. Patient Lovenox dose increased from prophylactic to therapeutic dose. -08/27/2021; Patient seen still remains on high flow oxygen currently out of Covid isolation. Case was discussed with case management regarding possible transfer to to an LTAC to assist with weaning off oxygen 2. Acute metabolic encephalopathy ?Secondary to hypoxia. Patient is on supplemental oxygen as above -08/19/2021; patient remains less agitated compared to previous day. 3. Acute renal insufficiency ?Creatinine was 1.39 on 08/12/2021 back to baseline at 0.92 (chronic kidney disease stage II ruled out) 4. Obesity with BMI of 41.6 ?Weight loss advised 5. Vitamin D deficiency ?Patient is some supplement with plans to resume following discharge 5. Obstructive sleep apnea ?Patient on BiPAP at night 6. Moderate intermittent asthma ?Aerosol treatment as needed 7. Hypothyroidism ?Patient is on levothyroxine did continue 8. DVT prophylaxis ?Lovenox SC 40 twice daily 9. Physical deconditioning - Requested for PT OT eval and social sciences department chair to assist with discharge planning Charges/Coding Visit Charges Inpatient E&M: 97567 Subs Hosp L2
[2021-08-27] MEDS: Levothyroxine 125 MCG Tablet PO (11:00)
[2021-08-27] MEDS: Furosemide 40 MG Tablet PO (11:01)
[2021-08-27] MEDS: Sodium Chloride 0.65% 1 SPRAY SPRAY.BTL 2 SPRAY NASAL ×2 (11:02→21:57)
[2021-08-27 11:30] LABS: Bedside Glucose 194 mg/dL (70-110)
[2021-08-27] MEDS: Insulin Lispro 100 UNIT/ML INSULN.PEN SC ×2 (11:30→16:13)
[2021-08-27 16:16] LABS: Bedside Glucose 155 mg/dL (70-110)
[2021-08-27] MEDS: MELATONIN 10 MG TABLET PO (21:57)
[2021-08-27 22:05] LABS: Bedside Glucose 134 mg/dL (70-110)
[2021-08-28] VITALS (20 sets, daily range): BP systolic 102–118; BP diastolic 65–80; PULSE 71–113; RESP 19–32; TEMP 36.3–36.6; O2SAT 88–98
[2021-08-28] MEDS: Ipratropium/Albuterol Sulfate 3 ML AMPUL.NEB INHALATION ×4 (06:36→20:05)
[2021-08-28 06:40] LABS: Bedside Glucose 106 mg/dL (70-110)
[2021-08-28 07:22] LABS: Absolute Lymphocyte Count 1.26 X10^3/uL (0.83-4.51); Absolute Neutrophil Count 7.2 X10^3/uL (2.0-7.7); Basophil# 0.04 X10^3/uL; Basophil% 0.4 % (0-1); Eosinophil# 1.01 X10^3/uL; Eosinophils% 10.2 % (0-5); Lymphocyte # 1.26 X10^3/ul (0.83-4.51); Lymphocyte % 12.7 % (19-41); Mean Corp Hgb Conc 30.8 g/dL (32-36); Mean Corpuscular Hgb 28.5 pg (27.0-32.0); Mean Corpuscular Volume 92.6 fL (81-99); Mean Platelet Vol. 11.1 fl (6.2-12.0); Monocyte# 0.29 X10^3/uL; Monocyte% 2.9 % (0-10); NRBC Flagged by Analyzer 0 % (0-5); Neutrophil % 72.3 % (47-70); Platelet Count 351 K/mm3 (150-450); RBC Distribution Width CV 13.8 % (11.6-14.6); RBC Distribution Width SD 46.3 fl (35.1-43.9); Red Blood Count 4.21 M/mm3 (4.2-5.4)
--- NOTE | 2021-08-28 07:29 | PN.HOSP_ITS ---
Subjective Subjective Patient seen appears clinically improved however still requiring high flow oxygen currently on Airvo 50 L/min with 90% FiO2 Objective Data Objective Data Vital Signs: Vital Signs Temp Pulse Resp BP Pulse Ox 97.9 F 86 30 H 116/78 96 08/28/21 02:00 08/28/21 06:37 08/28/21 06:37 08/28/21 02:00 08/28/21 06:37 Oxygen Flow Rate (L/min) 50 Oxygen Delivery Method Airvo Weight: 97.8 kg Body Mass Index (BMI) 41.1 Intake & Output: Intake and Output for Last 24 Hours 08/26/21 08/27/21 08/28/21 23:59 23:59 23:59 Intake Total 110 / 110 1690 / 1690 Output Total 1025 / 1025 900 / 1100 450 / 450 Balance -915 / -915 790 / 590 -450 / -450 Lab / Micro Data Result Diagrams: 08/28/21 06:42 08/28/21 06:42 Labs: Laboratory Results - last 24 hr 08/27/21 11:22: POC Glucose 194 H 08/27/21 16:04: POC Glucose 155 H 08/27/21 21:54: POC Glucose 134 H 08/28/21 06:32: POC Glucose 106 08/28/21 06:42: WBC 10.0, RBC 4.21, Hgb 12.0, Hct 39.0, MCV 92.6, MCH 28.5, MCHC 30.8 L, RDW Std Deviation 46.3 H, RDW Coeff of Dilip 13.8, Plt Count 351, MPV 11.1, Immature Gran % (Auto) 1.500 H, Neut % (Auto) 72.3 H, Lymph % (Auto) 12.7 L, [place] % (Auto) 2.9, Eos % (Auto) 10.2 H, Baso % (Auto) 0.4, Absolute Neuts (auto) 7.2, Absolute Lymphs (auto) 1.26, Nucleated RBC % 0 Micro: Microbiology 08/19/21 11:50 Urine, Clean Catch Legionella Antigen - Final 08/19/21 11:50 Urine, Clean Catch Streptococcus pneumoniae Antigen (M - Final 08/10/21 16:30 Nasal Secretion SARS-CoV-2 Antigen (Rapid) - Final SARS-CoV-2 (COVID 19) Physical Exam Narrative GENERAL: Dyspneic at rest HEENT: Atraumatic; EYES; Anicteric, Normal Conjunctiva NECK; supple, normal thyroid, RESPIRATORY: Diminished to auscultation CARDIOVASCULAR: Regular S1 S2, GI: soft, normoactive bowel sounds, : No Renal angle tenderness; EXTREMITIES: No edema, no clubbing, MUSCULOSKELETAL: no muscle waisting NEURO: Awake; no lateralizing signs. SKIN: No Rash PSYCH; Flat affect Assessment & Plan Assessment/Plan (1) COVID-19: (2) Hypoxia: PLAN: Patient is a 70-year-old lady admitted with progressive shortness of breath diagnosed with acute hypoxic respiratory failure secondary to COVID-19 pneumonia 1. Acute hypoxic respiratory failure secondary to SARS-CoV-2 pneumonia ?Checks x-ray on admission demonstrated bilateral patchy infiltrate. Patient currently on day 4 of both remdesivir as well as Decadron. Consult placed to both ID as well as pulmonary medicine -08/15/2021atient seen still remains significantly dyspneic at rest currently on 90% FiO2 and on BiPAP. She still does not want to be intubated. Case discussed with pulmonary medicine. Labs ordered for a.m. -08/16/2021 patient has been weaned off BiPAP to Airvo however still requires significantly high oxygen 40 L with FiO2 of 90%. Did encourage the use of incentive spirometry -08/17/2021. Patient was started onAirvo and transferred to PCU. Patient remains delirious. Nonrebreather added to patient oxygen therapy. Did encourage patient on the need to be compliant with therapy -08/18/2021;Patient seen was reported to be very agitated this a.m. Repeat of her oxygen via BiPAP. Patient had to be given 2 mg of Haldol as well as 2 mg of Ativan to sedate to keep her BiPAP on -08/19/2021; patient currently tolerating BiPAP less agitated compared to previous. In view of her increasing oxygen demands D-dimer was ordered after discussion with Dr. Cruz. Patient Lovenox dose increased from prophylactic to therapeutic dose. -08/27/2021; Patient seen still remains on high flow oxygen currently out of Covid isolation. Case was discussed with case management regarding possible transfer to to an LTAC to assist with weaning off oxygen -08/28/2021 patient seen appears clinically improved however still requiring high flow oxygen currently on Airvo 50 L/min with 90% FiO2 2. Acute metabolic encephalopathy ?Secondary to hypoxia. Patient is on supplemental oxygen as above -08/19/2021; patient remains less agitated compared to previous day. 3. Acute renal insufficiency ?Creatinine was 1.39 on 08/12/2021 back to baseline at 0.92 (chronic kidney disease stage II ruled out) 4. Obesity with BMI of 41.6 ?Weight loss advised 5. Vitamin D deficiency ?Patient is some supplement with plans to resume following discharge 5. Obstructive sleep apnea ?Patient on BiPAP at night 6. Moderate intermittent asthma ?Aerosol treatment as needed 7. Hypothyroidism ?Patient is on levothyroxine did continue 8. DVT prophylaxis ?Lovenox SC 40 twice daily 9. Physical deconditioning - Requested for PT OT eval and social media senior associate to assist with discharge planning Charges/Coding Visit Charges Inpatient E&M: 09289 Subs Hosp L2
[2021-08-28 08:04] LABS: ALB/GLOB Ratio 0.4 RATIO (0.9-2.4); AST(SGOT) 55 U/L (15-37); Alanine Aminotransfer ALT/SGPT 86 U/L (13-56); Albumin, Serum 2.2 g/dL (3.2-5.0); Alkaline Phosphatase 168 U/L (45-117); Anion Gap 7 (5-15); BUN 27 mg/dL (7-18); BUN/Creat Ratio 23.7 RATIO (10-20); Calcium,Total 8.8 mg/dL (8.5-10.1); Chloride 99 mmol/L (98-107); Creatinine, Serum 1.14 mg/dL (0.55-1.02); EST Glomerular Filtration Rate 50 mL/min (>60); Est Glom Filt Rate - Afr Amer 60 mL/min (>60); Estimated Creatinine Clearance 39.65 ml/min; Globulin 6.1 g/dL (2.2-4.2); Glucose 123 mg/dL (74-106); Magnesium 2.3 mg/dL (1.6-2.6); Potassium 3.8 mmol/L (3.5-5.1); Protein, Total 8.3 g/dL (6.4-8.2); Sodium Level 138 mmol/L (136-145)
[2021-08-28] MEDS: Furosemide 40 MG Tablet PO (08:51)
[2021-08-28] MEDS: Sodium Chloride 0.65% 1 SPRAY SPRAY.BTL 2 SPRAY NASAL ×2 (08:51→21:11)
[2021-08-28] MEDS: Levothyroxine 125 MCG Tablet PO (08:51)
--- NOTE | 2021-08-28 11:06 | PCM.PN.INT ---
Assessment & Plan Assessment/Plan (1) Acute respiratory failure with hypoxia: (2) COVID-19: (3) Obstructive sleep apnea: (4) Chronic obstructive pulmonary disease: (5) Asthma: PLAN: RECOMMENDATIONS: 1. Continue to wean oxygen as tolerated for saturations greater than 90%. 2. Increase diuretic regimen. Will defer management of diuretics to hospitalist. 3. Strongly recommend use of nocturnal BiPAP therapy to assist with alveolar recruitment. 4. Continue bronchodilators. 5. Encourage incentive spirometer use and mobilize patient as tolerated. 6. Consider LTACH due to oxygen need. 7. Will sign off. Please call with any additional questions. IMPRESSIONS: 1. Acute hypoxic respiratory failure secondary to COVID-19 pneumonia Due to delayed hospital presentation, the patient was not a candidate for remdesivir. PREET inhibitor therapy was not felt to be indicated by infectious diseases. The patient will be continued on Airvo with a goal to maintain oxygen saturations at or above 90%. The patient has completed a treatment course of Decadron along with antimicrobials. The patient's anticoagulation was discontinued due to the development of epistaxis. Recommend continued attempts at volume optimization with diuretics. Will defer dosing to hospitalist. I would strongly recommend that the patient be encouraged to utilize BiPAP therapy on a nightly basis to facilitate alveolar recruitment. Consideration should be given to LTACH disposition due to ongoing high oxygen demand. 2. Morbid obesity/seasonal allergies/hypothyroidism/poor insight/advanced age Complicates care, management, recovery and prognosis. Continue supportive measures as noted above. CODE STATUS remains DNR CCA without intubation. This note was generated with [employer] dictation software. It may contain incorrect words, spelling, and punctuation that were not noted in checking the note before signing. Subjective Subjective The patient was seen and examined at the bedside this morning. Events from the last 24 hours have been reviewed. The patient is currently afebrile, hemodynamically stable and maintaining appropriate oxygen saturations on Airvo heated high flow with an FiO2 requirement of 90% and flow rate of 50 L/min. The patient is currently documented to be overall net -2 L for the hospital admission. Objective Data Objective Data The patient's most recent lab work, culture data and imaging studies have all been personally reviewed. Rapid coronavirus antigen testing was positive on August 10. Strep and urine Legionella antigens were negative. Vital Signs: Vital Signs Temp Pulse Resp BP Pulse Ox 97.9 F 84 26 H 102/72 96 08/28/21 08:46 08/28/21 08:46 08/28/21 08:46 08/28/21 08:46 08/28/21 08:46 Oxygen Flow Rate (L/min) 50 Oxygen Delivery Method Airvo Weight: 97.8 kg Body Mass Index (BMI) 41.1 Intake & Output: Intake and Output for Last 24 Hours 08/26/21 08/27/21 08/28/21 23:59 23:59 23:59 Intake Total 110 / 110 1690 / 1690 Output Total 1025 / 1025 900 / 1100 450 / 450 Balance -915 / -915 790 / 590 -450 / -450 Lab / Micro Data Attestation: I reviewed the patient's lab results. Result Diagrams: 08/28/21 06:42 08/28/21 06:42 Labs: Laboratory Results - last 24 hr 08/27/21 11:22: POC Glucose 194 H 08/27/21 16:04: POC Glucose 155 H 08/27/21 21:54: POC Glucose 134 H 08/28/21 06:32: POC Glucose 106 08/28/21 06:42: WBC 10.0, RBC 4.21, Hgb 12.0, Hct 39.0, MCV 92.6, MCH 28.5, MCHC 30.8 L, RDW Std Deviation 46.3 H, RDW Coeff of Dilip 13.8, Plt Count 351, MPV 11.1, Immature Gran % (Auto) 1.500 H, Neut % (Auto) 72.3 H, Lymph % (Auto) 12.7 L, [place] % (Auto) 2.9, Eos % (Auto) 10.2 H, Baso % (Auto) 0.4, Absolute Neuts (auto) 7.2, Absolute Lymphs (auto) 1.26, Nucleated RBC % 0 08/28/21 06:42: Sodium 138, Potassium 3.8, Chloride 99, Carbon Dioxide 32.0, Anion Gap 7, BUN 27 H, Creatinine 1.14 H, Estim Creat Clear Calc 39.65, Est GFR (MDRD) Af Amer 60, Est GFR (MDRD) Non-Af 50 L, BUN/Creatinine Ratio 23.7 H, Glucose 123 H, Calcium 8.8, Magnesium 2.3, Total Bilirubin 0.90, AST 55 H, ALT 86 H, Alkaline Phosphatase 168 H, Total Protein 8.3 H, Albumin 2.2 L, Globulin 6.1 H, Albumin/Globulin Ratio 0.4 L Micro: Microbiology 08/19/21 11:50 Urine, Clean Catch Legionella Antigen - Final 08/19/21 11:50 Urine, Clean Catch Streptococcus pneumoniae Antigen (M - Final 08/10/21 16:30 Nasal Secretion SARS-CoV-2 Antigen (Rapid) - Final SARS-CoV-2 (COVID 19) Physical Exam Const alert and no apparent distress General Appearance: cooperative Nutritional Appearance: morbidly obese HEENT normocephalic and head/scalp atraumatic Eyes PERRL, EOMs intact bilaterally and conjunctivae normal Neck supple General: trachea midline Chest inspection of chest normal Resp Auscultation: diminished lung sounds; Negative for rales, rhonchi or wheezes Cardio regular rate and regular rhythm GI normal to inspection, nondistended, normoactive bowel sounds Extremity General Extremity: edema; Negative for clubbing Skin General Skin Exam: venous stasis and dermatitis Neuro moves all extremities and no focal motor deficits Psych Mood & Affect: anxious Charges/Coding Visit Charges Inpatient E&M: 58976 Subs Hosp L2
[2021-08-28] MEDS: Furosemide 40 MG/4 ML Vial IV (12:09)
[2021-08-28] MEDS: Insulin Lispro 100 UNIT/ML INSULN.PEN SC ×2 (12:10→16:47)
[2021-08-28 12:20] LABS: Bedside Glucose 151 mg/dL (70-110)
[2021-08-28] MEDS: Acetaminophen 325 MG Tablet 650 MG PO (15:55)
[2021-08-28 16:56] LABS: Bedside Glucose 209 mg/dL (70-110)
[2021-08-28] MEDS: MELATONIN 10 MG TABLET PO (21:11)
[2021-08-28] MEDS: guaiFENesin 1,200 MG Tablet 1200 MG PO (21:11)
[2021-08-28 22:50] LABS: Bedside Glucose 111 mg/dL (70-110)
[2021-08-29] VITALS (24 sets, daily range): BP systolic 95–133; BP diastolic 61–92; PULSE 88–124; RESP 12–36; TEMP 35.9–36.9; O2SAT 85–97
[2021-08-29 06:13] LABS: Absolute Lymphocyte Count 1.44 X10^3/uL (0.83-4.51); Absolute Neutrophil Count 8.4 X10^3/uL (2.0-7.7); Basophil# 0.08 X10^3/uL; Basophil% 0.7 % (0-1); Eosinophil# 1.26 X10^3/uL; Eosinophils% 10.8 % (0-5); Hematocrit 40.2 % (37-47); Hemoglobin 12.3 g/dL (12.0-15.0); Lymphocyte # 1.44 X10^3/ul (0.83-4.51); Lymphocyte % 12.4 % (19-41); Mean Corp Hgb Conc 30.6 g/dL (32-36); Mean Corpuscular Volume 91.4 fL (81-99); Mean Platelet Vol. 11.2 fl (6.2-12.0); Monocyte# 0.34 X10^3/uL; Monocyte% 2.9 % (0-10); NRBC Flagged by Analyzer 0 % (0-5); Neutrophil # 8.35 X10^3/uL (2.7-7.7); Neutrophil % 71.8 % (47-70); Platelet Count 361 K/mm3 (150-450); RBC Distribution Width CV 13.7 % (11.6-14.6); RBC Distribution Width SD 45.7 fl (35.1-43.9); White Blood Count 11.6 K/mm3 (4.4-11.0)
[2021-08-29 06:49] LABS: ALB/GLOB Ratio 0.4 RATIO (0.9-2.4); AST(SGOT) 48 U/L (15-37); Alanine Aminotransfer ALT/SGPT 85 U/L (13-56); Albumin, Serum 2.3 g/dL (3.2-5.0); Alkaline Phosphatase 188 U/L (45-117); Anion Gap 9 (5-15); BUN 32 mg/dL (7-18); Chloride 96 mmol/L (98-107); Creatinine, Serum 1.28 mg/dL (0.55-1.02); EST Glomerular Filtration Rate 44 mL/min (>60); Est Glom Filt Rate - Afr Amer 53 mL/min (>60); Estimated Creatinine Clearance 35.32 ml/min; Globulin 6.4 g/dL (2.2-4.2); Glucose 135 mg/dL (74-106); Potassium 3.7 mmol/L (3.5-5.1); Protein, Total 8.7 g/dL (6.4-8.2); Sodium Level 137 mmol/L (136-145)
[2021-08-29 07:00] LABS: Bedside Glucose 132 mg/dL (70-110)
[2021-08-29] MEDS: Ipratropium/Albuterol Sulfate 3 ML AMPUL.NEB INHALATION ×3 (07:03→19:50)
--- NOTE | 2021-08-29 07:47 | PCM.PN.HOSP ---
Subjective Subjective Patient seen remains extremely anxious. Was started on Xanax as needed Objective Data Objective Data Vital Signs: Vital Signs Temp Pulse Resp BP Pulse Ox 96.6 F L 104 H 31 H 108/66 94 08/29/21 05:25 08/29/21 07:04 08/29/21 07:04 08/29/21 05:25 08/29/21 07:04 Oxygen Flow Rate (L/min) 40 Oxygen Delivery Method Airvo Weight: 97.9 kg Body Mass Index (BMI) 41.1 Intake & Output: Intake and Output for Last 24 Hours 08/27/21 08/28/21 08/29/21 23:59 23:59 23:59 Intake Total 1690 / 1690 0 / 0 60 / 60 Output Total 900 / 1100 1300 / 1300 50 / 50 Balance 790 / 590 -1300 / -1300 Lab / Micro Data Result Diagrams: 08/29/21 05:28 08/29/21 05:28 Labs: Laboratory Results - last 24 hr 08/28/21 06:42: Sodium 138, Potassium 3.8, Chloride 99, Carbon Dioxide 32.0, Anion Gap 7, BUN 27 H, Creatinine 1.14 H, Estim Creat Clear Calc 39.65, Est GFR (MDRD) Af Amer 60, Est GFR (MDRD) Non-Af 50 L, BUN/Creatinine Ratio 23.7 H, Glucose 123 H, Calcium 8.8, Magnesium 2.3, Total Bilirubin 0.90, AST 55 H, ALT 86 H, Alkaline Phosphatase 168 H, Total Protein 8.3 H, Albumin 2.2 L, Globulin 6.1 H, Albumin/Globulin Ratio 0.4 L 08/28/21 12:02: POC Glucose 151 H 08/28/21 16:46: POC Glucose 209 H 08/28/21 21:06: POC Glucose 111 H 08/29/21 05:28: WBC 11.6 H, RBC 4.40, Hgb 12.3, Hct 40.2, MCV 91.4, MCH 28.0, MCHC 30.6 L, RDW Std Deviation 45.7 H, RDW Coeff of Dilip 13.7, Plt Count 361, MPV 11.2, Immature Gran % (Auto) 1.400 H, Neut % (Auto) 71.8 H, Lymph % (Auto) 12.4 L, Nye % (Auto) 2.9, Eos % (Auto) 10.8 H, Baso % (Auto) 0.7, Absolute Neuts (auto) 8.4 H, Absolute Lymphs (auto) 1.44, Nucleated RBC % 0 08/29/21 05:28: Sodium 137, Potassium 3.7, Chloride 96 L, Carbon Dioxide 32.0, Anion Gap 9, BUN 32 H, Creatinine 1.28 H, Estim Creat Clear Calc 35.32, Est GFR (MDRD) Af Amer 53 L, Est GFR (MDRD) Non-Af 44 L, BUN/Creatinine Ratio 25.0 H, Glucose 135 H, Calcium 9.0, Total Bilirubin 0.70, AST 48 H, ALT 85 H, Alkaline Phosphatase 188 H, Total Protein 8.7 H, Albumin 2.3 L, Globulin 6.4 H, Albumin/Globulin Ratio 0.4 L 08/29/21 06:44: POC Glucose 132 H Micro: Microbiology 08/19/21 11:50 Urine, Clean Catch Legionella Antigen - Final 08/19/21 11:50 Urine, Clean Catch Streptococcus pneumoniae Antigen (M - Final 08/10/21 16:30 Nasal Secretion SARS-CoV-2 Antigen (Rapid) - Final SARS-CoV-2 (COVID 19) Physical Exam Narrative GENERAL: Dyspneic at rest HEENT: Atraumatic; EYES; Anicteric, Normal Conjunctiva NECK; supple, normal thyroid, RESPIRATORY: Diminished to auscultation CARDIOVASCULAR: Regular S1 S2, GI: soft, normoactive bowel sounds, : No Renal angle tenderness; EXTREMITIES: No edema, no clubbing, MUSCULOSKELETAL: no muscle waisting NEURO: Awake; no lateralizing signs. SKIN: No Rash PSYCH; Flat affect Assessment & Plan Assessment/Plan (1) COVID-19: (2) Hypoxia: PLAN: Patient is a 70-year-old lady admitted with progressive shortness of breath diagnosed with acute hypoxic respiratory failure secondary to COVID-19 pneumonia 1. Acute hypoxic respiratory failure secondary to SARS-CoV-2 pneumonia ?Checks x-ray on admission demonstrated bilateral patchy infiltrate. Patient currently on day 4 of both remdesivir as well as Decadron. Consult placed to both ID as well as pulmonary medicine -1Patient seen still remains significantly dyspneic at rest currently on 90% FiO2 and on BiPAP. She still does not want to be intubated. Case discussed with pulmonary medicine. Labs ordered for a.m. -08/16/2021 patient has been weaned off BiPAP to Airvo however still requires significantly high oxygen 40 L with FiO2 of 90%. Did encourage the use of incentive spirometry -08/17/2021. Patient was started onAirvo and transferred to PCU. Patient remains delirious. Nonrebreather added to patient oxygen therapy. Did encourage patient on the need to be compliant with therapy -08/18/2021;Patient seen was reported to be very agitated this a.m. Repeat of her oxygen via BiPAP. Patient had to be given 2 mg of Haldol as well as 2 mg of Ativan to sedate to keep her BiPAP on -08/19/2021; patient currently tolerating BiPAP less agitated compared to previous. In view of her increasing oxygen demands D-dimer was ordered after discussion with Dr. Cruz. Patient Lovenox dose increased from prophylactic to therapeutic dose. -08/27/2021; Patient seen still remains on high flow oxygen currently out of Covid isolation. Case was discussed with case management regarding possible transfer to to an LTAC to assist with weaning off oxygen -08/28/2021 patient seen appears clinically improved however still requiring high flow oxygen currently on Airvo 50 L/min with 90% FiO2 2. Acute metabolic encephalopathy ?Secondary to hypoxia. Patient is on supplemental oxygen as above -08/19/2021; patient remains less agitated compared to previous day. 3. Acute renal insufficiency ?Creatinine was 1.39 on 08/12/2021 back to baseline at 0.92 (chronic kidney disease stage II ruled out) 4. Obesity with BMI of 41.6 ?Weight loss advised 5. Vitamin D deficiency ?Patient is some supplement with plans to resume following discharge 5. Obstructive sleep apnea ?Patient on BiPAP at night 6. Moderate intermittent asthma ?Aerosol treatment as needed 7. Hypothyroidism ?Patient is on levothyroxine did continue 8. DVT prophylaxis ?Lovenox SC 40 twice daily 9. Physical deconditioning - Requested for PT OT eval and social media marketing manager to assist with discharge planning -08/29/2021. Patient remains extremely anxious was started on anxiolytics as needed Charges/Coding Visit Charges Inpatient E&M: 30930 Subs Hosp L2
[2021-08-29] MEDS: Sodium Chloride 0.65% 1 SPRAY SPRAY.BTL 2 SPRAY NASAL ×2 (10:38→20:57)
[2021-08-29] MEDS: Levothyroxine 125 MCG Tablet PO (10:39)
[2021-08-29] MEDS: Furosemide 40 MG Tablet PO (10:39)
[2021-08-29] MEDS: ALPRAZolam 0.5 MG Tablet PO ×2 (10:51→17:37)
[2021-08-29] MEDS: BENZOCAINE/MENTHOL 1 LOZENGE MUCOUS MEM (10:51)
[2021-08-29 11:50] LABS: Bedside Glucose 158 mg/dL (70-110)
--- NOTE | 2021-08-29 15:47 | NURSING ---
pt demanded bipap be removed and placed back on airvo. Staff attempted to educate pt on need for pt to wear bipap due to low oxygenation. pt stated I don't care if I get this off me. pt placed back on airvo tirated up to 80L 100% with non rebreather at 15L pt spo2 86%. This nurse again asked pt to wear bipap pt stated I did. I don't want to it. This nurse called and left message for Son Gerald to return call as soon as possible. This nurse at bedside will continue to monitor.
--- NOTE | 2021-08-29 15:58 | NURSING ---
Son Gerald returned nurse call. Son speaking with pt over the phone asking pt to put bipap mask on. pt refusing bipap. pt asking if all the necessary paperwork is completed
[2021-08-29] MEDS: Insulin Lispro 100 UNIT/ML INSULN.PEN SC ×2 (17:31→21:56)
[2021-08-29] MEDS: Acetaminophen 325 MG Tablet 650 MG PO (17:37)
[2021-08-29 17:41] LABS: Bedside Glucose 187 mg/dL (70-110)
[2021-08-29] MEDS: guaiFENesin 1,200 MG Tablet 1200 MG PO (20:57)
[2021-08-29] MEDS: MELATONIN 10 MG TABLET PO (20:57)
[2021-08-29 22:05] LABS: Bedside Glucose 171 mg/dL (70-110)
[2021-08-30] VITALS (21 sets, daily range): BP systolic 93–133; BP diastolic 62–80; PULSE 90–136; RESP 17–36; TEMP 36.4–36.7; O2SAT 87–910
[2021-08-30] MEDS: Ipratropium/Albuterol Sulfate 3 ML AMPUL.NEB INHALATION ×4 (07:00→19:05)
[2021-08-30] MEDS: Acetaminophen 325 MG Tablet 650 MG PO (07:07)
[2021-08-30 07:18] LABS: Absolute Lymphocyte Count 1.16 X10^3/uL (0.83-4.51); Absolute Neutrophil Count 8.7 X10^3/uL (2.0-7.7); Basophil# 0.07 X10^3/uL; Basophil% 0.6 % (0-1); Eosinophil# 1.26 X10^3/uL; Eosinophils% 10.8 % (0-5); Hematocrit 41.5 % (37-47); Hemoglobin 12.7 g/dL (12.0-15.0); Lymphocyte # 1.16 X10^3/ul (0.83-4.51); Lymphocyte % 9.9 % (19-41); Mean Corp Hgb Conc 30.6 g/dL (32-36); Mean Corpuscular Volume 91.4 fL (81-99); Mean Platelet Vol. 11.1 fl (6.2-12.0); Monocyte# 0.38 X10^3/uL; Monocyte% 3.3 % (0-10); NRBC Flagged by Analyzer 0 % (0-5); Neutrophil # 8.68 X10^3/uL (2.7-7.7); Neutrophil % 74.2 % (47-70); Platelet Count 356 K/mm3 (150-450); RBC Distribution Width CV 13.8 % (11.6-14.6); RBC Distribution Width SD 45.6 fl (35.1-43.9); Red Blood Count 4.54 M/mm3 (4.2-5.4); White Blood Count 11.7 K/mm3 (4.4-11.0)
[2021-08-30 07:40] LABS: Bedside Glucose 147 mg/dL (70-110)
[2021-08-30 07:54] LABS: ALB/GLOB Ratio 0.4 RATIO (0.9-2.4); AST(SGOT) 44 U/L (15-37); Alanine Aminotransfer ALT/SGPT 71 U/L (13-56); Albumin, Serum 2.4 g/dL (3.2-5.0); Alkaline Phosphatase 185 U/L (45-117); Anion Gap 7 (5-15); BUN 47 mg/dL (7-18); BUN/Creat Ratio 28.7 RATIO (10-20); Calcium,Total 9.1 mg/dL (8.5-10.1); Chloride 98 mmol/L (98-107); Creatinine, Serum 1.64 mg/dL (0.55-1.02); EST Glomerular Filtration Rate 33 mL/min (>60); Est Glom Filt Rate - Afr Amer 40 mL/min (>60); Estimated Creatinine Clearance 27.56 ml/min; Globulin 6.4 g/dL (2.2-4.2); Glucose 117 mg/dL (74-106); Potassium 3.7 mmol/L (3.5-5.1); Protein, Total 8.8 g/dL (6.4-8.2); Sodium Level 137 mmol/L (136-145)
--- NOTE | 2021-08-30 07:56 | PCM.PN.HOSP ---
Subjective Subjective Patient seen was started on Xanax as needed as a result of extreme anxiety. Per nursing staff patient has not been compliant with recommended BiPAP therapy. Did have a discussion with patient's son regarding possibility of hospice care. Son not ready for that. Currently on Airvo Objective Data Objective Data Vital Signs: Vital Signs Temp Pulse Resp BP Pulse Ox 97.7 F L 106 H 28 H 109/67 96 08/30/21 06:00 08/30/21 07:00 08/30/21 06:00 08/30/21 06:00 08/30/21 06:00 Oxygen Flow Rate (L/min) 70 Oxygen Delivery Method Airvo Weight: 97.9 kg Body Mass Index (BMI) 41.1 Intake & Output: Intake and Output for Last 24 Hours 08/28/21 08/29/21 08/30/21 23:59 23:59 23:59 Intake Total 0 / 0 420 / 420 Output Total 1300 / 1300 250 / 250 450 / 450 Balance -1300 / -1300 170 / 170 -450 / -450 Lab / Micro Data Result Diagrams: 08/30/21 06:55 08/30/21 06:55 Labs: Laboratory Results - last 24 hr 08/29/21 11:25: POC Glucose 158 H 08/29/21 17:29: POC Glucose 187 H 08/29/21 21:54: POC Glucose 171 H 08/30/21 06:55: WBC 11.7 H, RBC 4.54, Hgb 12.7, Hct 41.5, MCV 91.4, MCH 28.0, MCHC 30.6 L, RDW Std Deviation 45.6 H, RDW Coeff of Dilip 13.8, Plt Count 356, MPV 11.1, Immature Gran % (Auto) 1.200 H, Neut % (Auto) 74.2 H, Lymph % (Auto) 9.9 L, Isabela % (Auto) 3.3, Eos % (Auto) 10.8 H, Baso % (Auto) 0.6, Absolute Neuts (auto) 8.7 H, Absolute Lymphs (auto) 1.16, Nucleated RBC % 0 08/30/21 06:55: Sodium 137, Potassium 3.7, Chloride 98, Carbon Dioxide 32.0, Anion Gap 7, BUN 47 H, Creatinine 1.64 H, Estim Creat Clear Calc 27.56, Est GFR (MDRD) Af Amer 40 L, Est GFR (MDRD) Non-Af 33 L, BUN/Creatinine Ratio 28.7 H, Glucose 117 H, Calcium 9.1, Total Bilirubin 0.60, AST 44 H, ALT 71 H, Alkaline Phosphatase 185 H, Total Protein 8.8 H, Albumin 2.4 L, Globulin 6.4 H, Albumin/Globulin Ratio 0.4 L 08/30/21 07:01: POC Glucose 147 H Micro: Microbiology 08/19/21 11:50 Urine, Clean Catch Legionella Antigen - Final 08/19/21 11:50 Urine, Clean Catch Streptococcus pneumoniae Antigen (M - Final 08/10/21 16:30 Nasal Secretion SARS-CoV-2 Antigen (Rapid) - Final SARS-CoV-2 (COVID 19) Physical Exam Narrative GENERAL: Dyspneic at rest HEENT: Atraumatic; EYES; Anicteric, Normal Conjunctiva NECK; supple, normal thyroid, RESPIRATORY: Diminished to auscultation CARDIOVASCULAR: Regular S1 S2, GI: soft, normoactive bowel sounds, : No Renal angle tenderness; EXTREMITIES: No edema, no clubbing, MUSCULOSKELETAL: no muscle waisting NEURO: Awake; no lateralizing signs. SKIN: No Rash PSYCH; Flat affect Assessment & Plan Assessment/Plan (1) COVID-19: (2) Hypoxia: PLAN: Patient is a 70-year-old lady admitted with progressive shortness of breath diagnosed with acute hypoxic respiratory failure secondary to COVID-19 pneumonia 1. Acute hypoxic respiratory failure secondary to SARS-CoV-2 pneumonia ?Checks x-ray on admission demonstrated bilateral patchy infiltrate. Patient currently on day 4 of both remdesivir as well as Decadron. Consult placed to both ID as well as pulmonary medicine -08/15/2021atient seen still remains significantly dyspneic at rest currently on 90% FiO2 and on BiPAP. She still does not want to be intubated. Case discussed with pulmonary medicine. Labs ordered for a.m. -08/16/2021 patient has been weaned off BiPAP to Airvo however still requires significantly high oxygen 40 L with FiO2 of 90%. Did encourage the use of incentive spirometry -08/17/2021. Patient was started onAirvo and transferred to PCU. Patient remains delirious. Nonrebreather added to patient oxygen therapy. Did encourage patient on the need to be compliant with therapy -08/18/2021;Patient seen was reported to be very agitated this a.m. Repeat of her oxygen via BiPAP. Patient had to be given 2 mg of Haldol as well as 2 mg of Ativan to sedate to keep her BiPAP on -08/19/2021; patient currently tolerating BiPAP less agitated compared to previous. In view of her increasing oxygen demands D-dimer was ordered after discussion with Dr. Cruz. Patient Lovenox dose increased from prophylactic to therapeutic dose. -08/27/2021; Patient seen still remains on high flow oxygen currently out of Covid isolation. Case was discussed with case management regarding possible transfer to to an LTAC to assist with weaning off oxygen -08/28/2021 patient seen appears clinically improved however still requiring high flow oxygen currently on Airvo 50 L/min with 90% FiO2 -08/30/2021 Patient seen was started on Xanax as needed as a result of extreme anxiety. Per nursing staff patient has not been compliant with recommended BiPAP therapy. Did have a discussion with patient's son regarding possibility of hospice care. Son not ready for that. Currently on Airvo 2. Acute metabolic encephalopathy ?Secondary to hypoxia. Patient is on supplemental oxygen as above -08/19/2021; patient remains less agitated compared to previous day. 3. Acute renal insufficiency ?Creatinine was 1.39 on 08/12/2021 back to baseline at 0.92 (chronic kidney disease stage II ruled out) 4. Obesity with BMI of 41.6 ?Weight loss advised 5. Vitamin D deficiency ?Patient is some supplement with plans to resume following discharge 5. Obstructive sleep apnea ?Patient on BiPAP at night 6. Moderate intermittent asthma ?Aerosol treatment as needed 7. Hypothyroidism ?Patient is on levothyroxine did continue 8. DVT prophylaxis ?Lovenox SC 40 twice daily 9. Physical deconditioning - Requested for PT OT eval and delinquency prevention social worker to assist with discharge planning -08/29/2021. Patient remains extremely anxious was started on anxiolytics as needed Charges/Coding Visit Charges Inpatient E&M: 36152 Subs Hosp L2
[2021-08-30] MEDS: Levothyroxine 125 MCG Tablet PO (09:06)
[2021-08-30] MEDS: ALPRAZolam 0.5 MG Tablet PO ×2 (09:06→16:58)
[2021-08-30] MEDS: Furosemide 40 MG Tablet PO (09:06)
[2021-08-30] MEDS: Sodium Chloride 0.65% 1 SPRAY SPRAY.BTL 2 SPRAY NASAL ×2 (09:06→21:49)
--- NOTE | 2021-08-30 10:53 | CASEMGMT ---
Son to bedside and Dr. Stark to room to discuss possible hospice as pt refusing bipap, therapy, etc. Per Dr. Stark, son is not ready for hospice. CM to follow. Alberto ELLIOTT CM
[2021-08-30] MEDS: Insulin Lispro 100 UNIT/ML INSULN.PEN SC (11:31)
[2021-08-30 12:01] LABS: Bedside Glucose 159 mg/dL (70-110)
[2021-08-30] MEDS: NYSTATIN 500,000 UNIT/5 ML UDC 500000 UNIT PO ×2 (13:33→21:50)
[2021-08-30] MEDS: dilTIAZem CD 120 MG Capsule PO ×2 (16:19→21:50)
[2021-08-30 16:36] LABS: Bedside Glucose 137 mg/dL (70-110)
[2021-08-30] MEDS: MELATONIN 10 MG TABLET PO (21:50)
[2021-08-30] MEDS: guaiFENesin 1,200 MG Tablet 1200 MG PO (21:50)
--- NOTE | 2021-08-30 22:47 | NURSING ---
Pt son Gerald called for an update on his mother. Informed her on her v/s and told him that she was resting now in bed.
[2021-08-30 23:36] LABS: Bedside Glucose 133 mg/dL (70-110)
[2021-08-31] VITALS (17 sets, daily range): BP systolic 102–122; BP diastolic 58–70; PULSE 78–105; RESP 16–26; TEMP 36.2–36.4; O2SAT 90–99
[2021-08-31 06:35] LABS: Bedside Glucose 123 mg/dL (70-110)
[2021-08-31] MEDS: Ipratropium/Albuterol Sulfate 3 ML AMPUL.NEB INHALATION ×2 (07:12→15:15)
--- NOTE | 2021-08-31 07:40 | PCM.PN.HOSP ---
Subjective Subjective No significant change in patient's overall condition. Case was discussed with case management plan is to refer patient to an LTAC. Family okay with patient going to a [facility] facility or LTAC. This was discussed with the patient's son the day prior Objective Data Objective Data Vital Signs: Vital Signs Temp Pulse Resp BP Pulse Ox 97.6 F L 85 25 H 102/63 92 08/31/21 03:53 08/31/21 05:32 08/31/21 05:32 08/31/21 03:53 08/31/21 05:32 Oxygen Flow Rate (L/min) 60 Oxygen Delivery Method Airvo Weight: 98 kg Body Mass Index (BMI) 41.1 Intake & Output: Intake and Output for Last 24 Hours 08/29/21 08/30/21 08/31/21 23:59 23:59 23:59 Intake Total 420 / 420 480 / 700 320 / 320 Output Total 250 / 250 600 / 600 200 / 200 Balance 170 / 170 -120 / 100 120 / 120 Lab / Micro Data Result Diagrams: 08/30/21 06:55 08/30/21 06:55 Labs: Laboratory Results - last 24 hr 08/30/21 06:55: Sodium 137, Potassium 3.7, Chloride 98, Carbon Dioxide 32.0, Anion Gap 7, BUN 47 H, Creatinine 1.64 H, Estim Creat Clear Calc 27.56, Est GFR (MDRD) Af Amer 40 L, Est GFR (MDRD) Non-Af 33 L, BUN/Creatinine Ratio 28.7 H, Glucose 117 H, Calcium 9.1, Total Bilirubin 0.60, AST 44 H, ALT 71 H, Alkaline Phosphatase 185 H, Total Protein 8.8 H, Albumin 2.4 L, Globulin 6.4 H, Albumin/Globulin Ratio 0.4 L 08/30/21 11:29: POC Glucose 159 H 08/30/21 16:19: POC Glucose 137 H 08/30/21 21:44: POC Glucose 133 H 08/31/21 06:24: POC Glucose 123 H Micro: Microbiology 08/19/21 11:50 Urine, Clean Catch Legionella Antigen - Final 08/19/21 11:50 Urine, Clean Catch Streptococcus pneumoniae Antigen (M - Final 08/10/21 16:30 Nasal Secretion SARS-CoV-2 Antigen (Rapid) - Final SARS-CoV-2 (COVID 19) Physical Exam Narrative GENERAL: Dyspneic at rest HEENT: Atraumatic; EYES; Anicteric, Normal Conjunctiva NECK; supple, normal thyroid, RESPIRATORY: Diminished to auscultation CARDIOVASCULAR: Regular S1 S2, GI: soft, normoactive bowel sounds, : No Renal angle tenderness; EXTREMITIES: No edema, no clubbing, MUSCULOSKELETAL: no muscle waisting NEURO: Awake; no lateralizing signs. SKIN: No Rash PSYCH; Flat affect Assessment & Plan Assessment/Plan (1) COVID-19: (2) Hypoxia: PLAN: Patient is a 70-year-old lady admitted with progressive shortness of breath diagnosed with acute hypoxic respiratory failure secondary to COVID-19 pneumonia 1. Acute hypoxic respiratory failure secondary to SARS-CoV-2 pneumonia ?Checks x-ray on admission demonstrated bilateral patchy infiltrate. Patient currently on day 4 of both remdesivir as well as Decadron. Consult placed to both ID as well as pulmonary medicine -08/15/2021atient seen still remains significantly dyspneic at rest currently on 90% FiO2 and on BiPAP. She still does not want to be intubated. Case discussed with pulmonary medicine. Labs ordered for a.m. -08/16/2021 patient has been weaned off BiPAP to Airvo however still requires significantly high oxygen 40 L with FiO2 of 90%. Did encourage the use of incentive spirometry -08/17/2021. Patient was started onAirvo and transferred to PCU. Patient remains delirious. Nonrebreather added to patient oxygen therapy. Did encourage patient on the need to be compliant with therapy -08/18/2021;Patient seen was reported to be very agitated this a.m. Repeat of her oxygen via BiPAP. Patient had to be given 2 mg of Haldol as well as 2 mg of Ativan to sedate to keep her BiPAP on -08/19/2021; patient currently tolerating BiPAP less agitated compared to previous. In view of her increasing oxygen demands D-dimer was ordered after discussion with Dr. Cruz. Patient Lovenox dose increased from prophylactic to therapeutic dose. -08/27/2021; Patient seen still remains on high flow oxygen currently out of Covid isolation. Case was discussed with case management regarding possible transfer to to an LTAC to assist with weaning off oxygen -08/28/2021 patient seen appears clinically improved however still requiring high flow oxygen currently on Airvo 50 L/min with 90% FiO2 -08/30/2021 Patient seen was started on Xanax as needed as a result of extreme anxiety. Per nursing staff patient has not been compliant with recommended BiPAP therapy. Did have a discussion with patient's son regarding possibility of hospice care. Son not ready for that. Currently on Airvo ?08/31/2021 still remains on Airvo 2. Acute metabolic encephalopathy ?Secondary to hypoxia. Patient is on supplemental oxygen as above -08/19/2021; patient remains less agitated compared to previous day. 3. Acute renal insufficiency ?Creatinine was 1.39 on 08/12/2021 back to baseline at 0.92 (chronic kidney disease stage II ruled out) 4. Obesity with BMI of 41.6 ?Weight loss advised 5. Vitamin D deficiency ?Patient is some supplement with plans to resume following discharge 5. Obstructive sleep apnea ?Patient on BiPAP at night 6. Moderate intermittent asthma ?Aerosol treatment as needed 7. Hypothyroidism ?Patient is on levothyroxine did continue 8. DVT prophylaxis ?Lovenox SC 40 twice daily 9. Physical deconditioning - Requested for PT OT eval and medical social consultant to assist with discharge planning -08/29/2021. Patient remains extremely anxious was started on anxiolytics as needed Charges/Coding Visit Charges Inpatient E&M: 21909 Subs Hosp L2
[2021-08-31] MEDS: NYSTATIN 500,000 UNIT/5 ML UDC 500000 UNIT PO ×4 (10:55→20:13)
[2021-08-31] MEDS: dilTIAZem CD 120 MG Capsule PO ×2 (10:55→20:12)
[2021-08-31] MEDS: guaiFENesin 1,200 MG Tablet 1200 MG PO ×2 (10:55→20:13)
[2021-08-31] MEDS: Furosemide 40 MG Tablet PO (10:55)
[2021-08-31] MEDS: Levothyroxine 125 MCG Tablet PO (10:56)
[2021-08-31] MEDS: Sodium Chloride 0.65% 1 SPRAY SPRAY.BTL 2 SPRAY NASAL ×2 (10:56→20:13)
[2021-08-31] MEDS: Phenol/Sodium Phenolate 180ML 3 SPRAY MUCOUS MEM (11:10)
[2021-08-31 11:45] LABS: Bedside Glucose 126 mg/dL (70-110)
[2021-08-31] MEDS: ALPRAZolam 0.5 MG Tablet PO (13:52)
--- NOTE | 2021-08-31 16:00 | CASEMGMT ---
RNCM Progress Note S/w Melanie Daniel from [facility] as per MOD Dr Garcia plan will be for an LTAC. Confirmed fax number and faxed inquiry for review for PDC sometime next week. Patient currently on Airvo with FiO2 80%. SURAJ Pablo
[2021-08-31] MEDS: Insulin Lispro 100 UNIT/ML INSULN.PEN SC (16:14)
[2021-08-31 16:41] LABS: Bedside Glucose 161 mg/dL (70-110)
[2021-08-31] MEDS: MELATONIN 10 MG TABLET PO (20:12)
[2021-08-31 21:16] LABS: Bedside Glucose 143 mg/dL (70-110)
[2021-09-01] VITALS (14 sets, daily range): BP systolic 102–115; BP diastolic 60–63; PULSE 69–91; RESP 20–24; TEMP 36.4–36.6; O2SAT 90–95
--- NOTE | 2021-09-01 00:43 | NURSING ---
hawk Duarte updated on patient condition and POC
[2021-09-01 06:36] LABS: Bedside Glucose 123 mg/dL (70-110)
[2021-09-01] MEDS: Ipratropium/Albuterol Sulfate 3 ML AMPUL.NEB INHALATION ×2 (07:14→18:57)
[2021-09-01] MEDS: Furosemide 40 MG Tablet PO (09:01)
[2021-09-01] MEDS: Sodium Chloride 0.65% 1 SPRAY SPRAY.BTL 2 SPRAY NASAL ×2 (09:01→22:53)
[2021-09-01] MEDS: guaiFENesin 1,200 MG Tablet 1200 MG PO (09:01)
[2021-09-01] MEDS: dilTIAZem CD 120 MG Capsule PO ×2 (09:01→22:47)
[2021-09-01] MEDS: Levothyroxine 125 MCG Tablet PO (09:01)
[2021-09-01] MEDS: ALPRAZolam 0.5 MG Tablet PO (09:01)
[2021-09-01] MEDS: NYSTATIN 500,000 UNIT/5 ML UDC 500000 UNIT PO ×3 (09:01→16:50)
--- NOTE | 2021-09-01 11:07 | PCM.PN.HOSP ---
Documented by User: Marleny Velazquez NP, LOGISTICS SERVICE REPRESENTATIVE-C 09/01/21 11:20 Subjective Subjective Patient seen and examined. Reports mild improvement in shortness of breath. Denies fever, chills. Denies other symptoms or complaints. Objective Data Objective Data Vital Signs: Vital Signs Temp Pulse Resp BP Pulse Ox 97.6 F L 71 20 H 107/62 94 09/01/21 09:00 09/01/21 09:00 09/01/21 09:00 09/01/21 09:00 09/01/21 09:00 Oxygen Flow Rate (L/min) 60 Oxygen Delivery Method Airvo Weight: 213 lb 13.574 oz Body Mass Index (BMI) 41.1 Intake & Output: Intake and Output for Last 24 Hours 08/30/21 08/31/21 09/01/21 23:59 23:59 23:59 Intake Total 480 / 700 680 / 680 600 / 600 Output Total 600 / 600 600 / 600 150 / 150 Balance -120 / 100 80 / 80 450 / 450 Lab / Micro Data Result Diagrams: 08/30/21 06:55 08/30/21 06:55 Labs: Laboratory Results - last 24 hr 08/31/21 11:40: POC Glucose 126 H 08/31/21 16:11: POC Glucose 161 H 08/31/21 20:09: POC Glucose 143 H 09/01/21 06:30: POC Glucose 123 H Micro: Microbiology 08/19/21 11:50 Urine, Clean Catch Legionella Antigen - Final 08/19/21 11:50 Urine, Clean Catch Streptococcus pneumoniae Antigen (M - Final 08/10/21 16:30 Nasal Secretion SARS-CoV-2 Antigen (Rapid) - Final SARS-CoV-2 (COVID 19) Physical Exam Const alert, oriented x3 and no apparent distress Constitutional Narrative: Appears fatigued. Orientation / Consciousness: awake, oriented to person, oriented to place and oriented to time HEENT normocephalic Mouth: dry mucous membranes Eyes PERRL, EOMs intact bilaterally and conjunctivae normal Neck no lymphadenopathy Resp clear to auscultation bilaterally Auscultation: diminished lung sounds Cardio regular rate, regular rhythm and no murmurs Peripheral Pulses: pulses 2+ throughout GI normal to inspection, nondistended, normoactive bowel sounds, non-tender and non-distended Extremity normal to inspection Skin no rashes or lesions noted Lesions: no lesions Rashes: no rashes Trauma: no lacerations or abrasions Neuro CN's II-XII intact bilaterally, no focal motor deficits, no sensory deficits noted and deep tendon reflexes 2+ bilaterally Psych mental status grossly normal Mood & Affect: flat affect Assessment & Plan Assessment/Plan (1) Acute respiratory failure with hypoxia: (2) COVID-19: PLAN: 1. Acute hypoxic respiratory failure secondary to COVID-19 pneumonia-remains on airvo. Discussing LTAC versus SNF. Patient is out of isolation. Continue supplemental oxygen to maintain O2 at or above 90%. Completed course of empiric antibiotics. Completed Decadron and remdesivir. Not a candidate for baricitinib per ID. Prognosis remains guarded. PT/OT. 2. Acute metabolic encephalopathy-secondary to #1. Resolved at this time. 3. Acute kidney injury-resolved. 4. Debility-secondary to #1/prolonged hospitalization. PT/OT. Case management/social work following. 5. Hypothyroidism-continue Synthroid. 6. ARYAN-on BiPAP. 7. Moderate intermittent asthma-continue aerosols as needed. 8. Vitamin D deficiency-continue supplement. 9. Obesity-encouraged diet and lifestyle modifications. DVT prophylaxis-Lovenox subcu This patient was seen by BHUMI Bailey under the supervision of Dr. Stark. Documented by User: Dr. Tk Stark MD 09/01/21 12:01 Objective Data Lab / Micro Data Result Diagrams: 08/30/21 06:55 08/30/21 06:55 Assessment & Plan Addt'l Comments This patient was seen in conjunction with BHUMI Bailey . I have independently interviewed and examined the patient and reviewed pertinent historical, laboratory, and other data. Please refer to BHUMI Bailey note for details of this patient's presentation, findings, and recommendations. I have reviewed BHUMI Bailey note and concur with documented findings. Patient is a 70-year-old lady admitted with progressive shortness of breath diagnosed with acute hypoxic respiratory failure secondary to COVID-19 pneumonia Physical Examination: GENERAL: Dyspneic at rest HEENT: Atraumatic; EYES; Anicteric, Normal Conjunctiva NECK; supple, normal thyroid, RESPIRATORY: Diminished to auscultation CARDIOVASCULAR: Regular S1 S2, GI: soft, normoactive bowel sounds, : No Renal angle tenderness; EXTREMITIES: No edema, no clubbing, MUSCULOSKELETAL: no muscle waisting NEURO: Awake; no lateralizing signs. SKIN: No Rash PSYCH; Flat affect Assessment: 1. Acute hypoxic respiratory failure secondary to SARS-CoV-2 pneumonia 2. Acute metabolic encephalopathy 3. Obesity with BMI 41.6 on admission 4. ESTEFANI?resolved 5. Vitamin D deficiency 6. Obstructive sleep apnea 7. Moderate intermittent asthma 8. Hypothyroidism 9. DVT prophylaxis 10. Physical deconditioning Recommendations: 1. I have discussed the results of my overview and impressions with the patient 2. Options for management were reviewed Charges/Coding Visit Charges Inpatient E&M: 77695 Subs Hosp L2
[2021-09-01 11:55] LABS: Bedside Glucose 147 mg/dL (70-110)
[2021-09-01 16:50] LABS: Bedside Glucose 177 mg/dL (70-110)
[2021-09-01] MEDS: Insulin Lispro 100 UNIT/ML INSULN.PEN SC (16:50)
[2021-09-01] MEDS: Acetaminophen 325 MG Tablet 650 MG PO (16:50)
[2021-09-01 22:51] LABS: Bedside Glucose 149 mg/dL (70-110)
[2021-09-02] VITALS (17 sets, daily range): BP systolic 109–127; BP diastolic 57–78; PULSE 60–88; RESP 18–26; TEMP 36.6–36.9; O2SAT 90–95
[2021-09-02] MEDS: Ipratropium/Albuterol Sulfate 3 ML AMPUL.NEB INHALATION ×3 (06:53→18:47)
[2021-09-02 07:15] LABS: Bedside Glucose 126 mg/dL (70-110)
--- NOTE | 2021-09-02 08:17 | PCM.PN.HOSP ---
Objective Data Objective Data Vital Signs: Vital Signs Temp Pulse Resp BP Pulse Ox 98.1 F 81 19 H 127/66 H 92 09/02/21 03:00 09/02/21 07:56 09/02/21 07:56 09/02/21 03:00 09/02/21 07:55 Oxygen Flow Rate (L/min) 60 Oxygen Delivery Method Airvo Weight: 96.4 kg Body Mass Index (BMI) 41.1 Intake & Output: Intake and Output for Last 24 Hours 08/31/21 09/01/21 09/02/21 23:59 23:59 23:59 Intake Total 680 / 680 1080 / 1180 200 / 200 Output Total 600 / 600 275 / 425 300 / 300 Balance 80 / 80 805 / 755 -100 / -100 Lab / Micro Data Result Diagrams: 08/30/21 06:55 08/30/21 06:55 Labs: Laboratory Results - last 24 hr 09/01/21 11:51: POC Glucose 147 H 09/01/21 16:47: POC Glucose 177 H 09/01/21 22:42: POC Glucose 149 H 09/02/21 07:11: POC Glucose 126 H Micro: Microbiology 08/19/21 11:50 Urine, Clean Catch Legionella Antigen - Final 08/19/21 11:50 Urine, Clean Catch Streptococcus pneumoniae Antigen (M - Final 08/10/21 16:30 Nasal Secretion SARS-CoV-2 Antigen (Rapid) - Final SARS-CoV-2 (COVID 19) Physical Exam Narrative GENERAL: Dyspneic at rest HEENT: Atraumatic; EYES; Anicteric, Normal Conjunctiva NECK; supple, normal thyroid, RESPIRATORY: Diminished to auscultation CARDIOVASCULAR: Regular S1 S2, GI: soft, normoactive bowel sounds, : No Renal angle tenderness; EXTREMITIES: No edema, no clubbing, MUSCULOSKELETAL: no muscle waisting NEURO: Awake; no lateralizing signs. SKIN: No Rash PSYCH; Flat affect Assessment & Plan Assessment/Plan (1) Acute respiratory failure with hypoxia: (2) COVID-19: PLAN: 1. Acute hypoxic respiratory failure secondary to COVID-19 pneumonia-remains on airvo. Discussing LTAC versus SNF. Patient is out of isolation. Continue supplemental oxygen to maintain O2 at or above 90%. Completed course of empiric antibiotics. Completed Decadron and remdesivir. Not a candidate for baricitinib per ID. Prognosis remains guarded. PT/OT. 2. Acute metabolic encephalopathy-secondary to #1. Resolved at this time. 3. Acute kidney injury-resolved. 4. Debility-secondary to #1/prolonged hospitalization. PT/OT. Case management/social work following. 5. Hypothyroidism-continue Synthroid. 6. ARYAN-on BiPAP. 7. Moderate intermittent asthma-continue aerosols as needed. 8. Vitamin D deficiency-continue supplement. 9. Obesity-encouraged diet and lifestyle modifications. DVT prophylaxis-Lovenox subcu This patient was seen by BHUMI Bailey under the supervision of Dr. Stark. Addt'l Comments This patient was seen in conjunction with BHUMI Bailey . I have independently interviewed and examined the patient and reviewed pertinent historical, laboratory, and other data. Please refer to BHUMI Bailey note for details of this patient's presentation, findings, and recommendations. I have reviewed BHUMI Bailey note and concur with documented findings. Patient is a 70-year-old lady admitted with progressive shortness of breath diagnosed with acute hypoxic respiratory failure secondary to COVID-19 pneumonia 09/02/2021; no change in clinical condition plan is for patient to be discharged to LTAC pending stabilization of medical condition. Still requiring significant amount of supplemental oxygen via Airvo Physical Examination: GENERAL: Dyspneic at rest HEENT: Atraumatic; EYES; Anicteric, Normal Conjunctiva NECK; supple, normal thyroid, RESPIRATORY: Diminished to auscultation CARDIOVASCULAR: Regular S1 S2, GI: soft, normoactive bowel sounds, : No Renal angle tenderness; EXTREMITIES: No edema, no clubbing, MUSCULOSKELETAL: no muscle waisting NEURO: Awake; no lateralizing signs. SKIN: No Rash PSYCH; Flat affect Assessment: 1. Acute hypoxic respiratory failure secondary to SARS-CoV-2 pneumonia 2. Acute metabolic encephalopathy 3. Obesity with BMI 41.6 on admission 4. ESTEFANI?resolved 5. Vitamin D deficiency 6. Obstructive sleep apnea 7. Moderate intermittent asthma 8. Hypothyroidism 9. DVT prophylaxis 10. Physical deconditioning Recommendations: 1. I have discussed the results of my overview and impressions with the patient 2. Options for management were reviewed Charges/Coding Visit Charges Inpatient E&M: 07555 Subs Hosp L2
[2021-09-02] MEDS: dilTIAZem CD 120 MG Capsule PO ×2 (09:06→21:14)
[2021-09-02] MEDS: Furosemide 40 MG Tablet PO (09:09)
[2021-09-02] MEDS: NYSTATIN 500,000 UNIT/5 ML UDC 500000 UNIT PO ×3 (09:09→21:14)
[2021-09-02] MEDS: guaiFENesin 1,200 MG Tablet 1200 MG PO ×2 (09:09→21:14)
[2021-09-02] MEDS: Levothyroxine 125 MCG Tablet PO (09:10)
[2021-09-02] MEDS: Sodium Chloride 0.65% 1 SPRAY SPRAY.BTL 2 SPRAY NASAL ×2 (09:10→21:12)
[2021-09-02] MEDS: ALPRAZolam 0.5 MG Tablet PO ×2 (09:12→21:16)
[2021-09-02] MEDS: Insulin Lispro 100 UNIT/ML INSULN.PEN SC (12:01)
[2021-09-02 12:10] LABS: Bedside Glucose 150 mg/dL (70-110)
[2021-09-02 16:46] LABS: Bedside Glucose 133 mg/dL (70-110)
[2021-09-02] MEDS: Acetaminophen 325 MG Tablet 650 MG PO (17:21)
[2021-09-02] MEDS: MELATONIN 10 MG TABLET PO (21:14)
[2021-09-02 21:36] LABS: Bedside Glucose 109 mg/dL (70-110)
[2021-09-03] VITALS (17 sets, daily range): BP systolic 110–122; BP diastolic 60–70; PULSE 51–89; RESP 12–28; TEMP 36.4–36.8; O2SAT 81–96
[2021-09-03 06:41] LABS: Bedside Glucose 145 mg/dL (70-110)
[2021-09-03] MEDS: Ipratropium/Albuterol Sulfate 3 ML AMPUL.NEB INHALATION ×3 (06:50→14:11)
[2021-09-03 06:54] LABS: Absolute Lymphocyte Count 1.14 X10^3/uL (0.83-4.51); Absolute Neutrophil Count 6.5 X10^3/uL (2.0-7.7); Basophil# 0.08 X10^3/uL; Basophil% 0.8 % (0-1); Eosinophil# 1.76 X10^3/uL; Eosinophils% 17.6 % (0-5); Hematocrit 39.1 % (37-47); Hemoglobin 12.3 g/dL (12.0-15.0); Lymphocyte # 1.14 X10^3/ul (0.83-4.51); Lymphocyte % 11.4 % (19-41); Mean Corp Hgb Conc 31.5 g/dL (32-36); Mean Corpuscular Hgb 28.8 pg (27.0-32.0); Mean Corpuscular Volume 91.6 fL (81-99); Monocyte# 0.44 X10^3/uL; Monocyte% 4.4 % (0-10); NRBC Flagged by Analyzer 0 % (0-5); Neutrophil # 6.46 X10^3/uL (2.7-7.7); Neutrophil % 64.5 % (47-70); Platelet Count 306 K/mm3 (150-450); RBC Distribution Width CV 14.5 % (11.6-14.6); RBC Distribution Width SD 47.5 fl (35.1-43.9); Red Blood Count 4.27 M/mm3 (4.2-5.4)
[2021-09-03 07:10] LABS: Anion Gap 9 (5-15); BUN 45 mg/dL (7-18); BUN/Creat Ratio 35.7 RATIO (10-20); Calcium,Total 9.4 mg/dL (8.5-10.1); Chloride 98 mmol/L (98-107); Creatinine, Serum 1.26 mg/dL (0.55-1.02); EST Glomerular Filtration Rate 45 mL/min (>60); Est Glom Filt Rate - Afr Amer 54 mL/min (>60); Estimated Creatinine Clearance 35.88 ml/min; Glucose 150 mg/dL (74-106); Potassium 3.5 mmol/L (3.5-5.1); Sodium Level 134 mmol/L (136-145)
[2021-09-03] MEDS: Furosemide 40 MG Tablet PO (10:29)
[2021-09-03] MEDS: guaiFENesin 1,200 MG Tablet 1200 MG PO ×2 (10:29→21:16)
[2021-09-03] MEDS: Levothyroxine 125 MCG Tablet PO (10:29)
[2021-09-03] MEDS: dilTIAZem CD 120 MG Capsule PO ×2 (10:29→21:15)
[2021-09-03] MEDS: Sodium Chloride 0.65% 1 SPRAY SPRAY.BTL 2 SPRAY NASAL ×2 (10:30→21:16)
[2021-09-03] MEDS: NYSTATIN 500,000 UNIT/5 ML UDC 500000 UNIT PO (10:30)
--- NOTE | 2021-09-03 10:55 | CASEMGMT ---
Updated clinicals faxed to [facility]. CM to follow. SStnish RN CM
[2021-09-03 11:40] LABS: Bedside Glucose 135 mg/dL (70-110)
--- NOTE | 2021-09-03 13:13 | PN.HOSP_ITS ---
Subjective Subjective Doing well, remained stable. No change in her respiratory status, still requiring air Vo and BiPAP at night Objective Data Objective Data Vital Signs: Vital Signs Temp Pulse Resp BP Pulse Ox 97.5 F L 75 28 H 122/70 H 91 09/03/21 09:15 09/03/21 10:58 09/03/21 10:58 09/03/21 09:15 09/03/21 10:58 Oxygen Flow Rate (L/min) 60 Oxygen Delivery Method Airvo Weight: 215 lb 9.793 oz Body Mass Index (BMI) 41.1 Intake & Output: Intake and Output for Last 24 Hours 09/02/21 09/03/21 09/04/21 03:59 03:59 03:59 Intake Total 680 / 680 470 / 470 270 / 270 Output Total 275 / 275 375 / 375 100 / 100 Balance 405 / 405 95 / 95 170 / 170 Lab / Micro Data Result Diagrams: 09/03/21 06:30 09/03/21 06:30 Labs: Laboratory Results - last 24 hr 09/02/21 16:32: POC Glucose 133 H 09/02/21 21:07: POC Glucose 109 09/03/21 06:30: WBC 10.0, RBC 4.27, Hgb 12.3, Hct 39.1, MCV 91.6, MCH 28.8, MCHC 31.5 L, RDW Std Deviation 47.5 H, RDW Coeff of Dilip 14.5, Plt Count 306, MPV 11.0, Immature Gran % (Auto) 1.300 H, Neut % (Auto) 64.5, Lymph % (Auto) 11.4 L, [place] % (Auto) 4.4, Eos % (Auto) 17.6 H, Baso % (Auto) 0.8, Absolute Neuts (auto) 6.5, Absolute Lymphs (auto) 1.14, Nucleated RBC % 0 09/03/21 06:30: Sodium 134 L, Potassium 3.5, Chloride 98, Carbon Dioxide 27.0, Anion Gap 9, BUN 45 H, Creatinine 1.26 H, Estim Creat Clear Calc 35.88, Est GFR (MDRD) Af Amer 54 L, Est GFR (MDRD) Non-Af 45 L, BUN/Creatinine Ratio 35.7 H, Glucose 150 H, Calcium 9.4 09/03/21 06:33: POC Glucose 145 H 09/03/21 11:32: POC Glucose 135 H Micro: Microbiology 08/19/21 11:50 Urine, Clean Catch Legionella Antigen - Final 08/19/21 11:50 Urine, Clean Catch Streptococcus pneumoniae Antigen (M - Final 08/10/21 16:30 Nasal Secretion SARS-CoV-2 Antigen (Rapid) - Final SARS-CoV-2 (COVID 19) Physical Exam Const alert, oriented x3 and no apparent distress General Appearance: cooperative HEENT normocephalic and moist oral mucous membranes Eyes PERRL, EOMs intact bilaterally and conjunctivae normal Neck supple and no JVD Resp normal respiratory effort, no retractions, no use of accessory muscles and clear to auscultation bilaterally Auscultation: Negative for crackles, rales, rhonchi or wheezes Cardio regular rate, regular rhythm, S1 normal heart sound, S2 normal heart sound and no murmurs GI soft to palpation, non-tender and non-distended; Negative for hepatosplenomegaly Extremity no clubbing, cyanosis or edema Skin no rashes or lesions noted Neuro no focal motor deficits and no sensory deficits noted Psych affect normal Appearance: appropriate Assessment & Plan Assessment/Plan (1) Acute respiratory failure with hypoxia: (2) COVID-19: PLAN: 1. Acute hypoxic respiratory failure secondary to COVID-19 pneumonia/acute metabolic encephalopathy/ESTEFANI/debility -she is completed Decadron, remdesivir as well as a course of empiric antibiotics. -She is outside of quarantine -Currently pending disposition, she is still requiring air Vo and therefore ca nnot go home or to a rehab facility, will attempt to get her placed at an LTAC if able -Encephalopathy has resolved as has the ESTEFANI -Continue with PT/OT, will likely need LTAC -Continue with daily Lasix, kidney function is at baseline 2. ARYAN/moderate intermittent asthma -She is currently on air Vo and does wear BiPAP occasionally at night though compliance is a bit of an issue -Continue with inhalers 3. Hypothyroidism -Stable -Continue Synthroid DVT: Lovenox Charges/Coding Visit Charges Inpatient E&M: 43345 Subs Hosp L2
[2021-09-03] MEDS: Insulin Lispro 100 UNIT/ML INSULN.PEN SC (16:45)
[2021-09-03 17:01] LABS: Bedside Glucose 153 mg/dL (70-110)
[2021-09-03] MEDS: ALPRAZolam 0.5 MG Tablet PO (21:14)
[2021-09-03] MEDS: MELATONIN 10 MG TABLET PO (21:16)
[2021-09-03 21:41] LABS: Bedside Glucose 137 mg/dL (70-110)
[2021-09-04] VITALS (21 sets, daily range): BP systolic 100–125; BP diastolic 67–74; PULSE 71–106; RESP 12–36; TEMP 36.5–36.8; O2SAT 74–99
--- NOTE | 2021-09-04 01:57 | CPS ---
NRB 15L O2 overtop of Airvo cannula during check
[2021-09-04 05:45] LABS: Bedside Glucose 160 mg/dL (70-110)
[2021-09-04] MEDS: Ipratropium/Albuterol Sulfate 3 ML AMPUL.NEB INHALATION ×3 (06:50→18:52)
--- NOTE | 2021-09-04 06:50 | CPS ---
Pt was on Airvo 60lpm and 85% plus 100% NRB, SpO2=96% so R.T. took NRB mask off. will come back to recheck SpO2.
[2021-09-04 06:55] LABS: Bedside Glucose 136 mg/dL (70-110)
--- NOTE | 2021-09-04 07:20 | CPS ---
SpO2=74% on 60lpm & 85%. R.T. increased HF to 60lpm & 100% & 100% NRB.
--- NOTE | 2021-09-04 09:38 | PN.HOSP_ITS ---
Subjective Subjective Remains unchanged, requiring air Vo and FiO2 is between 85 and 100% to maintain her oxygen sat Objective Data Objective Data Vital Signs: Vital Signs Temp Pulse Resp BP Pulse Ox 98.2 F 73 28 H 117/68 95 09/04/21 02:51 09/04/21 07:30 09/04/21 07:30 09/04/21 02:51 09/04/21 07:30 Oxygen Flow Rate (L/min) 60 Oxygen Delivery Method Airvo Weight: 213 lb 10.047 oz Body Mass Index (BMI) 41.1 Intake & Output: Intake and Output for Last 24 Hours 09/03/21 09/04/21 09/05/21 03:59 03:59 03:59 Intake Total 470 / 470 570 / 570 200 / 200 Output Total 375 / 375 310 / 310 50 / 50 Balance 95 / 95 260 / 260 150 / 150 Lab / Micro Data Result Diagrams: 09/03/21 06:30 09/03/21 06:30 Labs: Laboratory Results - last 24 hr 09/03/21 11:32: POC Glucose 135 H 09/03/21 16:44: POC Glucose 153 H 09/03/21 21:12: POC Glucose 137 H 09/04/21 05:34: POC Glucose 160 H 09/04/21 06:53: POC Glucose 136 H Micro: Microbiology 08/19/21 11:50 Urine, Clean Catch Legionella Antigen - Final 08/19/21 11:50 Urine, Clean Catch Streptococcus pneumoniae Antigen (M - Final 08/10/21 16:30 Nasal Secretion SARS-CoV-2 Antigen (Rapid) - Final SARS-CoV-2 (COVID 19) Physical Exam Const alert, oriented x3 and no apparent distress General Appearance: cooperative HEENT normocephalic and moist oral mucous membranes Eyes PERRL, EOMs intact bilaterally and conjunctivae normal Neck supple and no JVD Resp normal respiratory effort, no retractions, no use of accessory muscles and clear to auscultation bilaterally Auscultation: Negative for crackles, rales, rhonchi or wheezes Cardio regular rate, regular rhythm, S1 normal heart sound, S2 normal heart sound and n o murmurs GI soft to palpation, non-tender and non-distended; Negative for hepatosplenomegaly Extremity no clubbing, cyanosis or edema Skin no rashes or lesions noted Neuro no focal motor deficits and no sensory deficits noted Psych affect normal Appearance: appropriate Assessment & Plan Assessment/Plan (1) Acute respiratory failure with hypoxia: (2) COVID-19: PLAN: 1. Acute hypoxic respiratory failure secondary to COVID-19 pneumonia/acute metabolic encephalopathy/ESTEFANI/debility -she is completed Decadron, remdesivir as well as a course of empiric antibiotics. -CTA is negative for PE, and venous Dopplers are negative DVT -She is outside of quarantine -Currently pending disposition, she is still requiring air Vo and therefore cannot go home or to a rehab facility, will attempt to get her placed at an LTAC if able -Encephalopathy has resolved as has the ESTEFANI -Continue with PT/OT, will likely need LTAC -Continue with daily Lasix, kidney function is at baseline 2. ARYAN/moderate intermittent asthma -She is currently on air Vo and does wear BiPAP occasionally at night though compliance is a bit of an issue -Continue with inhalers 3. Hypothyroidism -Stable -Continue Synthroid DVT: Lovenox Charges/Coding Visit Charges Inpatient E&M: 59991 Subs Hosp L2
[2021-09-04] MEDS: dilTIAZem CD 120 MG Capsule PO ×2 (09:45→21:06)
[2021-09-04] MEDS: Levothyroxine 125 MCG Tablet PO (09:45)
[2021-09-04] MEDS: guaiFENesin 1,200 MG Tablet 1200 MG PO ×2 (09:45→21:06)
[2021-09-04] MEDS: Sodium Chloride 0.65% 1 SPRAY SPRAY.BTL 2 SPRAY NASAL ×2 (09:45→21:05)
[2021-09-04] MEDS: Furosemide 40 MG Tablet PO (09:45)
[2021-09-04 11:20] LABS: Bedside Glucose 147 mg/dL (70-110)
--- NOTE | 2021-09-04 14:19 | CPS ---
Pt more SOB than normal, has Airvo at 60lpm & 100% NRB mask on. Pt reluctantly agreed to wear the BIPAP for 1/2 hour to help her breathing.
[2021-09-04 15:36] LABS: Bedside Glucose 147 mg/dL (70-110)
[2021-09-04] MEDS: Phenol/Sodium Phenolate 180ML 3 SPRAY MUCOUS MEM (15:54)
--- NOTE | 2021-09-04 20:05 | CPS ---
NRB 15L O2 plaecd overtop of Airvo.
[2021-09-04] MEDS: Insulin Lispro 100 UNIT/ML INSULN.PEN SC (21:06)
[2021-09-04] MEDS: NYSTATIN 500,000 UNIT/5 ML UDC 500000 UNIT PO (21:06)
[2021-09-04] MEDS: MELATONIN 10 MG TABLET PO (21:07)
[2021-09-04] MEDS: ALPRAZolam 0.5 MG Tablet PO (21:20)
[2021-09-04 22:05] LABS: Bedside Glucose 174 mg/dL (70-110)
[2021-09-05] VITALS (20 sets, daily range): BP systolic 107–118; BP diastolic 64–74; PULSE 78–102; RESP 12–25; TEMP 36.5–36.8; O2SAT 93–100
--- NOTE | 2021-09-05 00:28 | NURSING ---
spoke with son on phone for pt update.
[2021-09-05] MEDS: Ipratropium/Albuterol Sulfate 3 ML AMPUL.NEB INHALATION ×4 (06:37→19:28)
[2021-09-05 06:45] LABS: Bedside Glucose 131 mg/dL (70-110)
--- NOTE | 2021-09-05 09:05 | PCM.PN.HOSP ---
Subjective Subjective Remains unchanged, oxygen requirements are about the same as they have been. No complaints overnight Objective Data Objective Data Vital Signs: Vital Signs Temp Pulse Resp BP Pulse Ox 97.7 F L 90 24 H 107/64 98 09/05/21 08:59 09/05/21 08:59 09/05/21 08:59 09/05/21 08:59 09/05/21 08:59 Oxygen Flow Rate (L/min) 65 Oxygen Delivery Method Airvo Weight: 212 lb 8.41 oz Body Mass Index (BMI) 41.1 Intake & Output: Intake and Output for Last 24 Hours 09/04/21 09/05/21 09/06/21 03:59 03:59 03:59 Intake Total 570 / 570 440 / 440 Output Total 310 / 310 450 / 450 200 / 200 Balance 260 / 260 -10 / -10 -200 / -200 Lab / Micro Data Result Diagrams: 09/03/21 06:30 09/03/21 06:30 Labs: Laboratory Results - last 24 hr 09/04/21 11:01: POC Glucose 147 H 09/04/21 15:28: POC Glucose 147 H 09/04/21 21:04: POC Glucose 174 H 09/05/21 06:41: POC Glucose 131 H Micro: Microbiology 08/19/21 11:50 Urine, Clean Catch Legionella Antigen - Final 08/19/21 11:50 Urine, Clean Catch Streptococcus pneumoniae Antigen (M - Final 08/10/21 16:30 Nasal Secretion SARS-CoV-2 Antigen (Rapid) - Final SARS-CoV-2 (COVID 19) Physical Exam Const alert, oriented x3 and no apparent distress General Appearance: cooperative HEENT normocephalic and moist oral mucous membranes Eyes PERRL, EOMs intact bilaterally and conjunctivae normal Neck supple and no JVD Resp normal respiratory effort, no retractions, no use of accessory muscles and clear to auscultation bilaterally Auscultation: Negative for crackles, rales, rhonchi or wheezes Cardio regular rate, regular rhythm, S1 normal heart sound, S2 normal heart sound and no murmurs GI soft to palpation, non-tender and non-distended; Negative for hepatosplenomegaly Extremity no clubbing, cyanosis or edema Skin no rashes or lesions noted Rashes: no rashes Trauma: no lacerations or abrasions Neuro no focal motor deficits and no sensory deficits noted Psych affect normal Appearance: appropriate Assessment & Plan Assessment/Plan (1) Acute respiratory failure with hypoxia: (2) COVID-19: PLAN: 1. Acute hypoxic respiratory failure secondary to COVID-19 pneumonia/acute metabolic encephalopathy/ESTEFANI/debility -she is completed Decadron, remdesivir as well as a course of empiric antibiotics. -CTA is negative for PE, and venous Dopplers are negative DVT -She is outside of quarantine -Currently pending disposition, she is still requiring air Vo and therefore cannot go home or to a rehab facility, will attempt to get her placed at an LTAC if able -Encephalopathy has resolved as has the ESTEFANI -Continue with PT/OT, will likely need LTAC -Continue with daily Lasix, kidney function is at baseline 2. ARYAN/moderate intermittent asthma -She is currently on air Vo and does wear BiPAP occasionally at night though compliance is a bit of an issue -Continue with inhalers 3. Hypothyroidism -Stable -Continue Synthroid DVT: Lovenox Charges/Coding Visit Charges Inpatient E&M: 58249 Subs Hosp L2
[2021-09-05] MEDS: NYSTATIN 500,000 UNIT/5 ML UDC 500000 UNIT PO ×2 (09:14→22:02)
[2021-09-05] MEDS: Levothyroxine 125 MCG Tablet PO (09:14)
[2021-09-05] MEDS: Sodium Chloride 0.65% 1 SPRAY SPRAY.BTL 2 SPRAY NASAL ×2 (09:14→22:02)
[2021-09-05] MEDS: Furosemide 40 MG Tablet PO (09:14)
[2021-09-05] MEDS: dilTIAZem CD 120 MG Capsule PO ×2 (09:14→22:02)
[2021-09-05] MEDS: guaiFENesin 1,200 MG Tablet 1200 MG PO ×2 (09:14→22:02)
[2021-09-05] MEDS: Insulin Lispro 100 UNIT/ML INSULN.PEN SC (10:47)
[2021-09-05 11:05] LABS: Bedside Glucose 168 mg/dL (70-110)
--- NOTE | 2021-09-05 13:53 | CHAPLAIN ---
Type of Pastoral Visit ___ Initial Visit _x__ Follow-up Visit ___ On-call Visit ___ General Patient Visit ___ Spiritual Assessment ___ Family Conference ___ Bereavement ___ Rapid Response ___ Code Blue ___ Other (describe below) Pastoral Care Referral From _x__ Patient ___ Family ___ Nurse ___ Physician ___ Prime Minister ___ Content Production Specialist ___ Other (describe below) Sacrament/Intervention _x__ Active listening ___ Anointing ___ Orthodoxy ___ Bereavement ___ Communion ___ Kiara exploration ___ ___ Life review _x__ Prayer ___ Reconciliation ___ Sacrament of Sick ___ Supportive presence ___ Wedding ___ Other (describe below) Pastoral Comments patient in chair with bi-pap; pt states that 'everyone has left', asking what or whom she means she answers the nurses have left; tried to clarify and reorient pt; pt says she is not sleeping at all; pt agreeable to prayer and presence
--- NOTE | 2021-09-05 15:23 | CASEMGMT ---
Updated clinical faxed to [facility] and Melanie aware that Dr. Bustamante would like to try and get precert to send pt, voices understanding. CM to follow. Alberto ELLIOTT CM
[2021-09-05 16:50] LABS: Bedside Glucose 154 mg/dL (70-110)
--- NOTE | 2021-09-05 19:51 | CPS ---
NRB 15L O2 overtop of Airvo cannula
[2021-09-05] MEDS: MELATONIN 10 MG TABLET PO (22:02)
[2021-09-05 22:21] LABS: Bedside Glucose 148 mg/dL (70-110)
[2021-09-06] VITALS (19 sets, daily range): BP systolic 110–117; BP diastolic 60–73; PULSE 71–116; RESP 14–24; TEMP 36.3–36.9; O2SAT 90–100
[2021-09-06 06:46] LABS: Bedside Glucose 137 mg/dL (70-110)
[2021-09-06] MEDS: Ipratropium/Albuterol Sulfate 3 ML AMPUL.NEB INHALATION ×4 (06:46→18:35)
[2021-09-06] MEDS: guaiFENesin 1,200 MG Tablet 1200 MG PO ×2 (08:36→21:14)
[2021-09-06] MEDS: dilTIAZem CD 120 MG Capsule PO ×2 (08:36→21:26)
[2021-09-06] MEDS: Furosemide 40 MG Tablet PO (08:36)
[2021-09-06] MEDS: Sodium Chloride 0.65% 1 SPRAY SPRAY.BTL 2 SPRAY NASAL ×2 (08:37→21:16)
[2021-09-06] MEDS: Levothyroxine 125 MCG Tablet PO (08:37)
[2021-09-06] MEDS: NYSTATIN 500,000 UNIT/5 ML UDC 500000 UNIT PO ×4 (08:37→21:15)
--- NOTE | 2021-09-06 09:56 | CASEMGMT ---
Addendum entered by Beata Pierre 09/06/21 10:25: Call from Maite [facility] and she would like updated labs faxed and states Mile, their resp therapist, would like to speak with [facility] resp therapist. Call to Renan, [facility] resp therapist, and he is updated and provided with contact info. CM [facility] follow. [facility] [phone] Alberto ELLIOTT CM Original Note: Per Dr. Bustamante, pt is agreeable to LTACH. Maite at [facility] states she speak with their resp therapist and attempt precert. CM to follow. Alberto ELLIOTT CM
[2021-09-06 11:51] LABS: Bedside Glucose 179 mg/dL (70-110)
[2021-09-06] MEDS: Insulin Lispro 100 UNIT/ML INSULN.PEN SC ×2 (12:11→17:15)
--- NOTE | 2021-09-06 17:12 | PN.HOSP_ITS ---
Subjective Subjective No change, feels about the same. Objective Data Objective Data Vital Signs: Vital Signs Temp Pulse Resp BP Pulse Ox 97.9 F 80 24 H 114/62 94 09/06/21 14:25 09/06/21 15:55 09/06/21 14:29 09/06/21 14:25 09/06/21 14:25 Oxygen Flow Rate (L/min) 65 Oxygen Delivery Method Airvo Weight: 212 lb 4.882 oz Body Mass Index (BMI) 41.1 Intake & Output: Intake and Output for Last 24 Hours 09/05/21 09/06/21 09/07/21 03:59 03:59 03:59 Intake Total 440 / 440 680 / 680 550 / 550 Output Total 450 / 450 700 / 700 400 / 400 Balance -10 / -10 - / -20 150 / 150 Lab / Micro Data Result Diagrams: 09/03/21 06:30 09/03/21 06:30 Labs: Laboratory Results - last 24 hr 09/05/21 22:04: POC Glucose 148 H 09/06/21 06:19: POC Glucose 137 H 09/06/21 11:29: POC Glucose 179 H Micro: Microbiology 08/19/21 11:50 Urine, Clean Catch Legionella Antigen - Final 08/19/21 11:50 Urine, Clean Catch Streptococcus pneumoniae Antigen (M - F inal 08/10/21 16:30 Nasal Secretion SARS-CoV-2 Antigen (Rapid) - Final SARS-CoV-2 (COVID 19) Physical Exam Const alert, oriented x3 and no apparent distress General Appearance: cooperative HEENT normocephalic and moist oral mucous membranes Eyes PERRL, EOMs intact bilaterally and conjunctivae normal Neck supple and no JVD Resp normal respiratory effort, no retractions, no use of accessory muscles and clear to auscultation bilaterally Auscultation: Negative for crackles, rales, rhonchi or wheezes Cardio regular rate, regular rhythm, S1 normal heart sound, S2 normal heart sound and no murmurs GI soft to palpation, non-tender and non-distended; Negative for hepatosplenomegaly Extremity no clubbing, cyanosis or edema Skin no rashes or lesions noted Skin Narrative: Bilateral lower extremity venous stasis, no wounds Rashes: no rashes Trauma: no lacerations or abrasions Neuro no focal motor deficits and no sensory deficits noted Psych affect normal Appearance: appropriate Assessment & Plan Assessment/Plan (1) Acute respiratory failure with hypoxia: (2) COVID-19: PLAN: 1. Acute hypoxic respiratory failure secondary to COVID-19 pneumonia/acute metabolic encephalopathy/ESTEAFNI/debility -she is completed Decadron, remdesivir as well as a course of empiric antibiotics. -CTA is negative for PE, and venous Dopplers are negative DVT -She is outside of quarantine -Currently pending disposition, she is still requiring air Vo and therefore cannot go home or to a rehab facility, will attempt to get her placed at an LTAC if able -Encephalopathy has resolved as has the ESTEFANI -Continue with PT/OT, will likely need LTAC -Continue with daily Lasix, kidney function is at baseline -Had 20-minute discussion with her and her son about advanced care planning including discharge plan for LTAC versus possibility of hospice 2. ARYAN/moderate intermittent asthma -She is currently on air Vo and does wear BiPAP occasionally at night though compliance is a bit of an issue -Continue with inhalers 3. Hypothyroidism -Stable -Continue Synthroid DVT: Lovenox Charges/Coding Visit Charges Inpatient E&M: 37706 Subs Hosp L2 Procedures Hospitalists Procedures: 03068 Advncd Care Plan 30 Min
[2021-09-06 17:40] LABS: Bedside Glucose 168 mg/dL (70-110)
[2021-09-06] MEDS: MELATONIN 10 MG TABLET PO (21:14)
[2021-09-06] MEDS: Acetaminophen 325 MG Tablet 650 MG PO (21:26)
[2021-09-06 21:51] LABS: Bedside Glucose 131 mg/dL (70-110)
[2021-09-07] VITALS (18 sets, daily range): BP systolic 107–119; BP diastolic 60–70; PULSE 72–102; RESP 12–25; TEMP 36.3–36.6; O2SAT 90–98
[2021-09-07 05:34] LABS: Absolute Lymphocyte Count 1.26 X10^3/uL (0.83-4.51); Absolute Neutrophil Count 4.8 X10^3/uL (2.0-7.7); Basophil# 0.06 X10^3/uL; Basophil% 0.7 % (0-1); Eosinophil# 1.62 X10^3/uL; Hematocrit 36.4 % (37-47); Hemoglobin 11.2 g/dL (12.0-15.0); Lymphocyte # 1.26 X10^3/ul (0.83-4.51); Lymphocyte % 14.8 % (19-41); Mean Corp Hgb Conc 30.8 g/dL (32-36); Mean Corpuscular Hgb 28.6 pg (27.0-32.0); Mean Corpuscular Volume 92.9 fL (81-99); Mean Platelet Vol. 11.2 fl (6.2-12.0); Monocyte# 0.56 X10^3/uL; Monocyte% 6.6 % (0-10); NRBC Flagged by Analyzer 0 % (0-5); Neutrophil # 4.76 X10^3/uL (2.7-7.7); Platelet Count 259 K/mm3 (150-450); RBC Distribution Width CV 14.8 % (11.6-14.6); RBC Distribution Width SD 49.4 fl (35.1-43.9); Red Blood Count 3.92 M/mm3 (4.2-5.4); White Blood Count 8.5 K/mm3 (4.4-11.0)
[2021-09-07 06:08] LABS: Anion Gap 4 (5-15); BUN 45 mg/dL (7-18); BUN/Creat Ratio 32.6 RATIO (10-20); Calcium,Total 9.3 mg/dL (8.5-10.1); Chloride 99 mmol/L (98-107); Creatinine, Serum 1.38 mg/dL (0.55-1.02); EST Glomerular Filtration Rate 40 mL/min (>60); Est Glom Filt Rate - Afr Amer 49 mL/min (>60); Estimated Creatinine Clearance 32.76 ml/min; Glucose 126 mg/dL (74-106); Potassium 4.4 mmol/L (3.5-5.1); Sodium Level 136 mmol/L (136-145)
[2021-09-07 06:50] LABS: Bedside Glucose 138 mg/dL (70-110)
[2021-09-07] MEDS: Ipratropium/Albuterol Sulfate 3 ML AMPUL.NEB INHALATION ×4 (07:34→19:14)
[2021-09-07] MEDS: Acetaminophen 325 MG Tablet 650 MG PO (08:19)
[2021-09-07] MEDS: Levothyroxine 125 MCG Tablet PO (08:19)
[2021-09-07] MEDS: Furosemide 40 MG Tablet PO (08:20)
[2021-09-07] MEDS: NYSTATIN 500,000 UNIT/5 ML UDC 500000 UNIT PO ×4 (08:20→21:26)
[2021-09-07] MEDS: dilTIAZem CD 120 MG Capsule PO ×2 (08:21→21:25)
[2021-09-07] MEDS: Sodium Chloride 0.65% 1 SPRAY SPRAY.BTL 2 SPRAY NASAL ×2 (08:21→21:26)
[2021-09-07] MEDS: guaiFENesin 1,200 MG Tablet 1200 MG PO ×2 (08:22→21:26)
--- NOTE | 2021-09-07 09:34 | CASEMGMT ---
Message from Maite at [facility] and she states that their resp therapist feels pt's oxygen is still unstable after speaking with Renan [facility] resp therapist. She states they do not feel pt would be stable for discharge. She states they will [facility] precert but [facility]. Dr. Bustamante updated, voices understanding. Alberto ELLIOTT CM
--- NOTE | 2021-09-07 10:00 | NURSING ---
This RN assumed care from Ángel Rose RN.
--- NOTE | 2021-09-07 11:32 | PN.HOSP_ITS ---
Subjective Subjective Remains unchanged, will attempt to get her to the chair today and try to improve her mobility. Objective Data Objective Data Vital Signs: Vital Signs Temp Pulse Resp BP Pulse Ox 97.7 F L 88 24 H 113/62 95 09/07/21 08:31 09/07/21 09:46 09/07/21 09:46 09/07/21 08:31 09/07/21 10:01 Oxygen Flow Rate (L/min) 70 Oxygen Delivery Method Airvo Weight: 211 lb 3.245 oz Body Mass Index (BMI) 41.1 Intake & Output: Intake and Output for Last 24 Hours 09/06/21 09/07/21 09/08/21 03:59 03:59 03:59 Intake Total 680 / 680 1150 / 1150 Output Total 700 / 700 775 / 775 150 / 150 Balance -20 / -20 375 / 375 -150 / -150 Lab / Micro Data Result Diagrams: 09/07/21 05:00 09/07/21 05:00 Labs: Laboratory Results - last 24 hr 09/06/21 11:29: POC Glucose 179 H 09/06/21 17:13: POC Glucose 168 H 09/06/21 21:33: POC Glucose 131 H 09/07/21 05:00: WBC 8.5, RBC 3.92 L, Hgb 11.2 L, Hct 36.4 L, MCV 92.9, MCH 28.6, MCHC 30.8 L, RDW Std Deviation 49.4 H, RDW Coeff of Dilip 14.8 H, Plt Count 259, MPV 11.2, Immature Gran % (Auto) 2.900 H, Neut % (Auto) 56.0, Lymph % (Auto) 14.8 L, [place] % (Auto) 6.6, Eos % (Auto) 19.0 H, Baso % (Auto) 0.7, Absolute Neuts (auto) 4.8, Absolute Lymphs (auto) 1.26, Nucleated RBC % 0 09/07/21 05:00: Sodium 136, Potassium 4.4, Chloride 99, Carbon Dioxide 33.0 H, Anion Gap 4 L, BUN 45 H, Creatinine 1.38 H, Estim Creat Clear Calc 32.76, Est GFR (MDRD) Af Amer 49 L, Est GFR (MDRD) Non-Af 40 L, BUN/Creatinine Ratio 32.6 H , Glucose 126 H, Calcium 9.3 09/07/21 06:24: POC Glucose 138 H Micro: Microbiology 08/19/21 11:50 Urine, Clean Catch Legionella Antigen - Final 08/19/21 11:50 Urine, Clean Catch Streptococcus pneumoniae Antigen (M - Final 08/10/21 16:30 Nasal Secretion SARS-CoV-2 Antigen (Rapid) - Final SARS-CoV-2 (COVID 19) Physical Exam Const alert, oriented x3 and no apparent distress General Appearance: cooperative HEENT normocephalic and moist oral mucous membranes Eyes PERRL, EOMs intact bilaterally and conjunctivae normal Neck supple and no JVD Resp normal respiratory effort, no retractions, no use of accessory muscles and clear to auscultation bilaterally Auscultation: Negative for crackles, rales, rhonchi or wheezes Cardio regular rate, regular rhythm, S1 normal heart sound, S2 normal heart sound and no murmurs GI soft to palpation, non-tender and non-distended; Negative for hepatosplenomegaly Extremity no clubbing, cyanosis or edema Skin no rashes or lesions noted Skin Narrative: Bilateral lower extremity venous stasis, no wounds Rashes: no rashes Trauma: no lacerations or abrasions Neuro no focal motor deficits and no sensory deficits noted Psych affect normal Appearance: appropriate Assessment & Plan Assessment/Plan (1) Acute respiratory failure with hypoxia: (2) COVID-19: PLAN: 1. Acute hypoxic respiratory failure secondary to COVID-19 pneumonia/acute metabolic encephalopathy/ESTEFANI/debility -she is completed Decadron, remdesivir as well as a course of empiric antibiotics. -CTA is negative for PE, and venous Dopplers are negative DVT -She is outside of quarantine -Currently pending disposition, she is still requiring air Vo and therefore cannot go home or to a rehab facility, will attempt to get her placed at an LTAC if able -Encephalopathy has resolved as has the ESTEFANI -Continue with PT/OT, will likely need LTAC -Continue with daily Lasix, kidney function is at baseline -We will be more active in getting her up out of bed into the chair 2. ARYAN/moderate intermittent asthma -She is currently on air Vo and does wear BiPAP occasionally at night though compliance is a bit of an issue -Continue with inhalers 3. Hypothyroidism -Stable -Continue Synthroid DVT: Lovenox Charges/Coding Visit Charges Inpatient E&M: 66288 Subs Hosp L2
[2021-09-07] MEDS: Insulin Lispro 100 UNIT/ML INSULN.PEN SC ×2 (11:34→18:39)
[2021-09-07 11:35] LABS: Bedside Glucose 151 mg/dL (70-110)
[2021-09-07 18:51] LABS: Bedside Glucose 209 mg/dL (70-110)
[2021-09-07] MEDS: ALPRAZolam 0.5 MG Tablet PO (21:30)
[2021-09-07 23:10] LABS: Bedside Glucose 131 mg/dL (70-110)
[2021-09-08] VITALS (19 sets, daily range): BP systolic 111–124; BP diastolic 66–77; PULSE 75–107; RESP 13–25; TEMP 36.3–36.8; O2SAT 87–99
--- NOTE | 2021-09-08 01:48 | NURSING ---
Pt son melissa called to check up on how his mother was doing. a long conversation about how his mother is not motivated to get better. and that she doesn't do anything to try to help herself like using the IS x10 every hour to help open up her lungs. The son got upset saying every time he is in visiting she is told to use the IS different amounts of time. I informed the son that it has always been 10x every hour and that is what we document on the shift clinical findings.
[2021-09-08] MEDS: Ipratropium/Albuterol Sulfate 3 ML AMPUL.NEB INHALATION ×4 (06:50→19:24)
[2021-09-08 07:11] LABS: Bedside Glucose 133 mg/dL (70-110)
--- NOTE | 2021-09-08 09:19 | CPS ---
Called to pt's room per pt requesting to see respiratory. Pt stated she needed to buy more oxygen. Pt saturation was 93% on airvo at 75% and 70l. Pt was informed that her oxygen level was good. Pt was not in any respiratory distress but was anxious about not being able to get a hold of her son. Encouragement was given to pt letting her know that her vitals and oxygen was all looking good. Pt's nurse was notified of the above events.
--- NOTE | 2021-09-08 09:24 | PN.HOSP_ITS ---
Subjective Subjective Remains unchanged, respiratory status is tenuous but stable Objective Data Objective Data Vital Signs: Vital Signs Temp Pulse Resp BP Pulse Ox 97.4 F L 76 16 117/69 98 09/08/21 02:00 09/08/21 06:50 09/08/21 06:50 09/08/21 02:00 09/08/21 06:50 Oxygen Flow Rate (L/min) 70 Oxygen Delivery Method Airvo Weight: 212 lb 1.355 oz Body Mass Index (BMI) 41.1 Intake & Output: Intake and Output for Last 24 Hours 09/07/21 09/08/21 09/09/21 03:59 03:59 03:59 Intake Total 1150 / 1150 200 / 200 200 / 200 Output Total 775 / 775 650 / 650 350 / 350 Balance 375 / 375 -450 / -450 -150 / -150 Lab / Micro Data Result Diagrams: 09/07/21 05:00 09/07/21 05:00 Labs: Laboratory Results - last 24 hr 09/07/21 11:31: POC Glucose 151 H 09/07/21 18:38: POC Glucose 209 H 09/07/21 22:11: POC Glucose 131 H 09/08/21 06:35: POC Glucose 133 H Micro: Microbiology 08/19/21 11:50 Urine, Clean Catch Legionella Antigen - Final 08/19/21 11:50 Urine, Clean Catch Streptococcus pneumoniae Antigen (M - Final 08/10/21 16:30 Nasal Secretion SARS-CoV-2 Antigen (Rapid) - Final SARS-CoV-2 (COVID 19) Physical Exam Const alert, oriented x3 and no apparent distress Constitutional Narrative: Appears fatigued. General Appearance: cooperative HEENT normocephalic and moist oral mucous membranes Eyes PERRL, EOMs intact bilaterally and conjunctivae normal Neck supple and no JVD Resp normal respiratory effort, no retractions, no use of accessory muscles and clear to auscultation bilaterally Auscultation: Negative for crackles, rales, rhonchi or wheezes Cardio regular rate, regular rhythm, S1 normal heart sound, S2 normal heart sound and no murmurs GI soft to palpation, non-tender and non-distended; Negative for hepatosplenomegaly Extremity no clubbing, cyanosis or edema Skin no rashes or lesions noted Neuro no focal motor deficits and no sensory deficits noted Psych affect normal Appearance: appropriate Assessment & Plan Assessment/Plan (1) Acute respiratory failure with hypoxia: (2) COVID-19: PLAN: 1. Acute hypoxic respiratory failure secondary to COVID-19 pneumonia/acute metabolic encephalopathy/ESTEFANI/debility -she is completed Decadron, remdesivir as well as a course of empiric anti biotics. -CTA is negative for PE, and venous Dopplers are negative DVT -She is outside of quarantine -Currently pending disposition, she is still requiring air Vo and therefore cannot go home or to a rehab facility, will attempt to get her placed at an LTAC if able -Encephalopathy has resolved as has the ESTEFANI -Continue with PT/OT, will likely need LTAC -Continue with daily Lasix, kidney function is at baseline -We will be more active in getting her up out of bed into the chair 2. ARYAN/moderate intermittent asthma -She is currently on air Vo and does wear BiPAP occasionally at night though compliance is a bit of an issue -Continue with inhalers 3. Hypothyroidism -Stable -Continue Synthroid DVT: Lovenox Charges/Coding Visit Charges Inpatient E&M: 30295 Subs Hosp L2
[2021-09-08] MEDS: ALPRAZolam 0.5 MG Tablet PO (09:45)
[2021-09-08] MEDS: dilTIAZem CD 120 MG Capsule PO ×2 (09:46→21:49)
[2021-09-08] MEDS: Furosemide 40 MG Tablet PO (09:46)
[2021-09-08] MEDS: guaiFENesin 1,200 MG Tablet 1200 MG PO ×2 (09:46→21:49)
[2021-09-08] MEDS: Levothyroxine 125 MCG Tablet PO (09:47)
[2021-09-08] MEDS: NYSTATIN 500,000 UNIT/5 ML UDC 500000 UNIT PO ×4 (09:47→21:49)
--- NOTE | 2021-09-08 13:38 | CPS ---
Upon entering pt's room pt had just gotten up to chair. Pt was on airvo during transfer with NRB mask on also. Pt saturation 90-91%.
[2021-09-08] MEDS: Sodium Chloride 0.65% 1 SPRAY SPRAY.BTL 2 SPRAY NASAL ×4 (14:07→22:21)
[2021-09-08] MEDS: Insulin Lispro 100 UNIT/ML INSULN.PEN SC ×2 (14:15→21:55)
[2021-09-08 14:36] LABS: Bedside Glucose 200 mg/dL (70-110)
--- NOTE | 2021-09-08 15:43 | CPS ---
At 1509 upon entering room pt was on airvo with NRB mask. NRB mask was removed and FIO2 was increased to 80% on airvo to keep saturation 90%.
[2021-09-08 17:10] LABS: Bedside Glucose 144 mg/dL (70-110)
--- NOTE | 2021-09-08 19:46 | CPS ---
decreased to 55l and 75%-mau well sats 95%
[2021-09-08] MEDS: MELATONIN 10 MG TABLET PO (21:49)
[2021-09-08 23:11] LABS: Bedside Glucose 155 mg/dL (70-110)
[2021-09-09] VITALS (22 sets, daily range): BP systolic 99–121; BP diastolic 61–76; PULSE 75–98; RESP 12–30; TEMP 36.6–36.8; O2SAT 89–100
--- NOTE | 2021-09-09 04:04 | CPS ---
increased o2 to 65% to keep sat <90%
[2021-09-09] MEDS: Insulin Lispro 100 UNIT/ML INSULN.PEN SC ×3 (06:25→16:21)
[2021-09-09 06:30] LABS: Bedside Glucose 167 mg/dL (70-110)
[2021-09-09 06:42] LABS: Anion Gap 8 (5-15); BUN 40 mg/dL (7-18); BUN/Creat Ratio 29.6 RATIO (10-20); Calcium,Total 9.2 mg/dL (8.5-10.1); Chloride 96 mmol/L (98-107); Creatinine, Serum 1.35 mg/dL (0.55-1.02); EST Glomerular Filtration Rate 41 mL/min (>60); Est Glom Filt Rate - Afr Amer 50 mL/min (>60); Estimated Creatinine Clearance 33.48 ml/min; Glucose 143 mg/dL (74-106); Potassium 3.8 mmol/L (3.5-5.1); Sodium Level 137 mmol/L (136-145)
[2021-09-09] MEDS: Ipratropium/Albuterol Sulfate 3 ML AMPUL.NEB INHALATION ×3 (06:52→14:47)
[2021-09-09] MEDS: Levothyroxine 125 MCG Tablet PO (09:50)
[2021-09-09] MEDS: NYSTATIN 500,000 UNIT/5 ML UDC 500000 UNIT PO ×3 (09:50→21:22)
[2021-09-09] MEDS: ALPRAZolam 0.5 MG Tablet PO ×2 (09:50→22:44)
[2021-09-09] MEDS: dilTIAZem CD 120 MG Capsule PO ×2 (09:50→21:22)
[2021-09-09] MEDS: guaiFENesin 1,200 MG Tablet 1200 MG PO ×2 (09:50→21:32)
[2021-09-09] MEDS: Sodium Chloride 0.65% 1 SPRAY SPRAY.BTL 2 SPRAY NASAL ×2 (09:50→21:21)
[2021-09-09] MEDS: Furosemide 40 MG Tablet PO (09:50)
[2021-09-09] MEDS: 0.9% Saline Lock 10 ML Syringe IV (09:51)
--- NOTE | 2021-09-09 10:47 | CPS ---
Patient on Heated high flow therapy and patient wearing NRB on top. Patient is refusing to allow the NRB to be removed.
--- NOTE | 2021-09-09 11:07 | PCM.PN.HOSP ---
Subjective Subjective No issues overnight, her oxygen status remained stable. She is acknowledging episodes of delirium and does not remember if she wore the BiPAP at all last night or not Objective Data Objective Data Vital Signs: Vital Signs Temp Pulse Resp BP Pulse Ox 97.9 F 75 16 121/67 H 91 09/09/21 03:00 09/09/21 07:00 09/09/21 06:53 09/09/21 03:00 09/09/21 06:53 Oxygen Flow Rate (L/min) 70 Oxygen Delivery Method Airvo Weight: 211 lb 3.245 oz Body Mass Index (BMI) 41.1 Intake & Output: Intake and Output for Last 24 Hours 09/08/21 09/09/21 09/10/21 03:59 03:59 03:59 Intake Total 200 / 200 520 / 520 Output Total 650 / 650 1000 / 1000 Balance -450 / -450 -480 / -480 Lab / Micro Data Result Diagrams: 09/07/21 05:00 09/09/21 05:30 Labs: Laboratory Results - last 24 hr 09/08/21 14:14: POC Glucose 200 H 09/08/21 16:46: POC Glucose 144 H 09/08/21 21:55: POC Glucose 155 H 09/09/21 05:30: Sodium 137, Potassium 3.8, Chloride 96 L, Carbon Dioxide 33.0 H, Anion Gap 8, BUN 40 H, Creatinine 1.35 H, Estim Creat Clear Calc 33.48, Est GFR (MDRD) Af Amer 50 L, Est GFR (MDRD) Non-Af 41 L, BUN/Creatinine Ratio 29.6 H, Glucose 143 H, Calcium 9.2 09/09/21 06:23: POC Glucose 167 H Micro: Microbiology 08/19/21 11:50 Urine, Clean Catch Legionella Antigen - Final 08/19/21 11:50 Urine, Clean Catch Streptococcus pneumoniae Antigen (M - Final 08/10/21 16:30 Nasal Secretion SARS-CoV-2 Antigen (Rapid) - Final SARS-CoV-2 (COVID 19) Physical Exam Const alert, oriented x3 and no apparent distress Constitutional Narrative: Appears fatigued. General Appearance: cooperative HEENT normocephalic and moist oral mucous membranes Eyes PERRL, EOMs intact bilaterally and conjunctivae normal Neck supple and no JVD Resp normal respiratory effort, no retractions, no use of accessory muscles and clear to auscultation bilaterally Auscultation: Negative for crackles, rales, rhonchi or wheezes Cardio regular rate, regular rhythm, S1 normal heart sound, S2 normal heart sound and no murmurs GI soft to palpation, non-tender and non-distended; Negative for hepatosplenomegaly Extremity no clubbing, cyanosis or edema Skin no rashes or lesions noted Skin Narrative: Bilateral lower extremity venous stasis, no wounds Rashes: no rashes Trauma: no lacerations or abrasions Neuro no focal motor deficits and no sensory deficits noted Psych affect normal Appearance: appropriate Assessment & Plan Assessment/Plan (1) Acute respiratory failure with hypoxia: (2) COVID-19: PLAN: 1. Acute hypoxic respiratory failure secondary to COVID-19 pneumonia/acute metabolic encephalopathy/ESTEFANI/debility -she is completed Decadron, remdesivir as well as a course of empiric antibiotics. -CTA is negative for PE, and venous Dopplers are negative DVT -She is outside of quarantine -Currently pending disposition, she is still requiring air Vo and therefore cannot go home or to a rehab facility, will attempt to get her placed at an LTAC if able -Encephalopathy has resolved as has the ESTEFANI -Continue with PT/OT, will likely need LTAC -Continue with daily Lasix, kidney function is at baseline -We will be more active in getting her up out of bed into the chair 2. ARYAN/moderate intermittent asthma -She is currently on air Vo and does wear BiPAP occasionally at night though compliance is a bit of an issue -Continue with inhalers 3. Hypothyroidism -Stable -Continue Synthroid DVT: Lovenox Charges/Coding Visit Charges Inpatient E&M: 44761 Subs Hosp L2
[2021-09-09 11:56] LABS: Bedside Glucose 150 mg/dL (70-110)
[2021-09-09 16:25] LABS: Bedside Glucose 154 mg/dL (70-110)
[2021-09-09] MEDS: MELATONIN 10 MG TABLET PO (21:22)
[2021-09-09 22:30] LABS: Bedside Glucose 133 mg/dL (70-110)
[2021-09-09] MEDS: Acetaminophen 325 MG Tablet 650 MG PO (22:44)
[2021-09-10] VITALS (18 sets, daily range): BP systolic 98–118; BP diastolic 58–75; PULSE 73–106; RESP 12–22; TEMP 36.4–36.8; O2SAT 93–98
--- NOTE | 2021-09-10 02:55 | NURSING ---
Pt son Gerald called for an update on his mother. I informed him that she has been resting since I got her at 7pm. She took her meds and gave her anxiety meds and Tylenol and got her on the bipap machine and she has been resting well since.
[2021-09-10 06:26] LABS: Bedside Glucose 131 mg/dL (70-110)
[2021-09-10] MEDS: Ipratropium/Albuterol Sulfate 3 ML AMPUL.NEB INHALATION ×4 (07:11→19:00)
--- NOTE | 2021-09-10 08:20 | CASEMGMT ---
Addendum entered by Beata Pierre 09/10/21 16:32: After approx 60 min on phone attempting expedited appeal per info provided, kayla cota states this LEXI LOGAN needs to fax pertinent information for appeal to [phone]. Clinicals faxed for appeal at this time. CM to follow. Alberto ELLIOTT CM Addendum entered by Beata Pierre 09/10/21 15:06: P2P denied so expedited appeal started per Dr. Lucero's request. Alberto ELLIOTT CM Addendum entered by Beata Pierre 09/10/21 12:44: Call from Maite at [facility] and she states pt has been denied for LTACH but Dr. Lucero is willing to do a P2P. Message left for P2P and contact info is ref#[id number]. Dr. Lucero's cell number left for them to call her for P2P. CM to follow. Alberto ELLIOTT CM Original Note: Call from Maite perez [facility] and she is updated on pt oxygen and updated clinicals faxed. CM to follow. Alberto ELLIOTT CM
[2021-09-10 08:47] LABS: Absolute Lymphocyte Count 1.25 X10^3/uL (0.83-4.51); Absolute Neutrophil Count 5.8 X10^3/uL (2.0-7.7); Basophil# 0.08 X10^3/uL; Basophil% 0.8 % (0-1); Eosinophil# 1.47 X10^3/uL; Eosinophils% 15.4 % (0-5); Hematocrit 39.1 % (37-47); Lymphocyte # 1.25 X10^3/ul (0.83-4.51); Lymphocyte % 13.1 % (19-41); Mean Corp Hgb Conc 30.7 g/dL (32-36); Mean Corpuscular Hgb 28.4 pg (27.0-32.0); Mean Corpuscular Volume 92.7 fL (81-99); Mean Platelet Vol. 10.6 fl (6.2-12.0); Monocyte# 0.56 X10^3/uL; Monocyte% 5.9 % (0-10); NRBC Flagged by Analyzer 0 % (0-5); Neutrophil # 5.84 X10^3/uL (2.7-7.7); Neutrophil % 61.4 % (47-70); Platelet Count 270 K/mm3 (150-450); Red Blood Count 4.22 M/mm3 (4.2-5.4); White Blood Count 9.5 K/mm3 (4.4-11.0)
[2021-09-10 08:52] LABS: Anion Gap 7 (5-15); BUN 39 mg/dL (7-18); BUN/Creat Ratio 25.5 RATIO (10-20); Calcium,Total 9.7 mg/dL (8.5-10.1); Chloride 96 mmol/L (98-107); Creatinine, Serum 1.53 mg/dL (0.55-1.02); EST Glomerular Filtration Rate 36 mL/min (>60); Est Glom Filt Rate - Afr Amer 43 mL/min (>60); Estimated Creatinine Clearance 29.54 ml/min; Glucose 153 mg/dL (74-106); Magnesium 2.2 mg/dL (1.6-2.6); Potassium 3.7 mmol/L (3.5-5.1); Sodium Level 137 mmol/L (136-145)
[2021-09-10] MEDS: Levothyroxine 125 MCG Tablet PO (09:40)
[2021-09-10] MEDS: Furosemide 40 MG Tablet PO (09:40)
[2021-09-10] MEDS: dilTIAZem CD 120 MG Capsule PO ×2 (09:40→22:39)
[2021-09-10] MEDS: Sodium Chloride 0.65% 1 SPRAY SPRAY.BTL 2 SPRAY NASAL ×2 (09:41→22:40)
[2021-09-10] MEDS: guaiFENesin 1,200 MG Tablet 1200 MG PO ×2 (09:42→22:39)
[2021-09-10] MEDS: NYSTATIN 500,000 UNIT/5 ML UDC 500000 UNIT PO ×3 (09:42→22:39)
[2021-09-10] MEDS: Insulin Lispro 100 UNIT/ML INSULN.PEN SC ×3 (11:09→22:40)
[2021-09-10 11:20] LABS: Bedside Glucose 206 mg/dL (70-110)
--- NOTE | 2021-09-10 16:38 | PN.HOSP_ITS ---
Subjective Subjective Patient reports that she slowly feels little bit better. She still has the saturations with exertion. Her participation is intermittent although improved overall. She still appears fatigued but her oxygen has been able to be weaned slowly. Objective Data Objective Data Vital Signs: Vital Signs Temp Pulse Resp BP Pulse Ox 98 F 97 20 H 118/70 93 09/10/21 11:10 09/10/21 15:27 09/10/21 15:09 09/10/21 11:10 09/10/21 12:43 Oxygen Flow Rate (L/min) 45 Oxygen Delivery Method Airvo Weight: 96.2 kg Body Mass Index (BMI) 41.1 Intake & Output: Intake and Output for Last 24 Hours 09/08/21 09/09/21 09/10/21 23:59 23:59 23:59 Intake Total 520 / 520 390 / 390 265 / 265 Output Total 750 / 1000 500 / 500 425 / 425 Balance -230 / -480 -110 / -110 -160 / -160 Lab / Micro Data Result Diagrams: 09/10/21 08:28 09/10/21 08:28 Labs: Laboratory Results - last 24 hr 09/09/21 21:20: POC Glucose 133 H 09/10/21 06:15: POC Glucose 131 H 09/10/21 08:28: WBC 9.5, RBC 4.22, Hgb 12.0, Hct 39.1, MCV 92.7, MCH 28.4, MCHC 30.7 L, RDW Std Deviation 50.0 H, RDW Coeff of Dilip 15.0 H, Plt Count 270, MPV 10.6, Immature Gran % (Auto) 3.400 H, Neut % (Auto) 61.4, Lymph % (Auto) 13.1 L, Glasscock % (Auto) 5.9, Eos % (Auto) 15.4 H, Baso % (Auto) 0.8, Absolute Neuts (auto) 5.8, Absolute Lymphs (auto) 1.25, Nucleated RBC % 0 09/10/21 08:28: Sodium 137, Potassium 3.7, Chloride 96 L, Carbon Dioxide 34.0 H, Anion Gap 7, BUN 39 H, Creatinine 1.53 H, Estim Creat Clear Calc 29.54, Est GFR (MDRD) Af Amer 43 L, Est GFR (MDRD) Non-Af 36 L, BUN/Creatinine Ratio 25.5 H, Glucose 153 H, Calcium 9.7, Phosphorus 5.0 H, Magnesium 2.2 09/10/21 11:07: POC Glucose 206 H Micro: Microbiology 08/19/21 11:50 Urine, Clean Catch Legionella Antigen - Final 08/19/21 11:50 Urine, Clean Catch Streptococcus pneumoniae Antigen (M - Final 08/10/21 16:30 Nasal Secretion SARS-CoV-2 Antigen (Rapid) - Final SARS-CoV-2 (COVID 19) Physical Exam Const alert, oriented x3 and no apparent distress Constitutional Narrative: obese elderly white female sitting up in bed on air Vo, appears fatigued but nontoxic Assessment & Plan Assessment/Plan (1) Acute respiratory failure with hypoxia: (2) COVID-19: PLAN: Acute hypoxic respiratory failure secondary to COVID-19 pneumonia -Patient with high markers of inflammation on admission -Chest x-ray shows patchy bilateral infiltrates with worsening airspace disease -We will hold Lasix with serum creatinine trending up -Restart prophylactic dose Lovenox -Continue mucolytic's -Patient has completed Decadron and remdesivir -I-S/Acapella -Oxygen--> air Vo has been weaned to at 45 L/min and 60% FiO2 -Titrate oxygen to maintain sats greater than 92% and wean as able -Titration is slow and would recommend LTAC for discharge for further vent weaning and rehabilitation as patient is markedly Weak -CODE STATUS has been changed to DNR CCA no intubation -Patient was not a candidate for baricitinib per ID -Vaccine recommended for both her and her family after discharge -Pulmonary has signed off Leukocytosis -Resolved Hypothyroidism -Continue levothyroxine ESTEFANI on CKD stage II -Slightly worse -We will hold Lasix and monitor clinically -Monitor closely Vitamin D deficiency -Hold vitamin D while hospitalized Seasonal allergies -Continue nasal sprays ARYAN -Patient is currently on continuous BiPAP DVT prophylaxis -Continue therapeutic enoxaparin CODE STATUS -DNR CCA no intubation Charges/Coding Visit Charges Inpatient E&M: 23210 Subs Hosp L2
[2021-09-10 18:01] LABS: Bedside Glucose 165 mg/dL (70-110)
[2021-09-10] MEDS: MELATONIN 10 MG TABLET PO (22:39)
[2021-09-10] MEDS: ALPRAZolam 0.5 MG Tablet PO (22:39)
[2021-09-10] MEDS: Enoxaparin 40 MG/0.4 ML Syringe SC (22:39)
[2021-09-10 22:50] LABS: Bedside Glucose 155 mg/dL (70-110)
[2021-09-11] VITALS (21 sets, daily range): BP systolic 92–107; BP diastolic 49–68; PULSE 70–103; RESP 12–28; TEMP 36–36.7; O2SAT 45–100
[2021-09-11 06:36] LABS: Bedside Glucose 117 mg/dL (70-110)
[2021-09-11] MEDS: Ipratropium/Albuterol Sulfate 3 ML AMPUL.NEB INHALATION ×5 (07:11→22:27)
[2021-09-11] MEDS: Levothyroxine 125 MCG Tablet PO (10:47)
[2021-09-11] MEDS: Enoxaparin 40 MG/0.4 ML Syringe SC ×2 (10:47→21:53)
[2021-09-11] MEDS: dilTIAZem CD 120 MG Capsule PO ×2 (10:47→21:53)
[2021-09-11] MEDS: Sodium Chloride 0.65% 1 SPRAY SPRAY.BTL 2 SPRAY NASAL ×2 (10:48→21:54)
--- NOTE | 2021-09-11 11:45 | PCM.PN.HOSP ---
Subjective Subjective Patient is sleeping soundly but does awaken for exam. She is feeling better overall. We have been able to wean her oxygen on the air Vo to 45 L/min at 45% FiO2 which is dramatic improvement. She still has some desaturations, which are to be expected, with ambulation/movement. She has been more compliant with her therapies. She has no acute complaints today. Objective Data Objective Data Vital Signs: Vital Signs Temp Pulse Resp BP Pulse Ox 97.7 F L 93 18 107/66 92 09/11/21 09:42 09/11/21 11:20 09/11/21 09:42 09/11/21 09:42 09/11/21 09:49 Oxygen Flow Rate (L/min) 45 Oxygen Delivery Method Airvo Weight: 95.1 kg Body Mass Index (BMI) 41.1 Intake & Output: Intake and Output for Last 24 Hours 09/09/21 09/10/21 09/11/21 23:59 23:59 23:59 Intake Total 390 / 390 715 / 775 60 / 60 Output Total 500 / 500 825 / 825 100 / 100 Balance -110 / -110 -110 / -50 -40 / -40 Lab / Micro Data Result Diagrams: 09/10/21 08:28 09/10/21 08:28 Labs: Laboratory Results - last 24 hr 09/10/21 17:49: POC Glucose 165 H 09/10/21 22:38: POC Glucose 155 H 09/11/21 06:17: POC Glucose 117 H 09/11/21 06:58: Sodium Cancelled, Potassium Cancelled, Chloride Cancelled, Carbon Dioxide Cancelled, Anion Gap Cancelled, BUN Cancelled, Creatinine Cancelled, Estim Creat Clear Calc Cancelled, Est GFR (MDRD) Af Amer Cancelled, Est GFR (MDRD) Non-Af Cancelled, BUN/Creatinine Ratio Cancelled, Glucose Cancelled, Calcium Cancelled Micro: Microbiology 08/19/21 11:50 Urine, Clean Catch Legionella Antigen - Final 08/19/21 11:50 Urine, Clean Catch Streptococcus pneumoniae Antigen (M - Final 08/10/21 16:30 Nasal Secretion SARS-CoV-2 Antigen (Rapid) - Final SARS-CoV-2 (COVID 19) Physical Exam Const alert, oriented x3, no apparent distress and average body habitus Constitutional Narrative: obese elderly white female sitting up in bed on air Vo, sleeping but awakens easily for exam General Appearance: cooperative Orientation / Consciousness: awake, oriented to person, oriented to place and oriented to time Exam Limitations: no limitations Nutritional Appearance: morbidly obese HEENT normocephalic, head/scalp atraumatic, hearing grossly normal bilaterally and moist oral mucous membranes HEENT Narrative: No thrush Head and Scalp: normocephalic Resp normal respiratory effort, no retractions, no use of accessory muscles and clear to auscultation bilaterally Resp Narrative: Diminished but clear Auscultation: diminished lung sounds; Negative for crackles, rales, rhonchi or wheezes Cardio regular rate, regular rhythm, S1 normal heart sound, S2 normal heart sound, no murmurs, no rub, no gallops, no clicks and no JVD Cardio Narrative: Mild tachycardia Peripheral Pulses: pulses 2+ throughout GI normal to inspection, nondistended, normoactive bowel sounds, soft to palpation, non-tender and non-distended; Negative for hepatosplenomegaly Extremity normal to inspection and no clubbing, cyanosis or edema Peripheral Pulses: Yes pulses 2+ throughout Skin no rashes or lesions noted, no wounds, skin turgor normal, no jaundice, no petechiae and no mottling Skin Narrative: Bilateral lower extremity venous stasis, no wounds Lesions: no lesions Rashes: no rashes Trauma: no lacerations or abrasions Neuro oriented x3, moves all extremities, no focal motor deficits and deep tendon reflexes 2+ bilaterally Neuro Narrative: Marked generalized weakness Sensorium / Orientation: awake and alert Speech: speech normal Psych mental status grossly normal and affect normal Appearance: appropriate Mood & Affect: flat affect Assessment & Plan Assessment/Plan (1) Acute respiratory failure with hypoxia: (2) COVID-19: PLAN: Acute hypoxic respiratory failure secondary to COVID-19 pneumonia -Patient is making slow but marked improvement over time -Continue to hold Lasix with serum creatinine trending up -Continue mucolytic's -Patient has completed Decadron and remdesivir -I-S/Acapella -Oxygen--> air Vo has been weaned to at 45 L/min and 45% FiO2 -Titrate oxygen to maintain sats greater than 90% and wean as able -Titration is slow and would recommend LTAC for discharge for further vent weaning and rehabilitation as patient is markedly weak -CODE STATUS has been changed to DNR CCA no intubation -Patient was not a candidate for baricitinib per ID -Vaccine recommended for both her and her family after discharge -Pulmonary has signed off Hypothyroidism -Continue levothyroxine ESTEFANI on CKD stage II -Repeat labs from today is pending -Continue to hold Lasix at this time -Was on 40 mg oral daily -If we restart we will start at 20 mg daily oral -Monitor closely Vitamin D deficiency -Hold vitamin D while hospitalized Seasonal allergies -Continue nasal sprays Marked debility -Related to Covid infection and extended hospitalization -Continue PT and OT -Encouraged continued out of bed during the day as much as possible as well ARYAN -Continue nocturnal air Vo as patient seems to be doing well with this DVT prophylaxis -Continue therapeutic enoxaparin CODE STATUS -DNR CCA no intubation Charges/Coding Visit Charges Inpatient E&M: 23222 Subs Hosp L2
[2021-09-11 11:59] LABS: Anion Gap 10 (5-15); BUN 40 mg/dL (7-18); BUN/Creat Ratio 25.2 RATIO (10-20); Calcium,Total 9.4 mg/dL (8.5-10.1); Chloride 95 mmol/L (98-107); Creatinine, Serum 1.59 mg/dL (0.55-1.02); EST Glomerular Filtration Rate 34 mL/min (>60); Est Glom Filt Rate - Afr Amer 41 mL/min (>60); Estimated Creatinine Clearance 28.43 ml/min; Glucose 146 mg/dL (74-106); Potassium 3.9 mmol/L (3.5-5.1); Sodium Level 137 mmol/L (136-145)
--- NOTE | 2021-09-11 12:13 | CASEMGMT ---
Addendum entered by Beata Pierre 09/11/21 14:59: Bed codes faxed to [facility]. CM to follow. Alberto ELLIOTT CM Addendum entered by Beata Pierre 09/11/21 14:16: Maite at [facility] updated on appeal process, voices understanding. Alberto ELLIOTT CM Original Note: This LEXI LOGAN received a fax from [place] requesting addl clinicals be faxed as well as other pertinent [place] [facility], [place], and [place]pt[place] at [phone]. This RN DESMOND faxed all clinicals to this number at this time for appeal. CM to follow. Alberto ELLIOTT CM
[2021-09-11] MEDS: Insulin Lispro 100 UNIT/ML INSULN.PEN SC ×2 (14:05→17:39)
[2021-09-11 14:15] LABS: Bedside Glucose 203 mg/dL (70-110)
[2021-09-11 17:25] LABS: Bedside Glucose 197 mg/dL (70-110)
[2021-09-11] MEDS: 0.9% Normal Saline 1,000 ML 50 ML IV (17:39)
[2021-09-11] MEDS: 0.9% Saline Lock 10 ML Syringe IV (17:48)
[2021-09-11] MEDS: MELATONIN 10 MG TABLET PO (21:53)
[2021-09-11] MEDS: guaiFENesin 1,200 MG Tablet 1200 MG PO (21:53)
[2021-09-11 22:06] LABS: Bedside Glucose 120 mg/dL (70-110)
[2021-09-12] VITALS (17 sets, daily range): BP systolic 103–114; BP diastolic 61–66; PULSE 71–97; RESP 17–26; TEMP 36.1–36.5; O2SAT 89–100
[2021-09-12 06:15] LABS: Absolute Lymphocyte Count 1.63 X10^3/uL (0.83-4.51); Absolute Neutrophil Count 4.5 X10^3/uL (2.0-7.7); Basophil# 0.07 X10^3/uL; Basophil% 0.8 % (0-1); Eosinophil# 1.18 X10^3/uL; Eosinophils% 14.1 % (0-5); Hematocrit 34.8 % (37-47); Hemoglobin 10.9 g/dL (12.0-15.0); Lymphocyte # 1.63 X10^3/ul (0.83-4.51); Lymphocyte % 19.5 % (19-41); Mean Corp Hgb Conc 31.3 g/dL (32-36); Mean Corpuscular Hgb 28.8 pg (27.0-32.0); Mean Corpuscular Volume 92.1 fL (81-99); Monocyte# 0.63 X10^3/uL; Monocyte% 7.5 % (0-10); NRBC Flagged by Analyzer 0 % (0-5); Neutrophil % 53.9 % (47-70); Platelet Count 240 K/mm3 (150-450); RBC Distribution Width CV 15.5 % (11.6-14.6); RBC Distribution Width SD 50.7 fl (35.1-43.9); Red Blood Count 3.78 M/mm3 (4.2-5.4); White Blood Count 8.4 K/mm3 (4.4-11.0)
[2021-09-12] MEDS: Ipratropium/Albuterol Sulfate 3 ML AMPUL.NEB INHALATION ×4 (06:41→18:49)
[2021-09-12 06:44] LABS: Anion Gap 6 (5-15); BUN 38 mg/dL (7-18); BUN/Creat Ratio 29.7 RATIO (10-20); Chloride 98 mmol/L (98-107); Creatinine, Serum 1.28 mg/dL (0.55-1.02); EST Glomerular Filtration Rate 44 mL/min (>60); Est Glom Filt Rate - Afr Amer 53 mL/min (>60); Estimated Creatinine Clearance 35.32 ml/min; Glucose 122 mg/dL (74-106); Potassium 3.7 mmol/L (3.5-5.1); Sodium Level 137 mmol/L (136-145)
[2021-09-12 06:46] LABS: Bedside Glucose 113 mg/dL (70-110)
--- NOTE | 2021-09-12 10:00 | CASEMGMT ---
LEXI LOGAN received call from [employer] that expedited appeal was denied. Appeal will go to external review through [facility] and should get determination in 2-3 days. Also received call from Melanie at [facility] updating regarding denial of appeal. Per Melanie, very rarely does appeal get over turned by external review. LEXI LOGAN updated SW regarding LTACH denial.
[2021-09-12] MEDS: Enoxaparin 40 MG/0.4 ML Syringe SC ×2 (13:07→22:32)
[2021-09-12] MEDS: Insulin Lispro 100 UNIT/ML INSULN.PEN SC (13:08)
[2021-09-12] MEDS: Sodium Chloride 0.65% 1 SPRAY SPRAY.BTL 2 SPRAY NASAL ×2 (13:09→22:35)
[2021-09-12 13:21] LABS: Bedside Glucose 162 mg/dL (70-110)
--- NOTE | 2021-09-12 14:18 | CASEMGMT ---
Addendum entered by Stephanie Jennings 09/12/21 15:11: [facility]'s max O2 is 12L. However, they are full and do not anticipate any openings any time soon. Stephanie GRIFFITH Addendum entered by Stephanie Jennings 09/12/21 14:34: [facility]' max O2 is 8L. Awaiting return call from [facility]. Stephanie GRIFFITH Original Note: Patient was denied for LTACH by her insurance. LYNETTE has been contacting nursing homes regarding how much O2 they can safely accommodate. LYNETTE is checking with facilities that have vent units or specialize in respiratory. So far [facility] max O2 is 10L and [facility] is 7L. LYNETTE is waiting on return calls from [facility] and [facility]. Both of those facilities have vent units. Stephanie GRIFFITH
[2021-09-12] MEDS: dilTIAZem CD 120 MG Capsule PO (14:37)
--- NOTE | 2021-09-12 16:06 | PN.HOSP_ITS ---
Subjective Subjective Patient states she sleepy this morning because she did not sleep well last night. Overall is doing better. She has been weaned from air Vo now to heated high flow nasal cannula which is significant improvement. Objective Data Objective Data Vital Signs: Vital Signs Temp Pulse Resp BP Pulse Ox 97.1 F L 91 17 114/64 89 09/12/21 09:34 09/12/21 15:35 09/12/21 15:35 09/12/21 09:34 09/12/21 13:39 Oxygen Flow Rate (L/min) 10 Oxygen Delivery Method Nasal Cannula Weight: 96.6 kg Body Mass Index (BMI) 41.1 Intake & Output: Intake and Output for Last 24 Hours 09/10/21 09/11/21 09/12/21 23:59 23:59 23:59 Intake Total 715 / 775 685 / 805 1440 / 1440 Output Total 825 / 825 550 / 850 750 / 750 Balance -110 / -50 135 / -45 690 / 690 Lab / Micro Data Result Diagrams: 09/12/21 05:50 09/12/21 05:50 Labs: Laboratory Results - last 24 hr 09/11/21 17:23: POC Glucose 197 H 09/11/21 21:52: POC Glucose 120 H 09/12/21 05:50: Sodium 137, Potassium 3.7, Chloride 98, Carbon Dioxide 33.0 H, Anion Gap 6, BUN 38 H, Creatinine 1.28 H, Estim Creat Clear Calc 35.32, Est GFR (MDRD) Af Amer 53 L, Est GFR (MDRD) Non-Af 44 L, BUN/Creatinine Ratio 29.7 H, Glucose 122 H, Calcium 9.0 09/12/21 05:50: WBC 8.4, RBC 3.78 L, Hgb 10.9 L, Hct 34.8 L, MCV 92.1, MCH 28.8, MCHC 31.3 L, RDW Std Deviation 50.7 H, RDW Coeff of Dilip 15.5 H, Plt Count 240, MPV 11.0, Immature Gran % (Auto) 4.200 H, Neut % (Auto) 53.9, Lymph % (Auto) 19.5, [place] % (Auto) 7.5, Eos % (Auto) 14.1 H, Baso % (Auto) 0.8, Absolute Neuts (auto) 4.5, Absolute Lymphs (auto) 1.63, Nucleated RBC % 0 09/12/21 06:41: POC Glucose 113 H 09/12/21 13:06: POC Glucose 162 H Micro: Microbiology 08/19/21 11:50 Urine, Clean Catch Legionella Antigen - Final 08/19/21 11:50 Urine, Clean Catch Streptococcus pneumoniae Antigen (M - Final 08/10/21 16:30 Nasal Secretion SARS-CoV-2 Antigen (Rapid) - Final SARS-CoV-2 (COVID 19) Physical Exam Narrative Const alert, oriented x3, no apparent distress and average body habitus Constitutional Narrative: obese elderly white female sitting up in bed on heated high flow nasal cannula, sleeping but awakens easily for exam and is pleasant and agreeable General Appearance: cooperative Orientation / Consciousness: awake, oriented to person, oriented to place and oriented to time Exam Limitations: no limitations Nutritional Appearance: morbidly obese HEENT normocephalic, head/scalp atraumatic, hearing grossly normal bilaterally and moist oral mucous membranes Head and Scalp: normocephalic Eyes conjunctivae normal Resp normal respiratory effort, no retractions, no use of accessory muscles and clear to auscultation bilaterally Resp Narrative: Diminished but clear Auscultation: diminished lung sounds; Negative for crackles, rales, rhonchi or wheezes Cardio regular rate, regular rhythm, S1 normal heart sound, S2 normal heart sound, no murmurs, no rub, no gallops, no clicks and no JVD Cardio Narrative: Mild tachycardia Peripheral Pulses: pulses 2+ throughout GI normal to inspection, nondistended, normoactive bowel sounds, soft to palpation, non-tender and non-distended; Negative for hepatosplenomegaly Extremity normal to inspection and no clubbing, cyanosis or edema Extremity Narrative: Signs of chronic venous stasis but no significant significant edema at this time, no clubbing or cyanosis Skin Lesions: no lesions Rashes: no rashes Trauma: no lacerations or abrasions Neuro oriented x3, moves all extremities, no focal motor deficits and deep tendon re flexes 2+ bilaterally Neuro Narrative: Sleeping on my arrival but awakens easily, marked generalized weakness Sensorium / Orientation: awake and alert Psych mental status grossly normal Appearance: appropriate Mood & Affect: flat affect Assessment & Plan Assessment/Plan (1) Acute respiratory failure with hypoxia: (2) COVID-19: PLAN: Acute hypoxic respiratory failure secondary to COVID-19 pneumonia -Patient is making slow but marked improvement over time -Continue to hold Lasix with serum creatinine trending up -Continue mucolytic's -Patient has completed Decadron and remdesivir -I-S/Acapella -Oxygen--> air Vo has been weaned heated high flow at 10 L and patient is maintaining oxygen saturations well -Titrate oxygen to maintain sats greater than 90% and wean as able -With patient starting to wean more aggressively may be [facility] as she has been denied by her insurance company. -CODE STATUS has been changed to DNR CCA no intubation -Patient was not a candidate for baricitinib per ID -Vaccine recommended for both her and her family after discharge -Pulmonary has signed off Hypothyroidism -Continue levothyroxine ESTEFANI on CKD stage II -Serum creatinine has improved significantly -Continue to hold Lasix at this time -Was on 40 mg oral daily -If we restart we will start at 20 mg daily oral -Monitor closely Vitamin D deficiency -Hold vitamin D while hospitalized Seasonal allergies -Continue nasal sprays Marked debility -Related to Covid infection and extended hospitalization -Continue PT and OT -Encouraged continued out of bed during the day as much as possible as well ARYAN -Continue nocturnal supplemental oxygen DVT prophylaxis -Continue therapeutic enoxaparin CODE STATUS -DNR CCA no intubation Charges/Coding Visit Charges Inpatient E&M: 58490 Subs Hosp L2
[2021-09-12 17:31] LABS: Bedside Glucose 140 mg/dL (70-110)
--- NOTE | 2021-09-12 22:25 | NURSING ---
GAVE MEDS TO PT WHO REFUSED TO TAKE THEM UNLESS ANOTHER NURSE THAT SHE HAD A UNIQUE CONNECTION WITH TAKING PILLS WAS PRESENT. PT EDUCATED ON IMPORTANCE OF CARDIZEM AND MUCINEX TO HER CARE. REMINDED PT THAT SHE WAS ABLE TO TAKE MEDICATIONS AND EXPLAINED THAT SHE DID NOT NEED AN ADDITIONAL NURSE TO BE PRESENT. PT REFUSED TO TAKE MEDICATIONS. MEDS DISPOSED OF PROPERLY.
[2021-09-12] MEDS: MELATONIN 10 MG TABLET PO (22:39)
[2021-09-12 22:56] LABS: Bedside Glucose 137 mg/dL (70-110)
[2021-09-13] VITALS (17 sets, daily range): BP systolic 91–130; BP diastolic 56–66; PULSE 74–91; RESP 16–26; TEMP 36.2–36.6; O2SAT 84–99
[2021-09-13 06:50] LABS: Bedside Glucose 132 mg/dL (70-110)
[2021-09-13] MEDS: Ipratropium/Albuterol Sulfate 3 ML AMPUL.NEB INHALATION ×3 (06:52→19:00)
[2021-09-13] MEDS: Enoxaparin 40 MG/0.4 ML Syringe SC ×2 (09:29→20:34)
[2021-09-13] MEDS: dilTIAZem CD 120 MG Capsule PO ×2 (09:30→20:33)
[2021-09-13] MEDS: Sodium Chloride 0.65% 1 SPRAY SPRAY.BTL 2 SPRAY NASAL ×2 (09:30→20:34)
[2021-09-13] MEDS: guaiFENesin 1,200 MG Tablet 1200 MG PO ×2 (09:30→20:34)
[2021-09-13 09:47] LABS: Hemoglobin A1c 6.8 % (3.8-5.6)
--- NOTE | 2021-09-13 11:14 | CASEMGMT ---
LYNETTE continues to reach out to nursing homes to find out highest level of O2 they can accommodate. LYNETTE did call [facility] and their max is 10 L. LYNETTE also called [facility] in [place]. However, LYNETTE has not been able to reach anyone in admissions due to their voice mailbox being full. LYNETTE called the nurses station and asked about admissions and they sent SW to another voice mail box so SW left a message requesting a return call from admissions. LYNETTE called [facility] [place] and Darlene in admissions will find out and call LYNETTE back. LYNETTE will talk with patient to discuss d/c plan. Stephanie Jennings CONFERENCE SERVICES DIRECTOR [facility]
[2021-09-13] MEDS: Insulin Lispro 100 UNIT/ML INSULN.PEN SC (12:19)
[2021-09-13] MEDS: Mag Hydrox/Al Hydrox/Simeth 30 ML UDC PO (12:54)
[2021-09-13 15:46] LABS: Bedside Glucose 156 mg/dL (70-110)
[2021-09-13 17:20] LABS: Bedside Glucose 200 mg/dL (70-110)
--- NOTE | 2021-09-13 17:50 | PCM.PN.HOSP ---
Subjective Subjective Patient is complaining of some GI upset and would like some Maalox or Pepto-Bismol. She has been weaned to 7 L and is maintaining oxygen saturations quite well. She does desat pretty significantly with movement and ambulation but overall is slowly improving. She is having some intermittent anxiety which provokes her respiratory distress. Objective Data Objective Data Vital Signs: Vital Signs Temp Pulse Resp BP Pulse Ox 97.4 F L 77 19 H 95/63 99 09/13/21 16:56 09/13/21 16:56 09/13/21 16:56 09/13/21 16:56 09/13/21 16:56 Oxygen Flow Rate (L/min) 8 Oxygen Delivery Method Nasal Cannula Weight: 96.8 kg Body Mass Index (BMI) 41.1 Intake & Output: Intake and Output for Last 24 Hours 09/11/21 09/12/21 09/13/21 23:59 23:59 23:59 Intake Total 685 / 805 1660 / 1660 980 / 980 Output Total 550 / 850 750 / 1050 1000 / 1000 Balance 135 / -45 910 / 610 -20 / -20 Lab / Micro Data Result Diagrams: 09/12/21 05:50 09/12/21 05:50 Labs: Laboratory Results - last 24 hr 09/12/21 22:35: POC Glucose 137 H 09/13/21 04:50: Hemoglobin A1c 6.8 H 09/13/21 06:43: POC Glucose 132 H 09/13/21 11:38: POC Glucose 156 H 09/13/21 16:53: POC Glucose 200 H Micro: Microbiology 08/19/21 11:50 Urine, Clean Catch Legionella Antigen - Final 08/19/21 11:50 Urine, Clean Catch Streptococcus pneumoniae Antigen (M - Final 08/10/21 16:30 Nasal Secretion SARS-CoV-2 Antigen (Rapid) - Final SARS-CoV-2 (COVID 19) Physical Exam Narrative Const alert, oriented x3, no apparent distress and average body habitus Constitutional Narrative: obese elderly white female sitting up in bed on heated high flow nasal cannula at 7 L, registered nursing professor is at the bedside patient is pleasant and calm at this time General Appearance: cooperative Orientation / Consciousness: awake, oriented to person, oriented to place and oriented to time Exam Limitations: no limitations Nutritional Appearance: morbidly obese HEENT normocephalic, head/scalp atraumatic, hearing grossly normal bilaterally and moist oral mucous membranes HEENT Narrative: No thrush Head and Scalp: normocephalic Resp normal respiratory effort, no retractions, no use of accessory muscles and clear to auscultation bilaterally Resp Narrative: Diminished but clear Auscultation: diminished lung sounds; Negative for crackles, rales, rhonchi or wheezes Cardio regular rate, regular rhythm, S1 normal heart sound, S2 normal heart sound, no murmurs, no rub, no gallops, no clicks and no JVD Cardio Narrative: Mild tachycardia Peripheral Pulses: pulses 2+ throughout GI normal to inspection, nondistended, normoactive bowel sounds, soft to palpation, non-tender and non-distended; Negative for hepatosplenomegaly Extremity normal to inspection and no clubbing, cyanosis or edema Extremity Narrative: Signs of chronic venous stasis but no significant significant edema at this time, no clubbing or cyanosis Peripheral Pulses: Yes pulses 2+ throughout Skin no rashes or lesions noted, no wounds, skin turgor normal, no jaundice, no petechiae and no mottling Skin Narrative: Bilateral lower extremity venous stasis, no wounds Lesions: no lesions Rashes: no rashes Trauma: no lacerations or abrasions Neuro oriented x3, moves all extremities and deep tendon reflexes 2+ bilaterally Neuro Narrative: Marked generalized weakness Sensorium / Orientation: awake and alert Speech: speech normal Psych mental status grossly normal Psych Narrative: Very pleasant today Appearance: appropriate Mood & Affect: flat affect Assessment & Plan Assessment/Plan (1) Acute respiratory failure with hypoxia: (2) COVID-19: PLAN: Acute hypoxic respiratory failure secondary to COVID-19 pneumonia -Patient is making slow but marked improvement over time -Continue to hold Lasix with serum creatinine trending up -Continue mucolytic's -Patient has completed Decadron and remdesivir -I-S/Acapella -Oxygen--> air Vo has been weaned heated high flow at 6-8 L and patient is maintaining oxygen saturations well -Titrate oxygen to maintain sats greater than 90% and wean as able -With patient starting to wean more aggressively may be able to [facility] than [facility] as she has been denied by her insurance company. -CODE STATUS has been changed to DNR CCA no intubation -Patient was not a candidate for baricitinib per ID -Vaccine recommended for both her and her family after discharge -Pulmonary has signed off Hypothyroidism -Continue levothyroxine ESTEFANI on CKD stage II -Serum creatinine has improved significantly -Repeat BMP in a.m. -Continue to hold Lasix at this time -Was on 40 mg oral daily -If we restart we will start at 20 mg daily oral -Monitor closely Vitamin D deficiency -Hold vitamin D while hospitalized Seasonal allergies -Continue nasal sprays Marked debility -Related to Covid infection and extended hospitalization -Continue PT and OT -Encouraged continued out of bed during the day as much as possible as well ARYAN -Continue nocturnal supplemental oxygen DVT prophylaxis -Continue therapeutic enoxaparin CODE STATUS -DNR CCA no intubation Charges/Coding Visit Charges Inpatient E&M: 83597 Subs Hosp L2
[2021-09-13] MEDS: ALPRAZolam 0.5 MG Tablet PO (20:33)
[2021-09-13 22:40] LABS: Bedside Glucose 141 mg/dL (70-110)
[2021-09-14] VITALS (17 sets, daily range): BP systolic 103–125; BP diastolic 55–75; PULSE 73–100; RESP 16–26; TEMP 36.2–36.6; O2SAT 91–99
[2021-09-14 06:36] LABS: Bedside Glucose 122 mg/dL (70-110)
[2021-09-14 06:43] LABS: Absolute Lymphocyte Count 1.45 X10^3/uL (0.83-4.51); Absolute Neutrophil Count 4.1 X10^3/uL (2.0-7.7); Basophil# 0.09 X10^3/uL; Basophil% 1.2 % (0-1); Eosinophil# 1.19 X10^3/uL; Eosinophils% 15.3 % (0-5); Hematocrit 34.2 % (37-47); Hemoglobin 10.4 g/dL (12.0-15.0); Lymphocyte # 1.45 X10^3/ul (0.83-4.51); Lymphocyte % 18.7 % (19-41); Mean Corp Hgb Conc 30.4 g/dL (32-36); Mean Corpuscular Hgb 28.6 pg (27.0-32.0); Mean Platelet Vol. 10.9 fl (6.2-12.0); Monocyte# 0.62 X10^3/uL; NRBC Flagged by Analyzer 0 % (0-5); Neutrophil # 4.14 X10^3/uL (2.7-7.7); Neutrophil % 53.2 % (47-70); Platelet Count 226 K/mm3 (150-450); RBC Distribution Width CV 15.7 % (11.6-14.6); RBC Distribution Width SD 53.6 fl (35.1-43.9); Red Blood Count 3.64 M/mm3 (4.2-5.4); White Blood Count 7.8 K/mm3 (4.4-11.0)
[2021-09-14 07:11] LABS: ALB/GLOB Ratio 0.5 RATIO (0.9-2.4); AST(SGOT) 25 U/L (15-37); Alanine Aminotransfer ALT/SGPT 23 U/L (13-56); Albumin, Serum 2.3 g/dL (3.2-5.0); Alkaline Phosphatase 132 U/L (45-117); Anion Gap 4 (5-15); BUN 17 mg/dL (7-18); BUN/Creat Ratio 17.4 RATIO (10-20); Chloride 102 mmol/L (98-107); Creatinine, Serum 0.98 mg/dL (0.55-1.02); EST Glomerular Filtration Rate 60 mL/min (>60); Est Glom Filt Rate - Afr Amer 72 mL/min (>60); Estimated Creatinine Clearance 46.13 ml/min; Glucose 119 mg/dL (74-106); Potassium 4.2 mmol/L (3.5-5.1); Protein, Total 7.3 g/dL (6.4-8.2); Sodium Level 139 mmol/L (136-145)
[2021-09-14] MEDS: Ipratropium/Albuterol Sulfate 3 ML AMPUL.NEB INHALATION ×3 (07:23→19:02)
[2021-09-14] MEDS: Furosemide 20 MG Tablet PO (09:44)
[2021-09-14] MEDS: Enoxaparin 40 MG/0.4 ML Syringe SC ×2 (09:44→22:23)
[2021-09-14] MEDS: dilTIAZem CD 120 MG Capsule PO ×2 (09:44→22:23)
[2021-09-14] MEDS: guaiFENesin 1,200 MG Tablet 1200 MG PO ×2 (09:44→22:22)
[2021-09-14] MEDS: Sodium Chloride 0.65% 1 SPRAY SPRAY.BTL 2 SPRAY NASAL ×2 (09:45→22:31)
[2021-09-14] MEDS: Insulin Lispro 100 UNIT/ML INSULN.PEN SC ×2 (11:29→16:17)
[2021-09-14 11:41] LABS: Bedside Glucose 215 mg/dL (70-110)
--- NOTE | 2021-09-14 15:10 | PCM.PN.HOSP ---
Subjective Subjective Patient states she is feeling very well today. She denies any significant shortness of breath. She states the garrett here is excellent and she would eat 10 pieces if she could although she does realize that this is not good for her. She seems to be in a much better mental state at this time. Objective Data Objective Data Vital Signs: Vital Signs Temp Pulse Resp BP Pulse Ox 97.9 F 88 18 108/69 96 09/14/21 11:50 09/14/21 14:56 09/14/21 11:50 09/14/21 11:50 09/14/21 11:50 Oxygen Flow Rate (L/min) 10 Oxygen Delivery Method Nasal Cannula Weight: 96.2 kg Body Mass Index (BMI) 41.1 Intake & Output: Intake and Output for Last 24 Hours 09/12/21 09/13/21 09/14/21 23:59 23:59 23:59 Intake Total 1660 / 1660 1460 / 1460 360 / 360 Output Total 750 / 1050 1000 / 1100 200 / 200 Balance 910 / 610 460 / 360 160 / 160 Medical Nutrition Assessment Dietitian: Malnutrition Criteria Met Start: 09/14/21 14:38 Freq: Status: Active Protocol: Document 09/14/21 14:38 AG (Rec: 09/14/21 14:38 AG [id number]) Nutrition Malnutrition Evidence of Malnutrition Exists Yes Malnutrition (moderate): Acute Illness/Injury Evidenced By Suboptimal Energy Intake ( Moderate),Weight Loss ( Moderate) Intake Problem Inadequate Oral Intake Etiology related to respiratory failure , increased energy needs w/ acute illness Signs/Symptoms as evidenced by estimated PO intake meeting ~<50-75% of estimated nutritional needs x 4 weeks Status Active Problem Clinical Problem Acute Disease or Injury Related Malnutrition Etiology moderate, acute malnutrition r /t inadequate energy intake w/ increased energy needs d/t acute illness Signs/Symptoms as evidenced by unintentional wt loss of 12.6kg/11.6% x 1 month; estimated PO intake meeting <75% of estimated nutritional needs >1 week Status Active Problem Recommendation Dietitian Recommendations/Changes Will continue Carbohydrate- Controlled diet and 120 ml glucerna shake w/ meals for increased nutrition if consumed Lab / Micro Data Result Diagrams: 09/14/21 06:00 09/14/21 06:00 Labs: Laboratory Results - last 24 hr 09/13/21 11:38: POC Glucose 156 H 09/13/21 16:53: POC Glucose 200 H 09/13/21 22:10: POC Glucose 141 H 09/14/21 06:00: WBC 7.8, RBC 3.64 L, Hgb 10.4 L, Hct 34.2 L, MCV 94.0, MCH 28.6, MCHC 30.4 L, RDW Std Deviation 53.6 H, RDW Coeff of Dilip 15.7 H, Plt Count 226, MPV 10.9, Immature Gran % (Auto) 3.600 H, Neut % (Auto) 53.2, Lymph % (Auto) 18.7 L, [place] % (Auto) 8.0, Eos % (Auto) 15.3 H, Baso % (Auto) 1.2 H, Absolute Neuts (auto) 4.1, Absolute Lymphs (auto) 1.45, Nucleated RBC % 0 09/14/21 06:00: Sodium 139, Potassium 4.2, Chloride 102, Carbon Dioxide 33.0 H, Anion Gap 4 L, BUN 17, Creatinine 0.98, Estim Creat Clear Calc 46.13, Est GFR (MDRD) Af Amer 72, Est GFR (MDRD) Non-Af 60, BUN/Creatinine Ratio 17.4, Glucose 119 H, Calcium 9.0, Total Bilirubin 0.30, AST 25, ALT 23, Alkaline Phosphatase 132 H, Total Protein 7.3, Albumin 2.3 L, Globulin 5.0 H, Albumin/Globulin Ratio 0.5 L 09/14/21 06:33: POC Glucose 122 H 09/14/21 11:27: POC Glucose 215 H Micro: Microbiology 08/19/21 11:50 Urine, Clean Catch Legionella Antigen - Final 08/19/21 11:50 Urine, Clean Catch Streptococcus pneumoniae Antigen (M - Final 08/10/21 16:30 Nasal Secretion SARS-CoV-2 Antigen (Rapid) - Final SARS-CoV-2 (COVID 19) Physical Exam Narrative Const alert, oriented x3, no apparent distress and average body habitus Constitutional Narrative: obese elderly white female sitting up in bed on heated high flow nasal cannula at 9 L, patient is sitting up in bed enjoying her breakfast and is very calm and pleasant General Appearance: cooperative Orientation / Consciousness: awake, oriented to person, oriented to place and oriented to time Exam Limitations: no limitations Nutritional Appearance: morbidly obese HEENT normocephalic, head/scalp atraumatic, hearing grossly normal bilaterally and moist oral mucous membranes HEENT Narrative: No thrush Head and Scalp: normocephalic Resp normal respiratory effort, no retractions, no use of accessory muscles and clear to auscultation bilaterally Resp Narrative: Diminished but clear Auscultation: diminished lung sounds; Negative for crackles, rales, rhonchi or wheezes Cardio regular rate, regular rhythm, S1 normal heart sound, S2 normal heart sound, no murmurs, no rub, no gallops, no clicks and no JVD Cardio Narrative: Mild tachycardia Peripheral Pulses: pulses 2+ throughout GI normal to inspection, nondistended, normoactive bowel sounds, soft to palpation, non-tender and non-distended; Negative for hepatosplenomegaly Extremity normal to inspection and no clubbing, cyanosis or edema Extremity Narrative: Signs of chronic venous stasis but no significant significant edema at this time, no clubbing or cyanosis Peripheral Pulses: Yes pulses 2+ throughout Skin Lesions: no lesions Rashes: no rashes Trauma: no lacerations or abrasions Neuro oriented x3, moves all extremities and deep tendon reflexes 2+ bilaterally Neuro Narrative: Marked generalized weakness Sensorium / Orientation: awake and alert Speech: speech normal Psych mental status grossly normal Psych Narrative: Very pleasant today almost jovial Appearance: appropriate Mood & Affect: flat affect Assessment & Plan Assessment/Plan (1) Acute respiratory failure with hypoxia: (2) COVID-19: PLAN: Acute hypoxic respiratory failure secondary to COVID-19 pneumonia -Patient is making slow but marked improvement over time -We will restart Lasix today but at 20 mg daily and monitor creatinine -Continue mucolytic's -Patient has completed Decadron and remdesivir -I-S/Acapella -Oxygen--> air Vo has been weaned heated high flow at 6-8 L and patient is maintaining oxygen saturations well for the most part -Titrate oxygen to maintain sats greater than 90% and wean as able -With patient starting to wean more aggressively may be able to discharge to senior care facility rather than LTAC as she has been denied by her insurance company. -CODE STATUS has been changed to DNR CCA no intubation -Patient was not a candidate for baricitinib per ID -Vaccine recommended for both her and her family after discharge -Pulmonary has signed off Hypothyroidism -Continue levothyroxine CKD stage II -ESTEFANI has resolved -Repeat BMP in a.m. -We will restart oral Lasix but only at 20 mg daily -Patient had been on 40 mg but experienced ESTEFANI -Monitor closely Vitamin D deficiency -Hold vitamin D while hospitalized Seasonal allergies -Continue nasal sprays Marked debility -Related to Covid infection and extended hospitalization -Continue PT and OT -Encouraged continued out of bed during the day as much as possible as well ARYAN -Continue nocturnal supplemental oxygen DVT prophylaxis -Continue therapeutic enoxaparin CODE STATUS -DNR CCA no intubation Charges/Coding Visit Charges Inpatient E&M: 32466 Subs Hosp L2
[2021-09-14 16:40] LABS: Bedside Glucose 187 mg/dL (70-110)
[2021-09-14 23:06] LABS: Bedside Glucose 117 mg/dL (70-110)
[2021-09-14] MEDS: ALPRAZolam 0.5 MG Tablet PO (23:48)
[2021-09-15] VITALS (18 sets, daily range): BP systolic 109–121; BP diastolic 62–73; PULSE 73–98; RESP 15–26; TEMP 36.5–36.8; O2SAT 91–96
--- NOTE | 2021-09-15 00:05 | NURSING ---
PT REFUSING TO WEAR BIPAP. REPORTS SHE IS SCARED TO WEAR IT EMOTIONAL SUPPORT GIVEN AND XANAX GIVEN FOR ANXIETY. PT REASSURED THAT THE BIPAP IS VERY BENEFICIAL FOR HER PROGRESS. RT @ BEDSIDE.
[2021-09-15] MEDS: Ipratropium/Albuterol Sulfate 3 ML AMPUL.NEB INHALATION ×3 (06:40→19:33)
[2021-09-15 07:10] LABS: Bedside Glucose 117 mg/dL (70-110)
[2021-09-15] MEDS: dilTIAZem CD 120 MG Capsule PO ×2 (08:48→22:10)
[2021-09-15] MEDS: Furosemide 20 MG Tablet PO (08:48)
[2021-09-15] MEDS: guaiFENesin 1,200 MG Tablet 1200 MG PO ×2 (08:48→22:10)
[2021-09-15] MEDS: Sodium Chloride 0.65% 1 SPRAY SPRAY.BTL 2 SPRAY NASAL ×2 (08:48→22:10)
[2021-09-15] MEDS: Enoxaparin 40 MG/0.4 ML Syringe SC ×2 (08:49→22:10)
[2021-09-15] MEDS: Insulin Lispro 100 UNIT/ML INSULN.PEN SC (11:01)
[2021-09-15 11:16] LABS: Bedside Glucose 162 mg/dL (70-110)
--- NOTE | 2021-09-15 14:03 | PCM.PN.HOSP ---
Subjective Subjective Patient has been weaned to 6 L at rest but requires more with exertion and appears up to 10 L. This is improving significantly from where she was a week ago. She indicates she was up to the chair twice yesterday. She denies any current issues and states she is feels like she is improving and her breathing is better. Objective Data Objective Data Vital Signs: Vital Signs Temp Pulse Resp BP Pulse Ox 98.2 F 98 16 121/71 H 91 09/15/21 12:54 09/15/21 12:54 09/15/21 12:54 09/15/21 12:54 09/15/21 12:54 Oxygen Flow Rate (L/min) 10 Oxygen Delivery Method Nasal Cannula Weight: 93.1 kg Body Mass Index (BMI) 41.1 Intake & Output: Intake and Output for Last 24 Hours 09/13/21 09/14/21 09/15/21 23:59 23:59 23:59 Intake Total 1460 / 1460 720 / 920 720 / 720 Output Total 1000 / 1100 400 / 550 600 / 600 Balance 460 / 360 320 / 370 120 / 120 Medical Nutrition Assessment Dietitian: Malnutrition Criteria Met Start: 09/14/21 14:38 Freq: Status: Active Protocol: Document 09/14/21 14:38 AG (Rec: 09/14/21 14:38 AG [id number]) Nutrition Malnutrition Evidence of Malnutrition Exists Yes Malnutrition (moderate): Acute Illness/Injury Evidenced By Suboptimal Energy Intake ( Moderate),Weight Loss ( Moderate) Intake Problem Inadequate Oral Intake Etiology related to respiratory failure , increased energy needs w/ acute illness Signs/Symptoms as evidenced by estimated PO intake meeting ~<50-75% of estimated nutritional needs x 4 weeks Status Active Problem Clinical Problem Acute Disease or Injury Related Malnutrition Etiology moderate, acute malnutrition r /t inadequate energy intake w/ increased energy needs d/t acute illness Signs/Symptoms as evidenced by unintentional wt loss of 12.6kg/11.6% x 1 month; estimated PO intake meeting <75% of estimated nutritional needs >1 week Status Active Problem Recommendation Dietitian Recommendations/Changes Will continue Carbohydrate- Controlled diet and 120 ml glucerna shake w/ meals for increased nutrition if consumed Lab / Micro Data Result Diagrams: 09/14/21 06:00 09/14/21 06:00 Labs: Laboratory Results - last 24 hr 09/14/21 16:15: POC Glucose 187 H 09/14/21 22:21: POC Glucose 117 H 09/15/21 06:37: POC Glucose 117 H 09/15/21 10:59: POC Glucose 162 H Micro: Microbiology 08/19/21 11:50 Urine, Clean Catch Legionella Antigen - Final 08/19/21 11:50 Urine, Clean Catch Streptococcus pneumoniae Antigen (M - Final 08/10/21 16:30 Nasal Secretion SARS-CoV-2 Antigen (Rapid) - Final SARS-CoV-2 (COVID 19) Physical Exam Narrative Const alert, oriented x3, no apparent distress and average body habitus Constitutional Narrative: obese elderly white female sitting up in bed on heated high flow nasal cannula at 6 L, patient is sitting up in bed watching television and appears comfortable, nontoxic, very pleasant General Appearance: cooperative Orientation / Consciousness: awake, oriented to person, oriented to place and oriented to time Exam Limitations: no limitations Nutritional Appearance: morbidly obese HEENT normocephalic, head/scalp atraumatic, hearing grossly normal bilaterally and moist oral mucous membranes HEENT Narrative: No thrush Head and Scalp: normocephalic Resp normal respiratory effort, no retractions, no use of accessory muscles and clear to auscultation bilaterally Resp Narrative: Diminished but clear Auscultation: diminished lung sounds; Negative for crackles, rales, rhonchi or wheezes Cardio regular rate, regular rhythm, S1 normal heart sound, S2 normal heart sound, no murmurs, no rub, no gallops, no clicks and no JVD Peripheral Pulses: pulses 2+ throughout GI normal to inspection, nondistended, normoactive bowel sounds, soft to palpation, non-tender and non-distended; Negative for hepatosplenomegaly Extremity normal to inspection and no clubbing, cyanosis or edema Extremity Narrative: Signs of chronic venous stasis but no significant significant edema at this time, no clubbing or cyanosis Skin no rashes or lesions noted, no wounds, skin turgor normal, no jaundice, no petechiae and no mottling Skin Narrative: Bilateral lower extremity venous stasis, no wounds Lesions: no lesions Rashes: no rashes Trauma: no lacerations or abrasions Neuro oriented x3, moves all extremities and deep tendon reflexes 2+ bilaterally Neuro Narrative: Marked generalized weakness Sensorium / Orientation: awake and alert Speech: speech normal Psych mental status grossly normal Psych Narrative: Very pleasant today Appearance: appropriate Mood & Affect: flat affect Assessment & Plan Assessment/Plan (1) Acute respiratory failure with hypoxia: (2) COVID-19: PLAN: Acute hypoxic respiratory failure secondary to COVID-19 pneumonia -Patient is making slow but marked improvement over time -Continue Lasix 20 mg -Continue mucolytic's -Patient has completed Decadron and remdesivir -I-S/Acapella -Oxygen--> air Vo has been weaned heated high flow at 6-10L depending on patient activity -Titrate oxygen to maintain sats greater than 90% and wean as able -Possible discharge next week to skilled facility depending on oxygen requirements. -Patient was not a candidate for baricitinib per ID -Vaccine recommended for both her and her family after discharge -Pulmonary has signed off Hypothyroidism -Continue levothyroxine CKD stage II -ESTEFANI has resolved -Continue to monitor periodic BMPs as Lasix was reinitiated at a lower dose -Currently on 20 mg as she suffered from ESTEFANI with 40 mg daily p.o. -Monitor closely Vitamin D deficiency -Hold vitamin D while hospitalized Seasonal allergies -Continue nasal sprays Marked debility -Related to Covid infection and extended hospitalization -Continue PT and OT -Encouraged continued out of bed during the day as much as possible as well ARYAN -Continue nocturnal supplemental oxygen DVT prophylaxis -Continue therapeutic enoxaparin CODE STATUS -DNR CCA no intubation Charges/Coding Visit Charges Inpatient E&M: 21259 Subs Hosp L2
[2021-09-15 16:21] LABS: Bedside Glucose 134 mg/dL (70-110)
[2021-09-15 22:25] LABS: Bedside Glucose 123 mg/dL (70-110)
[2021-09-16] VITALS (18 sets, daily range): BP systolic 105–125; BP diastolic 58–89; PULSE 71–104; RESP 12–22; TEMP 35.9–36.6; O2SAT 84–100
[2021-09-16] MEDS: ALPRAZolam 0.5 MG Tablet PO ×2 (01:55→10:55)
[2021-09-16] MEDS: guaiFENesin 10 ML UDC (200MG/10ML) PO (04:41)
[2021-09-16 05:57] LABS: Anion Gap 6 (5-15); BUN 12 mg/dL (7-18); BUN/Creat Ratio 13.9 RATIO (10-20); Calcium,Total 8.7 mg/dL (8.5-10.1); Chloride 102 mmol/L (98-107); Creatinine, Serum 0.86 mg/dL (0.55-1.02); EST Glomerular Filtration Rate 69 mL/min (>60); Est Glom Filt Rate - Afr Amer 83 mL/min (>60); Estimated Creatinine Clearance 52.56 ml/min; Glucose 108 mg/dL (74-106); Potassium 4.4 mmol/L (3.5-5.1); Sodium Level 139 mmol/L (136-145)
[2021-09-16] MEDS: Ipratropium/Albuterol Sulfate 3 ML AMPUL.NEB INHALATION ×2 (06:48→20:28)
[2021-09-16 06:50] LABS: Bedside Glucose 106 mg/dL (70-110)
[2021-09-16] MEDS: dilTIAZem CD 120 MG Capsule PO ×2 (10:11→21:27)
[2021-09-16] MEDS: Enoxaparin 40 MG/0.4 ML Syringe SC ×2 (10:12→21:27)
[2021-09-16] MEDS: Furosemide 20 MG Tablet PO (10:12)
[2021-09-16] MEDS: guaiFENesin 1,200 MG Tablet 1200 MG PO ×2 (10:12→21:27)
[2021-09-16] MEDS: Sodium Chloride 0.65% 1 SPRAY SPRAY.BTL 2 SPRAY NASAL ×2 (10:13→21:27)
--- NOTE | 2021-09-16 11:58 | PCM.PN.HOSP ---
Subjective Subjective Patient states that her breathing feels fairly stable. She is tired this morning and she did not sleep well last night. She had some episodes of anxiety. She is currently on as needed Xanax and I did discuss the case with her nurse who feels that she may do better with something scheduled. Upon discussion with nursing her anxiety significantly contributes to her getting more short of breath and requiring more oxygen so if we can get this under better control her oxygenation status may stay more stable. Objective Data Objective Data Vital Signs: Vital Signs Temp Pulse Resp BP Pulse Ox 96.7 F L 92 18 125/65 H 100 09/16/21 10:00 09/16/21 10:00 09/16/21 10:00 09/16/21 10:00 09/16/21 11:23 Oxygen Flow Rate (L/min) 7 Oxygen Delivery Method Nasal Cannula Weight: 93.5 kg Body Mass Index (BMI) 41.1 Intake & Output: Intake and Output for Last 24 Hours 09/14/21 09/15/21 09/16/21 23:59 23:59 23:59 Intake Total 720 / 920 1240 / 1240 120 / 120 Output Total 400 / 550 850 / 850 150 / 150 Balance 320 / 370 390 / 390 -30 / -30 Medical Nutrition Assessment Dietitian: Malnutrition Criteria Met Start: 09/14/21 14:38 Freq: Status: Active Protocol: Document 09/14/21 14:38 AG (Rec: 09/14/21 14:38 AG [id number]) Nutrition Malnutrition Evidence of Malnutrition Exists Yes Malnutrition (moderate): Acute Illness/Injury Evidenced By Suboptimal Energy Intake ( Moderate),Weight Loss ( Moderate) Intake Problem Inadequate Oral Intake Etiology related to respiratory failure , increased energy needs w/ acute illness Signs/Symptoms as evidenced by estimated PO intake meeting ~<50-75% of estimated nutritional needs x 4 weeks Status Active Problem Clinical Problem Acute Disease or Injury Related Malnutrition Etiology moderate, acute malnutrition r /t inadequate energy intake w/ increased energy needs d/t acute illness Signs/Symptoms as evidenced by unintentional wt loss of 12.6kg/11.6% x 1 month; estimated PO intake meeting <75% of estimated nutritional needs >1 week Status Active Problem Recommendation Dietitian Recommendations/Changes Will continue Carbohydrate- Controlled diet and 120 ml glucerna shake w/ meals for increased nutrition if consumed Lab / Micro Data Result Diagrams: 09/14/21 06:00 09/16/21 04:21 Labs: Laboratory Results - last 24 hr 09/15/21 16:10: POC Glucose 134 H 09/15/21 22:16: POC Glucose 123 H 09/16/21 04:21: Sodium 139, Potassium 4.4, Chloride 102, Carbon Dioxide 31.0, Anion Gap 6, BUN 12, Creatinine 0.86, Estim Creat Clear Calc 52.56, Est GFR (MDRD) Af Amer 83, Est GFR (MDRD) Non-Af 69, BUN/Creatinine Ratio 13.9, Glucose 108 H, Calcium 8.7 09/16/21 06:46: POC Glucose 106 Micro: Microbiology 08/19/21 11:50 Urine, Clean Catch Legionella Antigen - Final 08/19/21 11:50 Urine, Clean Catch Streptococcus pneumoniae Antigen (M - Final 08/10/21 16:30 Nasal Secretion SARS-CoV-2 Antigen (Rapid) - Final SARS-CoV-2 (COVID 19) Physical Exam Narrative Const alert, oriented x3, no apparent distress and average body habitus Constitutional Narrative: obese elderly white female sitting up in bed on heated high flow nasal cannula at 8 L, patient is sleeping but awakens for my exam and appears comfortable, nontoxic, very pleasant but intermittently anxious General Appearance: cooperative Orientation / Consciousness: awake, oriented to person, oriented to place and oriented to time Exam Limitations: no limitations Nutritional Appearance: morbidly obese HEENT normocephalic, head/scalp atraumatic, hearing grossly normal bilaterally and moist oral mucous membranes HEENT Narrative: No thrush Head and Scalp: normocephalic Resp normal respiratory effort, no retractions, no use of accessory muscles and clear to auscultation bilaterally Resp Narrative: Diminished but clear Auscultation: diminished lung sounds; Negative for crackles, rales, rhonchi or wheezes Cardio regular rate, regular rhythm, S1 normal heart sound, S2 normal heart sound, no murmurs, no rub, no gallops, no clicks and no JVD Cardio Narrative: Mild tachycardia Peripheral Pulses: pulses 2+ throughout GI normal to inspection, nondistended, normoactive bowel sounds, soft to palpation, non-tender and non-distended; Negative for hepatosplenomegaly Extremity normal to inspection and no clubbing, cyanosis or edema Extremity Narrative: Signs of chronic venous stasis but no significant significant edema at this time, no clubbing or cyanosis Peripheral Pulses: Yes pulses 2+ throughout Skin Lesions: no lesions Rashes: no rashes Trauma: no lacerations or abrasions Neuro oriented x3, moves all extremities and deep tendon reflexes 2+ bilaterally Neuro Narrative: Marked generalized weakness Sensorium / Orientation: awake and alert Speech: speech normal Psych mental status grossly normal Psych Narrative: Very pleasant today, anxious at times Appearance: appropriate Mood & Affect: anxious and flat affect Assessment & Plan Assessment/Plan (1) Acute respiratory failure with hypoxia: (2) COVID-19: PLAN: Acute hypoxic respiratory failure secondary to COVID-19 pneumonia -Patient is making slow but marked improvement over time -Continue Lasix 20 mg -Continue mucolytic's -Patient has completed Decadron and remdesivir -I-S/Acapella -Oxygen--> air Vo has been weaned heated high flow at 6-10L depending on patient activity -Titrate oxygen to maintain sats greater than 90% and wean as able -Possible discharge next week to skilled facility depending on oxygen requirements. -Patient was not a candidate for baricitinib per ID -Vaccine recommended for both her and her family after discharge -Anxiety is significantly contributing to her need for increased oxygenation and given that I will schedule I milligram of Ativan at bedtime and she has 0.25 mg available for as needed reasons. -Pulmonary has signed off Hypothyroidism -Continue levothyroxine CKD stage II -ESTEFANI has resolved and serum creatinine remained stable today -Repeat BMP in 48 hours -Continue to monitor periodic BMPs as Lasix was reinitiated at a lower dose -Currently on 20 mg as she suffered from ESTEFANI with 40 mg daily p.o. -Monitor closely Vitamin D deficiency -Hold vitamin D while hospitalized Seasonal allergies -Continue nasal sprays Marked debility -Related to Covid infection and extended hospitalization -Continue PT and OT -Encouraged continued out of bed during the day as much as possible as well ARYAN -Continue nocturnal supplemental oxygen DVT prophylaxis -Continue therapeutic enoxaparin CODE STATUS -DNR CCA no intubation Charges/Coding Visit Charges Inpatient E&M: 51392 Subs Hosp L2
[2021-09-16] MEDS: Insulin Lispro 100 UNIT/ML INSULN.PEN SC ×2 (13:15→15:41)
[2021-09-16 13:26] LABS: Bedside Glucose 191 mg/dL (70-110)
[2021-09-16] MEDS: LORazepam 0.5 MG Tablet 0.25 MG PO (15:38)
[2021-09-16 17:21] LABS: Bedside Glucose 169 mg/dL (70-110)
[2021-09-16] MEDS: LORazepam 1 MG Tablet PO (21:27)
[2021-09-16 21:30] LABS: Bedside Glucose 108 mg/dL (70-110)
[2021-09-17] VITALS (15 sets, daily range): BP systolic 104–125; BP diastolic 56–71; PULSE 85–109; RESP 18–28; TEMP 36.4–36.7; O2SAT 92–99
[2021-09-17 06:56] LABS: Bedside Glucose 94 mg/dL (70-110)
[2021-09-17] MEDS: Ipratropium/Albuterol Sulfate 3 ML AMPUL.NEB INHALATION ×3 (07:02→19:06)
[2021-09-17] MEDS: Furosemide 20 MG Tablet PO (08:30)
[2021-09-17] MEDS: dilTIAZem CD 120 MG Capsule PO ×2 (08:30→22:35)
[2021-09-17] MEDS: Enoxaparin 40 MG/0.4 ML Syringe SC ×2 (08:30→22:35)
[2021-09-17] MEDS: guaiFENesin 1,200 MG Tablet 1200 MG PO ×2 (08:30→22:35)
[2021-09-17] MEDS: Insulin Lispro 100 UNIT/ML INSULN.PEN SC ×2 (11:50→22:35)
[2021-09-17 11:55] LABS: Bedside Glucose 202 mg/dL (70-110)
[2021-09-17] MEDS: LORazepam 0.5 MG Tablet 0.25 MG PO (12:05)
--- NOTE | 2021-09-17 13:44 | PCM.PN.HOSP ---
Subjective Subjective Follow-up on acute respiratory failure/acute COVID-19 pneumonia: Patient was seen and examined. She complains of feeling very anxious. Denied any chest pain, dizziness. Objective Data Objective Data Vital Signs: Vital Signs Temp Pulse Resp BP Pulse Ox 97.6 F L 104 H 24 H 111/56 L 92 09/17/21 08:27 09/17/21 10:16 09/17/21 10:16 09/17/21 08:27 09/17/21 08:27 Oxygen Flow Rate (L/min) 8 Oxygen Delivery Method Nasal Cannula Weight: 94.1 kg Body Mass Index (BMI) 41.1 Intake & Output: Intake and Output for Last 24 Hours 09/15/21 09/16/21 09/17/21 23:59 23:59 23:59 Intake Total 1240 / 1240 120 / 360 580 / 580 Output Total 850 / 850 550 / 700 575 / 575 Balance 390 / 390 -430 / -340 5 / 5 Medical Nutrition Assessment Dietitian: Malnutrition Criteria Met Start: 09/14/21 14:38 Freq: Status: Active Protocol: Document 09/14/21 14:38 AG (Rec: 09/14/21 14:38 AG [id number]) Nutrition Malnutrition Evidence of Malnutrition Exists Yes Malnutrition (moderate): Acute Illness/Injury Evidenced By Suboptimal Energy Intake ( Moderate),Weight Loss ( Moderate) Intake Problem Inadequate Oral Intake Etiology related to respiratory failure , increased energy needs w/ acute illness Signs/Symptoms as evidenced by estimated PO intake meeting ~<50-75% of estimated nutritional needs x 4 weeks Status Active Problem Clinical Problem Acute Disease or Injury Related Malnutrition Etiology moderate, acute malnutrition r /t inadequate energy intake w/ increased energy needs d/t acute illness Signs/Symptoms as evidenced by unintentional wt loss of 12.6kg/11.6% x 1 month; estimated PO intake meeting <75% of estimated nutritional needs >1 week Status Active Problem Recommendation Dietitian Recommendations/Changes Will continue Carbohydrate- Controlled diet and 120 ml glucerna shake w/ meals for increased nutrition if consumed Lab / Micro Data Result Diagrams: 09/14/21 06:00 09/16/21 04:21 Labs: Laboratory Results - last 24 hr 09/16/21 15:41: POC Glucose 169 H 09/16/21 21:24: POC Glucose 108 09/17/21 06:47: POC Glucose 94 09/17/21 11:49: POC Glucose 202 H Micro: Microbiology 08/19/21 11:50 Urine, Clean Catch Legionella Antigen - Final 08/19/21 11:50 Urine, Clean Catch Streptococcus pneumoniae Antigen (M - Final 08/10/21 16:30 Nasal Secretion SARS-CoV-2 Antigen (Rapid) - Final SARS-CoV-2 (COVID 19) Physical Exam Narrative Physical exam: General: Alert, Oriented x3, Cooperative, No apparent distress, well developed HEENT: Atraumatic Oral: Moist Mucosa Neck: Supple Lungs: Clear to auscultation Cardiovascular: HS I+II, regular, no murmurs Abdomen: Bowel Sounds Present, Soft, Non Tender Extremities: No edema Assessment & Plan Assessment/Plan (1) Acute respiratory failure with hypoxia: (2) COVID-19: PLAN: 1. Acute hypoxic respiratory failure secondary to Acute COVID-19 pneumonia, slowly improved Patient is on 10L Patient has completed Decadron and Remdesivir Patient was not a candidate for baricitinib per ID Will continue to wean off oxygen 2. Hypothyroidism, continue levothyroxine 3. CKD stage II, stable 4. Marked debility related to Acute Covid infection Awaiting SNF placement when oxygen levels are acceptable 5. ARYAN, on nocturnal supplemental oxygen Charges/Coding Visit Charges Inpatient E&M: 06701 Subs Hosp L2
[2021-09-17] MEDS: Furosemide 40 MG/4 ML Vial IV (14:27)
[2021-09-17 16:56] LABS: Bedside Glucose 96 mg/dL (70-110)
--- NOTE | 2021-09-17 18:25 | NURSING ---
Patient son Galdino Jaquez called. Went to patient to make sure it was ok to give out any medical information/ health status. Patient stating that she is ok with RN giving out medical information and updating on patient status.
[2021-09-17] MEDS: LORazepam 1 MG Tablet PO (22:35)
[2021-09-17] MEDS: Sodium Chloride 0.65% 1 SPRAY SPRAY.BTL 2 SPRAY NASAL (22:37)
[2021-09-17 22:46] LABS: Bedside Glucose 165 mg/dL (70-110)
[2021-09-18] VITALS (15 sets, daily range): BP systolic 115–124; BP diastolic 56–70; PULSE 83–110; RESP 12–24; TEMP 36.2–36.8; O2SAT 90–99
[2021-09-18] MEDS: Insulin Lispro 100 UNIT/ML INSULN.PEN SC ×3 (06:32→16:34)
[2021-09-18 06:35] LABS: Bedside Glucose 152 mg/dL (70-110)
[2021-09-18] MEDS: Ipratropium/Albuterol Sulfate 3 ML AMPUL.NEB INHALATION ×4 (07:06→19:09)
[2021-09-18 07:26] LABS: Absolute Lymphocyte Count 1.68 X10^3/uL (0.83-4.51); Basophil# 0.06 X10^3/uL; Basophil% 0.7 % (0-1); Eosinophil# 1.21 X10^3/uL; Eosinophils% 13.8 % (0-5); Hematocrit 33.8 % (37-47); Hemoglobin 10.2 g/dL (12.0-15.0); Lymphocyte # 1.68 X10^3/ul (0.83-4.51); Lymphocyte % 19.2 % (19-41); Mean Corp Hgb Conc 30.2 g/dL (32-36); Mean Corpuscular Hgb 28.6 pg (27.0-32.0); Mean Corpuscular Volume 94.7 fL (81-99); Mean Platelet Vol. 11.1 fl (6.2-12.0); Monocyte# 0.61 X10^3/uL; NRBC Flagged by Analyzer 0 % (0-5); Neutrophil # 4.95 X10^3/uL (2.7-7.7); Neutrophil % 56.7 % (47-70); Platelet Count 221 K/mm3 (150-450); RBC Distribution Width CV 16.2 % (11.6-14.6); RBC Distribution Width SD 56.7 fl (35.1-43.9); Red Blood Count 3.57 M/mm3 (4.2-5.4); White Blood Count 8.7 K/mm3 (4.4-11.0)
[2021-09-18 08:14] LABS: ALB/GLOB Ratio 0.4 RATIO (0.9-2.4); AST(SGOT) 21 U/L (15-37); Alanine Aminotransfer ALT/SGPT 19 U/L (13-56); Albumin, Serum 2.2 g/dL (3.2-5.0); Alkaline Phosphatase 116 U/L (45-117); Anion Gap 7 (5-15); BUN 13 mg/dL (7-18); BUN/Creat Ratio 13.5 RATIO (10-20); Calcium,Total 8.9 mg/dL (8.5-10.1); Chloride 100 mmol/L (98-107); Creatinine, Serum 0.96 mg/dL (0.55-1.02); EST Glomerular Filtration Rate 61 mL/min (>60); Est Glom Filt Rate - Afr Amer 74 mL/min (>60); Estimated Creatinine Clearance 47.09 ml/min; Globulin 4.9 g/dL (2.2-4.2); Glucose 107 mg/dL (74-106); Protein, Total 7.1 g/dL (6.4-8.2); Sodium Level 140 mmol/L (136-145)
[2021-09-18] MEDS: dilTIAZem CD 120 MG Capsule PO ×2 (08:28→20:33)
[2021-09-18] MEDS: guaiFENesin 1,200 MG Tablet 1200 MG PO ×2 (08:28→20:33)
[2021-09-18] MEDS: LORazepam 0.5 MG Tablet 0.25 MG PO ×2 (08:28→14:28)
[2021-09-18] MEDS: Enoxaparin 40 MG/0.4 ML Syringe SC ×2 (08:29→20:33)
[2021-09-18] MEDS: Sodium Chloride 0.65% 1 SPRAY SPRAY.BTL 2 SPRAY NASAL ×2 (08:30→20:33)
--- NOTE | 2021-09-18 11:01 | CASEMGMT ---
Patient continues to require non re-breather and/or nasal cannula while moving with therapy. SW would like to try and send referrals to the 3 facilities that are in network with her insurance and have 24/7 respiratory therapy. SW would like the facilities to look at the referral rather than SW call and give them O2 requirement information. However, SW needs to talk with patient's son Gerald. SW called patient's son Gerald. SW introduced self. LYNETTE discussed d/c planning. He is hoping for patient to go to TCU at d/c. SW explained to him that insurance generally covers 20 days at 100% and then her Medicaid would start picking up the co-pays. SW told him TCU does not take Medicaid so she would have to move to another SNF to continue her rehab. SW explained to him that patient will definitely need more than 20 days for her rehab. SW told him that it would be best for patient to go to a facility that has 24/7 Respiratory Therapy due to her O2 needs. He agreed. SW then went over the 3 facilities that take her insurance and have 24/7 Respiratory Therapy. [facility] in [place], [facility] in [place], and [facility]. He asked about visitation. LYNETTE told him that SW would have to call facilities to find out for sure. However, most places since she is not vaccinated would have her quarantine for 10-14 days which means no visitation. They can approve compassionate care visits if she is having a hard time. He said he wants her to go to TCU and hopefully by the time she needs to leave TCU she will be on less O2 and can go to a facility in [place]. LYNETTE told him SW will check with TCU. SW did talk with [facility] in TCU. They cannot take patient with her current high O2 needs. They don't like to take patient's who need more than 7L. She will put patient on the possible list. Stephanie Jennings MSW NACHO
--- NOTE | 2021-09-18 11:19 | CASEMGMT ---
SW attempted to call patient's insurance to find out her SNF benefits. Generally 10-20 days are covered at 100%. However, the individual from the insurance company did not know the answer. She read what her computer said and it was 100 days per benefit period. It is extremely unlikely that her [employer] would pay for 100 days at 100%. LYNETTE has only seen this in chcf plans from employers and patient's [employer] is not a chcf plan from an employer. Stephanie GRIFFITH
[2021-09-18 12:10] LABS: Bedside Glucose 208 mg/dL (70-110)
--- NOTE | 2021-09-18 15:22 | PN.HOSP_ITS ---
Subjective Subjective Follow-up on acute respiratory failure/acute COVID-19 pneumonia: Patient was seen and examined. She denied any new complaint. No acute events. Patient has had on and off panic attacks. Remains on the same amount of oxygen. Objective Data Objective Data Vital Signs: Vital Signs Temp Pulse Resp BP Pulse Ox 98.0 F 99 20 H 117/56 L 94 09/18/21 14:25 09/18/21 14:25 09/18/21 14:25 09/18/21 14:25 09/18/21 14:25 Oxygen Flow Rate (L/min) 8 Oxygen Delivery Method Nasal Cannula Weight: 94.5 kg Body Mass Index (BMI) 41.1 Intake & Output: Intake and Output for Last 24 Hours 09/16/21 09/17/21 09/18/21 23:59 23:59 23:59 Intake Total 120 / 360 820 / 1060 720 / 720 Output Total 550 / 700 1175 / 1475 450 / 450 Balance -430 / -340 -355 / -415 270 / 270 Medical Nutrition Assessment Dietitian: Malnutrition Criteria Met Start: 09/14/21 14:38 Freq: Status: Active Protocol: Document 09/18/21 13:49 AG (Rec: 09/18/21 13:49 AG [id number]) Nutrition Malnutrition Evidence of Malnutrition Exists Yes Malnutrition (moderate): Acute Illness/Injury Evidenced By Suboptimal Energy Intake ( Moderate),Weight Loss ( Moderate) Intake Problem Inadequate Oral Intake Etiology related to respiratory failure , increased energy needs w/ acute illness Signs/Symptoms as evidenced by estimated PO intake meeting ~<50-75% of estimated nutritional needs x 4 weeks Status Active Problem Clinical Problem Acute Disease or Injury Related Malnutrition Etiology moderate, acute malnutrition r /t inadequate energy intake w/ increased energy needs d/t acute illness Signs/Symptoms as evidenced by unintentional wt loss of 14.3kg/13% x 1 month; estimated PO intake meeting <75% of estimated nutritional needs >1 week Status Active Problem Recommendation Dietitian Recommendations/Changes Will continue Carbohydrate- Controlled diet and 120 ml glucerna shake w/ meals for increased nutrition if consumed Lab / Micro Data Result Diagrams: 09/18/21 05:50 09/18/21 05:50 Labs: Laboratory Results - last 24 hr 09/17/21 16:48: POC Glucose 96 09/17/21 22:34: POC Glucose 165 H 09/18/21 05:50: WBC 8.7, RBC 3.57 L, Hgb 10.2 L, Hct 33.8 L, MCV 94.7, MCH 28.6, MCHC 30.2 L, RDW Std Deviation 56.7 H, RDW Coeff of Dilip 16.2 H, Plt Count 221, MPV 11.1, Immature Gran % (Auto) 2.600 H, Neut % (Auto) 56.7, Lymph % (Auto) 19.2, [place] % (Auto) 7.0, Eos % (Auto) 13.8 H, Baso % (Auto) 0.7, Absolute Neuts (auto) 5.0, Absolute Lymphs (auto) 1.68, Nucleated RBC % 0 09/18/21 05:50: Sodium 140, Potassium 4.0, Chloride 100, Carbon Dioxide 33.0 H, Anion Gap 7, BUN 13, Creatinine 0.96, Estim Creat Clear Calc 47.09, Est GFR (MDRD) Af Amer 74, Est GFR (MDRD) Non-Af 61, BUN/Creatinine Ratio 13.5, Glucose 107 H, Calcium 8.9, Total Bilirubin 0.30, AST 21, ALT 19, Alkaline Phosphatase 116, Total Protein 7.1, Albumin 2.2 L, Globulin 4.9 H, Albumin/Globulin Ratio 0.4 L 09/18/21 06:31: POC Glucose 152 H 09/18/21 11:51: POC Glucose 208 H Micro: Microbiology 08/19/21 11:50 Urine, Clean Catch Legionella Antigen - Final 08/19/21 11:50 Urine, Clean Catch Streptococcus pneumoniae Antigen (M - Final 08/10/21 16:30 Nasal Secretion SARS-CoV-2 Antigen (Rapid) - Final SARS-CoV-2 (COVID 19) Physical Exam Narrative Physical exam: General: Alert, Oriented x3, Cooperative, No apparent distress, well developed HEENT: Atraumatic Oral: Moist Mucosa Neck: Supple Lungs: Clear to auscultation Cardiovascular: HS I+II, regular, no murmurs Abdomen: Bowel Sounds Present, Soft, Non Tender Extremities:Bilateral leg edema+1, improving Assessment & Plan Assessment/Plan (1) Acute respiratory failure with hypoxia: (2) COVID-19: PLAN: 1. Acute hypoxic respiratory failure secondary to Acute COVID-19 pneumonia, slowly improved Patient is on 8-10L Patient has completed Decadron and Remdesivir Patient was not a candidate for baricitinib per ID Will continue to wean off oxygen 2. Hypothyroidism, continue levothyroxine 3. CKD stage II, stable 4. Marked debility related to Acute Covid infection Awaiting SNF placement when oxygen levels are acceptable 5. ARYAN, on nocturnal supplemental oxygen 6. Moderate malnutrition, secondary to acute illness. Dietitian consulted, on supplements Charges/Coding Visit Charges Inpatient E&M: 19207 Subs Hosp L2
[2021-09-18] MEDS: Furosemide 20 MG/2 ML VIAL IV (15:52)
[2021-09-18] MEDS: 0.9% Saline Lock 10 ML Syringe IV (15:52)
[2021-09-18 16:46] LABS: Bedside Glucose 175 mg/dL (70-110)
[2021-09-18] MEDS: LORazepam 1 MG Tablet PO (20:33)
[2021-09-18 21:11] LABS: Bedside Glucose 135 mg/dL (70-110)
--- NOTE | 2021-09-18 22:24 | NURSING ---
Gave report to Nneka ELLIOTT
--- NOTE | 2021-09-18 23:04 | CPS ---
pt asked to have bipap taken off
[2021-09-19] VITALS (13 sets, daily range): BP systolic 116–118; BP diastolic 64–73; PULSE 82–108; RESP 12–22; TEMP 36.5–37; O2SAT 91–99
[2021-09-19 06:30] LABS: Bedside Glucose 114 mg/dL (70-110)
[2021-09-19] MEDS: Ipratropium/Albuterol Sulfate 3 ML AMPUL.NEB INHALATION ×3 (06:43→19:06)
[2021-09-19 07:11] LABS: Absolute Lymphocyte Count 1.53 X10^3/uL (0.83-4.51); Absolute Neutrophil Count 5.2 X10^3/uL (2.0-7.7); Basophil# 0.05 X10^3/uL; Basophil% 0.6 % (0-1); Eosinophil# 1.17 X10^3/uL; Eosinophils% 13.5 % (0-5); Hematocrit 33.7 % (37-47); Hemoglobin 10.2 g/dL (12.0-15.0); Lymphocyte # 1.53 X10^3/ul (0.83-4.51); Lymphocyte % 17.7 % (19-41); Mean Corp Hgb Conc 30.3 g/dL (32-36); Mean Corpuscular Hgb 29.1 pg (27.0-32.0); Mean Platelet Vol. 10.8 fl (6.2-12.0); Monocyte% 6.9 % (0-10); NRBC Flagged by Analyzer 0 % (0-5); Neutrophil # 5.17 X10^3/uL (2.7-7.7); Neutrophil % 59.7 % (47-70); Platelet Count 223 K/mm3 (150-450); RBC Distribution Width CV 16.1 % (11.6-14.6); RBC Distribution Width SD 56.6 fl (35.1-43.9); Red Blood Count 3.51 M/mm3 (4.2-5.4); White Blood Count 8.7 K/mm3 (4.4-11.0)
[2021-09-19 07:42] LABS: ALB/GLOB Ratio 0.4 RATIO (0.9-2.4); AST(SGOT) 19 U/L (15-37); Alanine Aminotransfer ALT/SGPT 19 U/L (13-56); Albumin, Serum 2.1 g/dL (3.2-5.0); Alkaline Phosphatase 112 U/L (45-117); Anion Gap 6 (5-15); BUN 13 mg/dL (7-18); BUN/Creat Ratio 14.4 RATIO (10-20); Calcium,Total 8.7 mg/dL (8.5-10.1); Chloride 101 mmol/L (98-107); EST Glomerular Filtration Rate 65 mL/min (>60); Est Glom Filt Rate - Afr Amer 79 mL/min (>60); Estimated Creatinine Clearance 50.23 ml/min; Globulin 4.7 g/dL (2.2-4.2); Glucose 139 mg/dL (74-106); Potassium 4.1 mmol/L (3.5-5.1); Protein, Total 6.8 g/dL (6.4-8.2); Sodium Level 139 mmol/L (136-145)
[2021-09-19] MEDS: Sodium Chloride 0.65% 1 SPRAY SPRAY.BTL 2 SPRAY NASAL ×2 (09:29→20:51)
[2021-09-19] MEDS: dilTIAZem CD 120 MG Capsule PO ×2 (09:29→20:49)
[2021-09-19] MEDS: Enoxaparin 40 MG/0.4 ML Syringe SC ×2 (09:29→20:50)
[2021-09-19] MEDS: Acetaminophen 325 MG Tablet 650 MG PO (09:54)
[2021-09-19] MEDS: guaiFENesin 10 ML UDC (200MG/10ML) PO (09:55)
--- NOTE | 2021-09-19 11:32 | CASEMGMT ---
RN told SW that patient would like to go to [facility] T[facility]. SW met with patient. Introduced self and role at [facility]. SW let patient know that SW is aware she would like [facility]. LYNETTE explained to patient that currently her O2 requirements are too high to go to TCU. SW did let patient know that her name is on the list for TCU should she improve. Patient thanked LYNETTE. Stephanie Jennings POLICE DETENTION ATTENDANT [facility]ACHO
[2021-09-19 13:56] LABS: Bedside Glucose 148 mg/dL (70-110)
--- NOTE | 2021-09-19 15:07 | PN.HOSP_ITS ---
Subjective Subjective Follow-up on acute respiratory failure/acute COVID-19 pneumonia: Patient seen and examined. Denies any chest pain, worsening SOB. Objective Data Objective Data Vital Signs: Vital Signs Temp Pulse Resp BP Pulse Ox 97.7 F L 96 20 H 116/73 96 09/19/21 09:00 09/19/21 14:07 09/19/21 14:07 09/19/21 09:00 09/19/21 09:00 Oxygen Flow Rate (L/min) 8 Oxygen Delivery Method Nasal Cannula Weight: 95.6 kg Body Mass Index (BMI) 41.1 Intake & Output: Intake and Output for Last 24 Hours 09/17/21 09/18/21 09/19/21 23:59 23:59 23:59 Intake Total 820 / 1060 960 / 960 520 / 520 Output Total 1175 / 1475 1275 / 1275 0 / 0 Balance -355 / -415 -315 / -315 520 / 520 Medical Nutrition Assessment Dietitian: Malnutrition Criteria Met Start: 09/14/21 14:38 Freq: Status: Active Protocol: Document 09/18/21 13:49 AG (Rec: 09/18/21 13:49 AG [id number]) Nutrition Malnutrition Evidence of Malnutrition Exists Yes Malnutrition (moderate): Acute Illness/Injury Evidenced By Suboptimal Energy Intake ( Moderate),Weight Loss ( Moderate) Intake Problem Inadequate Oral Intake Etiology related to respiratory failure , increased energy needs w/ acute illness Signs/Symptoms as evidenced by estimated PO intake meeting ~<50-75% of estimated nutritional needs x 4 weeks Status Active Problem Clinical Problem Acute Disease or Injury Related Malnutrition Etiology moderate, acute malnutrition r /t inadequate energy intake w/ increased energy needs d/t acute illness Signs/Symptoms as evidenced by unintentional wt loss of 14.3kg/13% x 1 month; estimated PO intake meeting <75% of estimated nutritional needs >1 week Status Active Problem Recommendation Dietitian Recommendations/Changes Will continue Carbohydrate- Controlled diet and 120 ml glucerna shake w/ meals for increased nutrition if consumed Lab / Micro Data Result Diagrams: 09/19/21 06:53 09/19/21 06:53 Labs: Laboratory Results - last 24 hr 09/18/21 16:33: POC Glucose 175 H 09/18/21 20:33: POC Glucose 135 H 09/19/21 06:24: POC Glucose 114 H 09/19/21 06:53: WBC 8.7, RBC 3.51 L, Hgb 10.2 L, Hct 33.7 L, MCV 96.0, MCH 29.1, MCHC 30.3 L, RDW Std Deviation 56.6 H, RDW Coeff of Dilip 16.1 H, Plt Count 223, MPV 10.8, Immature Gran % (Auto) 1.600 H, Neut % (Auto) 59.7, Lymph % (Auto) 17.7 L, [place] % (Auto) 6.9, Eos % (Auto) 13.5 H, Baso % (Auto) 0.6, Absolute Neuts (auto) 5.2, Absolute Lymphs (auto) 1.53, Nucleated RBC % 0 09/19/21 06:53: Sodium 139, Potassium 4.1, Chloride 101, Carbon Dioxide 32.0, Anion Gap 6, BUN 13, Creatinine 0.90, Estim Creat Clear Calc 50.23, Est GFR ( MDRD) Af Amer 79, Est GFR (MDRD) Non-Af 65, BUN/Creatinine Ratio 14.4, Glucose 139 H, Calcium 8.7, Total Bilirubin 0.40, AST 19, ALT 19, Alkaline Phosphatase 112, Total Protein 6.8, Albumin 2.1 L, Globulin 4.7 H, Albumin/Globulin Ratio 0.4 L 09/19/21 13:45: POC Glucose 148 H Micro: Microbiology 08/19/21 11:50 Urine, Clean Catch Legionella Antigen - Final 08/19/21 11:50 Urine, Clean Catch Streptococcus pneumoniae Antigen (M - Final 08/10/21 16:30 Nasal Secretion SARS-CoV-2 Antigen (Rapid) - Final SARS-CoV-2 (COVID 19) Physical Exam Narrative Physical exam: General: Alert, Oriented x3, Cooperative, No apparent distress, well developed HEENT: Atraumatic Oral: Moist Mucosa Neck: Supple Lungs: Clear to auscultation Cardiovascular: HS I+II, regular, no murmurs Abdomen: Bowel Sounds Present, Soft, Non Tender Extremities: Bilateral leg edema +1 Assessment & Plan Assessment/Plan (1) Acute respiratory failure with hypoxia: (2) COVID-19: PLAN: 1. Acute hypoxic respiratory failure secondary to Acute COVID-19 pneumonia, slowly improved Patient has completed Decadron and Remdesivir Patient was not a candidate for baricitinib per ID Will continue to wean off oxygen 2. Hypothyroidism, continue levothyroxine 3. CKD stage II, stable 4. Marked debility related to Acute Covid infection Awaiting SNF placement when oxygen levels are acceptable 5. ARYAN, on nocturnal supplemental oxygen 6. Moderate malnutrition, secondary to acute illness. Dietitian consulted, on supplements Charges/Coding Visit Charges Inpatient E&M: 37386 Subs Hosp L2
[2021-09-19 18:01] LABS: Bedside Glucose 113 mg/dL (70-110)
[2021-09-19] MEDS: LORazepam 1 MG Tablet PO (20:49)
[2021-09-19] MEDS: guaiFENesin 1,200 MG Tablet 1200 MG PO (20:50)
[2021-09-19 21:36] LABS: Bedside Glucose 138 mg/dL (70-110)
[2021-09-20] VITALS (14 sets, daily range): BP systolic 97–133; BP diastolic 67–73; PULSE 76–104; RESP 18–21; TEMP 36.5–36.7; O2SAT 91–96
[2021-09-20 07:00] LABS: Bedside Glucose 115 mg/dL (70-110)
--- NOTE | 2021-09-20 07:28 | CPS ---
Pt stated she did not feel good and didnt want tx at this time. I told her tx would be later and she was fine with that.
[2021-09-20] MEDS: Acetaminophen 325 MG Tablet 650 MG PO (09:00)
[2021-09-20] MEDS: guaiFENesin 10 ML UDC (200MG/10ML) PO (09:00)
[2021-09-20] MEDS: Sodium Chloride 0.65% 1 SPRAY SPRAY.BTL 2 SPRAY NASAL ×2 (09:01→22:38)
[2021-09-20] MEDS: Enoxaparin 40 MG/0.4 ML Syringe SC ×2 (09:01→22:37)
[2021-09-20] MEDS: dilTIAZem CD 120 MG Capsule PO ×2 (09:01→22:37)
[2021-09-20] MEDS: guaiFENesin 1,200 MG Tablet 1200 MG PO (09:07)
--- NOTE | 2021-09-20 10:43 | PCM.PN.HOSP ---
Subjective Subjective Follow-up on acute respiratory failure/acute COVID-19 pneumonia: Patient was seen and examined. No much improvement from previous. She is on 6 L of oxygen at rest, drops with minimal exertion. Patient complains of nausea today. Has had bowel movements that are normal for her. Objective Data Objective Data Vital Signs: Vital Signs Temp Pulse Resp BP Pulse Ox 97.8 F 92 20 H 131/69 H 91 09/20/21 08:15 09/20/21 08:15 09/20/21 08:15 09/20/21 08:15 09/20/21 08:15 Oxygen Flow Rate (L/min) 5 Oxygen Delivery Method Nasal Cannula Weight: 97 kg Body Mass Index (BMI) 41.1 Intake & Output: Intake and Output for Last 24 Hours 09/18/21 09/19/21 09/20/21 23:59 23:59 23:59 Intake Total 960 / 960 760 / 760 240 / 240 Output Total 1275 / 1275 250 / 250 200 / 200 Balance -315 / -315 510 / 510 40 / 40 Medical Nutrition Assessment Dietitian: Malnutrition Criteria Met Start: 09/14/21 14:38 Freq: Status: Active Protocol: Document 09/18/21 13:49 AG (Rec: 09/18/21 13:49 AG [id number]) Nutrition Malnutrition Evidence of Malnutrition Exists Yes Malnutrition (moderate): Acute Illness/Injury Evidenced By Suboptimal Energy Intake ( Moderate),Weight Loss ( Moderate) Intake Problem Inadequate Oral Intake Etiology related to respiratory failure , increased energy needs w/ acute illness Signs/Symptoms as evidenced by estimated PO intake meeting ~<50-75% of estimated nutritional needs x 4 weeks Status Active Problem Clinical Problem Acute Disease or Injury Related Malnutrition Etiology moderate, acute malnutrition r /t inadequate energy intake w/ increased energy needs d/t acute illness Signs/Symptoms as evidenced by unintentional wt loss of 14.3kg/13% x 1 month; estimated PO intake meeting <75% of estimated nutritional needs >1 week Status Active Problem Recommendation Dietitian Recommendations/Changes Will continue Carbohydrate- Controlled diet and 120 ml glucerna shake w/ meals for increased nutrition if consumed Lab / Micro Data Result Diagrams: 09/19/21 06:53 09/19/21 06:53 Labs: Laboratory Results - last 24 hr 09/19/21 13:45: POC Glucose 148 H 09/19/21 17:45: POC Glucose 113 H 09/19/21 20:46: POC Glucose 138 H 09/20/21 06:36: POC Glucose 115 H Micro: Microbiology 08/19/21 11:50 Urine, Clean Catch Legionella Antigen - Final 08/19/21 11:50 Urine, Clean Catch Streptococcus pneumoniae Antigen (M - Final 08/10/21 16:30 Nasal Secretion SARS-CoV-2 Antigen (Rapid) - Final SARS-CoV-2 (COVID 19) Physical Exam Narrative Physical exam: General: Alert, Oriented x3, Cooperative, appears frail, not in distress, on 6 L of oxygen HEENT: Atraumatic Oral: Moist Mucosa Neck: Supple Lungs: Diminished to auscultation Cardiovascular: HS I+II, regular, no murmurs Abdomen: Bowel Sounds Present, Soft, Non Tender Extremities: Bilateral leg edema +1 Assessment & Plan Assessment/Plan (1) Acute respiratory failure with hypoxia: (2) COVID-19: PLAN: 1. Acute hypoxic respiratory failure secondary to Acute COVID-19 pneumonia, slowly improved Currently on 6 L of oxygen. Will reevaluate with ambulation Patient has completed Decadron and Remdesivir Patient was not a candidate for baricitinib per ID Will continue to wean off oxygen 2. Hypothyroidism, continue levothyroxine 3. CKD stage II, stable 4. Marked debility related to Acute Covid infection Awaiting SNF placement when oxygen levels are acceptable 5. ARYAN, on nocturnal supplemental oxygen 6. Moderate malnutrition, secondary to acute illness. Dietitian consulted, on supplements
[2021-09-20] MEDS: Ipratropium/Albuterol Sulfate 3 ML AMPUL.NEB INHALATION ×2 (11:04→19:19)
[2021-09-20] MEDS: Insulin Lispro 100 UNIT/ML INSULN.PEN SC (11:36)
[2021-09-20 11:50] LABS: Bedside Glucose 158 mg/dL (70-110)
--- NOTE | 2021-09-20 15:51 | CASEMGMT ---
SW spoke with Josephine with TCU and TCU is not able to accept patient. There were some issues with patient when patient was in TCU previously and they are not able to accept her. SW called patient's son, Gerald and let him know TCU cannot accept patient. Gerald asked why and SW told him reason listed above. SW told Gerald that it would be a good idea if patient went to a facility that has 24/7 respiratory care. SW told him SW can leave a list of facilities in patient's room for review. He asked for lists of facilities in [facility], and [facility]. SW went to patient's room. SW let her know that TCU is not able to accept her. Patient did ask why. SW let patient know that due to some issues when she was in TCU before they cannot accept her. SW provided patient with a list of SNF providers including quality and resource use data and consistent with the patient?s preferred geographic region, medical needs, and insurance network. SW let patient know that Gerald will be in later today to go over the lists with her. Stephanie Jennings SURGICAL APPLIANCES SALESPERSON NACHO
[2021-09-20 17:25] LABS: Bedside Glucose 111 mg/dL (70-110)
[2021-09-20] MEDS: LORazepam 1 MG Tablet PO (22:37)
[2021-09-20 23:30] LABS: Bedside Glucose 129 mg/dL (70-110)
[2021-09-21] VITALS (13 sets, daily range): BP systolic 100–127; BP diastolic 49–69; PULSE 79–104; RESP 12–28; TEMP 36.6–36.9; O2SAT 91–97
[2021-09-21 06:25] LABS: Bedside Glucose 135 mg/dL (70-110)
[2021-09-21] MEDS: Enoxaparin 40 MG/0.4 ML Syringe SC ×2 (09:29→21:59)
[2021-09-21] MEDS: dilTIAZem CD 120 MG Capsule PO ×2 (09:29→21:59)
[2021-09-21] MEDS: Sodium Chloride 0.65% 1 SPRAY SPRAY.BTL 2 SPRAY NASAL ×3 (09:30→22:00)
--- NOTE | 2021-09-21 10:16 | CASEMGMT ---
SW met with patient this am. Patient did talk with her son Gerald last night, but not much. Patient reports she knows SW needs senior living choices. RN was working on starting an IV. LYNETTE told patient LYNETTE will check back. Stephanie GRIFFITH
[2021-09-21] MEDS: Ipratropium/Albuterol Sulfate 3 ML AMPUL.NEB INHALATION ×2 (10:56→19:16)
[2021-09-21] MEDS: Furosemide 40 MG Tablet PO (11:59)
[2021-09-21] MEDS: Insulin Lispro 100 UNIT/ML INSULN.PEN SC ×2 (12:01→21:59)
[2021-09-21 12:06] LABS: Bedside Glucose 165 mg/dL (70-110)
--- NOTE | 2021-09-21 13:18 | CASEMGMT ---
SW has been to patient's room several times this am regarding picking nursing homes for discharge. Patient called [facility] and asked what she is supposed to do about picking a assisted. Patient was advised that SW can help with this. SW then went back into patient's room. SW let patient know that she does not have to call the facilities as SW will do this. SW just needs patient to give SW her top 3-4 choices. LYNETTE then called patient's son, Gerald. SW wanted to make sure Gerald was aware he did not need to call any facilities to check on availability as SW will do this. SW let Gerald know SW just needs his and patient's top 3-4 choices. Gerald said he understood that. Gerald said he will have choices for SW today. SW advised that is preferable so SW can get referrals sent out. Stephanie Jennings REPAIRER SHOE STICKS NACHO
--- NOTE | 2021-09-21 13:40 | PCM.PN.HOSP ---
Subjective Subjective Follow-up on acute respiratory failure/acute COVID-19 pneumonia: Patient was seen and examined. She was having a panic attack at the time of being seen. She had a Ventimask on. She slowed down after couple of minutes. Discharge planning ongoing Objective Data Objective Data Vital Signs: Vital Signs Temp Pulse Resp BP Pulse Ox 97.8 F 104 H 24 H 127/66 H 91 09/21/21 09:37 09/21/21 10:59 09/21/21 10:56 09/21/21 09:37 09/21/21 11:26 Oxygen Flow Rate (L/min) 7 Oxygen Delivery Method Nasal Cannula Weight: 97.3 kg Body Mass Index (BMI) 41.1 Intake & Output: Intake and Output for Last 24 Hours 09/19/21 09/20/21 09/21/21 23:59 23:59 23:59 Intake Total 760 / 760 1100 / 1100 Output Total 250 / 250 320 / 320 800 / 800 Balance 510 / 510 780 / 780 -800 / -800 Medical Nutrition Assessment Dietitian: Malnutrition Criteria Met Start: 09/14/21 14:38 Freq: Status: Active Protocol: Document 09/18/21 13:49 AG (Rec: 09/18/21 13:49 AG [id number]) Nutrition Malnutrition Evidence of Malnutrition Exists Yes Malnutrition (moderate): Acute Illness/Injury Evidenced By Suboptimal Energy Intake ( Moderate),Weight Loss ( Moderate) Intake Problem Inadequate Oral Intake Etiology related to respiratory failure , increased energy needs w/ acute illness Signs/Symptoms as evidenced by estimated PO intake meeting ~<50-75% of estimated nutritional needs x 4 weeks Status Active Problem Clinical Problem Acute Disease or Injury Related Malnutrition Etiology moderate, acute malnutrition r /t inadequate energy intake w/ increased energy needs d/t acute illness Signs/Symptoms as evidenced by unintentional wt loss of 14.3kg/13% x 1 month; estimated PO intake meeting <75% of estimated nutritional needs >1 week Status Active Problem Recommendation Dietitian Recommendations/Changes Will continue Carbohydrate- Controlled diet and 120 ml glucerna shake w/ meals for increased nutrition if consumed Lab / Micro Data Result Diagrams: 09/19/21 06:53 09/19/21 06:53 Labs: Laboratory Results - last 24 hr 09/20/21 17:20: POC Glucose 111 H 09/20/21 22:35: POC Glucose 129 H 09/21/21 06:12: POC Glucose 135 H 09/21/21 12:01: POC Glucose 165 H Micro: Microbiology 08/19/21 11:50 Urine, Clean Catch Legionella Antigen - Final 08/19/21 11:50 Urine, Clean Catch Streptococcus pneumoniae Antigen (M - Final 08/10/21 16:30 Nasal Secretion SARS-CoV-2 Antigen (Rapid) - Final SARS-CoV-2 (COVID 19) Physical Exam Narrative Physical exam: General: Alert, Oriented x3, Cooperative, appears frail, not in distress, on 6 L of oxygen HEENT: Atraumatic Oral: Moist Mucosa Neck: Supple Lungs: Diminished to auscultation Cardiovascular: HS I+II, regular, no murmurs Abdomen: Bowel Sounds Present, Soft, Non Tender Extremities: Bilateral leg edema +1 Assessment & Plan Assessment/Plan (1) Acute respiratory failure with hypoxia: (2) COVID-19: PLAN: 1. Acute hypoxic respiratory failure secondary to Acute COVID-19 pneumonia, slowly improved Remains on 6 L of oxygen/Ventimask. Patient has completed Decadron and Remdesivir Patient was not a candidate for baricitinib per ID Will continue to wean off oxygen 2. Panic attacks, generalized anxiety disorder, likely situational but persistent Patient is on Ativan as needed and nightly Will start patient on low-dose Zoloft Repeat EKG in a.m. 3. Hypothyroidism, continue levothyroxine 4. CKD stage II, stable 5. Marked debility related to Acute Covid infection Awaiting SNF placement when oxygen levels are acceptable 6. ARYAN, on nocturnal supplemental oxygen 7. Moderate malnutrition, secondary to acute illness. Dietitian consulted, on supplements Charges/Coding Visit Charges Inpatient E&M: 52700 Subs Hosp L2
--- NOTE | 2021-09-21 14:52 | CASEMGMT ---
LYNETTE received a call from patient's son, Gerald. Gerald said in talking with patient he was able to get her to agree to one place so far. Patient's first choice is [facility]. Gerald said patient would not give him another choice. Gerald said patient wants to try [facility] and if they say no patient will pick another facility. LYNETTE let Gerald know that SW will make a referral. SW will let them know when SW hears back from [facility]. SW let him know this may or may not be today. Gerald thanked LYNETTE for the assistance. LYNETTE faxed referral to [facility]. SW also called [facility] and left a message regarding referral. Await response. Stephanie Jennings DOCUMENT ADVISOR NACHO
--- NOTE | 2021-09-21 15:02 | CASEMGMT ---
LYNETTE received a call from patient's case packer, Maddie Lehman with [facility]. LYNETTE updated Maddie on status of patient and patient's discharge. LYNETTE will let Maddie know when LYNETTE has a plan in place. Stephanie GRIFFITH
[2021-09-21 16:35] LABS: Bedside Glucose 93 mg/dL (70-110)
[2021-09-21] MEDS: LORazepam 1 MG Tablet PO (21:59)
[2021-09-21 22:50] LABS: Bedside Glucose 205 mg/dL (70-110)
[2021-09-22] VITALS (15 sets, daily range): BP systolic 110–124; BP diastolic 63–72; PULSE 80–98; RESP 12–28; TEMP 36.4–37.1; O2SAT 93–99
[2021-09-22 06:55] LABS: Bedside Glucose 101 mg/dL (70-110)
[2021-09-22 07:03] LABS: Absolute Lymphocyte Count 1.56 X10^3/uL (0.83-4.51); Absolute Neutrophil Count 4.6 X10^3/uL (2.0-7.7); Basophil# 0.05 X10^3/uL; Basophil% 0.6 % (0-1); Eosinophil# 1.35 X10^3/uL; Eosinophils% 16.5 % (0-5); Hematocrit 32.4 % (37-47); Hemoglobin 9.8 g/dL (12.0-15.0); Lymphocyte # 1.56 X10^3/ul (0.83-4.51); Mean Corp Hgb Conc 30.2 g/dL (32-36); Mean Corpuscular Hgb 28.7 pg (27.0-32.0); Monocyte# 0.58 X10^3/uL; Monocyte% 7.1 % (0-10); NRBC Flagged by Analyzer 0 % (0-5); Neutrophil # 4.57 X10^3/uL (2.7-7.7); Neutrophil % 55.7 % (47-70); Platelet Count 246 K/mm3 (150-450); RBC Distribution Width CV 16.2 % (11.6-14.6); RBC Distribution Width SD 56.9 fl (35.1-43.9); Red Blood Count 3.41 M/mm3 (4.2-5.4); White Blood Count 8.2 K/mm3 (4.4-11.0)
[2021-09-22 07:31] LABS: ALB/GLOB Ratio 0.4 RATIO (0.9-2.4); AST(SGOT) 19 U/L (15-37); Alanine Aminotransfer ALT/SGPT 16 U/L (13-56); Albumin, Serum 2.1 g/dL (3.2-5.0); Alkaline Phosphatase 107 U/L (45-117); Anion Gap 3 (5-15); BUN 11 mg/dL (7-18); BUN/Creat Ratio 12.3 RATIO (10-20); Calcium,Total 8.7 mg/dL (8.5-10.1); Chloride 102 mmol/L (98-107); EST Glomerular Filtration Rate 66 mL/min (>60); Est Glom Filt Rate - Afr Amer 80 mL/min (>60); Estimated Creatinine Clearance 50.23 ml/min; Globulin 4.7 g/dL (2.2-4.2); Glucose 95 mg/dL (74-106); Potassium 4.1 mmol/L (3.5-5.1); Protein, Total 6.8 g/dL (6.4-8.2); Sodium Level 140 mmol/L (136-145)
--- NOTE | 2021-09-22 09:54 | PCM.PN.HOSP ---
Subjective Subjective Follow-up on acute respiratory failure/acute COVID-19 pneumonia: Patient was seen and examined. No new complaints. No acute events overnight. Objective Data Objective Data Vital Signs: Vital Signs Temp Pulse Resp BP Pulse Ox 97.8 F 92 18 124/72 H 93 09/22/21 09:49 09/22/21 09:49 09/22/21 09:49 09/22/21 09:49 09/22/21 09:49 Oxygen Flow Rate (L/min) 6 Oxygen Delivery Method Nasal Cannula Weight: 97.5 kg Body Mass Index (BMI) 41.1 Intake & Output: Intake and Output for Last 24 Hours 09/20/21 09/21/21 09/22/21 23:59 23:59 23:59 Intake Total 1100 / 1100 120 / 120 Output Total 320 / 320 800 / 1050 750 / 750 Balance 780 / 780 -800 / -930 -630 / -630 Medical Nutrition Assessment Dietitian: Malnutrition Criteria Met Start: 09/14/21 14:38 Freq: Status: Active Protocol: Document 09/18/21 13:49 AG (Rec: 09/18/21 13:49 AG [id number]) Nutrition Malnutrition Evidence of Malnutrition Exists Yes Malnutrition (moderate): Acute Illness/Injury Evidenced By Suboptimal Energy Intake ( Moderate),Weight Loss ( Moderate) Intake Problem Inadequate Oral Intake Etiology related to respiratory failure , increased energy needs w/ acute illness Signs/Symptoms as evidenced by estimated PO intake meeting ~<50-75% of estimated nutritional needs x 4 weeks Status Active Problem Clinical Problem Acute Disease or Injury Related Malnutrition Etiology moderate, acute malnutrition r /t inadequate energy intake w/ increased energy needs d/t acute illness Signs/Symptoms as evidenced by unintentional wt loss of 14.3kg/13% x 1 month; estimated PO intake meeting <75% of estimated nutritional needs >1 week Status Active Problem Recommendation Dietitian Recommendations/Changes Will continue Carbohydrate- Controlled diet and 120 ml glucerna shake w/ meals for increased nutrition if consumed Lab / Micro Data Result Diagrams: 09/22/21 06:35 09/22/21 06:35 Labs: Laboratory Results - last 24 hr 09/21/21 12:01: POC Glucose 165 H 09/21/21 16:29: POC Glucose 93 09/21/21 21:59: POC Glucose 205 H 09/22/21 06:35: WBC 8.2, RBC 3.41 L, Hgb 9.8 L, Hct 32.4 L, MCV 95.0, MCH 28.7, MCHC 30.2 L, RDW Std Deviation 56.9 H, RDW Coeff of Dilip 16.2 H, Plt Count 246, MPV 11.0, Immature Gran % (Auto) 1.100 H, Neut % (Auto) 55.7, Lymph % (Auto) 19.0, [place] % (Auto) 7.1, Eos % (Auto) 16.5 H, Baso % (Auto) 0.6, Absolute Neuts (auto) 4.6, Absolute Lymphs (auto) 1.56, Nucleated RBC % 0 09/22/21 06:35: Sodium 140, Potassium 4.1, Chloride 102, Carbon Dioxide 35.0 H, Anion Gap 3 L, BUN 11, Creatinine 0.90, Estim Creat Clear Calc 50.23, Est GFR (MDRD) Af Amer 80, Est GFR (MDRD) Non-Af 66, BUN/Creatinine Ratio 12.3, Glucose 95, Calcium 8.7, Total Bilirubin 0.30, AST 19, ALT 16, Alkaline Phosphatase 107, Total Protein 6.8, Albumin 2.1 L, Globulin 4.7 H, Albumin/Globulin Ratio 0.4 L 09/22/21 06:52: POC Glucose 101 Micro: Microbiology 08/19/21 11:50 Urine, Clean Catch Legionella Antigen - Final 08/19/21 11:50 Urine, Clean Catch Streptococcus pneumoniae Antigen (M - Final 08/10/21 16:30 Nasal Secretion SARS-CoV-2 Antigen (Rapid) - Final SARS-CoV-2 (COVID 19) Physical Exam Narrative Physical exam: General: Alert, Oriented x3, Cooperative, appears frail, not in distress, on 6 L of oxygen HEENT: Atraumatic Oral: Moist Mucosa Neck: Supple Lungs: Diminished to auscultation Cardiovascular: HS I+II, regular, no murmurs Abdomen: Bowel Sounds Present, Soft, Non Tender Extremities: Bilateral leg edema +1 Assessment & Plan Assessment/Plan (1) Acute respiratory failure with hypoxia: (2) COVID-19: PLAN: 1. Acute hypoxic respiratory failure secondary to Acute COVID-19 pneumonia, slowly improved Remains on 6 L of oxygen/Ventimask. Patient has completed Decadron and Remdesivir Patient was not a candidate for baricitinib per ID Will continue to wean off oxygen 2. Panic attacks, generalized anxiety disorder, likely situational but persistent Patient is on Ativan as needed and nightly Continue on Zoloft 3. Hypothyroidism, continue levothyroxine 4. CKD stage II, stable 5. Marked debility related to Acute Covid infection Awaiting SNF placement when oxygen levels are acceptable 6. ARYAN, on nocturnal supplemental oxygen 7. Moderate malnutrition, secondary to acute illness. Dietitian consulted, on supplements Charges/Coding Visit Charges Inpatient E&M: 82740 Subs Hosp L2
[2021-09-22] MEDS: Enoxaparin 40 MG/0.4 ML Syringe SC ×2 (09:55→21:32)
[2021-09-22] MEDS: dilTIAZem CD 120 MG Capsule PO ×2 (09:55→21:31)
[2021-09-22] MEDS: Sodium Chloride 0.65% 1 SPRAY SPRAY.BTL 2 SPRAY NASAL ×2 (09:56→21:32)
[2021-09-22] MEDS: Ipratropium/Albuterol Sulfate 3 ML AMPUL.NEB INHALATION ×3 (11:06→19:23)
[2021-09-22] MEDS: Insulin Lispro 100 UNIT/ML INSULN.PEN SC ×2 (13:08→21:35)
[2021-09-22] MEDS: Sertraline 50 MG Tablet 25 MG PO (13:17)
[2021-09-22 14:10] LABS: Bedside Glucose 170 mg/dL (70-110)
[2021-09-22] MEDS: LORazepam 1 MG Tablet PO ×2 (17:52→21:31)
[2021-09-22 18:30] LABS: Bedside Glucose 129 mg/dL (70-110)
[2021-09-22 23:10] LABS: Bedside Glucose 246 mg/dL (70-110)
--- NOTE | 2021-09-22 23:55 | CPS ---
pt refused bipap tonight
[2021-09-23] VITALS (15 sets, daily range): BP systolic 110–136; BP diastolic 67–81; PULSE 79–97; RESP 16–18; TEMP 36.2–36.7; O2SAT 87–98
--- NOTE | 2021-09-23 00:01 | NURSING ---
Addendum entered by Sanna Anders 09/23/21 01:37: Patient requested for bipap to be off at this time. Original Note: Bipap on patient at this time no concerns voiced O2 45%. Call light within reach
[2021-09-23 06:56] LABS: Bedside Glucose 123 mg/dL (70-110)
--- NOTE | 2021-09-23 10:14 | PCM.PN.HOSP ---
Subjective Subjective Follow-up on acute respiratory failure/acute COVID-19 pneumonia: Patient remains on 6 L of oxygen. Not ambulating much out of bed or chair. Unable to say what she would require on ambulation Objective Data Objective Data Vital Signs: Vital Signs Temp Pulse Resp BP Pulse Ox 98.1 F 79 18 110/67 94 09/23/21 03:20 09/23/21 06:53 09/23/21 03:20 09/23/21 03:20 09/23/21 08:35 Oxygen Flow Rate (L/min) 5.5 Oxygen Delivery Method Nasal Cannula Weight: 97.3 kg Body Mass Index (BMI) 41.1 Intake & Output: Intake and Output for Last 24 Hours 09/21/21 09/22/21 09/23/21 23:59 23:59 23:59 Intake Total 800 / 800 Output Total 800 / 1050 1625 / 1625 Balance -800 / -930 -825 / -825 Medical Nutrition Assessment Dietitian: Malnutrition Criteria Met Start: 09/14/21 14:38 Freq: Status: Active Protocol: Document 09/18/21 13:49 AG (Rec: 09/18/21 13:49 AG [id number]) Nutrition Malnutrition Evidence of Malnutrition Exists Yes Malnutrition (moderate): Acute Illness/Injury Evidenced By Suboptimal Energy Intake ( Moderate),Weight Loss ( Moderate) Intake Problem Inadequate Oral Intake Etiology related to respiratory failure , increased energy needs w/ acute illness Signs/Symptoms as evidenced by estimated PO intake meeting ~<50-75% of estimated nutritional needs x 4 weeks Status Active Problem Clinical Problem Acute Disease or Injury Related Malnutrition Etiology moderate, acute malnutrition r /t inadequate energy intake w/ increased energy needs d/t acute illness Signs/Symptoms as evidenced by unintentional wt loss of 14.3kg/13% x 1 month; estimated PO intake meeting <75% of estimated nutritional needs >1 week Status Active Problem Recommendation Dietitian Recommendations/Changes Will continue Carbohydrate- Controlled diet and 120 ml glucerna shake w/ meals for increased nutrition if consumed Lab / Micro Data Result Diagrams: 09/22/21 06:35 09/22/21 06:35 Labs: Laboratory Results - last 24 hr 09/22/21 13:06: POC Glucose 170 H 09/22/21 17:34: POC Glucose 129 H 09/22/21 21:35: POC Glucose 246 H 09/23/21 06:24: POC Glucose 123 H Micro: Microbiology 08/19/21 11:50 Urine, Clean Catch Legionella Antigen - Final 08/19/21 11:50 Urine, Clean Catch Streptococcus pneumoniae Antigen (M - Final 08/10/21 16:30 Nasal Secretion SARS-CoV-2 Antigen (Rapid) - Final SARS-CoV-2 (COVID 19) Physical Exam Narrative Physical exam: General: Alert, Oriented x3, Cooperative, appears frail, not in distress, on 6 L of oxygen HEENT: Atraumatic Oral: Moist Mucosa Neck: Supple Lungs: Diminished to auscultation Cardiovascular: HS I+II, regular, no murmurs Abdomen: Bowel Sounds Present, Soft, Non Tender Extremities: Bilateral leg edema +1 Assessment & Plan Assessment/Plan (1) Acute respiratory failure with hypoxia: (2) COVID-19: PLAN: 1. Acute hypoxic respiratory failure secondary to Acute COVID-19 pneumonia, slowly improved Remains on 6 L of oxygen/Ventimask. Patient has completed Decadron and Remdesivir Patient was not a candidate for baricitinib per ID Will continue to wean off oxygen 2. Panic attacks, generalized anxiety disorder, likely situational but persistent Patient is on Ativan as needed and nightly Continue on Zoloft( newly started) 3. Hypothyroidism, continue levothyroxine 4. CKD stage II, stable 5. Marked debility related to Acute Covid infection Awaiting SNF placement when oxygen levels are acceptable 6. ARYAN, on nocturnal supplemental oxygen 7. Moderate malnutrition, secondary to acute illness. Dietitian consulted, on supplements Charges/Coding Visit Charges Inpatient E&M: 10969 Subs Hosp L2
[2021-09-23] MEDS: dilTIAZem CD 120 MG Capsule PO ×2 (10:27→22:24)
[2021-09-23] MEDS: Sertraline 50 MG Tablet 25 MG PO (10:27)
[2021-09-23] MEDS: Enoxaparin 40 MG/0.4 ML Syringe SC ×2 (10:28→22:24)
[2021-09-23] MEDS: Sodium Chloride 0.65% 1 SPRAY SPRAY.BTL 2 SPRAY NASAL ×3 (10:29→22:26)
[2021-09-23] MEDS: Ipratropium/Albuterol Sulfate 3 ML AMPUL.NEB INHALATION ×3 (10:56→19:42)
[2021-09-23] MEDS: Insulin Lispro 100 UNIT/ML INSULN.PEN SC (12:33)
[2021-09-23 12:35] LABS: Bedside Glucose 159 mg/dL (70-110)
--- NOTE | 2021-09-23 15:52 | CPS ---
PT INCREASED TO 6 LPM. SATURATION 90%. PT REFUSED AEROSOL RX SO SHE COULD EAT LUNCH. PT WAS INFORMED HER NEXT RX WOULD BE TONIGHT AT 7PM. NURSE AWARE
[2021-09-23 16:55] LABS: Bedside Glucose 127 mg/dL (70-110)
[2021-09-23] MEDS: LORazepam 1 MG Tablet PO (22:24)
[2021-09-23 22:35] LABS: Bedside Glucose 124 mg/dL (70-110)
--- NOTE | 2021-09-23 23:46 | CPS ---
PT DECLINED BIPAP AGAIN TONIGHT
[2021-09-24] VITALS (15 sets, daily range): BP systolic 111–122; BP diastolic 59–75; PULSE 74–98; RESP 16–20; TEMP 36.2–36.6; O2SAT 73–100
[2021-09-24 06:36] LABS: Bedside Glucose 99 mg/dL (70-110)
[2021-09-24] MEDS: Ipratropium/Albuterol Sulfate 3 ML AMPUL.NEB INHALATION ×3 (06:59→18:28)
[2021-09-24] MEDS: Acetaminophen 325 MG Tablet 650 MG PO (10:24)
[2021-09-24] MEDS: LORazepam 1 MG Tablet PO ×2 (10:25→22:28)
[2021-09-24] MEDS: Sertraline 50 MG Tablet 25 MG PO (10:26)
[2021-09-24] MEDS: dilTIAZem CD 120 MG Capsule PO ×2 (10:26→22:28)
[2021-09-24] MEDS: Enoxaparin 40 MG/0.4 ML Syringe SC ×2 (10:29→22:29)
[2021-09-24] MEDS: Sodium Chloride 0.65% 1 SPRAY SPRAY.BTL 2 SPRAY NASAL ×2 (10:30→22:29)
[2021-09-24] MEDS: Insulin Lispro 100 UNIT/ML INSULN.PEN SC (11:26)
[2021-09-24 11:50] LABS: Bedside Glucose 178 mg/dL (70-110)
--- NOTE | 2021-09-24 12:18 | CASEMGMT ---
SW received a voice mail Friday at 1653 from [facility] stating they are not able to accept patient due to staffing issues. SW spoke with patient this am letting patient know that [facility] is unable to accept her due to staffing issues. SW spoke with her about another choice and she did not know. SW went through the [facility] list with patient and answered questions. Patient was open to a referral being made to [facility]. Patient did ask SW to call her son. SW called patient's son Gerald and updated him on [facility]'s denial. LYNETTE let Gerald know about [facility] declining patient. Gerald asked about the facilities SW talked about prior, that have Respiratory therapy on board. LYNETTE let Gerald know [facility] in [place] but they are full and [facility] in [place]. [facility] was another facility, but unfortunately it is not in network with patient's insurance. LYNETTE let Gerald know that in order to get insurance to do a 1 time contract with out of network facilities LYNETTE has to show 5 in network nursing homes that have denied patient. Gerald is on his way to [facility] and will talk with patient. Stephanie Jennings CIVIL GEOTECHNICAL ENGINEER NACHO
--- NOTE | 2021-09-24 13:05 | CASEMGMT ---
LYNETTE received a call from [facility]. He and patient would like a referral sent to [facility]. LYNETTE faxed referral and also called Maite regarding referral. Stephanie Jennings MSW NACHO
--- NOTE | 2021-09-24 13:45 | CASEMGMT ---
LYNETTE received a call from Maite with [facility] and they can accept patient. Maite started the pre-cert. LYNETTE let patient and Gerald know that [facility] can accept her. LYNETTE explained that insurance will have to approve before we discharge to [facility]. LYNETTE explained this could be a day or 2. Gerald asked if insurance approved tomorrow would patient be discharged. LYNETTE told him yes, unless something changes medically. Patient wanted more information on [facility]. LYNETTE gave patient a pamphlet on [facility] at [place]. Plan: [facility] pending insurance approval. Stephanie Jennings ACCOUNTING MACHINE SERVICER NACHO
--- NOTE | 2021-09-24 13:46 | CPS ---
pt refused aerosol rx at this time due to nausea
--- NOTE | 2021-09-24 15:06 | PN.HOSP_ITS ---
Subjective Subjective Patient seen and examined. She was upset because she said seeing PT OT had induced a panic attack. Her breathing was stable and she had no other complaints. Review of systems otherwise negative. Objective Data Objective Data Vital Signs: Vital Signs Temp Pulse Resp BP Pulse Ox 97.6 F L 98 16 115/68 95 09/24/21 09:57 09/24/21 10:11 09/24/21 10:11 09/24/21 09:57 09/24/21 15:01 Oxygen Flow Rate (L/min) 4 Oxygen Delivery Method Nasal Cannula Weight: 219 lb 5.759 oz Body Mass Index (BMI) 41.1 Intake & Output: Intake and Output for Last 24 Hours 09/22/21 09/23/21 09/24/21 23:59 23:59 23:59 Intake Total 800 / 800 1095 / 1095 480 / 480 Output Total 1625 / 1625 675 / 675 130 / 130 Balance -825 / -825 420 / 420 350 / 350 Medical Nutrition Assessment Dietitian: Malnutrition Criteria Met Start: 09/14/21 14:38 Freq: Status: Active Protocol: Document 09/18/21 13:49 AG (Rec: 09/18/21 13:49 AG [id number]) Nutrition Malnutrition Evidence of Malnutrition Exists Yes Malnutrition (moderate): Acute Illness/Injury Evidenced By Suboptimal Energy Intake ( Moderate),Weight Loss ( Moderate) Intake Problem Inadequate Oral Intake Etiology related to respiratory failure , increased energy needs w/ acute illness Signs/Symptoms as evidenced by estimated PO intake meeting ~<50-75% of estimated nutritional needs x 4 weeks Status Active Problem Clinical Problem Acute Disease or Injury Related Malnutrition Etiology moderate, acute malnutrition r /t inadequate energy intake w/ increased energy needs d/t acute illness Signs/Symptoms as evidenced by unintentional wt loss of 14.3kg/13% x 1 month; estimated PO intake meeting <75% of estimated nutritional needs >1 week Status Active Problem Recommendation Dietitian Recommendations/Changes Will continue Carbohydrate- Controlled diet and 120 ml glucerna shake w/ meals for increased nutrition if consumed Lab / Micro Data Result Diagrams: 09/22/21 06:35 09/22/21 06:35 Labs: Laboratory Results - last 24 hr 09/23/21 16:49: POC Glucose 127 H 09/23/21 22:22: POC Glucose 124 H 09/24/21 06:29: POC Glucose 99 09/24/21 11:24: POC Glucose 178 H Micro: Microbiology 08/19/21 11:50 Urine, Clean Catch Legionella Antigen - Final 08/19/21 11:50 Urine, Clean Catch Streptococcus pneumoniae Antigen (M - Final 08/10/21 16:30 Nasal Secretion SARS-CoV-2 Antigen (Rapid) - Final SARS-CoV-2 (COVID 19) Physical Exam Const alert, oriented x3 and no apparent distress Exam Limitations: no limitations HEENT head/scalp atraumatic, moist oral mucous membranes and oropharynx normal Head and Scalp: normocephalic Eyes PERRL and EOMs intact bilaterally Resp Resp Narrative: diminished breath sounds bibasally, no wheezes, no crackles. On 4L of oxygen. Cardio regular rate, regular rhythm, S1 normal heart sound, S2 normal heart sound and no murmurs GI normal to inspection, nondistended, normoactive bowel sounds, soft to palpation, non-tender and non-distended Extremity normal to inspection, full ROM and no clubbing, cyanosis or edema Peripheral Pulses: Yes pulses 2+ throughout Skin no rashes or lesions noted Neuro oriented x3, CN's II-XII intact bilaterally and moves all extremities Sensorium / Orientation: awake and alert Psych affect normal Assessment & Plan Assessment/Plan (1) Acute respiratory failure with hypoxia: (2) COVID-19: PLAN: #Acute hypoxic respiratory failure due to COVID 19 pneumonia * now on 4L of oxygen * completed a course of decadron and remdesivir; not a candidate for baricitinib, per ID * titrate oxygen to maintain sats >90% * breathing treatment with bronchodilators * #Generalised anxiety disorder * Patient claims that her anxiety and panic attacks induced by seen and working with PT OT. Patient actually even threatened a lawsuit against PT OT today because they induced her anxiety attacks. I calmly explained to patient that PT OT were very critical in helping her improve her physical activity and so it was imperative that she cooperated with PT OT. * Fall precautions * On Zoloft and Ativan * #Hypothyroidism: On Synthroid #CKD stage II: Stable #Debility due to COVID-19 infection: Awaiting placement. PT OT on board. #Moderate malnutrition: * Due to decreased intake and extra decreased energy requirements from acute illness. * Management as per dietitian * #ARYAN: on CPAP qhs. DVT prophylaxis: Lovenox 40 mg twice daily Disposition: awaiting placement Charges/Coding Visit Charges Inpatient E&M: 07105 Subs Hosp L2
[2021-09-24 17:40] LABS: Bedside Glucose 121 mg/dL (70-110)
[2021-09-24 22:46] LABS: Bedside Glucose 123 mg/dL (70-110)
--- NOTE | 2021-09-24 23:14 | CPS ---
Patient would not like to wear the BiPAP tonight.
[2021-09-25] VITALS (9 sets, daily range): BP systolic 104–112; BP diastolic 64–84; PULSE 79–99; RESP 18–20; TEMP 36.5–36.6; O2SAT 94–98
[2021-09-25 06:30] LABS: Bedside Glucose 126 mg/dL (70-110)
[2021-09-25] MEDS: Ipratropium/Albuterol Sulfate 3 ML AMPUL.NEB INHALATION ×3 (06:39→14:00)
--- NOTE | 2021-09-25 07:15 | CASEMGMT ---
LEXI LOGAN (late entry for 09/24/21) Contact information received from [facility] Therapeutic Assistant: [facility], . [facility] will be following patient through SNF level of care. Request made to [facility] to facilitate precert with [facility] for SNF LOC. Clara Guzmán RN CM
[2021-09-25] MEDS: Sodium Chloride 0.65% 1 SPRAY SPRAY.BTL 2 SPRAY NASAL (10:23)
[2021-09-25] MEDS: dilTIAZem CD 120 MG Capsule PO (10:24)
[2021-09-25] MEDS: Sertraline 50 MG Tablet 25 MG PO (10:24)
[2021-09-25] MEDS: Enoxaparin 40 MG/0.4 ML Syringe SC (10:28)
[2021-09-25 12:10] LABS: Bedside Glucose 139 mg/dL (70-110)
--- NOTE | 2021-09-25 13:11 | CASEMGMT ---
LYNETTE received a call from Maite at [facility] and patient was approved. LYNETTE notified physician, RN, and studio operations engineer in charge. LYNETTE called patient's son Gerald and notified him that patient was approved and will go today. Gerald asked about visitation. LYNETTE let Gerald know that [facility] indicated patient will have to quarantine for 14 days. LYNETTE explained this means patient will have to stay in her room. Patient will still get therapy etc. LYNETTE let Gerald know that during the quarantine when he wants to visit [place] will need to be notified when he will be coming. LYNETTE also let Gerald know that patient will be able to wear regular clothes. LYNETTE will keep them updated when LYNETTE has more information. Plan: d/c to [facility] under skilled level of care. Stephanie GRIFFITH
--- NOTE | 2021-09-25 14:56 | PCM.DC.SUM ---
Providers Date of Admission: 08/10/21 Primary Care Physician: Dr. Meghan Murphy MD Consultations 08/10/21 21:24 Consult: Guest Service Agent / Pulmonary Medicine Routine Consulting Provider: Pulmonary Medicine ryan Paolo Reason for Consult: covid EMERGENT Consult: No Notified: Yes Date Notified: 08/10/21 Time Notified: 20:41 Method of Notification: Text 08/14/21 09:48 Consult: Infectious Disease Routine Consulting Provider: Madi Cesar Reason for Consult: covid EMERGENT Consult: No Notified: Yes Date Notified: 08/14/21 Time Notified: 09:48 Method of Notification: Verbal Reason For Visit: SARS COV-2 Diagnosis Discharge Diagnosis (1) Acute respiratory failure with hypoxia: Status: Acute Code(s): J96.01 - Acute respiratory failure with hypoxia (2) COVID-19: Status: Acute Code(s): U07.1 - COVID-19 Medications at Discharge Home Medications azelastine 2 spray NASAL DAILY PRN 02/21/17 fluticasone propion-salmeterol [Advair Diskus] 1 ea IH BID PRN 02/21/17 levothyroxine 125 mcg PO DAILY 02/21/17 fluticasone propionate 2 spray INTRANASAL DAILY 03/26/21 cholecalciferol (vitamin D3) [Vitamin D3] 125 mcg PO DAILY 08/11/21 diltiazem HCl [Cardizem CD] 120 mg PO DAILY #30 cap 09/25/21 metformin 500 mg PO BID #60 tab 09/25/21 Hospital Course Operations None Procedures None Summary of Care Provided Minutes Spent on Discharge: 50 Hospital Course: Patient is a 70-year-old female who was admitted through the ED on 08/10/2021 with a complaint of shortness of breath which have been going on for about 3 weeks prior to admission and had worsened over the last week prior to admission. She had asthma at baseline. She denied any sputum production and had associated decreased sense of smell and decreased taste as well as decreased appetite. Patient had not received her Covid vaccination. She had a rapid Covid swab test done that was positive. Lactic acid was also mildly elevated at 2.3 and D-dimer was elevated at 10.97. CTA of the chest was done was negative for PE. Chest x-ray was done and showed patchy bilateral infiltrates. She was started on Decadron and admitted to be managed for COVID-19 pneumonia. Patient was initially reluctant to take remdesivir. However due to delayed presentation, she did not even qualify for remdesivir treatment. She was started on Decadron and was subsequently put on airfvo. She was also on intermittent diuretics to help with diuresis and maintain an euvolemic state. JK inhibitor therapy was not felt to be indicated per infectious disease. Patient subsequently required BiPAP on account of worsening respiratory status. She was subsequently started on empiric antimicrobials on account of worsening respiratory status. She did complete a 10-day course of Decadron. She Completed a 7-day course of antimicrobials. Hospital course was complicated by epistasis which required placement of Rhino Rocket, which patient didnt tolerate, and subsequently removed. Epistasis was thought to be due to Lovenox and so this was discontinued. Patient had a prolonged hospital stay which was also complicated by encephalopathy which subsequently resolved. Due to patient's high oxygen requirements, she could not be discharged home and she was also debilitated. Patient finally received pre-CERT on 09/25/2021 and was discharged to her care home. She is to follow-up with her primary care doctor. Of note, patient also had moderate malnutrition due to decreased intake from acute illness as well as increased energy demands during acute illness. Dietitian was consulted and patient was placed on supplementary ui software developer as per Dietitian recommendation. Of note, patient's hospital stay was complicated by sinus tachycardia for which she was started on Cardizem. Patient was therefore continued on Cardizem at time of discharge and primary care doctor to determine whether this should be stopped subsequently otherwise. Patient was seen and examined prior to discharge. She had no active complaints. Review of systems otherwise negative. Labs and vitals reviewed. Home medication reviewed and reconciled. Physical Exam Const alert, oriented x3 and no apparent distress General Appearance: cooperative and comfortable Orientation / Consciousness: awake, oriented to person, oriented to place and oriented to time Exam Limitations: no limitations Nutritional Appearance: morbidly obese HEENT normocephalic, head/scalp atraumatic, hearing grossly normal bilaterally, moist oral mucous membranes and oropharynx normal Eyes PERRL, EOMs intact bilaterally and conjunctivae normal Neck no lymphadenopathy, supple, no JVD and no carotid bruits Resp normal respiratory effort, no retractions, no use of accessory muscles and clear to auscultation bilaterally Resp Narrative: diminished breath sounds bibasally, no wheezes, no crackles. On 4L of oxygen. Auscultation: diminished lung sounds; Negative for crackles, rales, rhonchi or wheezes Cardio regular rate, regular rhythm, S1 normal heart sound, S2 normal heart sound, no murmurs, no rub, no gallops, no clicks and no JVD Peripheral Pulses: pulses 2+ throughout GI normal to inspection, nondistended, normoactive bowel sounds, soft to palpation, non-tender and non-distended; Negative for hepatosplenomegaly Extremity normal to inspection, full ROM and no clubbing, cyanosis or edema Skin no rashes or lesions noted, no wounds, skin turgor normal, no jaundice, no petechiae and no mottling Lesions: no lesions Rashes: no rashes Trauma: no lacerations or abrasions Neuro oriented x3, CN's II-XII intact bilaterally, moves all extremities and deep tendon reflexes 2+ bilaterally Sensorium / Orientation: awake and alert Speech: speech normal Psych mental status grossly normal and affect normal Appearance: appropriate Mood & Affect: anxious and flat affect Medical Records Data Medical Nutrition Assessment Dietitian: Malnutrition Criteria Met Start: 09/14/21 14:38 Freq: Status: Active Protocol: Document 09/18/21 13:49 (Rec: 09/18/21 13:49 [id number]) Nutrition Malnutrition Evidence of Malnutrition Exists Yes Malnutrition (moderate): Acute Illness/Injury Evidenced By Suboptimal Energy Intake ( Moderate),Weight Loss ( Moderate) Intake Problem Inadequate Oral Intake Etiology related to respiratory failure , increased energy needs w/ acute illness Signs/Symptoms as evidenced by estimated PO intake meeting ~<50-75% of estimated nutritional needs x 4 weeks Status Active Problem Clinical Problem Acute Disease or Injury Related Malnutrition Etiology moderate, acute malnutrition r /t inadequate energy intake w/ increased energy needs d/t acute illness Signs/Symptoms as evidenced by unintentional wt loss of 14.3kg/13% x 1 month; estimated PO intake meeting <75% of estimated nutritional needs >1 week Status Active Problem Recommendation Dietitian Recommendations/Changes Will continue Carbohydrate- Controlled diet and 120 ml glucerna shake w/ meals for increased nutrition if consumed Weight / BMI Weight Weight: 216 lb 11.43 oz Body Mass Index (BMI) 41.1 ABG / Lab / Microbiology Data Result Diagrams: 09/22/21 06:35 09/22/21 06:35 Laboratory: Laboratory Results - last 24 hr 09/24/21 17:34: POC Glucose 121 H 09/24/21 22:28: POC Glucose 123 H 09/25/21 06:25: POC Glucose 126 H 09/25/21 11:26: POC Glucose 139 H Microbiology: Microbiology 08/19/21 11:50 Urine, Clean Catch Legionella Antigen - Final 08/19/21 11:50 Urine, Clean Catch Streptococcus pneumoniae Antigen (M - Final 08/10/21 16:30 Nasal Secretion SARS-CoV-2 Antigen (Rapid) - Final SARS-CoV-2 (COVID 19) D/C Instructions Discharge Diet: Low fat / Low cholesterol Discharge Activity: Return to Normal Activity Weight Bearing Status: Weight bearing as tolerated Call your doctor if you observe: Fever of 101 or Higher, Shortness of breath, Dizziness, Swelling in the ankles, Chest pain, Increased palpitations (irregular heartbeat) and Calf discomfort Meaningful Use Info Meaningful Use Diagnoses (Choose all that apply): None applicable Discharge Plan Admission Admit Date/Time: 08/10/21 19:24 Primary Reason for Your Visit: acute hypoxic respiratory failure due to covid pneumonia Attending Provider: Molly Freed Primary Care Provider: Meghan Murphy Consulting Providers: Nahun Jackson ; Shalom Cruz ; Ana Paula Aguirre NP ; Madi Cesar Discharge Orders/Prescriptions Prescriptions: New metformin 500 mg tablet 500 mg PO BID Qty: 60 RF: 1 diltiazem HCl [Cardizem CD] 120 mg capsule,extended release 24hr 120 mg PO DAILY Qty: 30 RF: 0 Continued levothyroxine 100 MCG tablet 125 mcg PO DAILY RF: 0 azelastine 1 SPRAY aerosol,spray 2 spray NASAL DAILY PRN (Reason: Sinus Symptoms) RF: 0 fluticasone propion-salmeterol [Advair Diskus] 1 EACH blister with device 1 ea IH BID PRN (Reason: Shortness Of Breath) RF: 0 fluticasone propionate 50 mcg/actuation spray,suspension 2 spray INTRANASAL DAILY RF: 0 cholecalciferol (vitamin D3) [Vitamin D3] 125 mcg (5,000 unit) Tablet 125 mcg PO DAILY RF: 0 Referrals / Follow Up: Meghan Murphy MD [Primary Care Provider] - Within 2 Weeks Disposition Disposition (needs filled in before D/C Order can be placed): [facility] Charges/Coding Visit Charges Inpatient E&M: 83035 Disch Hosp
--- NOTE | 2021-09-25 15:14 | TREXTCAR_ITS ---
Diet 08/11/21 09:40 Diet: Carbohydrate Controlled Food consistency:: Regular Liquid Consistency:: Regular/Thin Type of Dietary Supplement:: Glucerna Shake Is pt able to select menu?: Yes Diet Comments: 120 ml glucerna shake w/ meals - vanilla Problem/Diagnosis (1) Acute respiratory failure with hypoxia: Status: Acute (2) COVID-19: Status: Acute Allergies/Procedures Done in Hospital Allergies budesonide [From Symbicort] Allergy (Verified 08/10/21 15:30) Other formoterol fumarate [From Symbicort] Allergy (Verified 08/10/21 15:30) Other strawberry Allergy (Verified 08/10/21 15:30) Rash MOLD Allergy (Intermediate, Uncoded 08/10/21 15:30) Other Type of Care/Length of Stay Estimated LOS: Convalescent Care Less Than 30 days Type of Care Needed: Skilled Rehab Potential: Fair Prognosis: Good Additional Orders/Day of Discharge Day of Discharge: 09/25/21 Dietary and Speech Recommendations Dietitian Recommendations/Changes: Will continue Carbohydrate-Controlled diet and 120 ml glucerna shake w/ meals for increased nutrition if consumed Discharge Plan Admission Admit Date/Time: 08/10/21 19:24 Primary Reason for Your Visit: acute hypoxic respiratory failure due to covid pneumonia Attending Provider: Molly Freed Primary Care Provider: Meghan Murphy Consulting Providers: Nahun Jackson ; Shalom Cruz ; Ana Paula Aguirre NP ; Madi Cesar Discharge Orders/Prescriptions Prescriptions: New metformin 500 mg tablet 500 mg PO BID Qty: 60 RF: 1 diltiazem HCl [Cardizem CD] 120 mg capsule,extended release 24hr 120 mg PO DAILY Qty: 30 RF: 0 Continued levothyroxine 100 MCG tablet 125 mcg PO DAILY RF: 0 azelastine 1 SPRAY aerosol,spray 2 spray NASAL DAILY PRN (Reason: Sinus Symptoms) RF: 0 fluticasone propion-salmeterol [Advair Diskus] 1 EACH blister with device 1 ea IH BID PRN (Reason: Shortness Of Breath) RF: 0 fluticasone propionate 50 mcg/actuation spray,suspension 2 spray INTRANASAL DAILY RF: 0 cholecalciferol (vitamin D3) [Vitamin D3] 125 mcg (5,000 unit) Tablet 125 mcg PO DAILY RF: 0 Referrals / Follow Up: Meghan Murphy MD [Primary Care Provider] - Within 2 Weeks Disposition Disposition (needs filled in before D/C Order can be placed): [facility]
--- NOTE | 2021-09-25 15:44 | PHA.DC.MR ---
Pharmacy Service has performed discharge medication reconciliation for this patient. The patient's discharge medication list was reviewed for discrepancies and discrepancies were resolved. Home Medications azelastine 2 spray NASAL DAILY PRN 02/21/17 fluticasone propion-salmeterol [Advair Diskus] 1 ea IH BID PRN 02/21/17 levothyroxine 125 mcg PO DAILY 02/21/17 fluticasone propionate 2 spray INTRANASAL DAILY 03/26/21 cholecalciferol (vitamin D3) [Vitamin D3] 125 mcg PO DAILY 08/11/21 diltiazem HCl [Cardizem CD] 120 mg PO DAILY #30 cap 09/25/21 metformin 500 mg PO BID #60 tab 09/25/21
--- NOTE | 2021-09-25 15:44 | CASEMGMT ---
SW spoke with patient for a little while. Patient is nervous about leaving and going some place different. SW listened and provided emotional support. LYNETTE arranged for patient to get picked up at 5p via cot. LYNETTE notified RN and pocket secretary assembler. LYNETTE completed 7000 on HENS. LYNETTE faxed orders to [facility] and Maddie Lehman at [facility]. LYNETTE called patient's son Gerald and left a voice mail letting him know patient will get picked up at 5p. RN notified patient. LYNETTE called Maite at [facility] and notifed her as well. Plan: d/c to [facility] at [facility] under skilled level of care on a convalescent stay. [facility] will transport patient via cot. Stephanie Jennings TECHNICIAN TELECOMMUNICATION SYSTEMS NACHO
--- NOTE | 2021-09-25 16:02 | NURSING ---
Addendum entered by Kady Cedillo 09/25/21 16:36: This RN called report to [facility], given to Iliana Original Note: called report to [facility], report given to Kaity, transportation to be here at 1700.
== END 2021-09-25 17:58 | disposition skilled nursing facility (03) | DRG 177 ==
LOC: ED 19:15 → ICU 19:55 → PCU 08-16 21:33
PROVIDERS: Family Medicine; Internal Medicine; Internal Medicine Critical Care Medicine; Nurse Practitioner Family; Admitting Provider Hospitalist; Emergency Provider Emergency Medicine; PCP Internal Medicine; Visit Provider Student in an Organized Health Care Education/Training Program
DX: U07.1 COVID-19 (principal); J12.82 Pneumonia due to coronavirus disease 2019; J96.01 Acute respiratory failure with hypoxia; G93.41 Metabolic encephalopathy; N17.9 Acute kidney failure, unspecified; E44.0 Moderate protein-calorie malnutrition; D68.32 Hemorrhagic disorder due to extrinsic circulating anticoagulants; J44.0 Chronic obstructive pulmonary disease with (acute) lower respiratory infection; Z68.41 Body mass index [BMI] 40.0-44.9, adult; E87.2 Acidosis; I82.461 Acute embolism and thrombosis of right calf muscular vein; E11.65 Type 2 diabetes mellitus with hyperglycemia; T38.0X5A Adverse effect of glucocorticoids and synthetic analogues, initial encounter; I95.89 Other hypotension; R32 Unspecified urinary incontinence; R04.0 Epistaxis; T45.515A Adverse effect of anticoagulants, initial encounter; Y92.239 Unspecified place in hospital as the place of occurrence of the external cause; R00.0 Tachycardia, unspecified; F41.0 Panic disorder [episodic paroxysmal anxiety]; F41.1 Generalized anxiety disorder; E11.22 Type 2 diabetes mellitus with diabetic chronic kidney disease; N18.2 Chronic kidney disease, stage 2 (mild); Z91.19 Patient's noncompliance with other medical treatment and regimen; E89.0 Postprocedural hypothyroidism; E55.9 Vitamin D deficiency, unspecified; G47.33 Obstructive sleep apnea (adult) (pediatric); F32.A Depression, unspecified; E66.01 Morbid (severe) obesity due to excess calories; Z79.84 Long term (current) use of oral hypoglycemic drugs; Z79.890 Hormone replacement therapy; Z79.899 Other long term (current) drug therapy; J45.20 Mild intermittent asthma, uncomplicated; Z66 Do not resuscitate
CPT/HCPCS: 36415; 71045; 71275; 80048; 80053; 82962; 83036; 83605; 83735; 83880; 84100; 84145; 84484; 85025; 85027; 85379; 85384; 86140; 87426; 87449; 87641; 93005; 93970; 94003; 94640; 94660; 94762; 97110; 97163; 97165; 97530; 97535; 97802; 97803; 99251; 99285; J7030; J7050; Q9967; A4216; G0463; J1940

== ENCOUNTER 2022-09-25 16:19 | Outpatient (CLI) | payer MEDICARE, MEDICAID, SELFPAY ==
[2022-09-25 16:53] LABS: Color, Urine Yellow (Yellow); Glucose, Dipstick Normal (Normal); Ketone-Dipstick 5 mg/dl (Negative); Leukocyte Esterase-Dipstick 500 /ul (Negative); Nitrite-Dipstick Negative (Negative); Occult Blood-Urine Negative /ul (Negative); Protein-Dipstick 15 mg/dl (Negative); Urine Bilirubin Dipstick Negative (Negative); Urine Clarity Clear (Clear); Urine Urobilinogen 1 mg/dl (Normal)
== END 2022-09-25 23:59 | disposition home or self-care (01) ==
LOC: LABSPEC 16:27
PROVIDERS: PCP Internal Medicine; Visit Provider Internal Medicine
DX: R82.90 Unspecified abnormal findings in urine (principal)
CPT/HCPCS: 81002; 87086; 87088

== ENCOUNTER 2024-06-11 11:51 | Outpatient (RCR) | payer MEDICARE, MEDICAID, SELFPAY ==
--- NOTE | 2024-06-11 13:01 | HP.PTEVAL ---
Patient's Visit Information Visit Information Visit Information: SONNY BOOTH is a 73 year old F referred to Physical Therapy by Dr. Meghan Murphy MD with a diagnosis of PRIMARY OA MULTIPLE ,GENERALIZED WEAKNESS ,COPD. Date of Evaluation: 06/11/24 Physical Therapist: Jeovany Nguyễn, PT, Cert MDT, OCS Visit Plan Frequency: 1 visit Plan: This patient will benefit from PMD due to unable to walk or transfer needing sliding board ,weakness BUE /LE ,pain in back ,02 2.5 L02 with SPO2 96%,poor endurance as well as comorbities. , Patient has difficulty to propel manual w/c due to endurance and weakness in arm. Patient is unable to ambulate with FWW. PMD will significantly improve patient ability to participate in MRADL's and will be using PMD in home .Patient has the mental and physical capabilities to safely operate a power WC. PMD will improve patient improve functional independence Subjective Subjective: This 73 y/o female presents to physical therapy with with w/c evaluation. Patient is needing power w/c to maintain functional independence. Patient has multiple comorbities to included kidney failure COVID 2020 and had extensive hospital stay . Patient currently has manual w/c needs to assist to propel w/c due to weakness and poor endurance. Patient is currently on 3 L02 . Patient will be going to [employer] 1 x week. Patient lives with son. Condo level entrance walk in shower and has tub shower set up. Patient currently sponge bath . Patient is I with dressing. Patient unable to walk and uses slide board for transfer . Patient stays in w/c through day at home and DR merary's.. Patient has employment case manager charlie assist with management . Patient states being depressed and becomes emotional .Patient has had prior PT at [facility] and [facility] ~ 1 year ago. Patient condition and unable to stand or walk benefit from power wheelchair. SOCAIL : VOCATION: disability Pain Bilateral Back: Pain Intensity (Out of 10): 7 Pain Intensity Range: 10 Objective Objective: POSTURE: posterior pelvic tilt PALPATION: tender throughout paraspinals /erector NEURO: denies paresthesia/tingling OBSERVATION: 3L02 AROM: BUE grossly WHL AROM: supine knee flexion 0-110 degrees MMT: BUE grossly 4-/5 quads/hams 4-/5 ,hip flexion 3+/5 ,ankle 4/5 MOBILITY: manual w/c needs assist GAIT: non ambulatory TRANSFERS : Sliding board Goals Goal 1:: PMD benefit from PMD to maintain functional independence. Goal Time Frame: 1visit Rehabilitation Potential Physical Therapy Diagnosis: This patient will benefit from PMD due to unable to walk or transfer needing sliding board ,weakness BUE /LE ,pain in back ,02 2.5 L02 with SPO2 96%,poor endurance as well as comorbities. , Patient has difficulty to propel manual w/c due to endurance and weakness in arm. Patient is unable to ambulate with FWW. PMD will significantly improve patient ability to participate in MRADL's and will be using PMD in home .Patient has the mental and physical capabilities to safely operate a power WC. PMD will improve patient improve functional independence Rehabilitation Potential: Fair Anticipated Interventions Patient/Client Instruction: Educate patient on: Condition and Plan of Care For the Purpose of:: Other Other: PMD Text: Thank you for the opportunity to evaluate your patient. For Medicare and Medicare HMO plans, please review the plan of care and approve it. It will need to be FAXED BACK to us at [phone] for Medicare purposes. For Medicare only, by signing this I certify the plan of care. Please let me know if there are questions or concerns regarding this plan of care. Physician Signature: Date:
== END 2024-06-11 19:00 | disposition home or self-care (01) ==
LOC: PT 11:51
PROVIDERS: PCP Internal Medicine; Referring Provider Internal Medicine; Visit Provider Internal Medicine
DX: M15.9 Polyosteoarthritis, unspecified (principal); M62.81 Muscle weakness (generalized); J44.9 Chronic obstructive pulmonary disease, unspecified; Z76.89 Persons encountering health services in other specified circumstances; Z99.3 Dependence on wheelchair
CPT/HCPCS: 97163